=== PATIENT | female | born 1985 | race Caucasian/White ===

== ENCOUNTER 2021-01-03 13:47 | Emergency (ER) | payer OTHER, SELFPAY ==
[2021-01-03 14:25] VITALS: BP 132/86; PULSE 108; RESP 18; TEMP 37.3; O2SAT 97; BMI 24.7
[2021-01-03] MEDS: Ketorolac Tromethamine 60 MG/2 ML VIAL IM (14:53)
--- NOTE | 2021-01-03 15:05 | PC.NURSE ---
PT GIVEN DECADRON PO ORDERED
--- NOTE | 2021-01-03 15:32 | ED_ITS ---
HPI - URI/Sore Throat General Chief Complaint: Upper Respiratory Symptoms Stated Complaint: EAR AND BODY PAINS Time Seen by Provider: 01/03/21 14:32 Source: patient Mode of arrival: ambulatory Limitations: no limitations History of Present Illness HPI Narrative: sore throat, bilateral ear pain x several days. no fevers, chills, body aches. MD elicited complaint: sore throat Onset (ago): day(s) Related Data Previous Rx's Medication Instructions Recorded benzoyl peroxide 5 % topical gel 1 applic TOPICAL DAILY PRN 30 Days 09/05/20 #90 g gabapentin 100 mg capsule 100 mg PO TID #90 cap 09/29/20 amoxicillin 500 mg PO BID 7 Days #140 ml 01/03/21 dexamethasone [Decadron] 4 mg PO BID #10 tab 01/03/21 ibuprofen 800 mg PO Q8H PRN #20 tab 01/03/21 Allergies Allergy/AdvReac Type Severity Reaction Status Date / Time No Known Allergies Allergy Unknown Unverified 08/11/20 16:39 Review of Systems Review of Systems: Yes all other systems are reviewed and are negative Constitutional: Constitutional: Reports no additional constitutional complaints, Denies body ache(s), Denies chills, Denies fever(s), Denies headache(s) and Denies weakness Eyes: Eyes: Reports no additional eye complaints and Denies change in vision ENT: Reports system reviewed and no additional complaints, except as documented, Denies dizziness, Reports otalgia, Denies headache(s), Denies nasal congestion, Denies nasal discharge, Denies neck pain and Reports sore throat Cardiovascular: Cardiovascular: Reports no additional cardiovascular complaints, Denies chest pain, Denies leg edema and Denies dyspnea Respiratory: Respiratory: Reports no additional respiratory complaints, Denies cough and Denies dyspnea Gastrointestinal: Gastrointestinal: Reports no additional gastrointestinal complaints, Denies abdominal pain, Denies diarrhea, Denies nausea and Denies vomiting Genitourinary: Genitourinary: Reports no additional female genitourinary complaints and Denies urinary incontinence Musculoskeletal: Musculoskeletal: Reports no additional musculoskeletal complaints, Denies back pain, Denies arthralgias, Denies joint swelling, Denies neck pain, Denies numbness and Denies tingling Integumentary/Breasts: Skin/Breast: Reports system reviewed and no additional complaints, except as docu and Denies rash Neurologic: Denies Abnormal speech present, Denies dizziness, Denies headache(s), Denies numbness, Denies tingling and Denies weakness PMFSH Past Medical History Attestation statement: The following information was validated with the patient. Source: old records reviewed Social History Social History Alcohol intake: never Smoking Status: Never smoker Use of substances other than those prescribed or required for medical reasons: No Advance Directives: No Advance Directives Information Provided: No Physical Exam Vital Signs: Vital Signs: Last Vital Signs Temp 99.1 F 01/03/21 14:25 Pulse 108 H 01/03/21 14:25 Resp 18 01/03/21 14:25 BP 132/86 01/03/21 14:25 Pulse Ox 97 01/03/21 14:25 Body Mass Index 24.7 Const: General: cooperative, healthy appearing, comfortable and no acute distress Orientation/consciousness: patient oriented x3 Limitations: no limitations HENMT: Head: Yes normal to inspection Ears: hearing grossly normal bilaterally General nose exam: Normal external nose present Face and sinu s: Yes normal facial exam Mouth: Normal oral and palatal mucosa present Throat: Yes tonsils normal (bilateral tonsillar erythema/swelling) and Yes uvula midline Eyes: General: appearance normal, both eyes and all related structures Pupils: Equal, round and reactive pupils present Neck: Neck: Yes normal visual inspection Chest: Chest palpation & inspection: normal inspection of the chest Resp: Effort & Inspection: normal respiratory effort Auscultation: clear to auscultation bilaterally Cardio: Rate: regular rate Rhythm: regular rhythm Peripheral pulses: Peripheral pulses 2+ throughout GI: Inspection: Yes normal to inspection Palpation (GI): Soft to palpation and nontender Auscultation: normal bowel sounds Back/Spine/Pelvis: Thoracic/Lumbar Spine: thoracic and lumbar spine normal to inspection Skin: General skin exam: no rashes or lesions noted Neuro: General: patient oriented x3, no focal motor deficits and normal sensation to monofilament Cranial nerves: Yes Equal, round and reactive pupils present Cognition (Neuro): normal cognition Speech: No Abnormal speech present Gait exam (Neuro): Normal gait present Motor exam (neuro): 5/5 motor strength present throughout Extrem: General: Yes normal to inspection Course Course Course Narrative: Exam is consistent with strep pharyngitis. Rapid strep positive. Patient is able to tolerate her own secretions and was able tolerate her medications here in the emergency department. Will send home with course of amoxicillin. Reviewed worrisome signs and symptoms and when to return to the emergency department. Comfortable discharge home. Discharge Plan Discharge Clinical Impression: Pharyngitis Qualifiers: Pharyngitis/tonsillitis etiology: streptococcus Qualified Code(s): J02.0 - Streptococcal pharyngitis Patient Disposition: Home, Self-Care Instructions: Pharyngitis (ED) Additional Instructions: Your test for strep throat was positive here today. Throw out your toothbrush and buy a new one after 24 hours of antibiotics Prescriptions: New amoxicillin 250 mg/5 mL suspension for reconstitution 500 mg PO BID 7 Days Qty: 140 RF: 0 ibuprofen 800 mg tablet 800 mg PO Q8H PRN (Reason: pain) Qty: 20 RF: 0 dexamethasone [Decadron] 4 mg tablet 4 mg PO BID Qty: 10 RF: 0 No Action benzoyl peroxide 5 % gel 1 applic topical DAILY PRN (Reason: acne) 30 Days Qty: 90 RF: 6 gabapentin 100 mg capsule 100 mg PO TID Qty: 90 RF: 1 Interventions: ED Discharge Assessment Last Done: 01/03/21 15:35 Discharge Date/Time: 01/03/21 15:38
== END 2021-01-03 15:38 | disposition home or self-care (01) ==
PROVIDERS: Emergency Provider Emergency Medicine Emergency Medical Services; PCP Internal Medicine
DX: J02.0 Streptococcal pharyngitis (principal); M79.10 Myalgia, unspecified site; Z79.899 Other long term (current) drug therapy
CPT/HCPCS: 87880; 96372; 96374; 99284; J1100; J1885

== ENCOUNTER 2021-04-10 13:28 | Outpatient (REF) | payer OTHER, SELFPAY ==
[2021-04-10 13:57] LABS: COVID-19 Test Negative (Negative)
== END 2021-04-10 13:29 | disposition home or self-care (01) ==
LOC: HO.LAB 13:28
PROVIDERS: Visit Provider Internal Medicine
DX: Z20.822 Contact with and (suspected) exposure to COVID-19 (principal)
CPT/HCPCS: 36415; 87635; C9803

== ENCOUNTER 2021-07-25 15:39 | Outpatient (REF) | payer OTHER, SELFPAY | END 2021-07-25 15:40 | disposition home or self-care (01) | LOC: HO.LAB 15:39 | PROVIDERS: PCP Internal Medicine; Visit Provider Internal Medicine | DX: Z20.822 Contact with and (suspected) exposure to COVID-19 (principal) | CPT/HCPCS: U0003; U0005 ==

== ENCOUNTER 2021-08-23 17:14 | Emergency (ER) | payer OTHER, SELFPAY ==
[2021-08-23 17:58] VITALS: BP 187/117; PULSE 91; RESP 16; TEMP 37.1; O2SAT 98; BMI 29.0
--- NOTE | 2021-08-23 19:09 | PC.NURSE ---
Provider at bedside for primary eval.
--- NOTE | 2021-08-23 19:15 | ED_ITS ---
HPI - Headache General Chief Complaint: Headache Stated Complaint: migraine Time Seen by Provider: 08/23/21 19:10 Source: patient Limitations: no limitations History of Present Illness HPI Narrative: This is a 35-year-old female who complains of a headache that she has had for 3 or 4 days. She said it is constant, and both temples, improved in the morning but still present, associated with some pain also in her jaw on both sides. Patient has a history of bipolar disorder and had recently restarted sertraline, with increasing doses, also about 4-5 days ago started taking [place]'s Wort. Last dose of that was yesterday. The patient denies any visual changes. She denies any neck stiffness or pain. She denies fever. She denies photophobia. She denies any numbness or tingling in her face or arms or legs. She denies any focal weakness trouble walking. She denies any chest pain shortness of breath. She denies any history of hypertension, and does have a family history of hypertension. Related Data Previous Rx's Medication Instructions Recorded benzoyl peroxide 5 % topical gel 1 applic TOPICAL DAILY PRN 30 Days 09/05/20 #90 g amoxicillin 250 mg/5 mL oral 500 mg PO BID 7 Days #140 ml 01/03/21 suspension dexamethasone 4 mg tablet 4 mg PO BID #10 tab 01/03/21 (Decadron) ibuprofen 800 mg tablet 800 mg PO Q8H PRN #20 tab 01/03/21 quetiapine 25 mg tablet [id number] mg PO BEDTIME #270 tab 02/12/21 albuterol sulfate 90 mcg/actuation 2 puff INHALATION Q6H PRN 30 Days 03/17/21 aerosol inhaler (ProAir HFA) #6.7 g clonidine HCl 0.1 mg tablet 0.1 mg PO BEDTIME 90 Days #90 tab 04/17/21 sertraline 50 mg tablet 50 mg PO DAILY 90 Days #90 tab 05/03/21 gabapentin 300 mg capsule 300 mg PO TID 30 Days #90 cap 06/07/21 diazepam 5 mg tablet (Valium) 5 mg PO TID PRN #10 tab 08/23/21 ibuprofen 600 mg tablet 600 mg PO QID PRN #30 tab 08/23/21 Allergies Allergy/AdvReac Type Severity Reaction Status Date / Time No Known Allergies Allergy Unknown Unverified 08/11/20 16:39 Review of Systems Review of Systems: Yes all other systems are reviewed and are negative Constitutional: Constitutional: Reports as per HPI and Denies fever(s) Eyes: Eyes: Reports as per HPI and Reports no additional eye complaints ENT: Reports system reviewed and no additional complaints, except as documented, Reports as per HPI, Denies nasal congestion, Denies nasal discharge and Denies sore throat Cardiovascular: Cardiovascular: Reports as per HPI, Denies chest pain and Denies dyspnea Respiratory: Respiratory: Reports as per HPI, Denies cough and Denies dyspnea Gastrointestinal: Gastrointestinal: Reports as per HPI, Denies abdominal pain, Denies diarrhea and Denies vomiting Genitourinary: Genitourinary: Reports as per HPI, Denies hematuria, Denies urinary frequency and Denies dysuria Musculoskeletal: Musculoskeletal: Reports no additional musculoskeletal complaints and Denies numbness Integumentary/Breasts: Skin/Breast: Reports as per HPI and Denies rash Neurologic: Reports as per HPI, Denies focal weakness, Denies numbness and Denies Sensory deficit (Neuro) Psychiatric: Psychiatric: Reports no additional psychiatric complaints and Reports as per HPI Endocrine: Endocrine: Reports no additional endocrine complaints and Reports as per HPI Hematologic/Lymphatic: Hematologic/Lymphatic: Reports no additional hematologic/lymphatic complaints, Reports as per HPI and Reports other (No peripheral edema) [facility] Social History Social History Alcohol intake: never Advance Directives: No Advance Directives Information Provided: No Patient : No Physical Exam Vital Signs: Vital Signs: Last Vital Signs Temp 98.7 F 08/23/21 17:58 Pulse 70 08/23/21 20:36 Resp 16 08/23/21 20:36 BP 156/105 H 08/23/21 20:36 Pulse Ox 98 08/23/21 19:22 Body Mass Index 29.0 Const: Other: Patient no distress, appears somewhat restless/hyperkinetic, speech somewhat expansive General: cooperative, no acute distress and alert Orientation/consciousness: patient oriented x3 HENMT: Head: Yes normal to inspection Eyes: General: appearance normal, both eyes and all related structures Eyelids: Yes eyelids normal Conjunctivae: conjunctivae normal Pupils: Equal, round and reactive pupils present Neck: Neck: Yes normal visual inspection and Yes supple Chest: Chest palpation & inspection: normal inspection of the chest Resp: Effort & Inspection: normal respiratory effort Auscultation: clear to auscultation bilaterally Cardio: Rate: regular rate Rhythm: regular rhythm Heart sounds: S1 normal heart sound present, S2 normal heart sound present, no gallops, no murmurs and no rubs GI: Palpation (GI): Soft to palpation, nontender and Other GI palpation findings present (Non-distended) Auscultation: normal bowel sounds Skin: General skin exam: no rashes or lesions noted Neuro: General: patient oriented x3, no focal motor deficits and CN's II-XI intact bilaterally Cranial nerves: Yes Equal, round and reactive pupils present Cognition (Neuro): normal cognition Motor exam (neuro): 5/5 motor strength present throughout Sensory Exam: No Sensory deficit (Neuro) Extrem: General: Yes normal to inspection and Yes no pedal edema Psych: Appearance: grossly normal Affect: normal affect MDM - Headache MDM Narrative Medical decision making narrative: Patient with a headache which she rates as an 8/10 at worst for the last 4 days. Patient is and notes that her last menstrual period was about 6 weeks ago, she believes she only had 1 missed menstrual period. Patient is on sertraline, had recently restarted this, also has been taking [place] Jameson's Wort. Serotonin syndrome secondary to this combination is a possibility. Patient is not tachycardic and her blood pressure has improved with clonidine and Ativan. Her headache is also much better with these medicines, in addition to Toradol. Patient is advised to follow up with primary care physician for recheck of her blood pressure, follow-up with OBGYN regarding her . Patient states that she likely will terminate the . The patient has normal renal function. Potassium is mildly low at 3.1 and she will be given 25 mg once to take prior to discharge Lab Data Result diagrams: 08/23/21 19:47 08/23/21 19:46 Labs: Lab Results 08/23/21 08/23/21 08/23/21 Range/Units 19:46 19:46 19:46 WBC (4.8-10.8) X10*3/uL RBC (4.20-5.50) X10*6/uL Hgb (12.0-16.0) g/dl Hct (37-47) % MCV (80-98) fL MCH (27.0-33.0) pg MCHC (31.0-35.0) g/dl RDW (11.0-16.0) % Plt Count (160-400) X10*3/uL MPV (9.4-12.3) fL Immature Gran % (Auto) (0.0-0.4) % Neut % (Auto) (45-73) % Lymph % (Auto) (20-40) % [place] % (Auto) (2-11) % Eos % (Auto) (0-4) % Baso % (Auto) (0-2) % Lymph # (Auto) (1.2-4.9) X10*3/uL [place] # (Auto) (0.1-1.2) X10*3/uL Eos # (Auto) (0.0-0.4) X10*3/uL Baso # (Auto) (0.0-0.2) X10*3/uL Abs Immat Gran (auto) (0.00-0.03) X10*3/uL Absolute Neuts (auto) (2.0-8.3) X10*3/uL Absolute Nucleated RBC (0.0-0.012) X10*3/uL Nucleated RBC % (auto) (0.0-0.2) /100WBC Sodium 136 (135-145) mmol/L Potassium 3.1 L (3.3-5.1) mmol/L Chloride 107 (96-108) mmol/L Carbon Dioxide 20 L (22-29) mmol/L Anion Gap 12 (12-20) BUN 7 L (9-16) mg/dL Creatinine 0.73 (0.5-1.4) mg/dL Estim Creat Clear Calc 95.2 Estimated GFR > 60 Random Glucose 90 (60-115) mg/dL Calcium 8.6 (8.4-10.2) mg/dL Total Bilirubin < 0.2 (0.0-1.0) mg/dL AST 13 (5-31) U/L ALT 12 (0-31) U/L Alkaline Phosphatase 51 (39-117) U/L Total Protein 7.2 (6.5-8.0) g/dL Albumin 4.1 (3.5-5.0) g/dL Urine Test POSITIVE H (NEGATIVE) Urine Opiates Screen Not Detected (Not Detect) Urine Fentanyl Screen Not Detected (Not Detect) Ur Barbiturates Screen Not Detected (Not Detect) Ur Phencyclidine Scrn Not Detected (Not Detect) Ur Amphetamines Screen Not Detected (Not Detect) U Benzodiazepines Scrn Not Detected (Not Detect) Urine Cocaine Screen Not Detected (Not Detect) U Marijuana (THC) Screen Not Detected (Not Detect) 08/23/21 Range/Units 19:47 WBC 14.8 H (4.8-10.8) X10*3/uL RBC 4.11 L (4.20-5.50) X10*6/uL Hgb 11.0 L (12.0-16.0) g/dl Hct 32.6 L (37-47) % MCV 79.3 L (80-98) fL MCH 26.8 L (27.0-33.0) pg MCHC 33.7 (31.0-35.0) g/dl RDW 15.2 (11.0-16.0) % Plt Count 328 (160-400) X10*3/uL MPV 10.0 (9.4-12.3) fL Immature Gran % (Auto) 0.4 (0.0-0.4) % Neut % (Auto) 63.5 (45-73) % Lymph % (Auto) 27.1 (20-40) % [place] % (Auto) 7.8 (2-11) % Eos % (Auto) 0.7 (0-4) % Baso % (Auto) 0.5 (0-2) % Lymph # (Auto) 4.0 (1.2-4.9) X10*3/uL [place] # (Auto) 1.2 (0.1-1.2) X10*3/uL Eos # (Auto) 0.1 (0.0-0.4) X10*3/uL Baso # (Auto) 0.1 (0.0-0.2) X10*3/uL Abs Immat Gran (auto) 0.06 H (0.00-0.03) X10*3/uL Absolute Neuts (auto) 9.4 H (2.0-8.3) X10*3/uL Absolute Nucleated RBC 0.000 (0.0-0.012) X10*3/uL Nucleated RBC % (auto) 0.0 (0.0-0.2) /100WBC Sodium (135-145) mmol/L Potassium (3.3-5.1) mmol/L Chloride (96-108) mmol/L Carbon Dioxide (22-29) mmol/L Anion Gap (12-20) BUN (9-16) mg/dL Creatinine (0.5-1.4) mg/dL Estim Creat Clear Calc Estimated GFR Random Glucose (60-115) mg/dL Calcium (8.4-10.2) mg/dL Total Bilirubin (0.0-1.0) mg/dL AST (5-31) U/L ALT (0-31) U/L Alkaline Phosphatase (39-117) U/L Total Protein (6.5-8.0) g/dL Albumin (3.5-5.0) g/dL Urine Test (NEGATIVE) Urine Opiates Screen (Not Detect) Urine Fentanyl Screen (Not Detect) Ur Barbiturates Screen (Not Detect) Ur Phencyclidine Scrn (Not Detect) Ur Amphetamines Screen (Not Detect) U Benzodiazepines Scrn (Not Detect) Urine Cocaine Screen (Not Detect) U Marijuana (THC) Screen (Not Detect) Discharge Plan Discharge Clinical Impression: Hypertension, Headache, First trimester Instructions: Acute Headache (ED), Hypertension (ED), First Trimester (ED) Additional Instructions: Follow-up with her primary care physician regarding her blood pressure, and [facility]. Do not take [place]'s Wort in combination with your antidepressants. Return for any new or worsened symptoms. Since her planning to terminate your , he can take ibuprofen and Valium as prescribed your headache for the next few days. Make sure to have your blood pressure recheck by her primary care physician in the next 5-7 days Prescriptions: New diazepam [Valium] 5 mg tablet 5 mg PO TID PRN (Reason: muscle spasm) Qty: 10 RF: 0 ibuprofen 600 mg tablet 600 mg PO QID PRN (Reason: pain) Qty: 30 RF: 0 No Action benzoyl peroxide 5 % gel 1 applic topical DAILY PRN (Reason: acne) 30 Days Qty: 90 RF: 6 quetiapine 25 mg tablet [id number] mg PO BEDTIME Qty: 270 RF: 3 albuterol sulfate [ProAir HFA] 90 mcg/actuation HFA aerosol inhaler 2 puff inhalation Q6H PRN (Reason: shortness of breath or wheezing) 30 Days Qty: 6.7 RF: 3 clonidine HCl 0.1 mg tablet 0.1 mg PO BEDTIME 90 Days Qty: 90 RF: 3 sertraline 50 mg tablet 50 mg PO DAILY 90 Days Qty: 90 RF: 1 gabapentin 300 mg capsule 300 mg PO TID 30 Days Qty: 90 RF: 4 amoxicillin 250 mg/5 mL suspension for reconstitution 500 mg PO BID 7 Days Qty: 140 RF: 0 ibuprofen 800 mg tablet 800 mg PO Q8H PRN (Reason: pain) Qty: 20 RF: 0 dexamethasone [Decadron] 4 mg tablet 4 mg PO BID Qty: 10 RF: 0
[2021-08-23 19:22] VITALS: BP 195/122; PULSE 81; RESP 18; O2SAT 98
[2021-08-23 19:31] VITALS: BP 195/122; PULSE 81
[2021-08-23] MEDS: LORazepam 1 MG TABLET PO (19:31)
[2021-08-23] MEDS: cloNIDine HCL 0.2 MG TABLET PO (19:31)
[2021-08-23] MEDS: Ketorolac Tromethamine 60 MG/2 ML VIAL 30 MG IM (19:31)
[2021-08-23 19:53] LABS: MANUAL DIFF FLAG NO
[2021-08-23 19:55] LABS: Basophils Absolute Auto 0.1 X10*3/uL (0.0-0.2); Basophils Percent Auto 0.5 % (0-2); Eosinophils Absolute Auto 0.1 X10*3/uL (0.0-0.4); Eosinophils Percent Auto 0.7 % (0-4); Hematocrit 32.6 % (37-47); Imm Gran Abs Auto 0.06 X10*3/uL (0.00-0.03); Imm Gran Pct Auto 0.4 % (0.0-0.4); Lymphocytes Percent Auto 27.1 % (20-40); Mean Corpuscular HGB Conc 33.7 g/dl (31.0-35.0); Mean Corpuscular Hemoglobin 26.8 pg (27.0-33.0); Mean Corpuscular Volume 79.3 fL (80-98); Monocytes Absolute Auto 1.2 X10*3/uL (0.1-1.2); Monocytes Percent Auto 7.8 % (2-11); Neutrophils Absolute Auto 9.4 X10*3/uL (2.0-8.3); Neutrophils Percent Auto 63.5 % (45-73); Platelet Count 328 X10*3/uL (160-400); Red Blood Count 4.11 X10*6/uL (4.20-5.50); Red Cell Distribution Width 15.2 % (11.0-16.0); White Blood Count 14.8 X10*3/uL (4.8-10.8)
[2021-08-23 20:00] LABS: UPreg QC Valid YES; Urine Pregnancy POSITIVE (NEGATIVE)
--- NOTE | 2021-08-23 20:00 | PC.NURSE ---
PT moved from 18H to 18 due to concern for serotonin syndrome. IV established, labs obtained, PT medicated per JAN. NSR on monitor. VSS. PT aware on plan for CT.
[2021-08-23 20:14] LABS: Amphetamine Screen Urine Not Detected (Not Detect); Barbiturates, Urine Not Detected (Not Detect); Benzodiazepines Screen Urine Not Detected (Not Detect); Cannabinoid Screen Urine Not Detected (Not Detect); Cocaine Screen Urine Not Detected (Not Detect); Fentanyl, urine Not Detected (Not Detect); Opiate Screen Urine Not Detected (Not Detect); Phencyclidine Screen Urine Not Detected (Not Detect)
[2021-08-23 20:16] LABS: Alanine Aminotransferase 12 U/L (0-31); Albumin Level 4.1 g/dL (3.5-5.0); Alkaline Phosphatase 51 U/L (39-117); Anion Gap 12 (12-20); Aspartate Amino Transferase 13 U/L (5-31); Bilirubin Total < 0.2 mg/dL (0.0-1.0); Blood Urea Nitrogen 7 mg/dL (9-16); Calcium 8.6 mg/dL (8.4-10.2); Carbon Dioxide 20 mmol/L (22-29); Chloride 107 mmol/L (96-108); Creatinine Clr Calc Pharmacy 95.2; Estimated Glomerular Filt Rate > 60; Glucose Random 90 mg/dL (60-115); Potassium 3.1 mmol/L (3.3-5.1); Sodium 136 mmol/L (135-145); Total Protein 7.2 g/dL (6.5-8.0)
[2021-08-23 20:35] VITALS: BP 159/100; PULSE 74; RESP 16
[2021-08-23 20:36] VITALS: BP 156/105; PULSE 70; RESP 16
[2021-08-23] MEDS: Potassium Bicarbonate/Cit AC 25 MEQ TABLET.EFF PO (21:16)
[2021-08-23 21:19] VITALS: BP 127/99; PULSE 83; RESP 16; O2SAT 99
--- NOTE | 2021-08-23 21:28 | PC.NURSE ---
PT medicated per CINDY, VSS, PT is ready for DC.
== END 2021-08-23 21:28 | disposition home or self-care (01) ==
PROVIDERS: Emergency Provider Emergency Medicine; PCP Internal Medicine
DX: R51.9 Headache, unspecified (principal); I10 Essential (primary) hypertension; Z79.899 Other long term (current) drug therapy
CPT/HCPCS: 36415; 80053; 80307; 81025; 85025; 96372; 99284; J1885

== ENCOUNTER 2022-08-22 08:15 | Outpatient (RCR) | payer OTHER, SELFPAY ==
--- NOTE | 2022-07-27 09:42 | PC.NURSE ---
Patient did not show up to the program this morning. I called the patient at 0930 and left her a message to call me back.
--- NOTE | 2022-07-27 09:59 | PC.NURSE ---
Second call made to patient. She did not answer the phone. Left voice mail message for her to call me back.
--- NOTE | 2022-07-27 10:08 | PC.NURSE ---
Called Eloy for the 3rd time and she did not answer her phone. Her father Rohan Garcia is listed as her emergency contact. I called and spoke to Rohan to let him know that she was scheduled to attend our program today however she did not show up and is not returning phone calls. He stated he would reach out to her and call me back to f/u.
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
[2022-07-31 10:47] VITALS: BMI 24.3
[2022-07-31 11:20] VITALS: BP 150/102
[2022-07-31 11:33] VITALS: BP 162/100; PULSE 76; TEMP 35.8
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
[2022-07-31 15:15] LABS: Barbiturates, Urine Not Detected (Not Detect); Benzodiazepines Screen Urine Not Detected (Not Detect); Cannabinoid Screen Urine Not Detected (Not Detect); Cocaine Screen Urine POSITIVE (Not Detect); Fentanyl, urine Not Detected (Not Detect); Opiate Screen Urine Not Detected (Not Detect); Phencyclidine Screen Urine Not Detected (Not Detect)
[2022-07-31 15:18] LABS: Amphetamine Screen Urine Not Detected (Not Detect)
[2022-08-01 09:42] VITALS: BP 156/98
--- NOTE | 2022-08-02 10:43 | PC.NURSE ---
Spoke to Kassandra at patient's PCP's office of [facility] Diaz and requested to speak to a nurse to review patients blood pressure readings and to schedule an appointment. Awaiting a call back from the nurse.
[2022-08-02 10:45] VITALS: BP 164/98
--- NOTE | 2022-08-02 12:54 | PC.NURSE ---
Spoke to medical claims manager Renuka from Jenny Diaz's office. Reviewed patient blood pressures on 07/31/22 ay 11:00 162/100 P 76 at 11:20 150/102, 08/01 156/98, 08/02 164/98. Renuka will review with Jenny Diaz and f/u with patient. Of note patient reportedly had 4 scheduled appointments with Jenny Diaz and was no call and no show to appointment. Last seen in 2018. Patient does have an appointment in October 2022 scheduled.
--- NOTE | 2022-08-02 13:44 | PC.NURSE ---
I called the clients therapist Lynette Frederick to inform her that Eloy is in our program. I also requested a call back to talk aboutif she knows of or works with a prescriber that we can make a referral to
--- NOTE | 2022-08-03 14:16 | PC.NURSE ---
Patient called staff this morning and let staff know that she would not be at the program today. She did not say why. I called patient back x2 however I was not able to leave a message at that time. The third time I was able to leave a message and asked patient to call me back to f/u. Awaiting for patient to call me back. In addition, Dr Diaz's office called and stated they were not able to leave patient a message yesterday as Dr Diaz wants patient to increase Clonidine to BID in regards to her blood pressure and if the patient feels too sleepy with the increase she can decrease back to daily dose.
--- NOTE | 2022-08-03 14:59 | PC.NURSE ---
the client called out today
--- NOTE | 2022-08-03 15:02 | PC.NURSE ---
the clients case was opened in treatment team
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
--- NOTE | 2022-08-08 09:36 | PC.NURSE ---
Patient did not show up to the program this morning. I called patient at 0930 and left her a message to call me back.
--- NOTE | 2022-08-08 09:45 | PC.NURSE ---
Called patient a second time at 0945 and left her a message to call me back. Awaiting call back from patient.
--- NOTE | 2022-08-08 10:45 | PC.NURSE ---
The telephone number that patient gave staff is incorrect. Patient did call and spoke to Rachelle the medical secretary receptionist. She told Rachelle she was safe and she just woke up and she has a rash on her body. She stated she will be in tomorrow. Unable to call patient back at this time to f/u regarding rash as we do not have patient's correct phone number as patient has a new phone and did not give us the correct number to the new phone. Patient's father was called and he does not have Eloy's new number however is going to try and get in touch with her and have her call us as soon as possible. Sarai Sanderson is aware.
--- NOTE | 2022-08-09 08:54 | HO.PHPPROGNO ---
Subjective Subjective Date of Service: 08/09/22 Reason For Visit: depression,ADHD,bipolar Medical Problems Affecting Mental Status: No Medication Compliance: Yes Side effects from medications: Yes (wide spread rash from trileptal.) Attending Groups: Yes Review of Systems Acute medical concerns: No Medical Review of Systems: changed Review of Systems Review of Systems Yes all other systems are reviewed and are negative Skin/Breast: Reports rash (Widespread rash across trunk) Mental Status Exam Mental Status Exam Narrative: NAD. Appears slightly hypomanic, disregulated at times. Patient Appearance: Appropriate Patient Orientation: Person, Place, Time and Situation Level of Consciousness: Appropriate Patient Behavior: Appropriate, Cooperative and Good Eye Contact Mood Description: Depressed and Anxious Affect Description: Anxious Patient Cognition Impaired: No Ability to Follow Directions: Good Speech Pattern: Clear, Coherent and Rapid Memory Description: Intact Hallucinations: None Delusions: Not Present Thought Process: Intact Thought Content: positive for Intact Depressive Symptoms: Increased Anxiety, Increased Irritability, Crying Spells, Loss of Int. in Activity, Feelings of Guilt, Increased Fatigue, Low Self Esteem and Difficulty Concentrating Abnormal Motor Activity Signs and Symptoms: Restlessness Judgement: Fair Diagnostics Vital Signs (24Hr): BMI result Body Mass Index 24.3 Assessment & Plan Assessment & Plan (1) Bipolar disorder, current episode depressed, moderate: Status: Acute Code(s): F31.32 - Bipolar disorder, current episode depressed, moderate Assessment and Plan: Patient had begun taking higher dose of Trileptal, promptly broke out in widespread rash across trunk. Stopped taking the medication upon direction yesterday. Discussed other mood stabilization options. Patient reports she felt that the Trileptal was helping to stabilize her mood, interested in other mood stabilizing agents at this time. Education provided regarding medication options, such as increasing bedtime Seroquel, as well as adding a low-dose p.r.n. seroquel during day, or trialing low-dose Depakote. Patient handout provided for Depakote. Patient also interested in Symbax (combo of olanzapine/fluoxetine), she had found this medication on the Internet and would like to discuss further. (2) Generalized anxiety disorder: Status: Acute Code(s): F41.1 - Generalized anxiety disorder Plan 1. Continue with current [facility] plan of care. 2. Trileptal has been discontinued. 3. Patient considering other medication options as described above. 4. Follow-up regarding medication options going forward. Patient educated on: diagnosis, medication risk/benefits and therapeutic strategies Reason for contiued partial hosp. stay Substantial Risk for: inability to function, rapid decompensation and med/psych decompensation Certification I certify that partial hospital treatment is medically necessary due to the symptoms and problems resulting from the patient's mental illness and the failure to treat the patient at the partial hospital level of care would likely result in the patient requiring inpatient psychiatric care which could not be prevented at a less intensive level of care. I spent minutes with the patient and/or on the patient floor today, greater than?50% of which was spent counseling/coordinating care. Discharge Plan Discharge Attending provider: Chino Loaiza Medications: Discontinued sertraline 50 mg tablet 50 mg PO DAILY 90 Days Qty: 90 1RF No Action albuterol sulfate [ProAir HFA] 90 mcg/actuation HFA aerosol inhaler 2 puff inhalation Q6H PRN (Reason: for wheezing) 30 Days Qty: 8.5 3RF gabapentin 300 mg capsule 300 mg PO TID 30 Days Qty: 90 4RF clonidine HCl 0.1 mg tablet 0.1 mg PO BEDTIME 90 Days Qty: 90 3RF quetiapine 25 mg tablet 75 mg PO BEDTIME norethindrone (contraceptive) 0.35 mg Tablet 0.35 mg PO DAILY Stand Alone Forms: Patient Portal Discharge page
--- NOTE | 2022-08-09 15:13 | PC.NURSE ---
On 08/06/22 I spoke to patient and let her know that Dr Murillo's office reviewed her blood pressures and wants her to increase the Clonidine 0.1 mg to BID and if too sleepy to decrease to daily dose. Patient stated she has not been taking the Clonidine. Medication education provided to patient. She agreed to start taking Clonidine once a day to start.
[2022-08-10 10:48] VITALS: BP 160/98
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
--- NOTE | 2022-08-13 09:44 | PC.NURSE ---
Patient reports she did not start taking Clonidine 0.1 mg BID. Educated patient about Hypertension retirement effects. BP 150/96. Patient plans on starting the medication today. Denied using cocaine. Educated patient on the effects of cocaine including with hypertension. Sarai Angulo VAULT TELLER aware.
[2022-08-13 09:46] VITALS: BP 150/96
--- NOTE | 2022-08-13 14:13 | HO.PHPPROGNO ---
Subjective Subjective Date of Service: 08/13/22 Reason For Visit: depression,ADHD,bipolar Medical Problems Affecting Mental Status: No Interim History: Describes mood as alright . Rash has resolved since d/c of trileptal last week. Denies SI,HI. No safety concerns. Keeps forgetting to take scheduled clonidine. No cocaine use since 08/02/22. Medication Compliance: Intermittent (forgets clonidine) Side effects from medications: No Attending Groups: Yes Review of Systems Acute medical concerns: No Medical Review of Systems: changed Review of Systems Review of Systems rash has resolved. Yes all other systems are reviewed and are negative Constitutional: Reports no additional constitutional complaints Mental Status Exam Mental Status Exam Narrative: NAD. Patient Appearance: Appropriate Patient Orientation: Person, Place, Time and Situation Level of Consciousness: Appropriate Patient Behavior: Appropriate, Cooperative and Good Eye Contact Mood Description: Appropriate Affect Description: Appropriate Patient Cognition Impaired: No Ability to Follow Directions: Good Speech Pattern: Clear, Coherent and Rapid Memory Description: Intact Hallucinations: None Delusions: Not Present Thought Process: Intact Thought Content: positive for Intact Depressive Symptoms: Increased Anxiety, Loss of Int. in Activity, Feelings of Guilt, Increased Fatigue, Low Self Esteem and Difficulty Concentrating Judgement: Fair Diagnostics Vital Signs (24Hr): Vital Signs - 24 hr 08/13/22 09:46 Blood Pressure 150/96 H BMI result Body Mass Index 24.3 Assessment & Plan Assessment & Plan (1) Bipolar disorder, current episode depressed, moderate: Status: Acute Code(s): F31.32 - Bipolar disorder, current episode depressed, moderate Assessment and Plan: Mood and affect less labile. No SI, no safety concerns Keeps forgetting to take scheduled clonidine. Frequency had been increased last week by PCP office due to HTN. T/W encouraged patient to start taking it as directed. Patient asking to increase seroquel, as we had discussed as an option last week. Instructed to take seroquel 25mg in am, and keep 75mg dose at bedtime. (2) Generalized anxiety disorder: Status: Acute Code(s): F41.1 - Generalized anxiety disorder Assessment and Plan: Patient agrees to start taking the bp med clonidine as prescribed, as it will also help lower anxiety, as it has done in the past. (3) Cocaine dependence, uncomplicated: Status: Acute Code(s): F14.20 - Cocaine dependence, uncomplicated Assessment and Plan: Patient remains abstinent from substances at this time, has some cravings, but they have lessened. Discussed ADAL at length. Education provided. Finding groups helpful. (4) Opioid dependence, uncomplicated: Status: Acute Code(s): F11.20 - Opioid dependence, uncomplicated Plan 1. continue with current [facility] plan of care. 2. Increase seroquel to 25mg in am, 75mg at bedtime. 3. Continue with other medications as prescribed. 4. Follow-up as per protocol. Patient educated on: diagnosis, medication risk/benefits, substance abuse and medical condition (hypertension) Informed Consent: understands Reason for contiued partial hosp. stay Substantial Risk for: inability to function and rapid decompensation Certification I certify that partial hospital treatment is medically necessary due to the symptoms and problems resulting from the patient's mental illness and the failure to treat the patient at the partial hospital level of care would likely result in the patient requiring inpatient psychiatric care which could not be prevented at a less intensive level of care. I spent minutes with the patient and/or on the patient floor today, greater than?50% of which was spent counseling/coordinating care. Discharge Plan Discharge Attending provider: Chino Loaiza Medications: New quetiapine 25 mg tablet 25 mg PO DAILY Qty: 30 0RF Rx Instructions: take quetiapine 25mg in morning daily Discontinued sertraline 50 mg tablet 50 mg PO DAILY 90 Days Qty: 90 1RF No Action albuterol sulfate [ProAir HFA] 90 mcg/actuation HFA aerosol inhaler 2 puff inhalation Q6H PRN (Reason: for wheezing) 30 Days Qty: 8.5 3RF gabapentin 300 mg capsule 300 mg PO TID 30 Days Qty: 90 4RF clonidine HCl 0.1 mg tablet 0.1 mg PO BEDTIME 90 Days Qty: 90 3RF quetiapine 25 mg tablet 75 mg PO BEDTIME norethindrone (contraceptive) 0.35 mg Tablet 0.35 mg PO DAILY Stand Alone Forms: Patient Portal Discharge page
--- NOTE | 2022-08-14 16:00 | PC.NURSE ---
The client left after the first. She told the medical secretary receptionist that she had to go home to wait for athe people who are going to fix her windows.
--- NOTE | 2022-08-15 09:32 | PC.NURSE ---
Patient did not show up to the program this morning. Called patient and left a message on her voicemail to call me back at 0930.
--- NOTE | 2022-08-15 09:47 | PC.NURSE ---
Called patient and left her a voice mail message to call me back at 0945. Awaiting call back from patient.
--- NOTE | 2022-08-15 10:05 | PC.NURSE ---
Eloy called at 10:00 stating she accidentally hit the off button on her alarm instead of the snooze button and overslept. She plans on coming to the program tomorrow.
[2022-08-16 11:14] VITALS: BP 150/90
[2022-08-16 14:50] LABS: Amphetamine Screen Urine Not Detected (Not Detect); Barbiturates, Urine Not Detected (Not Detect); Benzodiazepines Screen Urine Not Detected (Not Detect); Cannabinoid Screen Urine Not Detected (Not Detect); Cocaine Screen Urine POSITIVE (Not Detect); Fentanyl, urine POSITIVE (Not Detect); Opiate Screen Urine Not Detected (Not Detect); Phencyclidine Screen Urine Not Detected (Not Detect)
--- NOTE | 2022-08-20 11:39 | PC.NURSE ---
Patient called and spoke to Rachelle on 08/17/22 stating she is safe and will not be able to make it to the program.
--- NOTE | 2022-08-21 09:58 | PC.NURSE ---
Patient called out sick today stating she has a sore throat. She also told staff that her fast food manager is coming to her apartment on Saturday regarding her fire alarms thus she may not be able to come in until . Team is aware.
--- NOTE | 2022-08-21 11:05 | PC.NURSE ---
I called Eloy and left her a message to call me back.
--- NOTE | 2022-08-22 08:25 | PC.NURSE ---
I called and left a message with Eloy to call before she comes in . She had reported having cold symptoms yesterday and has been out multiple days. She is scheduled to discharge today.
--- NOTE | 2022-08-23 13:43 | PC.NURSE ---
I made an appointment for the client with [facility] , 08/29/22 @ 1 pm
--- NOTE | 2022-08-23 15:06 | PC.NURSE ---
I called the client and left a message to call me back re a referral was made to [facility].
--- NOTE | 2022-08-24 14:41 | PC.NURSE ---
I again called and left a message for the client to call re appointment made for her with [facility]. I left her the details of the appointment intake 08/29 22 @ 1 pm telehealth and left the phone number for Radha the lean manufacturing coordinator [phone]
--- NOTE | 2022-08-24 14:52 | PC.NURSE ---
I left a message with the clients therapist [facility] client information regarding client appointment with [facility] including contact information.
== END 2022-08-22 23:59 | disposition home or self-care (01) ==
LOC: HO.PHPA 08:15
PROVIDERS: Nurse Practitioner Psychiatric/Mental Health; Visit Provider Psychiatry & Neurology Psychiatry
DX: F31.32 Bipolar disorder, current episode depressed, moderate (principal); F60.3 Borderline personality disorder; F41.1 Generalized anxiety disorder; F14.20 Cocaine dependence, uncomplicated; F11.20 Opioid dependence, uncomplicated; Z79.899 Other long term (current) drug therapy
CPT/HCPCS: 80307; 90791; 90853

== ENCOUNTER 2022-12-28 10:51 | Outpatient (REF) | payer OTHER, SELFPAY ==
[2022-12-28 10:59] LABS: MANUAL DIFF FLAG NO
[2022-12-28 11:41] LABS: Basophils Absolute Auto 0.1 X10*3/uL (0.0-0.2); Basophils Percent Auto 0.9 % (0-2); Eosinophils Absolute Auto 0.4 X10*3/uL (0.0-0.4); Eosinophils Percent Auto 4.2 % (0-4); Hematocrit 34.4 % (37.0-47.0); Hemoglobin 10.9 g/dl (12.0-16.0); Imm Gran Abs Auto 0.02 X10*3/uL (0.00-0.03); Imm Gran Pct Auto 0.2 % (0.0-0.4); Lymphocytes Absolute Auto 3.3 X10*3/uL (1.2-4.9); Lymphocytes Percent Auto 34.5 % (20-40); Mean Corpuscular HGB Conc 31.7 g/dl (31.0-35.0); Mean Corpuscular Hemoglobin 26.6 pg (27.0-33.0); Mean Corpuscular Volume 83.9 fL (80.0-98.0); Monocytes Absolute Auto 0.8 X10*3/uL (0.1-1.2); Monocytes Percent Auto 8.5 % (2-11); Neutrophils Percent Auto 51.7 % (45-73); Platelet Count 455 X10*3/uL (160-400); Red Cell Distribution Width 17.3 % (11.0-16.0); White Blood Count 9.6 X10*3/uL (4.8-10.8)
[2022-12-28 12:25] LABS: Alanine Aminotransferase 17 U/L (0-31); Albumin Level 4.3 g/dL (3.5-5.0); Alkaline Phosphatase 65 U/L (39-117); Anion Gap 15 (12-20); Aspartate Amino Transferase 17 U/L (5-31); Bilirubin Total 0.2 mg/dL (0.0-1.0); Blood Urea Nitrogen 11 mg/dL (9-16); Calcium 9.9 mg/dL (8.4-10.2); Carbon Dioxide 25 mmol/L (22-29); Chloride 102 mmol/L (96-108); Cholesterol 267 mg/dL; Estimated Glomerular Filt Rate > 60; Glucose Fasting 100 mg/dL (60-99); HDL Cholesterol 54 mg/dL; LDL Cholesterol Calculated 175 mg/dl; Potassium 4.6 mmol/L (3.3-5.1); Sodium 137 mmol/L (135-145); Total Protein 7.3 g/dL (6.5-8.0); Triglycerides 191 mg/dL
[2022-12-28 12:54] LABS: Folate 5.7 ng/mL (> or = 4.0); Vitamin B12 444 pg/mL (200-900); Vitamin D 25-OH Total 14.7 ng/mL (>30)
== END 2022-12-28 10:52 | disposition home or self-care (01) ==
LOC: HO.LAB 10:51
PROVIDERS: PCP Internal Medicine; Visit Provider Nurse Practitioner Family
DX: Z00.00 Encounter for general adult medical examination without abnormal findings (principal)
CPT/HCPCS: 36415; 80053; 80061; 82306; 82607; 82746; 84443; 85025

== ENCOUNTER 2023-01-07 15:54 | Outpatient (REF) | payer OTHER, SELFPAY ==
[2023-01-07 17:56] LABS: Cholesterol 270 mg/dL; HDL Cholesterol 60 mg/dL; Iron 49 mcg/dL (30-160); LDL Cholesterol Calculated 174 mg/dl; Percent Iron Saturation 12 % (15-50); Total Iron Binding Capacity 395 mcg/dL (228-428); Triglycerides 182 mg/dL; Unsaturated Iron Binding 346 ug/dL
[2023-01-07 18:14] LABS: Ferritin 20 ng/mL (10-122); Vitamin D 25-OH Total 18.5 ng/mL (>30)
== END 2023-01-07 15:55 | disposition home or self-care (01) ==
LOC: HO.LAB 15:54
PROVIDERS: PCP Internal Medicine; Visit Provider Nurse Practitioner Family
DX: R79.89 Other specified abnormal findings of blood chemistry (principal); E78.5 Hyperlipidemia, unspecified; D64.9 Anemia, unspecified
CPT/HCPCS: 36415; 80061; 82306; 82728; 83540

== ENCOUNTER → 2023-01-09 11:46 | Outpatient (REF) | payer OTHER, SELFPAY ==
--- NOTE | 2023-01-09 11:59 | ECG_ITS ---
Test Reason : QTC CHECCK Blood Pressure : / mmHG Vent. Rate : 128 BPM Atrial Rate : 128 BPM P-R Int : 140 ms QRS Dur : 062 ms QT Int : 302 ms P-R-T Axes : 047 041 020 degrees QTc Int : 440 ms Sinus tachycardia Otherwise normal ECG When compared with ECG of 18-APR-2018 17:15, Non-specific change in ST segment in Inferior leads Referred By: Juan Claros Electronically Signed By:Jay Fish
[2023-01-09 12:14] LABS: MANUAL DIFF FLAG NO
[2023-01-09 13:04] LABS: Basophils Absolute Auto 0.1 X10*3/uL (0.0-0.2); Basophils Percent Auto 0.8 % (0-2); Eosinophils Absolute Auto 0.4 X10*3/uL (0.0-0.4); Eosinophils Percent Auto 3.5 % (0-4); Hematocrit 33.4 % (37.0-47.0); Hemoglobin 10.8 g/dl (12.0-16.0); Imm Gran Abs Auto 0.03 X10*3/uL (0.00-0.03); Imm Gran Pct Auto 0.3 % (0.0-0.4); Lymphocytes Absolute Auto 2.5 X10*3/uL (1.2-4.9); Lymphocytes Percent Auto 23.3 % (20-40); Mean Corpuscular HGB Conc 32.3 g/dl (31.0-35.0); Mean Corpuscular Hemoglobin 26.7 pg (27.0-33.0); Mean Corpuscular Volume 82.7 fL (80.0-98.0); Mean Platelet Volume 10.3 fL (9.4-12.3); Monocytes Absolute Auto 1.1 X10*3/uL (0.1-1.2); Monocytes Percent Auto 10.3 % (2-11); Neutrophils Absolute Auto 6.7 x10*3/uL (2.0-8.3); Neutrophils Percent Auto 61.8 % (45-73); Platelet Count 428 X10*3/uL (160-400); Red Blood Count 4.04 X10*6/uL (4.20-5.50); Red Cell Distribution Width 17.5 % (11.0-16.0); White Blood Count 10.9 X10*3/uL (4.8-10.8)
[2023-01-09 13:15] LABS: Estimated Average Glucose 100 mg/dL; Hemoglobin A1c % 5.1 %
[2023-01-09 13:47] LABS: Alanine Aminotransferase 18 U/L (0-31); Albumin Level 4.4 g/dL (3.5-5.0); Alkaline Phosphatase 59 U/L (39-117); Anion Gap 15 (12-20); Aspartate Amino Transferase 19 U/L (5-31); Bilirubin Total 0.2 mg/dL (0.0-1.0); Blood Urea Nitrogen 16 mg/dL (9-16); Calcium 9.1 mg/dL (8.4-10.2); Carbon Dioxide 20 mmol/L (22-29); Chloride 110 mmol/L (96-108); Cholesterol 235 mg/dL; Estimated Glomerular Filt Rate > 60; Glucose Random 99 mg/dL (60-115); HDL Cholesterol 57 mg/dL; LDL Cholesterol Calculated 165 mg/dl; Potassium 4.6 mmol/L (3.3-5.1); Sodium 140 mmol/L (135-145); Total Protein 7.3 g/dL (6.5-8.0); Triglycerides 66 mg/dL
[2023-01-09 13:54] LABS: Thyroid Stimulating Hormone 1.31 uIU/mL (0.32-4.0)
[2023-01-11 08:59] LABS: Prolactin 5.3 ng/mL
== END ==
LOC: HO.CARD 11:46
PROVIDERS: PCP Internal Medicine; Visit Provider Psychiatry & Neurology Child & Adolescent Psychiatry
DX: F14.21 Cocaine dependence, in remission (principal); F33.1 Major depressive disorder, recurrent, moderate
CPT/HCPCS: 36415; 80053; 80061; 83036; 84146; 84443; 85025; 93005

== ENCOUNTER 2023-04-12 16:41 | Outpatient (REF) | payer OTHER, SELFPAY ==
[2023-04-12 16:57] LABS: MANUAL DIFF FLAG NO
[2023-04-12 17:44] LABS: Basophils Absolute Auto 0.1 X10*3/uL (0.0-0.2); Basophils Percent Auto 0.6 % (0-2); Eosinophils Absolute Auto 0.2 X10*3/uL (0.0-0.4); Eosinophils Percent Auto 1.6 % (0-4); Hematocrit 35.2 % (37.0-47.0); Hemoglobin 11.2 g/dl (12.0-16.0); Imm Gran Abs Auto 0.09 X10*3/uL (0.00-0.03); Imm Gran Pct Auto 0.6 % (0.0-0.4); Lymphocytes Absolute Auto 2.7 X10*3/uL (1.2-4.9); Lymphocytes Percent Auto 18.4 % (20-40); Mean Corpuscular HGB Conc 31.8 g/dl (31.0-35.0); Mean Corpuscular Hemoglobin 27.4 pg (27.0-33.0); Mean Corpuscular Volume 86.1 fL (80.0-98.0); Mean Platelet Volume 10.1 fL (9.4-12.3); Monocytes Absolute Auto 1.1 X10*3/uL (0.1-1.2); Monocytes Percent Auto 7.5 % (2-11); Neutrophils Absolute Auto 10.6 x10*3/uL (2.0-8.3); Neutrophils Percent Auto 71.3 % (45-73); Platelet Count 476 X10*3/uL (160-400); Red Blood Count 4.09 X10*6/uL (4.20-5.50); Red Cell Distribution Width 14.3 % (11.0-16.0); White Blood Count 14.8 X10*3/uL (4.8-10.8)
[2023-04-12 17:55] LABS: Iron 32 mcg/dL (30-160); Percent Iron Saturation 9 % (15-50); Total Iron Binding Capacity 364 mcg/dL (228-428); Unsaturated Iron Binding 332 ug/dL
[2023-04-18 08:38] LABS: Alcohol, Ethyl Urine Screen SEE COMMENTS
== END 2023-04-12 16:42 | disposition home or self-care (01) ==
LOC: HO.LAB 16:41
PROVIDERS: Absent Provider Internal Medicine; PCP Internal Medicine; Visit Provider Internal Medicine
DX: F41.1 Generalized anxiety disorder (principal); D64.9 Anemia, unspecified
CPT/HCPCS: 36415; 80307; 83540; 85025

== ENCOUNTER 2023-04-23 12:41 | Emergency (ER) | payer OTHER, SELFPAY ==
[2023-04-23 13:18] VITALS: BP 128/70; PULSE 100; RESP 18; O2SAT 98; BMI 30.2
--- NOTE | 2023-04-23 13:20 | ED.DENTAL ---
HPI - Dental/Oral General Chief complaint: Dental/Oral Stated complaint: mouth pain Time Seen by Provider: 04/23/23 13:23 Source: patient Mode of arrival: ambulatory Limitations: no limitations History of Present Illness HPI Narrative: 37 y/o female presents to the ER for evaluation of dental pain s/p 6 teeth extracted 6 days ago at the [facility]. She states she was prescribed only Motrin after the extraction and she has been having severe pain, affecting her ability to sleep. She states she is having a hard time eating as well. She went to the dental office today complaining of pain, they washed out the sockets and told her to call her PCP for pain management. Her PCP told her to come to the ER. Patient denies any facial swelling, fevers, chills. No trismus. She has been taking ibuprofen around the clock with minimal relief. MD Complaint: tooth pain Onset (ago): day(s) (6) Duration: constant Severity: moderate Severity scale (1-10): 7 Relieving factors: NSAIDs Exacerbating factors: chewing Context: poor dental care Associated symptoms: sore throat Treatment prior to arrival: none Related Data Home Medications Medication Instructions Recorded Confirmed gabapentin 400 mg capsule 400 mg PO TID 03/26/23 03/26/23 Previous Rx's Medication Instructions Recorded albuterol sulfate 90 mcg/actuation 2 puff inhalation Q6H PRN for 09/10/22 aerosol inhaler (ProAir HFA) wheezing 30 days #8.5 ea quetiapine 100 mg tablet 100 mg PO BEDTIME #30 tabs 12/26/22 quetiapine 25 mg tablet 50 mg PO BEDTIME #30 tabs 01/02/23 cholecalciferol (vitamin D3) 50 50 mcg PO DAILY #90 tabs 01/03/23 mcg (2,000 unit) tablet lisinopril 10 mg tablet 10 mg PO BEDTIME 90 days #90 tabs 01/23/23 amlodipine 10 mg tablet 10 mg PO BEDTIME 90 days #90 tabs 02/26/23 bupropion HCl 450 mg 24 hr tablet, 450 mg PO DAILY 90 days #90 tabs 03/26/23 extended release cetirizine 10 mg tablet (All Day 10 mg PO DAILY PRN allergy 03/26/23 Allergy (cetirizine)) symptoms 90 days #90 tabs docusate sodium 100 mg capsule 100 mg PO DAILY PRN constipation 03/26/23 #30 caps doxycycline hyclate 100 mg tablet 100 mg PO BID 10 days #20 tabs 04/15/23 ondansetron 4 mg disintegrating 4 mg PO Q8H PRN nausea and 04/23/23 tablet vomiting #7 tabs tramadol 50 mg tablet 50 mg PO Q6H PRN severe pain 04/23/23 (scale score 7-10) #10 tabs Allergies Allergy/AdvReac Type Severity Reaction Status Date / Time No Known Allergies Allergy Unknown Verified 03/26/23 07:41 Review of Systems Review of Systems: Yes all other systems are reviewed and are negative [facility] Past Medical History Medical History delivery delivered Cocaine dependence, uncomplicated Exercise-induced asthma Opioid dependence, uncomplicated Surgical History Hx of cholecystectomy Family History Family History Family/Other Mental health disorder Mother Hypertension Father Hypertension Social History Social History Household Members: Significant Other Housing: Apartment Alcohol intake: former Patient Tobacco Use Status: Never used Tobacco e-Cigarette/Vaping Use: Never Used Second Hand Smoke Exposure: No Advance Directives: No Advance Directives Information Provided: No service: No Current occupational status: unemployed Cognitive needs: No Hearing needs: No Vision needs: No Physical Exam Vital Signs: Vital Signs: Last Vital Signs Pulse 100 04/23/23 13:18 Resp 18 04/23/23 13:18 BP 128/70 04/23/23 13:18 Pulse Ox 98 04/23/23 13:18 O2 Del Method Room Air 04/23/23 13:18 BMI result Body Mass Index 30.2 Appearance: Alert. Oriented X3. Patient appears uncomfortable. HEENT: normal inspection face is symmetrical, no swelling. No trismus. Patient has poor dentition. She has sockets were the with some teeth were extracted, mild tenderness, no gingival swelling or fluctuance. CVS: Normal heart rate and rhythm. Pulses normal. Respiratory: No respiratory distress. Skin: Skin warm and dry. Normal skin color. Normal skin turgor. No rashes. Extremities: Normal inspection x4 Neuro: Oriented X 3. Grossly normal, nonfocal Medical Decision Making Medical Decision Making MDM Narrative: 37-year-old female presents to the ER for evaluation of dental pain after she had 6 teeth removed 6 days ago. Ibuprofen not helping the pain. Her dentist is not offering her any other pain control and PCP instructed her to come here. Pain is affecting her sleep. We discussed importance of continuing Motrin and adding Tylenol to her regimen. Will also prescribe a short course of tramadol for severe pain only. Patient was counseled on narcotic use. She is stable for discharge home with outpatient follow-up with her dentist and PCP. Patient agrees with plan. Differential Diagnosis Differential Diagnoses: The differential diagnosis associated with the presentation includes Dental pain status post extraction, postop abscess, toothache Prescription Management I considered prescription management with: Pain Medication RESIDENTIAL ELECTRICIAN reviewed, no narcotics ordered or filled Critical Care Time Critical Care Time Critical Care Time: No Discharge Plan Discharge Clinical Impression: Pain, dental Patient Disposition: Home, Self-Care Instructions: Toothache (ED) Additional Instructions: take the prescribed pain medication as needed for severe pain only. do not drive after taking this medication continue ibuprofen around the clock, take with food add tylenol 975 mg every 6 hours follow up with your dentist for any further concerns Prescriptions: New tramadol 50 mg tablet 50 mg PO Q6H PRN (Reason: severe pain (scale score 7-10)) Qty: 10 0RF ondansetron 4 mg tablet,disintegrating 4 mg PO Q8H PRN (Reason: nausea and vomiting) Qty: 7 0RF No Action albuterol sulfate [ProAir HFA] 90 mcg/actuation HFA aerosol inhaler 2 puff inhalation Q6H PRN (Reason: for wheezing) 30 Days Qty: 8.5 3RF quetiapine 25 mg tablet 50 mg PO BEDTIME Qty: 30 1RF cholecalciferol (vitamin D3) 50 mcg (2,000 unit) tablet 50 mcg PO DAILY Qty: 90 0RF lisinopril 10 mg tablet 10 mg PO BEDTIME 90 Days Qty: 90 1RF amlodipine 10 mg tablet 10 mg PO BEDTIME 90 Days Qty: 90 0RF doxycycline hyclate 100 mg tablet 100 mg PO BID 10 Days Qty: 20 0RF gabapentin 400 mg capsule 400 mg PO TID docusate sodium 100 mg capsule 100 mg PO DAILY PRN (Reason: constipation) Qty: 30 0RF cetirizine [All Day Allergy (cetirizine)] 10 mg tablet 10 mg PO DAILY PRN (Reason: allergy symptoms) 90 Days Qty: 90 0RF bupropion HCl 450 mg tablet extended release 24 hr 450 mg PO DAILY 90 Days Qty: 90 0RF quetiapine 100 mg tablet 100 mg PO BEDTIME Qty: 30 1RF Interventions: ED Discharge Assessment Last Done: 04/23/23 13:27 Discharge Date/Time: 04/23/23 13:27
== END 2023-04-23 13:27 | disposition home or self-care (01) ==
LOC: HO.ED 13:25
PROVIDERS: Emergency Provider Emergency Medicine; PCP Internal Medicine
DX: K08.89 Other specified disorders of teeth and supporting structures (principal)
CPT/HCPCS: 99282; 99283

== ENCOUNTER 2024-03-10 12:41 | Outpatient (AMB) | payer OTHER, SELFPAY ==
--- NOTE | 2024-03-10 12:42 | A.OFFPC_ITS ---
Vital Signs 03/10/24 12:43 Height 5 ft 1 in Weight 158 lb BMI 29.9 BP 112/80 Blood Pressure Location Lt brachial Position Sitting Intake Visit Reasons: follow up Intake Note: Patient here for a follow up Occupational Health Technician Required: No Accompanied by: Self / Same As Patient Allergies No Known Allergies Allergy (Unknown, Verified 03/10/24 13:00) Medication List - Last Reconciled 03/10/24 by Valentina Burroughs MD albuterol sulfate 90 mcg/actuation (ProAir HFA) 2 puffs inhalation Q6H PRN 30 days amlodipine 10 mg PO BEDTIME 90 days bupropion HCl XL 450 mg PO DAILY 90 days cetirizine (All Day Allergy (cetirizine)) 10 mg PO DAILY PRN 90 days cholecalciferol (vitamin D3) 50 mcg PO DAILY docusate sodium 100 mg PO DAILY PRN gabapentin 400 mg PO TID lisinopril 10 mg PO BEDTIME 90 days quetiapine ER 200 mg PO BEDTIME Tobacco use date assessed: 03/10/24 Dental Screening Dental Screen Date: 03/10/24 Did you have a dental visit in the last 12 months?: Yes Did you have a dental problem in the last 6 months where you did not have access to dental care?: No Was dental information given to patient?: Patient has dentist HPI HPI Comments History of Present Illness Details This is a 38-year-old female with moderate bipolar depression, hypertension, constipation and allergic rhinitis as well as borderline personality disorder that comes today for follow-up on her conditions. She currently has no counseling but has been stable with bupropion and is looking for a counselor and psychiatrist. Blood pressure stable. Constipation well control with medications as needed. On antihistamines as needed for her allergic rhinitis. [facility] Medical History (Updated 03/10/24 @ 13:29 by Valentina Burroughs MD) Opioid dependence, uncomplicated Cocaine dependence, uncomplicated Exercise-induced asthma delivery delivered Surgical History History of root canal procedure History of wisdom tooth extraction Hx of cholecystectomy Family History Family/Other Mental health disorder Mother Hypertension Father Hypertension Social History Household Members: Significant Other Housing: Apartment Alcohol intake: former Patient Tobacco Use Status: Never used Tobacco e-Cigarette/Vaping Use: Never Used Second Hand Smoke Exposure: No service: No Current occupational status: unemployed Cognitive needs: No Hearing needs: No Vision needs: No Questionnaire PHQ-9 Over the last 2 weeks, how often have you been bothered by any of the following problems? 1. Little interest or pleasure in doing things: not at all 2. Feeling down, depressed, or hopeless: several days 3. Trouble falling or staying asleep, or sleeping too much: nearly every day 4. Feeling tired or having little energy: more than half the days 5. Poor appetite or overeating: not at all 6. Feeling bad about yourself - or that you are a failure or have let yourself or your family down: not at all 7. Trouble concentrating on things, such as reading the newspaper or watching television: nearly every day 8. Moving or speaking so slowly that other people could have noticed. Or the opposite - being so fidgety or restless that you have been moving around a lot more than usual: several days 9. Thoughts that you would be better off or of hurting yourself in some way: not at all Total score: 10 Depression Screening Interpretation: Positive Depression Screening Follow-up: Existing condition and In treatment Depression Screening Done: Yes 90389 - PHQ-9 Billing: Yes Source: Developed by Drs. Bryan Chisholm, Mary Ascencio, Jose Hogan and colleagues, with an educational jose from [employer]. Thrive Questionnaire Date Thrive assessed: 03/10/24 I am a: Patient What is your living situation today?: I have a steady place to live Within the past 12 months, did the food you bought not last and you didn't have the money to get more?: Never true Within the past 12 months, did you worry whether your food would run out before you got money to buy more?: Never true Do you have trouble paying for medicines?: No Do you have trouble getting transportation to medical appointments?: No Do you have trouble paying your heating and electricity bill?: No Do you have trouble taking care of your child, family member or friend?: No Do you have trouble with day-to-day activities such as bathing, preparing meals, shopping, managing finances, etc.?: No Are you currently unemployed and looking for a job?: No Are you interested in more education?: No Please select the resources that you would like help with: None Currently or been in a relationship where the following occur: no concerns reported THRIVE Score: 0 AUDIT C Alcohol Use Questionnaire (AUDIT-C) 1. How often do you have a drink containing alcohol?: 2-4 times a month 2. How many drinks containing alcohol do you have on a typical day when you are drinking?: 1 or 2 3. How often do you have six or more drinks on one occasion?: Never Total Score: 2 LULU-7 AMB Questionnaire LULU-7 Date LULU - 7 assessed: 03/10/24 Feeling nervous, anxious, or on edge: 1 = Several days Not being able to stop or control worryin = Not at all Worrying too much about different things: 1 = Several days Trouble relaxin = Not at all Being so restless that it is hard to sit still: 0 = Not at all Becoming easily annoyed or irritable: 2 = More than half the days Feeling afraid as if something awful might happen: 1 = Several days Total LULU-7 score (0-4 normal; 5-9 mild; 10-14 moderate; 15-21 severe): 5 Source: Developed by Drs. Bryan Chisholm, Mary Ascencio, Jose Hogan and colleagues, with an educational jose from [employer]. LULU-7 Assessment Billing LULU-7 Assessment Tool: LULU-7 Assessment 42455 Review of Systems Const All systems reviewed & are unremarkable except as noted in HPI and below Eyes Reports no additional complaints, Denies change in vision and Denies other visual disturbances Card Denies chest pain at rest, Denies chest pain with activity, Denies edema, Denies irregular heart rhythm, Denies claudication, Denies dyspnea, Denies dyspnea on exertion, Denies orthopnea, Denies paroxysmal nocturnal dyspnea and Denies slow heart rate Resp Denies cough, Denies dyspnea and Denies dyspnea on exertion Physical exam (Primary Care) Vital Signs: Last Vital Signs BP 112/80 03/10/24 12:43 BMI result Body Mass Index 29.9 Tobacco/Smoking Status: Tobacco use Status Tobacco use date assessed 03/10/24 03/10/24 12:54 Patient Tobacco Use Status Never used Tobacco 03/10/24 12:54 e-Cigarette/Vaping Use Never Used 03/10/24 12:54 PHQ-9: PHQ-9 Score PHQ-9: Total score 10 03/10/24 13:05 Depression Screening Interpretation: Positive Depression Screening Follow-up: Existing condition and In treatment Thrive Assessment: Date of Thrive Assessment Date Thrive assessed 03/10/24 03/10/24 12:54 Currently or been in a relationship where the following occur: no concerns reported Resp Effort & Inspection: normal respiratory effort Auscultation: clear to auscultation bilaterally Cardio Jugular venous distension: no JVD Rate: regular rate Rhythm: regular rhythm Heart sounds: S1 normal heart sound present and S2 normal heart sound present Extrem General: Yes full ROM Assessment and Plan Assessment & Plan (1) Bipolar disorder, current episode depressed, moderate: Code(s): F31.32 - Bipolar disorder, current episode depressed, moderate Plan: Continue bupropion. Continue looking for counseling. (2) Borderline personality disorder: Code(s): F60.3 - Borderline personality disorder Plan: Continue looking for counseling. (3) Hypertension: Code(s): I10 - Essential (primary) hypertension Plan: Continue lisinopril. Blood pressure goal is equal or less than 130/80 (4) Constipation: Code(s): K59.00 - Constipation, unspecified Plan: Continue docusate as needed for constipation. (5) Allergic rhinitis: Code(s): J30.9 - Allergic rhinitis, unspecified Plan: Continue antihistamines as needed. Orders: Orders Lipid Panel 4 Months E78.5 - Hyperlipidemia, unspecified IRON PROFILE 4 Months D64.9 - Anemia, unspecified Vitamin D 25-OH Total 4 Months E55.9 - Vitamin D deficiency, unspecified Complete Blood Count Auto Diff 4 Months D64.9 - Anemia, unspecified Comprehensive [place]. Panel Fast 4 Months I10 - Essential (primary) hypertension Medications: New quetiapine ER 200 mg PO BEDTIME 90 tabs 1RF 90 days Changed From gabapentin 400 mg PO TID To gabapentin 400 mg PO TID 90 caps 2RF 30 days Refilled amlodipine 10 mg PO BEDTIME 90 tabs 0RF 90 days I10 - Essential (primary) hypertension bupropion HCl XL 450 mg PO DAILY 90 tabs 0RF 90 days cetirizine (All Day Allergy (cetirizine)) 10 mg PO DAILY PRN 90 tabs 0RF allergy symptoms 90 days cholecalciferol (vitamin D3) 50 mcg PO DAILY 90 tabs 0RF R79.89 - Other specified abnormal findings of blood chemistry lisinopril 10 mg PO BEDTIME 90 tabs 1RF 90 days I10 - Essential (primary) hypertension docusate sodium 100 mg PO DAILY PRN 30 caps 0RF constipation K59.00 - Constipation, unspecified Coding Level of Care Code Est Pt Level 4 (02736) Diagnoses Bipolar disorder, current episode depressed, moderate F31.32 Borderline personality disorder F60.3 Hypertension I10 Constipation K59.00 Allergic rhinitis J30.9 Additional Codes LULU-7 Assessment Billing - LULU-7 Assessment Tool: LULU-7 Assessment 03479 ([id number]) Time Spent (min) 21
[2024-03-10 12:43] VITALS: BP 112/80; BMI 29.9
== END 2024-03-10 13:09 | disposition home or self-care (01) ==
PROVIDERS: PCP Internal Medicine; Visit Provider Internal Medicine
DX: F31.32 Bipolar disorder, current episode depressed, moderate (principal); F60.3 Borderline personality disorder; I10 Essential (primary) hypertension; K59.00 Constipation, unspecified; J30.9 Allergic rhinitis, unspecified
CPT/HCPCS: 99214

== ENCOUNTER 2024-04-18 08:59 | Emergency (ER) | payer OTHER, SELFPAY ==
[2024-04-18 09:12] VITALS: BP 142/88; PULSE 112; RESP 18; TEMP 36.6; O2SAT 97; BMI 35.9
[2024-04-18 10:00] VITALS: BP 144/89; PULSE 94; RESP 18; TEMP 36.4; O2SAT 97
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
[2024-04-18] MEDS: cephALEXin 500 MG CAPSULE PO (10:49)
[2024-04-18] MEDS: Diphth,Pertus(ACell),Tet Adult 0.5 ML SYRINGE IM (10:49)
--- NOTE | 2024-04-18 10:53 | PC.NURSE ---
pt medicated per provider order. pt provided w/ tdap form.
[2024-04-18 10:54] VITALS: BP 144/89; PULSE 94; RESP 18; TEMP 36.4; O2SAT 97
== END 2024-04-18 10:56 | disposition home or self-care (01) ==
PROVIDERS: Emergency Provider Student in an Organized Health Care Education/Training Program; PCP Internal Medicine
DX: S01.83XA Puncture wound without foreign body of other part of head, initial encounter (principal); S71.032A Puncture wound without foreign body, left hip, initial encounter; S81.832A Puncture wound without foreign body, left lower leg, initial encounter; S31.030A Puncture wound without foreign body of lower back and pelvis without penetration into retroperitoneum, initial encounter; X95.01XA Assault by airgun discharge, initial encounter; Y93.9 Activity, unspecified; Y92.410 Unspecified street and highway as the place of occurrence of the external cause; Y99.9 Unspecified external cause status; Z23 Encounter for immunization
CPT/HCPCS: 90471; 90715; 99283; 99284

== ENCOUNTER 2024-04-28 10:50 | Outpatient (AMB) | payer OTHER, SELFPAY ==
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
[2024-04-28 11:08] VITALS: BP 142/90; PULSE 91; BMI 30.6
== END 2024-04-28 11:00 | disposition home or self-care (01) ==
PROVIDERS: PCP Internal Medicine; Visit Provider Surgery
DX: M79.5 Residual foreign body in soft tissue (principal)
CPT/HCPCS: 99204

== ENCOUNTER → 2024-04-28 10:50 | Outpatient (BNVA) | payer OTHER, SELFPAY | PROVIDERS: PCP Internal Medicine; Visit Provider Surgery | DX: M79.5 Residual foreign body in soft tissue (principal) | CPT/HCPCS: 99202 ==

== ENCOUNTER 2024-05-04 08:41 | Outpatient (REF) | payer OTHER, SELFPAY ==
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
== END 2024-05-04 08:42 | disposition home or self-care (01) ==
LOC: HO.XRAY 08:41
PROVIDERS: PCP Internal Medicine; Visit Provider Surgery
DX: M79.5 Residual foreign body in soft tissue (principal)
CPT/HCPCS: 70140; 73552; 73600

== ENCOUNTER 2024-05-04 09:37 | Emergency (ER) | payer OTHER, SELFPAY ==
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
[2024-05-04 10:06] VITALS: BP 148/95; PULSE 80; RESP 18; TEMP 36.4; O2SAT 97; BMI 30.4
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
[2024-05-04] MEDS: Lidocaine 4 % Patch ADH..PATCH 1 PATCH TRANSDERMA (12:51)
[2024-05-04] MEDS: Ketorolac Tromethamine 30 MG/ML VIAL IM (12:51)
--- NOTE | 2024-05-04 12:54 | PC.NURSE ---
pt medicated for 610 back pain
[2024-05-04 13:53] LABS: Appearance Urine Clear; Color Urine Yellow; Glucose Urine UA Negative (Negative); Leukocyte Esterase Urine Negative (Negative); Nitrite Urine Negative (Negative); Urine Blood Negative (Negative); Urine Ketones Negative (Negative); Urine Protein Negative (Neg-Trace)
[2024-05-04 13:54] LABS: UPreg QC Valid YES; Urine Pregnancy NEGATIVE (NEGATIVE)
[2024-05-04 14:00] VITALS: BP 144/97; PULSE 70; TEMP 36.3; O2SAT 98
[2024-05-04] MEDS: Cyclobenzaprine HCl 5 MG TABLET PO (14:37)
[2024-05-04 14:46] VITALS: BP 114/62; PULSE 81; RESP 16; TEMP 37; O2SAT 94
== END 2024-05-04 14:47 | disposition home or self-care (01) ==
PROVIDERS: Physician Assistant Medical; Emergency Provider Emergency Medicine; PCP Internal Medicine
DX: M54.50 Low back pain, unspecified (principal)
CPT/HCPCS: 72100; 81003; 81025; 96372; 99283; 99284; J1885

== ENCOUNTER 2024-05-12 09:41 | Outpatient (AMB) | payer OTHER, SELFPAY ==
[2024-05-12 09:50] VITALS: BP 120/68; PULSE 88
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
== END 2024-05-12 09:56 | disposition home or self-care (01) ==
PROVIDERS: PCP Internal Medicine; Visit Provider Surgery
DX: M79.5 Residual foreign body in soft tissue (principal)
CPT/HCPCS: 99214

== ENCOUNTER → 2024-05-12 09:41 | Outpatient (BNVA) | payer OTHER, SELFPAY | PROVIDERS: PCP Internal Medicine; Visit Provider Surgery | DX: M79.5 Residual foreign body in soft tissue (principal) | CPT/HCPCS: 99212 ==

== ENCOUNTER 2024-06-18 07:44 | Day surgery (SDC) | payer OTHER, SELFPAY ==
[2024-06-08 10:48] VITALS: BMI 30.2
--- NOTE | 2024-06-17 09:46 | HO.ANESPROP2 ---
Documented by User: Autumn Lofton NP 06/17/24 09:47 HPI - Anesthesia Eval Consult details Narrative: 38yo F for Foreign Body Removal face X2, right neck and left cheek Hx polysub PMFSH Active Problems Active Problems: All Active Problems Foreign body (FB) in soft tissue (Acute) Allergic rhinitis (Acute) Low vitamin D level (Acute) Hyperlipidemia (Acute) Anemia (Acute) Postnasal drip (Acute) Constipation (Acute) Adult general medical exam (Acute) Cervical cancer screening (Acute) Restless leg syndrome (Acute) Depression (Acute) ADHD (Acute) Hypertension (Acute) Generalized anxiety disorder (Acute) Borderline personality disorder (Acute) Bipolar disorder, current episode depressed, moderate (Acute) Past Medical History Medical History (Updated 06/08/24 @ 10:48 by Scarlet Smith RN) Family history of anesthesia complication Anemia Heartburn Bipolar disorder RLS (restless legs syndrome) ADHD (attention deficit hyperactivity disorder) Anxiety Depression Opioid dependence, uncomplicated Cocaine dependence, uncomplicated Exercise-induced asthma Family History Family History Family/Other Mental health disorder Mother Hypertension Father Hypertension Surgical History Surgical History (Updated 06/08/24 @ 10:48 by Scarlet Smith RN) History of History of root canal procedure History of wisdom tooth extraction Hx of cholecystectomy Social History Social History Household Members: Significant Other Housing: Apartment Are you a primary spiritual care coordinator to a significant other at home: No Do you presently have visiting nurse or other home services: No Alcohol intake: former Patient Tobacco Use Status: Never used Tobacco e-Cigarette/Vaping Use: Never Used Second Hand Smoke Exposure: No Substance Use Type Other:: states last used ~ 6 months ago, ~ 11/2023 Have you been hit, kicked, punched, or otherwise hurt by someone within the past year? If so, by whom?: No Are you DNR?: No Advance Directives: No Advance Directives Information Provided: Yes Advance Directives on File: No Recently lost weight without trying: No Eating poorly because of decreased appetite: No Nutrition Risks: No Nutritional Risk Patient : No FDLMP: 05/09/24 : No Poor oral hygiene: No service: No Current occupational status: unemployed Cognitive needs: No Hearing needs: No Vision needs: No Meds Allergies Allergy/AdvReac Type Severity Reaction Status Date / Time No Known Allergies Allergy Unknown Verified 06/18/24 08:12 Home Medications ?Medication ?Instructions ?Recorded ?Confirmed ?Last Taken ?Type bupropion HCl 450 mg 24 hr tablet, 450 mg PO QAM 06/08/24 06/08/24 Unknown History extended release quetiapine 25 mg tablet (Seroquel) 75 mg PO DAILY PRN Anxiety 06/08/24 06/08/24 Unknown History Exam Height,Weight and Vital Signs: Height 5 ft 1 in Weight 72.575 kg Assessment and Plan Assessment Anesthesia Assessment: Chart Reviewed Documented by User: Remi Seay MD 06/18/24 10:28 [facility] Past Medical History Medical History (Updated 06/08/24 @ 10:48 by Scarlet Smith RN) Family history of anesthesia complication Anemia Heartburn Bipolar disorder RLS (restless legs syndrome) ADHD (attention deficit hyperactivity disorder) Anxiety Depression Opioid dependence, uncomplicated Cocaine dependence, uncomplicated Exercise-induced asthma Family History Family History Family/Other Mental health disorder Mother Hypertension Father Hypertension Family history of problems with anesthesia: No Surgical History Surgical History (Updated 06/08/24 @ 10:48 by Scarlet Smith RN) History of History of root canal procedure History of wisdom tooth extraction Hx of cholecystectomy History of Problems with Anesthesia: No Social History Social History Household Members: Significant Other Housing: Apartment Are you a primary spiritual care coordinator to a significant other at home: No Do you presently have visiting nurse or other home services: No Alcohol intake: former Patient Tobacco Use Status: Never used Tobacco e-Cigarette/Vaping Use: Never Used Second Hand Smoke Exposure: No Substance Use Type Other:: states last used ~ 6 months ago, ~ 11/2023 Have you been hit, kicked, punched, or otherwise hurt by someone within the past year? If so, by whom?: No Are you DNR?: No Advance Directives: No Advance Directives Information Provided: Yes Advance Directives on File: No Recently lost weight without trying: No Eating poorly because of decreased appetite: No Nutrition Risks: No Nutritional Risk Patient : No FDLMP: 05/09/24 : No Poor oral hygiene: No service: No Current occupational status: unemployed Cognitive needs: No Hearing needs: No Vision needs: No Meds Allergies Allergy/AdvReac Type Severity Reaction Status Date / Time No Known Allergies Allergy Unknown Verified 06/18/24 08:12 Home Medications ?Medication ?Instructions ?Recorded ?Confirmed ?Last Taken ?Type bupropion HCl 450 mg 24 hr tablet, 450 mg PO QAM 06/08/24 06/08/24 Unknown History extended release quetiapine 25 mg tablet (Seroquel) 75 mg PO DAILY PRN Anxiety 06/08/24 06/08/24 Unknown History Exam Airway Mallampati Class: II TM Dist: >3cm Neck ROM: Full Assessment and Plan Assessment Anesthesia Assessment: Anesthesia Plan Discussed Final Anesthetic Review Family History of Problems with Anesthesia: No History of Problems with Anesthesia: No ASA Class: II Final Preanesthetic Review: No Changes in Pt Med Stat, Meds/Allgs Chart Reviewed, Consent Obtained/Reviewed and Anes Risks/Benef Reviewed Patient Risk: Intermediate Procedure Risk: Low Anesthetic Plan Anesthetic Plan: GA Disposition: Standard PACU
--- NOTE | 2024-06-17 09:48 | MHC.SHP ---
Pre-Procedural Eval Section A - 24 Hr Update-Section A only Date of Service: 06/17/24 The patient is an INPATIENT: No Changes since office visit: No Cold of Flu in the past 2 weeks, No New Medical Problems, No Changes in Medication and No Patient answered all questions Section B - Complete if H&P > 30 days Chief Complaint: Residual foreign body in soft tissue Allergies: Allergies Allergy/AdvReac Type Severity Reaction Status Date / Time No Known Allergies Allergy Unknown Verified 05/12/24 09:52 Plan I have reviewed the history and physical and performed a pertinent physical examination on my patient. No changes have occurred unless specified. Time Spent With Patient Time: Total time managing care of this patient today ____ minutes.
[2024-06-18] VITALS (8 sets, daily range): BP systolic 119–146; BP diastolic 71–95; PULSE 84–98; RESP 16–18; TEMP 36.4–36.6; O2SAT 96–98; BMI 30.8
--- NOTE | 2024-06-18 07:27 | MHC.SHP ---
Pre-Procedural Eval Section A - 24 Hr Update-Section A only Date of Service: 06/18/24 The patient is an INPATIENT: No Changes since office visit: No Cold of Flu in the past 2 weeks, No New Medical Problems, No Changes in Medication and No Patient answered all questions The patient has been examined within 24 hours of the surgical procedure. The History & Physical has been completed within 30 days and I have reviewed it.: Yes Section B - Complete if H&P > 30 days Chief Complaint: Residual foreign body in soft tissue Allergies: Allergies Allergy/AdvReac Type Severity Reaction Status Date / Time No Known Allergies Allergy Unknown Verified 05/12/24 09:52 Review of Systems Sugical H&P ROS: Negative: Constitution, Cardiovascular, Respiratory, Neurological, Psychiatric, Hem-Onc, Allergic/Immunologic, Gastrointestinal, Genitourinary, Musculoskeletal, Integumentary, Endocrine and Eyes/Ears/Nose/Throat Exam Surgical H&P Exam: Normal: HEENT, Normal: Heart, Normal: Lungs, Normal: Extremities, Normal: Abdomen, Normal: Skin and Normal: Neurological Plan I have reviewed the history and physical and performed a pertinent physical examination on my patient. No changes have occurred unless specified. Time Spent With Patient Time: Total time managing care of this patient today ____ minutes.
--- NOTE | 2024-06-18 08:10 | PC.NURSE ---
pt on initial assessment denied cocaine or drug use for 6 months
[2024-06-18 08:12] LABS: UPreg QC Valid YES; Urine Pregnancy NEGATIVE (NEGATIVE)
[2024-06-18 08:22] LABS: Amphetamine Screen Urine Not Detected (Not Detect); Barbiturates, Urine Not Detected (Not Detect); Benzodiazepines Screen Urine Not Detected (Not Detect); Buprenorphine Scr Not Detected (Not Detect); Cannabinoid Screen Urine Not Detected (Not Detect); Cocaine Screen Urine POSITIVE (Not Detect); Fentanyl, urine Not Detected (Not Detect); Methadone Screen, Urine Not Detected (Not Detect); Opiate Screen Urine Not Detected (Not Detect); Oxycodone Screen Urine Not Detected (Not Detect); Phencyclidine Screen Urine Not Detected (Not Detect)
--- NOTE | 2024-06-18 08:39 | PC.NURSE ---
notified pt and Dr. Seay of urine negative but urine toxicology + cocaine @ 0983.
[2024-06-18] MEDS: Lactated Ringers 1,000 ML 100 ML IVCONT (08:42)
--- NOTE | 2024-06-18 08:44 | PC.NURSE ---
Dr. Seay at bedside with pt s/p notification of utox + cocaine. no changes discussed and no new orders at this time.
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
[2024-06-18] MEDS: fentaNYL citrate/PF 100 MCG/2 ML VIAL 50 MCG IVPUSH (11:50)
[2024-06-18] MEDS: ondansetron HCL 4 MG/2 ML VIAL IVPUSH (11:59)
== END 2024-06-18 13:14 | disposition home or self-care (01) ==
PROVIDERS: Nurse Practitioner; PCP Internal Medicine; Visit Provider Surgery
PROC: (CPT 10121; principal; 2024-06-18 10:50)
DX: M79.5 Residual foreign body in soft tissue (principal); Z18.10 Retained metal fragments, unspecified; J45.990 Exercise induced bronchospasm; F11.20 Opioid dependence, uncomplicated; F14.20 Cocaine dependence, uncomplicated; F31.9 Bipolar disorder, unspecified; F90.9 Attention-deficit hyperactivity disorder, unspecified type; D64.9 Anemia, unspecified; E78.5 Hyperlipidemia, unspecified; Z79.899 Other long term (current) drug therapy; Z98.890 Other specified postprocedural states; Z56.0 Unemployment, unspecified
CPT/HCPCS: 10121; 10120; 80307; 81025; 88300; J0690; J1100; J2250; J2405; J2704; J2795; J3010

== ENCOUNTER → 2024-06-18 07:44 | Outpatient (BNV) | payer OTHER, SELFPAY | PROVIDERS: PCP Internal Medicine; Visit Provider Surgery | DX: M79.5 Residual foreign body in soft tissue (principal) | CPT/HCPCS: 10120 ==

== ENCOUNTER 2025-01-07 08:46 | Outpatient (AMB) | payer OTHER, SELFPAY ==
--- NOTE | 2025-01-07 08:53 | A.OFFPC_ITS ---
Vital Signs 01/07/25 08:56 Height 5 ft 1 in Weight 139 lb BMI 26.3 BP 126/78 Blood Pressure Location Lt brachial Position Sitting Intake Visit Reasons: Annual exam/disability paperwork Flaker Tender Required: No Accompanied by: Self / Same As Patient Allergies No Known Allergies Allergy (Unknown, Verified 01/07/25 09:08) Medication List - Last Reconciled 01/07/25 by Valentina Burroughs MD albuterol sulfate 90 mcg/actuation 2 puffs inhalation Q6H PRN 30 days amlodipine 10 mg PO BEDTIME 90 days bupropion HCl XL 450 mg PO QAM cetirizine (All Day Allergy (cetirizine)) 10 mg PO DAILY PRN 90 days cholecalciferol (vitamin D3) 50 mcg PO DAILY docusate sodium 100 mg PO DAILY PRN gabapentin 400 mg PO TID 30 days lisinopril 10 mg PO BEDTIME 90 days quetiapine (Seroquel) 75 mg PO DAILY PRN quetiapine ER 200 mg PO BEDTIME 90 days Tobacco use date assessed: 01/07/25 Dental Screening Dental Screen Date: 01/07/25 Did you have a dental visit in the last 12 months?: No Did you have a dental problem in the last 6 months where you did not have access to dental care?: No Was dental information given to patient?: Patient has dentist HPI HPI Comments History of Present Illness Details The patient is a 39-year-old female presenting for a physical examination. She has a history of hypertension, managed with amlodipine 10 mg, and asthma, for which she uses a rescue inhaler. Her mental health concerns include depression with anxiety, bipolar disorder, and borderline personality di sorder. The patient has expressed difficulty in maintaining regular appointments, which impacts her mental health management. Her current prescriptions include bupropion, which she currently takes at half the prescribed 400 mg due to insurance issues and preference. There have been past prescriptions for quetiapine extended-release and 25 mg tablets. She prefers the immediate-release formulation for better control of symptoms at bedtime. The patient also reports a personal history of low vitamin D, managed with supplementation. Social stressors, including her boyfriend's incarceration, contribute to her mental health struggles, with reported stress-induced behaviors such as skin picking. She has infrequent use of cocaine. The patient reports symptoms suggestive of a yeast infection, with sensations of itchiness potentially linked to spandex underwear, without significant discharge. - Tdap vaccine received in 2023; next du e 2033. - Potential need for Pap smear, patient received one during . - Referral to psychiatry for comprehensi ve mental health support. - Monitoring of vitamin D levels and sup plementation. - Blood work discussed for sugar levels to address yeast infection concerns. [facility] Medical History (Updated 01/07/25 @ 09:25 by Valentina Burroughs MD) Family history of anesthesia complication Anemia Heartburn Bipolar disorder RLS (restless legs syndrome) ADHD (attention deficit hyperactivity disorder) Anxiety Depression Opioid dependence, uncomplicated Cocaine dependence, uncomplicated Exercise-induced asthma Surgical History History of surgery (06/18/24) History of History of root canal procedure History of wisdom tooth extraction Hx of cholecystectomy Family History Family/Other Mental health disorder Mother Hypertension Father Hypertension Social History (Updated 01/07/25 @ 09:18 by Valentina Burroughs MD) Household Members: Significant Other Housing: Apartment Are you a primary continuum of care manager to a significant other at home: No Do you presently have visiting nurse or other home services: No Alcohol intake: current Alcohol intake frequency: holidays/special occasions only Patient Tobacco Use Status: Never used Tobacco e-Cigarette/Vaping Use: Never Used Second Hand Smoke Exposure: No Substance Use Type: Crack/Cocaine service: No Current occupational status: unemployed Cognitive needs: No Hearing needs: No Vision needs: No Questionnaire PHQ-9 Over the last 2 weeks, how often have you been bothered by any of the following problems? 1. Little interest or pleasure in doing things: several days 2. Feeling down, depressed, or hopeless: nearly every day 3. Trouble falling or staying asleep, or sleeping too much: nearly every day 4. Feeling tired or having little energy: more than half the days 5. Poor appetite or overeating: several days 6. Feeling bad about yourself - or that you are a failure or have let yourself or your family down: several days 7. Trouble concentrating on things, such as reading the newspaper or watching television: several days 8. Moving or speaking so slowly that other people could have noticed. Or the opposite - being so fidgety or restless that you have been moving around a lot more than usual: more than half the days 9. Thoughts that you would be better off or of hurting yourself in some way: several days Total score: 15 Depression Screening Interpretation: Positive (no suicidal thoughts) Depression Screening Follow-up: Existing condition, In treatment, Community Mental Health Worker F/U and Follow-up Visit Requested Depression Screening Done: Yes 01827 - PHQ-9 Billing: Yes Source: Developed by Drs. Bryan Chisholm, Mary Ascencio, Jose Hogan and colleagues, with an educational jose from [employer]. Thrive Questionnaire Date Thrive assessed: 01/07/25 I am a: Patient What is your living situation today?: I have a steady place to live Within the past 12 months, did the food you bought not last and you didn't have the money to get more?: Never true Within the past 12 months, did you worry whether your food would run out before you got money to buy more?: Never true Do you have trouble paying for medicines?: No Do you have trouble getting transportation to medical appointments?: No Do you have trouble paying your heating and electricity bill?: No Do you have trouble taking care of your child, family member or friend?: No Do you have trouble with day-to-day activities such as bathing, preparing meals, shopping, managing finances, etc.?: No Are you currently unemployed and looking for a job?: No Are you interested in more education?: No Please select the resources that you would like help with: None Currently or been in a relationship where the following occur: No concerns reported THRIVE Score: 0 AUDIT C Alcohol Use Questionnaire (AUDIT-C) 1. How often do you have a drink containing alcohol?: Monthly or less 2. How many drinks containing alcohol do you have on a typical day when you are drinking?: 1 or 2 3. How often do you have six or more drinks on one occasion?: Never Total Score: 1 Score Reviewed/Action Taken: No LULU-7 AMB Questionnaire LULU-7 Date LULU - 7 assessed: 01/07/25 Feeling nervous, anxious, or on edge: 2 = More than half the days Not being able to stop or control worryin = Not at all Worrying too much about different things: 1 = Several days Trouble relaxin = Several days Being so restless that it is hard to sit still: 1 = Several days Becoming easily annoyed or irritable: 1 = Several days Feeling afraid as if something awful might happen: 0 = Not at all Total LULU-7 score (0-4 normal; 5-9 mild; 10-14 moderate; 15-21 severe): 6 Source: Developed by Drs. Bryan Chisholm, Mary Ascencio, Jose Hogan and colleagues, with an educational jose from [employer]. LULU-7 Assessment Billing LULU-7 Assessment Tool: LULU-7 Assessment 49877 Review of Systems Const All systems reviewed & are unremarkable except as noted in HPI and below Card Denies chest pain at rest, Denies chest pain with activity, Denies edema, Denies irregular heart rhythm, Denies claudication, Denies dyspnea, Denies dyspnea on exertion, Denies orthopnea, Denies paroxysmal nocturnal dyspnea and Denies slow heart rate Resp Denies cough, Denies dyspnea and Denies dyspnea on exertion GI Denies abdominal pain, Denies change in bowel habits, Denies excessive flatus, Denies nausea and Denies vomiting Denies urinary incontinence, Denies urinary hesitancy and Denies urinary urgency Musc Reports back pain, Denies atrophy, Denies deformity and Denies limited range of motion Skin/Breast Denies bleeding lesions, Denies changing lesions and Denies rash Psych Reports abnormal sleep pattern, Reports anxiety, Reports depression and Reports irritability Physical exam (Primary Care) Vital Signs: Last Vital Signs BP 126/78 01/07/25 08:56 BMI result Body Mass Index 26.3 Tobacco/Smoking Status: Tobacco use Status Tobacco use date assessed 01/07/25 01/07/25 09:05 Patient Tobacco Use Status Never used Tobacco 01/07/25 09:18 e-Cigarette/Vaping Use Never Used 01/07/25 09:18 PHQ-9: PHQ-9 Score PHQ-9: Total score 15 01/07/25 09:13 Depression Screening Interpretation: Positive (no suicidal thoughts) Depression Screening Follow-up: Existing condition, In treatment, Community Mental Health Worker F/U and Follow-up Visit Requested Thrive Assessment: Date of Thrive Assessment Date Thrive assessed 01/07/25 01/07/25 09:05 Currently or been in a relationship where the following occur: No concerns reported HENMT Head: Yes normal to inspection, Yes normocephalic and Yes atraumatic Ears: external ears normal Eyes General: appearance normal, both eyes and all related structures Eyelids: Yes eyelids normal Conjunctivae: conjunctivae normal Neck Neck: Yes normal visual inspection and Yes supple Resp Effort & Inspection: normal respiratory effort Auscultation: clear to auscultation bilaterally Cardio Jugular venous distension: no JVD Rate: regular rate Rhythm: regular rhythm Heart sounds: S1 normal heart sound present and S2 normal heart sound present GI Inspection: Yes normal to inspection Palpation (GI): Soft to palpation and nontender Auscultation: normal bowel sounds Skin General skin exam: no rashes or lesions noted Neuro General: no focal motor deficits Extrem General: Yes full ROM Psych Affect: Anxious affect present Office Procedures Flu Questionnaire Does the patient have a severe egg allergy?: No Immunizations Fluarix Triv 2311-1998 (PF) 45 mcg (15 mcg x 3)/0.5 mL IM syringe Performing Provider: Valentina Burroughs MD Per[facility] Documented (not given) by: [place] Gibbs on 01/07/25 09:18 Reason Not Given: Patient Refused Coding Level of Care Code Est Pt Level 3 (23530) Est Pt Prev Care 40-64y(02828) Diagnoses Adult general medical exam Z00.00 Screening for cervical cancer Z12.4 Vaginal candidiasis B37.31 Borderline personality disorder F60.3 Bipolar disorder, current episode depressed, moderate F31.32 Additional Codes LULU-7 Assessment Billing - LULU-7 Assessment Tool: LULU-7 Assessment 43353 ([id number]) PHQ-9 - 36841 - PHQ-9 Billing: Yes ([id number]) Time Spent (min) 33 Assessment & Plan Assessment & Plan (1) Adult general medical exam: Code(s): Z00.00 - Encounter for general adult medical examination without abnormal findings Category: Medical (2) Screening for cervical cancer: Code(s): Z12.4 - Encounter for screening for malignant neoplasm of cervix Category: Medical (3) Vaginal candidiasis: Code(s): B37.31 - Acute candidiasis of vulva and vagina Category: Medical (4) Borderline personality disorder: Code(s): F60.3 - Borderline personality disorder Category: Medical (5) Bipolar disorder, current episode depressed, moderate: Code(s): F31.32 - Bipolar disorder, current episode depressed, moderate Category: Medical Plan - Adjust bupropion to 300 mg at patient's request. - Continue asthmatic rescue inhaler and manage asthma symptoms as needed. - Continue amlodipine for hypertension management. - Discontinue quetiapine extended-release and continue with 25 mg tablets as preferred by the patient. - Referral to psychiatry for comprehensive evaluation and medication management. - Arrange for vitamin D level monitoring through pending labs. - Discuss intervention and replacement of potentially irritating fabrics to reduce yeast infection symptoms. - Referral to OBGYN for Pap smear. Patient was informed and verbally consented to the use of an ambient scribe for clinic note documentation during this visit. We discussed the patient's preference in medication adjustments, particularly the reduction of bupropion to 300 mg, given current insurance issues and personal efficacy. We also addressed her mental health status and the need for psychiatric referral for comprehensive support. We talked about managing the potential yeast infection with lifestyle changes, specifically avoiding irritant fabrics. Additionally, we reviewed the importance of continuing asthma and hype rtension management. The potential need for a Pap smear was highlighted, recommending a referral to an OBGYN for screening. Discussion about the continuation of vitamin D supplements and pending lab work was addressed. We also emphasized the importance of maintaining regular psychiatric care to support her mental health needs. Orders: Orders Vitamin D 25-OH Total Today E55.9 - Vitamin D deficiency, unspecified MM tomosynthesis screening BI Today F31.32 - Bipolar disorder, current episode depressed, moderate, Z12.31 - Encounter for screening mammogram for malignant neoplasm of breast Influenza [id number] Immunization Today Z23 - Encounter for immunization Complete Blood Count Auto Diff Today D64.9 - Anemia, unspecified IRON PROFILE Today D64.9 - Anemia, unspecified Comprehensive [place]. Panel Fast Today Z00.00 - Encounter for general adult medical examination without abnormal findings Lipid Panel Today E78.5 - Hyperlipidemia, unspecified, Z00.00 - Encounter for general adult medical examination without abnormal findings Referrals INTERNET SYSTEMS ADMINISTRATOR Referral Z12.4 - Encounter for screening for malignant neoplasm of cervix Psychiatry Referral F31.32 - Bipolar disorder, current episode depressed, moderate Medications: New bupropion HCl XL 300 mg PO QAM 90 days 90 tabs 1RF F31.32 - Bipolar disorder, current episode depressed, moderate, F60.3 - Borderline personality disorder fluconazole 150 mg PO Q3D 2 tabs 0RF B37.31 - Acute candidiasis of vulva and vagina Changed From albuterol sulfate 90 mcg/actuation (ProAir HFA) 2 puffs inhalation Q6H 30 days PRN 8.5 ea 3RF for wheezing To albuterol sulfate 90 mcg/actuation 2 puffs inhalation Q6H 30 days PRN 8.5 ea 3RF for wheezing Refilled gabapentin 400 mg PO TID 30 days 90 caps 2RF Discontinued quetiapine ER Discontinued Reason: Patient Completed Course 200 mg PO BEDTIME 90 days 90 tabs 1RF Patient Instructions: - Continue with rescue inhaler as needed for asthma. - Take amlodipine as prescribed for blood pressure. - Reduce bupropion to 300 mg per day as discussed. - Avoid spandex or heavy fabrics to prevent yeast infections. - Follow up with OBGYN for Pap smear. - Seek psychiatric evaluation for comprehensive mental health support. - Arrange for lab work to monitor vitamin D and blood sugar levels. - Contact mental health professionals if experiencing increased anxiety or depression.
[2025-01-07 08:56] VITALS: BP 126/78; BMI 26.3
--- OUTSIDE RECORDS SUMMARY | 2025-01-07 08:59 | XMS_ITS | Encounter Summary ---
Author Organization [employer] Address [address] [facility] [address] [address] [place] [address] Care Team Providers Care Telephone Messenger Name Role Phone Unavailable Primary Care Provider Unavailabl e Reason for Visit * Reason Comments Med Refill Encounter Details Date Type Department Care Team (Late st Contact Info) Description 04/24/2023 Refill [facility] [address] [place] [address] Eloy Milan, DEEP [address] [place] [address] Dental abscess Social History Tobacco Use Types Packs/Day Years Used Date Smoking Tobacco: Never Smokeless Tobacco: Never Alcohol Use Standard Drinks/Week Comments Never 0 (1 standard drink = 0.6 oz pur e alcohol) Comments Unknown Sex and Gender Information Value Date Recorded Sex Assigned at Female 01/30/2023 1:51 PM EST Legal Sex Female 9:29 AM EST Gender Identity Female 01/30/2023 9:37 AM EST Sexual Orientation Don't know 01/30/2023 9: 37 AM EST COVID-19 Exposure Response Date Recorded In the last 10 days, have yo u been in contact with someone who was confirmed or suspected to have Coronavirus/COVID-19? No / Unsure 04/23/2023 9:54 AM EDT documented as of this encounter Plan of Treatment Not on file documented as of this encounter Visit Diagnoses Diagnosis Dental abscess Periapical abscess without sinus documented in this encounter
--- OUTSIDE RECORDS SUMMARY | 2025-01-07 08:59 | XMS_ITS | Encounter Summary ---
Author Organization [employer] Address [address] [facility] [address] [place] [address] Care Team Providers Care Assistant Statistician Name Role Phone Unavailable Primary Care Provider Unavailabl e Reason for Visit * Reason Comments Med Refill Encounter Details Date Type Department Care Team (Late st Contact Info) Description 02/26/2023 Refill [facility] [address] [place] [address] Eloy Milan DMD [address] [place] [address] Dental abscess Social History Tobacco Use Types [...] suspected to have Coronavirus/COVID-19? No / Unsure 02/20/2023 11:10 AM EDT documented as of this encounter Miscellaneous Notes * Telephone Encounter - Eloy Milan DMD - 04/03/2023 7:59 AM EDT Approving, but needs appt for additional refills. documented in this encounter Plan of Treatment Not on file documented as of this encounter Visit Diagnoses Diagnosis Dental abscess Periapical abscess without sinus documented in this encounter
--- OUTSIDE RECORDS SUMMARY | 2025-01-07 08:59 | XMS_ITS | Clinical Summary ---
Author Organization [facility] Address [address] [place] [phone] Phone Care Team Providers Care Manager School Name Role Phone Unavailable Primary Care Provider Unavailabl e Immunizations Immunization Administration Dates Next Due DTP 05/06/1990,,05/12/1985,1984,1984 Hep B, ped/adol 08/04/1997,04/30/1997,03/30/1997 Hib (HbOC) 04/02/1988 MMR 03/30/1997,01/05/1986 OPV 05/06/1990, 6,03/02/1985,1984 Td (adult) [facility] 5 Lf t etanus toxoid, PF, adsorbed 06/29/1999 Social History Tobacco Use Types Packs/Day Years Used Date Smoking Tobacco: Never Assessed Comments Unknown Sex and Gender Information Value Date Recorded Sex Assigned at Not on file Legal Sex Female 3:41 PM EDT Gender Identity Not on file Sexual Orientation Not on file Plan of Treatment Health Maintenance Due Date Last Done Comments Varicella Vaccines (1 of 2 - 13+ 2-dose series) 1997 DTaP,Tdap,and Td Vaccines (6 - Tdap) 06/30/1999 06/29/1999, 05/06/1990, 03/25/1986, Additional history exists Influenza Vaccines (#1) 2024 COVID-19 Vaccine ( - season) 2024 HIB Vaccines Completed 04/02/1988 IPV Vaccines Completed 05/06/1990, 0511/1985, 03/02/1985, Additional history exists MMR Vaccines Completed 03/30/1997, 01/05/1986 Hepatitis B Vaccines Completed 08/04/1997, 04/30/1997, 03/30/1997 HPV Vaccines Aged Out No longer eligi ble based on patient's age to complete this topic Hepatitis A Vaccines Aged Out No long er eligible based on patient's age to complete this topic Men B Vaccine Aged Out No longer elig ible based on patient's age to complete this topic Meningococcal Vaccine Aged Out No steffi venita eligible based on patient's age to complete this topic Pneumococcal Vaccine Aged Out No long er eligible based on patient's age to complete this topic
--- OUTSIDE RECORDS SUMMARY | 2025-01-07 08:59 | XMS_ITS | Encounter Summary ---
Author Organization [facility] [employer] Address [address] [place] [address] Care Team Providers Care Sleeper Cutter Name Role Phone Unavailable Primary Care Provider Unavailabl e Encounter Details Date Type Department Care Team (Late st Contact Info) Description 03/29/2023 Abstract [facility] [address] [place] [address] Byron Rodrigues DMD [address] [place] [address] Social History Tobacco Use Types Packs/Day Years [...] suspected to have Coronavirus/COVID-19? No / Unsure 03/26/2023 8:47 AM EDT documented as of this encounter Plan of Treatment Not on file documented as of this encounter Visit Diagnoses Not on filedocumented in this encounter
--- OUTSIDE RECORDS SUMMARY | 2025-01-07 08:59 | XMS_ITS | Clinical Summary ---
Author Organization [employer] Address [address] [facility] 7[address] [place] [address] Care Team Providers Care Office Automation Clerk Name Role Phone Unavailable Primary Care Provider Unavailabl e Allergies No known active allergies Medications Sod Fluoride-Potass ium Nitrate 1.1-5 % pasteIndication s:Dental caries [place] teeth morning and night for 2 minutes. Spit, do not rinse. Do not eat or drink anything for 30 minutes following brushing. 112 g 3 3 Active Additional Information Patient not taking.Reported on 10/23/2023 Sodium Fluoride (Sodium Fluoride 5000 Plus) 1.1 % creamIndication s:Dental caries [place] teeth for 2 minutes, morning and night. Spit, do not rinse. Do not eat or drink anything following brushing. 51 g 3 3 Active Additional Information Patient not taking.Reported on 10/23/2023 chlorhexidine (Peridex) 0.12 % solutionIndicat ions:Dental abscess Fill irrigation syringe and irrigate extraction sockets after meals. Spit, do not swallow. 473 mL 3 Active ibuprofen 600 MG tabletIndicatio ns:Dental abscess TAKE 1 TABLET BY MOUTH EVERY SIX HOURS NEEDED FOR MILD PAIN 30 tablet 3 Active Additional Information Patient not taking.Reported on 10/23/2023 gabapentin (Neurontin) 400 MG capsule Take 400 mg by mouth 3 times daily. Active Active Problems Problem Noted Date Diagnosed Date Dental caries 03/26/2023 Social History Tobacco Use Types Packs/Day Years Used Date Smoking Tobacco: Never Smokeless Tobacco: Never Tobacco Cessation:Counseling Given: Not Answered Alcohol Use Standard Drinks/Week Comments Never 0 (1 standard drink = 0.6 oz pur e alcohol) Comments Unknown Sex and Gender Information Value Date Recorded Sex Assigned at Female 01/30/2023 1:51 PM EST Legal Sex Female 9:29 AM EST Gender Identity Female 01/30/2023 9:37 AM EST Sexual Orientation Don't know 01/30/2023 9: 37 AM EST Last Filed Vital Signs Vital Sign Reading Time Taken Comments Blood Pressure 125/78 10/23/2023 2:07 PM EST Pulse 100 03/26/2023 8:58 AM EDT Temperature - - Respiratory Rate - - Oxygen Saturation - - Inhaled Oxygen Concentration - - Weight - - Height - - Body Mass Index - - Plan of Treatment Health Maintenance Due Date Last Done Comments Depression Screening 1984 HIV Screening 1984 SDOH Screening 1984 Alcohol/Substance Use Screening 1996 Family Planning (PISQ) 1999 Hepatitis C Screening 2002 Pap Smear 2005 Cervical Cancer Screening 2014 HPV/Cotest 2014 DTaP/Tdap/Td Vaccines (7 - Td or Tdap) 07/14/2023 07/14/2013, 06/29/1999, 05/06/1990, Additional history exists Dental Oral Exam 08/19/2023 02/15/2023 Dental Prophylaxis 08/19/2023 02/15/2023 Dental X-Ray: Bitewings 02/17/2024 02/15/2023 COVID-19 Vaccine ( season) 2024 08/09/2021, 06/11/2021 Influenza Vaccine (#1) 2024 Tobacco Screening 10/02/2024 10/02/2023 Mammogram 2024 Dental X-Ray: Full Mouth 02/16/2026 02/15/2023 Zoster Vaccines (1 of 2) 2034 RSV Patients and Patients Aged 60 years or older (1 - 1-dose 75+ series) 2059 HIB Vaccines Completed 04/02/1988 IPV Vaccines Completed 05/06/1990, 11/1985, 03/02/1985, Additional history exists Hepatitis B Vaccines Completed 08/04/1997, 04/30/1997, 03/30/1997, Additional history exists HPV Vaccines Aged Out No longer eligi ble based on patient's age to complete this topic Hepatitis A Vaccines Aged Out No long er eligible based on patient's age to complete this topic Meningococcal Vaccine Aged Out No steffi venita eligible based on patient's age to complete this topic Pneumococcal Vaccine: Pediatrics (0 to 5 Years) and At-Risk Patients (6 to 49) Years) Aged Out No longer eligible based on patient's age to complete this topic RSV under 20 months Aged Out No longe r eligible based on patient's age to complete this topic Rotavirus Vaccines Aged Out No longer eligible based on patient's age to complete this topic Procedures Procedure Name Priority Date/Time Associated Diagnosis Comments PROPHYLAXIS - ADULT Routine 02/15/2023 1 1:00 AM EDT Dental caries INTRAORAL - COMPLETE SERIES OF RADIOGRAPHIC IMAGES Routine 02/15/2023 11:00 AM EDT Dental caries COMPREHENSIVE ORAL EVALUATION - NEW OR ESTABLISHED PATIENT Routine 02/15/2023 11:00 AM EDT Dental caries from Last 3 Months or Most Recently Relevant to Health Maintenance Insurance [facility] MEDICAID STAND ADULT
--- OUTSIDE RECORDS SUMMARY | 2025-01-07 08:59 | XMS_ITS | Encounter Summary ---
Author Organization [employer] Address [address] [facility] 7[address] [place] [address] Care Team Providers Care Farm Equipment Operator Name Role Phone Unavailable Primary Care Provider Unavailabl e Reason for Visit * Reason Comments Med Refill Encounter Details Date Type Department Care Team (Late st Contact Info) Description 05/20/2023 Refill [facility] [address] [place] [address] Eloy Milan DMD [address] [place] [address] Dental abscess Social History Tobacco Use Types [...] Telephone Encounter - Eloy Milan DMD - 05/21/2023 9:33 AM EDT Approving, but needs appt for additional refills. documented in this encounter Plan of Treatment Not on file documented as of this encounter Visit Diagnoses Diagnosis Dental abscess Periapical abscess without sinus documented in this encounter
--- OUTSIDE RECORDS SUMMARY | 2025-01-07 08:59 | XMS_ITS | Encounter Summary ---
Author Organization [employer] Address [address] [facility] [address] [place] [address] Care Team Providers Care Electron Beam Welding Machine Operator Name Role Phone Unavailable Primary Care Provider Unavailabl e Reason for Visit * Reason Onset Date Comments Dental Pain 04/17/2023 Encounter Details Date Type Department Care Team (Late st Contact Info) Description 04/17/2023 Telephone [facility] [address] [place] [address] Byron Rodrigues DMD [address] [place], [place] [id number] Dental Pain Social History Tobacco Use Types Packs/Day Years [...] suspected to have Coronavirus/COVID-19? No / Unsure 04/17/2023 1:44 PM EDT documented as of this encounter Miscellaneous Notes * Telephone Encounter - Sirisha Lopez - 04/23/2023 8:45 AM EDT Spoke with [facility] because patient called in again stating that the medication that was sentfor pain was not working. It was ibuprofen. She was stating she was having pain in her side of her throat. Informed that Dr. Rodrigues spoke to patient to let her know that this medication is what was sent to the pharmacy and that nothing stronger can be sent. Informed patient that she may contact her PCP if she feels that she needs something stronger for the pain. * Telephone Encounter - Sirisha Lopez - 04/17/2023 3:46 PM EDT Patient had appt in dental for extractions today and the pain is coming through the novacain. She states she normally is good with pain but it is bad. She would like to kow what to do and if something can be sent to pharmacy documented in this encounter Plan of Treatment Not on file documented as of this encounter Visit Diagnoses Not on filedocumented in this encounter
--- OUTSIDE RECORDS SUMMARY | 2025-01-07 08:59 | XMS_ITS | Encounter Summary ---
Author Organization [employer] Address [address] [facility] [address] [place] [address] Care Team Providers Care Blocker And Sewer Name Role Phone Unavailable Primary Care Provider Unavailabl e Reason for Visit * Reason Comments Med Refill Encounter Details Date Type Department Care Team (Late st Contact Info) Description 02/12/2023 Refill [facility] [address] [place] [address] Eloy Milan DMD [address] [place] [address] Dental abscess Social History Tobacco Use Types [...] suspected to have Coronavirus/COVID-19? No / Unsure 02/15/2023 10:57 AM EDT documented as of this encounter Miscellaneous Notes * Telephone Encounter - Eloy Milan DMD - 02/13/2023 8:29 AM EDT Approving, but needs appt for additional refills. documented in this encounter Plan of Treatment Not on file documented as of this encounter Visit Diagnoses Diagnosis Dental abscess Periapical abscess without sinus documented in this encounter
--- OUTSIDE RECORDS SUMMARY | 2025-01-07 08:59 | XMS_ITS | Clinical Summary ---
Author Organization [facility] Address [address] [place] [address] Care Team Providers Care Architectural Draftsperson Name Role Phone Unknown Primary Care Provider [phone] Allergies No known active allergies Medications Medication Sig Dispensed Refills Start Date End Date Status lithium carbonate (LITHOBID) 300 MG 12 hr CR tabletIndications:Bip olar Mood Disorder Take 2 tablets (600 mg total) by mouth every 12 (twelve) hours around the clock. 56 tablet 1 05/06/2018 Active ferrous sulfate 325 (65 FE) MG EC tabletIndications:Iro n Deficiency Anemia Take 1 tablet (325 mg total) by mouth daily. Take 2 hours before or 4 hours after acid reducers. 14 tablet 1 05/07/2018 Active folic acid (FOLVITE) 1 MG tabletIndications:Fol ate Deficiency Anemia Take 1 tablet (1 mg total) by mouth daily. 14 tablet 1 05/07/2018 Active thiamine (VITAMIN B-1) 100 MG tabletIndications:Thi amine Deficiency Take 1 tablet (100 mg total) by mouth daily. 14 tablet 1 05/07/2018 Active multivitamin Tab tabletIndications:[facility] [employer] [facility] Take 1 tablet by mouth daily. 14 tablet 1 05/07/2018 Active Active Problems Problem Noted Date Diagnosed Date Bipolar 1 disorder 05/01/2018 Acute respiratory failure with hypoxia 8 Assessment & Plan (05/01/2018 10:26 AM EDT): Resolved. Latest blood gas on 04/26-7.45/40 on 40% FiO2 -Patient was also on a Lasix drip, echo with 50% ejection fraction with mild RV systolic dysfunction and midly elevated PASP -CXR with P. Edema -Negative pressure P. Edema., patient was difficult to ventilate and hence got V-V ECMO 04/18-04/19. Was extubated on 04/26 to high flow, currently saturating in the high 90s on 2 L nasal cannula. -On steroid taper, transitioned to 30 mg po on 04/29. We will discontinue steroid taper today. Pneumonia due to methicillin susceptible Staphylococcus aureus 04/27/2018 Assessment & Plan (04/30/2018 12:23 PM EDT): Improving. -CXR with P. Edema -Negative pressure P. Edema. -Legionella, streptococcal antigen, MRSA swab negative, blood culture from 04/19 with staff salivarus, strep mitis 11/28 bottle, blood cultures from 04/20? 2 on 04/24? 2 have been negative. BAL culture from 04/24 with staph aureus greater than 10,000 colony-forming units per mL sensitive to Ancef -Last fever 100.8 on 04/25, white count elevated, but likely due to steroids -ID on board, antibiotics discontinued on 04/29; total 11 days of antibiotics Bradycardia 04/27/2018 Assessment & Plan (04/30/2018 12:24 PM EDT): Resolved -Bradycardia likely from vasovagal episodes during suctioning and repositioning, echo on 04/21 with 50% EF, RV function mildly reduced and PASP mildly elevated. Will keep potassium above 4 and magnesium above 2. -Cardiology following, will follow recs -HR between 76-88 -Will discontinue tele at this time Acute hypernatremia 04/27/2018 Assessment & Plan (05/01/2018 10:27 AM EDT): Resolved -Initially likely in the setting of IVVD intravascular volume depletion from diuresis compounded with poor p.o. Intake -Patient put on nectar thick liquids -Free water deficit corrected -Na 138 on 04/29 Leukocytosis 04/27/2018 Assessment & Plan (05/01/2018 10:27 AM EDT): -In the setting of steroids -Improving, steroids will be discontinued today Normocytic anemia 04/27/2018 Assessment & Plan (04/30/2018 12:25 PM EDT): -H/H 10.1/31.9, patient required 1 PRBC transfusion on 04/22 -Vitamin B12, folate within normal limits, ferritin high, iron low, iron saturation low- ACD unclear what the chronic disease is . -Morphology with no schistocytes, LDH and Hapto high which is not consistent with hemolytic anemia -Will need repeat CBC as outpatient for H/H and WBC Hyperglycemia 04/27/2018 Assessment & Plan (04/27/2018 9:24 PM EDT): Likely steroid-induced, will continue to monitor Polysubstance abuse 04/27/2018 Assessment & Plan (05/01/2018 10:27 AM EDT): -Currently AAO ? 4 , -U tox positive for amphetamines and cocaine on this admission. -Status post methadone taper, continue trazodone 25 mg nightly, continue as needed Dilaudid -Psychiatry recommending IOL admission. -Will transfer to IOL today. Rash, vesicular 04/27/2018 Assessment & Plan (04/29/2018 12:23 PM EDT): -Discontinue valtrex per ID recs Idiopathic hypotension 04/20/2018 Sinus pause Family History Medical History Relation Name Comments No Known Problems Brother No Known Problems Father No Known Problems Mother Depression Paternal Aunt Relation Name Status Comments Brother Alive Father Alive Mother Alive Paternal Aunt Social History Tobacco Use Types Packs/Day Years Used Date Smoking Tobacco: Never Smokeless Tobacco: Never Alcohol Use Standard Drinks/Week Comments Yes 0 (1 standard drink = 0.6 oz pur e alcohol) social drinking Sex and Gender Information Value Date Recorded Sex Assigned at Not on file Gender Identity Not on file Sexual Orientation Not on file Last Filed Vital Signs Vital Sign Reading Time Taken Comments Blood Pressure 113/72 05/06/2018 7:43 AM EDT Pulse 108 05/06/2018 7:43 AM EDT Temperature 37.1 ??C (98.8 ??F) 05/06/2018 7:42 AM ED T Respiratory Rate 18 05/06/2018 7:42 AM EDT Oxygen Saturation 100% 05/05/2018 6:26 PM EDT Inhaled Oxygen Concentration - - Weight 64 kg (141 lb) 05/01/2018 2:48 PM EDT Height 154.9 cm (5' 1 ) 05/01/2018 2:48 PM EDT Body Mass Index 26.64 05/01/2018 2:48 PM EDT Plan of Treatment Health Maintenance Due Date Last Done Comments DTaP/Tdap/Td Vaccines (1 - Tdap) 2003 Hepatitis B Vaccines (1 of 3 - 19+ 3-dose series) 2003 Pneumococcal Vaccine: Pediat rob (0-5 Years) and At-Risk Patients (6 to 49 Years) (1 of 2 - PCV) 2003 Pap Smear (Ages 21-65) 2005 Influenza Vaccine 06/25/2024 COVID-19 Vaccine (1 - 2023-2 5 season) 2024 Mammogram 2024 HIV Screening Completed 04/20/2018 Hepatitis C Virus Screening Completed 04/20/2018 HPV Vaccines Aged Out No longer eligi ble based on patient's age to complete this topic Procedures Procedure Name Priority Date/Time Associated Diagnosis Comments HIV 1/2 AG/AB CMIA REFLEX TO CONFIRMATION Routine 04/20/2018 2:00 AM EDT HEPATITIS C VIRUS (HCV) ANTIBODY Routine 04/20/2018 2:00 AM EDT from Last 3 Months or Most Recently Relevant to Health Maintenance Results * HIV 1/2 Ag/Ab CMIA Reflex to Confirmation (04/20/2018 2:00 AM EDT) HIV 1/2 Ag/Ab CMIA Nonreactive Nonreactive HOSPITAL LAB Comment: Results show no evidence of infection by HIV 1/2. If clinically indicated, repeat CMIA or test by nucleic acid amplification. Performed at [facility], [place], [place] License [id number] ??CLIA [id number] Blood specimen (specimen) Blood specimen / Unknown 04/20/2018 2:00 AM EDT 04/20/2018 2:14 AM EDT Joi Dowell MD LAB BLOOD ORDERABLES HOSPITAL LAB * Hepatitis C Virus (HCV) Antibody (04/20/2018 2:00 AM EDT) Hepatitis C Antibody 0.11 0.00 - 0.79 S/CO ratio HOSPITAL LAB Comment: Nonreactive Performed at [facility], [place], [place] License [id number] ??CLIA [id number] Blood specimen (specimen) Blood specimen / Unknown 04/20/2018 2:00 AM EDT 04/20/2018 2:14 AM EDT Joi Dowell MD LAB BLOOD ORDERABLES HOSPITAL LAB from Last 3 Months or Most Recently Relevant to Health Maintenance Advance Directives * Full Code (Latest Code Status on File) Date Activated Date Inactivated Comments 05/01/2018 4:35 PM Question Answer Comments Decision Thoroughly Discussed with: Patient * Full Code Date Activated Date Inactivated Comments 04/19/2018 12:18 AM 05/01/2018 2:25 PM Care Teams Architectural Draftsperson Relationship Specialty Start Date End Date Unknown Unknow Provider Address PCP - General 04/19/18
== END 2025-01-07 09:28 | disposition home or self-care (01) ==
PROVIDERS: PCP Internal Medicine; Visit Provider Internal Medicine
DX: Z00.00 Encounter for general adult medical examination without abnormal findings (principal); F60.3 Borderline personality disorder; F31.32 Bipolar disorder, current episode depressed, moderate; B37.31 Acute candidiasis of vulva and vagina

== ENCOUNTER → 2025-01-07 08:46 | Outpatient (BNVA) | payer OTHER, SELFPAY | PROVIDERS: PCP Internal Medicine; Visit Provider Internal Medicine | DX: Z00.01 Encounter for general adult medical examination with abnormal findings (principal); B37.31 Acute candidiasis of vulva and vagina; F60.3 Borderline personality disorder; F31.32 Bipolar disorder, current episode depressed, moderate | CPT/HCPCS: 96127; 99212; 99396 ==

== ENCOUNTER 2025-01-10 19:41 | Emergency (ER) | payer OTHER, SELFPAY ==
[2025-01-10 19:45] VITALS: BP 136/88; PULSE 91; O2SAT 100
--- NOTE | 2025-01-10 19:48 | PC.NURSE ---
ELIA at bedside upon EMS arrival for an RME due to right arm numbness.
--- NOTE | 2025-01-10 19:50 | ED_ITS ---
HPI - General Adult General Chief complaint: General Medical Stated complaint: R arm numbness x 30 mins Related Data Home Medications ?Medication ?Instructions ?Recorded ?Confirmed quetiapine 25 mg tablet (Seroquel) 75 mg PO DAILY PRN Anxiety 06/08/24 01/07/25 Previous Rx's ?Medication ?Instructions ?Recorded docusate sodium 100 mg capsule 100 mg PO DAILY PRN constipation 03/10/24 #30 caps lisinopril 10 mg tablet 10 mg PO BEDTIME 90 days #90 tabs 03/10/24 amlodipine 10 mg tablet 10 mg PO BEDTIME 90 days #90 tabs 07/06/24 cetirizine 10 mg tablet (All Day 10 mg PO DAILY PRN allergy 11/29/24 Allergy (cetirizine)) symptoms 90 days #90 tabs cholecalciferol (vitamin D3) 50 50 mcg PO DAILY #90 tabs 11/29/24 mcg (2,000 unit) tablet albuterol sulfate 90 mcg/actuation 2 puff inhalation Q6H PRN for 01/07/25 aerosol inhaler wheezing 30 days #8.5 ea bupropion HCl 300 mg 24 hr tablet, 300 mg PO QAM 90 days #90 tabs 01/07/25 extended release fluconazole 150 mg tablet 150 mg PO Q3D 2 doses #2 tabs 01/07/25 gabapentin 400 mg capsule 400 mg PO TID 30 days #90 caps 01/07/25 nitrofurantoin 100 mg PO Q12H 5 days #10 caps 01/11/25 monohydrate/macrocrystals 100 mg capsule (Macrobid) Allergies Allergy/AdvReac Type Severity Reaction Status Date / Time No Known Allergies Allergy Unknown Verified 01/10/25 20:28 COUNTS INCLUDE 234 BEDS AT THE [facility] Past Medical History Medical History Family history of anesthesia complication Anemia Heartburn Bipolar disorder RLS (restless legs syndrome) ADHD (attention deficit hyperactivity disorder) Anxiety Depression Opioid dependence, uncomplicated Cocaine dependence, uncomplicated Exercise-induced asthma Surgical History History of surgery (06/18/24) History of History of root canal procedure History of wisdom tooth extraction Hx of cholecystectomy Family History Family History Family/Other Mental health disorder Mother Hypertension Father Hypertension Social History Social History (Updated 01/07/25 @ 09:18 by Valentina Burroughs MD) Household Members: Significant Other Housing: Apartment Are you a primary care management associate to a significant other at home: No Do you presently have visiting nurse or other home services: No Alcohol intake: current Alcohol intake frequency: holidays/special occasions only Patient Tobacco Use Status: Never used Tobacco e-Cigarette/Vaping Use: Never Used Second Hand Smoke Exposure: No Substance Use Type: Crack/Cocaine Advance Directives: No Advance Directives Information Provided: No service: No Current occupational status: unemployed Cognitive needs: No Hearing needs: No Vision needs: No Physical Exam ED Vital Signs: Vital Signs - 24 hr 01/10/25 20:25 Temperature 97.4 F Pulse Rate 82 Respiratory Rate 18 Blood Pressure 142/93 H Pulse Oximetry 99 Oxygen Delivery Method Room Air BMI result Body Mass Index 25.2 Course Course Course Narrative: RME, this is a rapid medical exam performed by Patrick Garrett please refer to primary provider for complete H&P- 39 old female presents for evaluation of numbness in her right arm. This started about 30 minutes prior to arrival and has been intermittent. She reports that her symptoms have been improving. She describes a burning sensation in her right arm. She has no neck pain, no headache. She had no symptoms in her leg. No slurred speech, no facial asymmetry. Patient reports her symptoms started after using cocaine and heroin. She has an NIH stroke score of 0. Plan for labs, CT scan of the brain, EKG Reevaluation(s) Reevaluation #1: The patient apparently eloped in the emergency department without being seen. Nursing staff did call the patient she was not having any paresthesias but is complaining of some UTI symptoms with itchy burning. Her urinalysis was consistent with a UTI. I agreed to send a 5 day course of nitrofurantoin to her pharmacy of choice Time: 02:04 Medical Decision Making Lab Data 01/10/25 20:21 01/10/25 20:21 Labs: Lab Results 01/10/25 Range/Units 20:21 WBC 12.4 H (4.8-10.8) X10*3/uL RBC 4.27 (4.20-5.50) X10*6/uL Hgb 11.2 L (12.0-16.0) g/dl Hct 34.7 L (37.0-47.0) % MCV 81.3 (80.0-98.0) fL MCH 26.2 L (27.0-33.0) pg MCHC 32.3 (31.0-35.0) g/dl RDW 17.0 H (11.0-16.0) % Plt Count 403 H (160-400) X10*3/uL MPV 9.8 (9.4-12.3) fL Immature Gran % (Auto) 0.4 (0.0-0.4) % Neut % (Auto) 58.9 (45-73) % Lymph % (Auto) 24.4 (20-40) % Bullock % (Auto) 8.6 (2-11) % Eos % (Auto) 7.1 H (0-4) % Baso % (Auto) 0.6 (0-2) % Lymph # (Auto) 3.0 (1.2-4.9) X10*3/uL Bullock # (Auto) 1.1 (0.1-1.2) X10*3/uL Eos # (Auto) 0.9 H (0.0-0.4) X10*3/uL Baso # (Auto) 0.1 (0.0-0.2) X10*3/uL Abs Immat Gran (auto) 0.05 H (0.00-0.03) X10*3/uL Absolute Neuts (auto) 7.3 (2.0-8.3) x10*3/uL Absolute Nucleated RBC 0.000 (0.0-0.012) X10*3/uL Nucleated RBC % (auto) 0.0 (0.0-0.2) /100WBC PT 11.8 (10.9-12.4) SEC INR 1.0 (0.9-1.1) Sodium 140 (135-145) mmol/L Potassium 3.2 L (3.3-5.1) mmol/L Chloride 107 (96-108) mmol/L Carbon Dioxide 23 (22-29) mmol/L Anion Gap 13 (12-20) BUN 9 (9-16) mg/dL Creatinine 0.80 (0.5-1.4) mg/dL Estim Creat Clear Calc 74.8 Estimated GFR > 60 Random Glucose 102 (60-115) mg/dL Lactic Acid 1.9 (0.5-2.0) mmol/L Calcium 9.0 (8.4-10.2) mg/dL Magnesium 1.9 (1.6-2.6) mg/dL Total Bilirubin 0.2 (0.0-1.0) mg/dL AST 19 (5-31) U/L ALT 18 (0-31) U/L Alkaline Phosphatase 76 (39-117) U/L Troponin I High Sens < 2.7 (<3.5-17.0) ng/L Total Protein 7.5 (6.5-8.0) g/dL Albumin 4.0 (3.5-5.0) g/dL Lipase 21 (8-78) U/L Urine Color Dark Yellow Urine Appearance Cloudy Urine pH 6.0 (5.0-9.0) Ur Specific [place] >= 1.030 H (1.005-1.025) Urine Protein 100 (2+) H (Neg-Trace) mg/dL Urine Glucose (UA) Negative (Negative) mg/dL Urine Ketones 15 (Negative) mg/dL Urine Blood Large (3+) H (Negative) Urine Nitrite Negative (Negative) Ur Leukocyte Esterase Small (1+) H (Negative) Urine RBC >20 H (0-2) /HPF Urine WBC 21-50 H (0-5) /HPF Ur Squamous Epith Cells 6-10 (0-2) /HPF Calcium Oxalate Crystal Present Urine Bacteria 4+ (None Seen) Hyaline Casts 6-10 (0-2) /LPF Urine Opiates Screen POSITIVE H (Not Detect) Ur Buprenorphine Scrn Not Detected (Not Detect) ng/mL Ur Oxycodone Screen Not Detected (Not Detect) ng/mL Urine Methadone Screen Not Detected (Not Detect) ng/mL Urine Fentanyl Screen POSITIVE H (Not Detect) Ur Barbiturates Screen Not Detected (Not Detect) Ur Phencyclidine Scrn Not Detected (Not Detect) Ur Amphetamines Screen Not Detected (Not Detect) U Benzodiazepines Scrn Not Detected (Not Detect) Urine Cocaine Screen POSITIVE H (Not Detect) U Marijuana (THC) Screen Not Detected (Not Detect) Ethyl Alcohol < 10 mg/dL Discharge Plan Discharge Clinical Impression: Paresthesia, Urinary tract infection Patient Disposition: Left W/O Completing Treatment Prescriptions: New nitrofurantoin monohyd/m-cryst [Macrobid] 100 mg capsule 100 mg PO Q12H 5 Days Qty: 10 0RF Rx Instructions: must administer with a meal/food No Action amlodipine 10 mg tablet 10 mg PO BEDTIME 90 Days Qty: 90 0RF cholecalciferol (vitamin D3) 50 mcg (2,000 unit) tablet 50 mcg PO DAILY Qty: 90 0RF cetirizine [All Day Allergy (cetirizine)] 10 mg tablet 10 mg PO DAILY PRN (Reason: allergy symptoms) 90 Days Qty: 90 0RF quetiapine [Seroquel] 25 mg tablet 75 mg PO DAILY PRN (Reason: Anxiety) docusate sodium 100 mg capsule 100 mg PO DAILY PRN (Reason: constipation) Qty: 30 0RF lisinopril 10 mg tablet 10 mg PO BEDTIME 90 Days Qty: 90 1RF albuterol sulfate 90 mcg/actuation HFA aerosol inhaler 2 puff inhalation Q6H PRN (Reason: for wheezing) 30 Days Qty: 8.5 3RF fluconazole 150 mg tablet 150 mg PO Q3D Qty: 2 0RF bupropion HCl 300 mg tablet extended release 24 hr 300 mg PO QAM 90 Days Qty: 90 1RF gabapentin 400 mg capsule 400 mg PO TID 30 Days Qty: 90 2RF Discharge Date/Time: 01/11/25 00:48
--- NOTE | 2025-01-10 19:53 | ECG_ITS ---
Test Reason : R ARM NUMBNESS Blood Pressure : */* mmHG Vent. Rate : 87 BPM Atrial Rate : 87 BPM P-R Int : 126 ms QRS Dur : 72 ms QT Int : 356 ms P-R-T Axes : * 23 13 degrees QTcB Int : 428 ms Possible ectopic atrial rhythm Abnormal ECG When compared with ECG of 09-Jan-2023 12:03, Rhythm change Referred By: Salinas Garrett Electronically Signed By: ALEX PINEDA
--- OUTSIDE RECORDS SUMMARY | 2025-01-10 20:23 | XMS_ITS | Encounter Summary ---
Author Organization [employer] Address [address] [facility] 7t [place] [address] Care Team Providers Care Yeast Culture Developer Name Role Phone Unavailable Primary Care Provider Unavailabl e Reason for Visit * Reason Onset Date Comments Dental Pain 04/17/2023 Encounter Details Date Type Department Care Team (Late st Contact Info) Description 04/17/2023 Telephone [facility] ADULT DENTAL [address] [place] [address] Byron Rodrigues DMD [address] [place], [place] [id number] Dental Pain Social History Tobacco Use Types [...] - 04/23/2023 8:45 AM EDT Spoke with [facility] because patient called in again stating that [...]
--- OUTSIDE RECORDS SUMMARY | 2025-01-10 20:23 | XMS_ITS | Clinical Summary ---
Author Organization [employer] Address [address] [facility] 7t [place] [address] Care Team Providers Care Security Business Analyst Name Role Phone Unavailable Primary Care Provider Unavailabl e Allergies No known active allergies Medications Sod Fluoride-Potass ium Nitrate 1.1-5 % pasteIndication s:Dental caries [place] teeth morning and night for 2 minutes. Spit, do not rinse. Do not eat or drink anything for 30 minutes following brushing. 112 g 3 3 Active Additional Information Patient not taking.Reported on 10/23/2023 Sodium Fluoride (Sodium Fluoride 5000 Plus) 1.1 % creamIndication s:Dental caries [place] teeth for 2 minutes, morning and night. [...] Most Recently Relevant to Health Maintenance Insurance [facility] MEDICAID STAND ADULT
--- OUTSIDE RECORDS SUMMARY | 2025-01-10 20:23 | XMS_ITS | Encounter Summary ---
Author Organization [employer] Address [address] [facility] 7t [place] [address] Care Team Providers Care Project Eng Name Role Phone Unavailable Primary Care Provider Unavailabl e Reason for Visit * Reason Comments Med Refill Encounter Details Date Type Department Care Team (Late st Contact Info) Description 02/12/2023 Refill [facility] ADULT DENTAL [address] [place] [address] Eloy Milan DMD [address] [place] [address] Dental abscess Social History Tobacco Use Types [...]
--- OUTSIDE RECORDS SUMMARY | 2025-01-10 20:23 | XMS_ITS | Clinical Summary ---
Author Organization [facility] Address [address] [place] [address] Care Team Providers Care Tube Coremaker Name Role Phone Unknown Primary Care Provider [phone] Allergies No known active allergies Medications Medication [...] 14 tablet 1 05/07/2018 Active multivitamin Tab tabletIndications:[facility] Pressable [facility] Take 1 tablet by mouth [...] test by nucleic acid amplification. Performed at [facility], [place], [place] License [id number] ??CLIA [id number] Blood specimen (specimen) Blood specimen / Unknown 04/20/2018 2:00 AM EDT 04/20/2018 2:14 AM EDT Joi Dowell MD LAB BLOOD ORDERABLES HOSPITAL LAB * Hepatitis C Virus (HCV) Antibody (04/20/2018 2:00 AM EDT) Hepatitis C Antibody 0.11 0.00 - 0.79 S/CO ratio HOSPITAL LAB Comment: Nonreactive Performed at [facility], [place], [place] ??[place] License [id number] ??CLIA [id number] Blood specimen (specimen) Blood specimen / Unknown [...] 12:18 AM 05/01/2018 2:25 PM Care Teams Tube Coremaker Relationship Specialty Start Date End Date Unknown Unknow Provider Address PCP - General 04/19/18
--- OUTSIDE RECORDS SUMMARY | 2025-01-10 20:23 | XMS_ITS | Encounter Summary ---
Author Organization [employer] Address [address] [facility] 7t [place] [address] Care Team Providers Care Flame Gouger Name Role Phone Unavailable Primary Care Provider Unavailabl e Reason for Visit * Reason Comments Med Refill Encounter Details Date Type Department Care Team (Late st Contact Info) Description 05/20/2023 Refill [facility] ADULT DENTAL [address] [place] [address] Eloy Milan DMD [address] [place] [address] Dental abscess Social History Tobacco Use Types [...]
--- OUTSIDE RECORDS SUMMARY | 2025-01-10 20:23 | XMS_ITS | Encounter Summary ---
Author Organization [employer] Address [address] [facility] 7t [place] [address] Care Team Providers Care Inventory Control/Shipping Receiving Name Role Phone Unavailable Primary Care Provider Unavailabl e Reason for Visit * Reason Comments Med Refill Encounter Details Date Type Department Care Team (Late st Contact Info) Description 04/24/2023 Refill [facility] ADULT DENTAL [address] [facility] [place] [address] Eloy Milan, DEEP [address] [place] [address] Dental abscess Social History Tobacco Use Types [...]
--- OUTSIDE RECORDS SUMMARY | 2025-01-10 20:23 | XMS_ITS | Encounter Summary ---
Author Organization [employer] Address [address] [facility] 7t [place] [address] Care Team Providers Care Facilities Clerk Name Role Phone Unavailable Primary Care Provider Unavailabl e Reason for Visit * Reason Comments Med Refill Encounter Details Date Type Department Care Team (Late st Contact Info) Description 02/26/2023 Refill [facility] ADULT DENTAL [address] [place] [address] Eloy Milan DMD [address] [place] [address] Dental abscess Social History Tobacco Use Types [...]
--- OUTSIDE RECORDS SUMMARY | 2025-01-10 20:23 | XMS_ITS | Encounter Summary ---
Author Organization [employer] Address [address] [facility] [address] 7[address] [place] [address] Care Team Providers Care Paper Making Machine Operator Name Role Phone Unavailable Primary Care Provider Unavailabl e Encounter Details Date Type Department Care Team (Late st Contact Info) Description 03/29/2023 Abstract [facility] ADULT DENTAL [address] [facility] [place] [address] Byron Rodrigues DMD [address] [place] [address] Social History Tobacco Use Types Packs/Day Years [...]
[2025-01-10 20:25] VITALS: BP 142/93; PULSE 82; RESP 18; TEMP 36.3; O2SAT 99; BMI 25.2
[2025-01-10 20:27] LABS: MANUAL DIFF FLAG NO
[2025-01-10 20:28] LABS: Basophils Absolute Auto 0.1 X10*3/uL (0.0-0.2); Basophils Percent Auto 0.6 % (0-2); Eosinophils Absolute Auto 0.9 X10*3/uL (0.0-0.4); Eosinophils Percent Auto 7.1 % (0-4); Hematocrit 34.7 % (37.0-47.0); Hemoglobin 11.2 g/dl (12.0-16.0); Imm Gran Abs Auto 0.05 X10*3/uL (0.00-0.03); Imm Gran Pct Auto 0.4 % (0.0-0.4); Lymphocytes Percent Auto 24.4 % (20-40); Mean Corpuscular HGB Conc 32.3 g/dl (31.0-35.0); Mean Corpuscular Hemoglobin 26.2 pg (27.0-33.0); Mean Corpuscular Volume 81.3 fL (80.0-98.0); Mean Platelet Volume 9.8 fL (9.4-12.3); Monocytes Absolute Auto 1.1 X10*3/uL (0.1-1.2); Monocytes Percent Auto 8.6 % (2-11); Neutrophils Absolute Auto 7.3 x10*3/uL (2.0-8.3); Neutrophils Percent Auto 58.9 % (45-73); Platelet Count 403 X10*3/uL (160-400); Red Blood Count 4.27 X10*6/uL (4.20-5.50); White Blood Count 12.4 X10*3/uL (4.8-10.8)
[2025-01-10 20:29] LABS: Appearance Urine Cloudy; Color Urine Dark Yellow; Glucose Urine UA Negative (Negative); Leukocyte Esterase Urine Small (1+) (Negative); Nitrite Urine Negative (Negative); Specific Gravity - Urine >= 1.030 (1.005-1.025); UMIC TRIGGER UACC YES; Urine Blood Large (3+) (Negative); Urine Ketones 15 mg/dL (Negative); Urine Protein 100 (2+) mg/dL (Neg-Trace)
[2025-01-10 20:34] LABS: Prothrombin Time 11.8 SEC (10.9-12.4)
[2025-01-10 20:39] LABS: Amphetamine Screen Urine Not Detected (Not Detect); Barbiturates, Urine Not Detected (Not Detect); Benzodiazepines Screen Urine Not Detected (Not Detect); Buprenorphine Scr Not Detected (Not Detect); Cannabinoid Screen Urine Not Detected (Not Detect); Cocaine Screen Urine POSITIVE (Not Detect); Fentanyl, urine POSITIVE (Not Detect); Methadone Screen, Urine Not Detected (Not Detect); Opiate Screen Urine POSITIVE (Not Detect); Oxycodone Screen Urine Not Detected (Not Detect); Phencyclidine Screen Urine Not Detected (Not Detect)
[2025-01-10 20:42] LABS: Alanine Aminotransferase 18 U/L (0-31); Alkaline Phosphatase 76 U/L (39-117); Anion Gap 13 (12-20); Aspartate Amino Transferase 19 U/L (5-31); Bilirubin Total 0.2 mg/dL (0.0-1.0); Blood Urea Nitrogen 9 mg/dL (9-16); Carbon Dioxide 23 mmol/L (22-29); Chloride 107 mmol/L (96-108); Creatinine Clr Calc Pharmacy 74.8; Estimated Glomerular Filt Rate > 60; Ethanol < 10 mg/dL; Glucose Random 102 mg/dL (60-115); Lactic Acid 1.9 mmol/L (0.5-2.0); Lipase 21 U/L (8-78); Magnesium 1.9 mg/dL (1.6-2.6); Potassium 3.2 mmol/L (3.3-5.1); Sodium 140 mmol/L (135-145); Total Protein 7.5 g/dL (6.5-8.0)
[2025-01-10 20:44] LABS: Bacteria Urine 4+ (None Seen); Calcium Oxalate Crystals Urine Present; RBC Urine >20 /HPF (0-2); UACC Culture Trigger YES; WBC Urine 21-50 /HPF (0-5)
[2025-01-10 20:49] LABS: Troponin-I High Sensitivity < 2.7 ng/L (<3.5-17.0)
--- NOTE | 2025-01-11 00:57 | PC.NURSE ---
T/w called patient who was not in the waiting room. Pt lab indicated possible UTI, spoke with Patrick VU who did RME on patient. Requested t/w to call and see if pt was having any sx. Pt reported itchiness and discomfort but thought it was a yeast infection. Patrick will send RX to pharmacy, pt is aware.
== END 2025-01-11 00:48 | disposition left against medical advice (07) ==
PROVIDERS: Physician Assistant; Emergency Provider Emergency Medicine; PCP Internal Medicine
DX: N39.0 Urinary tract infection, site not specified (principal); R20.0 Anesthesia of skin; R94.31 Abnormal electrocardiogram [ECG] [EKG]; Z79.899 Other long term (current) drug therapy; Z51.81 Encounter for therapeutic drug level monitoring
CPT/HCPCS: 36415; 80053; 80307; 81001; 83605; 83690; 83735; 84484; 85025; 85610; 87086; 93005; 99283

== ENCOUNTER → 2025-01-10 19:53 | Outpatient (BNV) | payer OTHER, SELFPAY | PROVIDERS: Emergency Provider Emergency Medicine; PCP Internal Medicine; Visit Provider Internal Medicine | DX: R94.31 Abnormal electrocardiogram [ECG] [EKG] (principal); R20.2 Paresthesia of skin | CPT/HCPCS: 93010 ==

== ENCOUNTER 2025-04-03 06:19 | Emergency (ER) | payer OTHER, SELFPAY ==
[2025-04-03] VITALS (10 sets, daily range): BP systolic 122–181; BP diastolic 70–114; PULSE 87–127; RESP 12–22; TEMP 36.7–37.1; O2SAT 93–99; BMI 27.0
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
--- OUTSIDE RECORDS SUMMARY | 2025-04-03 06:49 | XMS_ITS | Clinical Summary ---
Author Organization [facility] Address [address] [place] [address] Care Team Providers Care Entry Level Programmer Name Role Phone Unknown Primary Care Provider [phone] Allergies No known active allergies Medications * This document contains information received from the source organization and may not represent a complete record from that organization. lithium carbonate (LITHOBID) 300 MG 12 hr CR tabletIndicatio ns:Bipolar Mood Disorder Take 2 tablets (600 mg total) by mouth every 12 (twelve) hours around the clock. 56 tablet 1 05/06/2018 Active ferrous sulfate 325 (65 FE) MG EC tabletIndicatio ns:Iron Deficiency Anemia Take 1 tablet (325 mg total) by mouth daily. Take 2 hours before or 4 hours after acid reducers. 14 tablet 1 05/07/2018 Active folic acid (FOLVITE) 1 MG tabletIndicatio ns:Folate Deficiency Anemia Take 1 tablet (1 mg total) by mouth daily. 14 tablet 1 05/07/2018 Active thiamine (VITAMIN B-1) 100 MG tabletIndicatio ns:Thiamine Deficiency Take 1 tablet (100 mg total) by mouth daily. 14 tablet 1 05/07/2018 Active multivitamin Tab tabletIndicatio ns:General Medical Health Take 1 tablet by mouth daily. 14 [...] 0.6 oz pur e alcohol) social drinking Comments Unknown Sex and Gender Information Value Date Recorded Sex Assigned at Not on file Legal Sex Female 6:39 PM EDT Gender Identity Not on file [...] PCV) 2003 Pap Smear (Ages 21-65) 2005 COVID-19 Vaccine ( - 2023-2 5 season) 2024 Mammogram 2024 Influenza Vaccine 06/25/2025 HIV Screening Completed 04/20/2018 Hepatitis C Virus [...] test by nucleic acid amplification. Performed at [facility], [place], [place] ??[place] License 0385 ??CLIA [id number] Blood specimen (specimen) Blood specimen / Unknown 04/20/2018 2:00 AM EDT 04/20/2018 2:14 AM EDT Joi Dowell MD LAB BLOOD ORDERABLES Final Resu lt HOSPITAL LAB * Hepatitis C Virus (HCV) Antibody (04/20/2018 2:00 AM EDT) Hepatitis C Antibody 0.11 0.00 - 0.79 S/CO ratio HOSPITAL LAB Comment: Nonreactive Performed at [facility], [place], [place] License [id number] ??CLIA [id number] Blood specimen (specimen) Blood specimen / Unknown 04/20/2018 2:00 AM EDT 04/20/2018 2:14 AM EDT Joi Dowell MD LAB BLOOD ORDERABLES Final Resu lt HOSPITAL LAB from Last 3 Months or Most Recently Relevant to Health Maintenance Insurance [address] [place] [address] MEDICAID OUT OF STATE [facility] [place] [place] [address] [place] [address] MEDICAID OUT OF STATE [facility] [place] [address] Advance Directives * Full Code (Latest Code Status on File) Date Activated Date Inactivated Comments 05/01/2018 4:35 PM Question Answer Comments Decision Thoroughly Discussed with: Patient * Full Code Date Activated Date Inactivated Comments 04/19/2018 12:18 AM 05/01/2018 2:25 PM Care Teams Entry Level Programmer Relationship Specialty Start Date End Date Unknown Unknow Provider Address PCP - General 04/19/18
--- OUTSIDE RECORDS SUMMARY | 2025-04-03 06:49 | XMS_ITS | Clinical Summary ---
Author Organization [facility] Address [address] [place] [phone] Phone Care Team Providers Care Turf Farmer Name Role Phone Unavailable Primary Care Provider Unavailabl e Immunizations Immunization Administration Dates Next Due DTP 05/06/1990,,05/12/1985,1984,1984 Hep B, ped/adol 08/04/1997,04/30/1997,03/30/1997 Hib (HbOC) 04/02/1988 MMR 03/30/1997,01/05/1986 OPV 05/06/1990, 6,03/02/1985,1984 [facility] 5 Lf t etanus toxoid, PF, adsorbed [...]
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
[2025-04-03] MEDS: LORazepam 1 MG TABLET PO (07:46)
--- NOTE | 2025-04-03 07:53 | PC.NURSE ---
pt remains extremely anxious. pt medicated per provider order. effectiveness pending.
[2025-04-03 08:16] LABS: Appearance Urine Clear; Color Urine Yellow; Glucose Urine UA Negative (Negative); Leukocyte Esterase Urine Trace (Negative); Nitrite Urine Negative (Negative); PH 6.5 (5.0-9.0); Specific Gravity - Urine <= 1.005 (1.005-1.025); UMIC TRIGGER UACC YES; Urine Blood Small (1+) (Negative); Urine Ketones Negative (Negative); Urine Protein Negative (Neg-Trace)
[2025-04-03 08:20] LABS: UPreg QC Valid YES; Urine Pregnancy NEGATIVE (NEGATIVE)
[2025-04-03 08:21] LABS: Bacteria Urine None Seen (None Seen); Hyaline Casts Urine 0-2 /LPF (0-2); Squamous Epithelial Cell Urine 0-2 /HPF (0-2); WBC Urine 0-5 /HPF (0-5)
[2025-04-03 08:27] LABS: Amphetamine Screen Urine Not Detected (Not Detect); Barbiturates, Urine Not Detected (Not Detect); Benzodiazepines Screen Urine Not Detected (Not Detect); Buprenorphine Scr Not Detected (Not Detect); Cannabinoid Screen Urine Not Detected (Not Detect); Cocaine Screen Urine POSITIVE (Not Detect); Fentanyl, urine POSITIVE (Not Detect); Methadone Screen, Urine Not Detected (Not Detect); Opiate Screen Urine POSITIVE (Not Detect); Oxycodone Screen Urine Not Detected (Not Detect); Phencyclidine Screen Urine POSITIVE (Not Detect)
[2025-04-03 08:32] LABS: Alanine Aminotransferase 81 U/L (0-31); Aspartate Amino Transferase 38 U/L (5-31); Creatinine Clr Calc Pharmacy 104.8; Estimated Glomerular Filt Rate > 60
[2025-04-03] MEDS: cefTRIAXone sodium 500 MG, Lidocaine HCl 1 % MPF 1 ML IM (08:48)
[2025-04-03] MEDS: SANE Dolutegravir Sodium 50 MG TAB KIT PO (08:49)
[2025-04-03 08:52] LABS: Syphilis Screen Nonreactive (Nonreactive)
[2025-04-03 08:53] LABS: HBsAGNum1 0.45 S/CO (0.00-0.99); HIV AB/AG Nonreactive (Nonreactive); HIV Num 1 0.07 S/CO (0.00-0.99); Hepatitis B Surface Antigen Negative (Negative); ~HepC Num1 0.09 S/CO (0.00-0.79); ~Hepatitis B Surface Antibody REACTIVE (Nonreactive); ~Hepatitis C Antibody Nonreactive (Nonreactive)
[2025-04-03] MEDS: SANE Emtricit/Tenofov DF 200/300 TABLET KIT 1 TAB PO (08:53)
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
[2025-04-03] MEDS: 0.9 % Sodium Chloride 1,000 ML 999 ML IV (09:31)
--- NOTE | 2025-04-03 09:32 | PC.NURSE ---
20G in left Ac placed, NaCl 0.9% 1L currently running. Patient continues to speak about people judging her . Reassured patient we are here to help and not to quality director.
[2025-04-03 10:23] LABS: Bacterial Vaginosis PCR NEGATIVE (Negative); Candida Group PCR DETECTED (Not Detect); Candida glab krusei PCR NOT DETECTED (Not Detect); Trichomonas vaginalis PCR NOT DETECTED (Not Detect)
[2025-04-03 11:16] LABS: CT PCR NOT DETECTED (Not Detect.); NG PCR NOT DETECTED (Not Detect.)
[2025-04-03] MEDS: Fluconazole 150 MG TABLET PO (11:22)
== END 2025-04-03 15:15 | disposition home or self-care (01) ==
PROVIDERS: Emergency Provider Emergency Medicine; PCP Internal Medicine
DX: T76.21XA Adult sexual abuse, suspected, initial encounter (principal); N93.9 Abnormal uterine and vaginal bleeding, unspecified; B37.31 Acute candidiasis of vulva and vagina; X58.XXXA Exposure to other specified factors, initial encounter; F14.20 Cocaine dependence, uncomplicated; F41.9 Anxiety disorder, unspecified; I10 Essential (primary) hypertension; E78.5 Hyperlipidemia, unspecified; J45.909 Unspecified asthma, uncomplicated; D64.9 Anemia, unspecified; F90.9 Attention-deficit hyperactivity disorder, unspecified type; F60.3 Borderline personality disorder; F31.32 Bipolar disorder, current episode depressed, moderate; F11.20 Opioid dependence, uncomplicated; Z79.899 Other long term (current) drug therapy
CPT/HCPCS: 36415; 80307; 81001; 81025; 81515; 82565; 84450; 84460; 86706; 86780; 86803; 87340; 87389; 87491; 87591; 96360; 96361; 96372; 99285; J0696; J2003

== ENCOUNTER 2025-06-09 18:51 | Inpatient (IN) | payer OTHER, SELFPAY ==
[2025-06-09] VITALS (16 sets, daily range): BP systolic 91–128; BP diastolic 57–96; PULSE 88–122; RESP 15–21; TEMP 36.6–37.1; O2SAT 76–99; BMI 25.5
--- NOTE | 2025-06-09 | ECG_ITS ---
Test Reason : OVERDOSE,SOB Blood Pressure : */* mmHG Vent. Rate : 105 BPM Atrial Rate : 105 BPM P-R Int : 130 ms QRS Dur : 80 ms QT Int : 350 ms P-R-T Axes : 54 52 35 degrees QTcB Int : 462 ms Sinus tachycardia Nonspecific ST abnormality Abnormal ECG When compared with ECG of 10-Jan-2025 20:13, No significant change was found Referred By: Generic ED Physician Electronically Signed By: ALEX PINEDA
--- NOTE | ~2025-06-09 | XR_ITS ---
CLINICAL HISTORY: Hypoxemia Two views of the chest. COMPARISON: None provided. FINDINGS: Low lung volumes. Borderline cardiomegaly, likely exaggerated secondary to low lung volumes. Multifocal airspace opacities with central and hilar predominance. No pleural effusion. No pneumothorax. No acute fracture. IMPRESSION: 1. Low lung volumes. 2. Multifocal pulmonary opacities suggestive of pulmonary edema and/or multifocal infection. This document has been electronically signed by: John Romo MD on 06/09/2025 20:20:19
--- NOTE | 2025-06-09 19:27 | MHC.EDTECH ---
Belongings in shelf one
[2025-06-09 19:41] LABS: Hematocrit 33.2 % (37.0-47.0); Hemoglobin 10.8 g/dl (12.0-16.0); Mean Corpuscular HGB Conc 32.5 g/dl (31.0-35.0); Mean Corpuscular Hemoglobin 26.9 pg (27.0-33.0); Mean Corpuscular Volume 82.6 fL (80.0-98.0); NRBC Abs Auto 0.000 X10*3/uL (0.0-0.012); NRBC Pct Auto 0.0 /100WBC (0.0-0.2); Platelet Count 387 X10*3/uL (160-400); Red Blood Count 4.02 X10*6/uL (4.20-5.50)
[2025-06-09 19:47] LABS: Alanine Aminotransferase 33 U/L (0-31); Albumin Level 3.9 g/dL (3.5-5.0); Alkaline Phosphatase 65 U/L (39-117); Anion Gap 18 (12-20); Aspartate Amino Transferase 59 U/L (5-31); Blood Urea Nitrogen 14 mg/dL (9-16); Calcium 8.4 mg/dL (8.4-10.2); Carbon Dioxide 22 mmol/L (22-29); Chloride 102 mmol/L (96-108); Creatinine Clr Calc Pharmacy 56.5; Estimated Glomerular Filt Rate 54; Potassium 3.7 mmol/L (3.3-5.1); Sodium 138 mmol/L (135-145); Total Protein 6.6 g/dL (6.5-8.0)
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
--- NOTE | 2025-06-09 19:54 | ED_ITS ---
HPI - Overdose General Chief Complaint: Overdose Stated Complaint: heroine overdose Time Seen by Provider: 06/09/25 19:22 Source: patient and EMS Mode of arrival: EMS Limitations: no limitations History of Present Illness ED Provider: Romario VU HPI Narrative: The patient is a 39-year-old female presenting to the ED via EMS for evaluation after being found cyanotic in bed by police who were responding to reported breaking and entering. The patient was given 8 mg intranasal Narcan by PD, at time of EMS arrival patient was awake and disoriented with SpO2 of 85% on room air. EMS applied nasal cannula with minimal improvement to 90. Patient admits to snorting heroin, reports recreational use trying to get high, denies suicide attempt, denies suicidal or homicidal ideation. The patient in the ED is alert and oriented, reports extreme thirst and mild nausea with the abdominal cramping. The patient denies other substance use. Patient was noted to be hypoxic in the 70s on nasal cannula upon arrival to the ED, however patient was in a curled position on her side not taking deep breaths, patient was placed on a temporary non-rebreather and repositioned with improvement in oxygenation. After a short period patient was able to be weaned to 4 L nasal cannula while maintaining oxygen saturation. Related Data Previous Rx's ?Medication ?Instructions ?Recorded docusate sodium 100 mg capsule 100 mg PO DAILY PRN con stipation 03/10/24 #30 caps lisinopril 10 mg tablet 10 mg PO BEDTIME 90 days #90 tabs 03/10/24 albuterol sulfate 90 mcg/actuation 2 puff inhalation Q 6H PRN for 01/07/25 aerosol inhaler wheezing 30 days #8.5 ea bupropion HCl 300 mg 24 hr tablet, 300 mg PO QAM 90 da ys #90 tabs 01/07/25 extended release fluconazole 150 mg tablet 150 mg PO Q3D 2 doses #2 tab s 01/07/25 gabapentin 400 mg capsule 400 mg PO TID 30 days #90 ca ps 01/07/25 nitrofurantoin 100 mg PO Q12H 5 days #10 ca ps 01/11/25 monohydrate/macrocrystals 100 mg capsule (Macrobid) quetiapine 25 mg tablet (Seroquel) 75 mg (3 x 25 mg) P O DAILY PRN 01/27/25 Anxiety 90 days #270 tabs amlodipine 10 mg tablet 10 mg PO BEDTIME 90 days #90 tabs 02/08/25 cholecalciferol (vitamin D3) 50 50 mcg PO DAILY #90 ta bs 02/21/25 mcg (2,000 unit) tablet cetirizine 10 mg tablet (All Day 10 mg PO DAILY PRN al lergy 06/01/25 Allergy (cetirizine)) symptoms 90 days #90 tabs Allergies Allergy/AdvReac Type Severity Reaction Status Date / Time No Known Allergies Allergy Unknown Verified 06/09/25 19:19 Review of Systems 2 Review of Systems: Yes all other systems are reviewed and are negative [facility] Past Medical History Medical History Family history of anesthesia complication Anemia Heartburn Bipolar disorder RLS (restless legs syndrome) ADHD (attention deficit hyperactivity disorder) Anxiety Depression Opioid dependence, uncomplicated Cocaine dependence, uncomplicated Exercise-induced asthma Surgical History History of surgery (06/18/24) History of History of root canal procedure History of wisdom tooth extraction Hx of cholecystectomy Family History Family History Family/Other Mental health disorder Mother Hypertension Father Hypertension Social History Social History (Updated 01/07/25 @ 09:18 by Valentina Burroughs MD) Household Members: Significant Other Housing: Apartment Are you a primary director of patient care to a significant other at home: No Do you presently have visiting nurse or other home services: No Alcohol intake: current Alcohol intake frequency: a few times a week Alcohol type: hard liquor Patient Tobacco Use Status: Never used Tobacco Smoked in Last 30 Days: Yes e-Cigarette/Vaping Use: Never Used Second Hand Smoke Exposure: No Use of substances other than those prescribed or required for medical reasons: Yes Substance Use Type: Heroin Advance Directives: No Advance Directives Information Provided: No Do you have a plan to hurt others: No Plan service: No Current occupational status: unemployed Cognitive needs: No Hearing needs: No Vision needs: No Physical Exam 2 Vital Signs: Vital Signs: Last Vital Signs Temp 98.0 F 06/09/25 22:19 Pulse 91 06/09/25 22:19 Resp 20 06/09/25 22:19 BP 112/60 06/09/25 22:19 Pulse Ox 99 06/09/25 22:19 O2 Del Method Nasal Cannula 06/09/25 22:19 O2 Flow Rate 4 06/09/25 22:19 BMI result Body Mass Index 25.5 CONSTITUTIONAL: The patient appears mildly unkempt but otherwise non-toxic, well nourished and in no acute distress. Vital signs as documented. HEAD: Atraumatic, normocephalic. EYES: EOMs grossly intact, pupils equal, conjunctiva clear, no exudate. ENT: Nares patent, no discharge. Airway patent, no audible stridor, visible mucosa is pink and moist without noted lesions. NECK: Trachea is midline, no obvious masses or gross abnormalities. CHEST: Symmetric movement, normal appearance. LUNGS: LS present and CTAB, no w/r/r. Non-labored work of breathing. CARDIAC: Regular Rhythm, S1/S2 appreciated, no murmurs, rubs or gallops. ABDOMEN: Abdomen soft and non-tender x4 quadrants, no palpable masses or organomegaly. : Deferred. EXTREMITIES: Normal tone, moves all extremities spontaneously without reported pain. No obvious acute injury or deformity noted. NEURO: Alert and oriented x3, CN II-XII appear grossly intact. Cerebellar Functioning grossly intact. No obvious sensory or motor deficits. Speech clear and appropriate. PSYCH: normal affect, appropriate eye contact, fluid speech, with appropriate response to questioning. No reported suicidality or homicidality. SKIN: Warm, dry, color appropriate, normal turgor. There are numerous picking lesions of various stages of healing, no evidence of overlying cellulitis, no other rashes noted. Medications Administered Discontinued Medications Generic Name Dose Route Start Last Admin Trade Name Freq PRN Reason Stop Dose Admin Ceftriaxone Sodium 1 gm 06/09/25 20:14 06/09/25 20:31 Ceftriaxone Sodium 1 Gm Vial IVPUSH 06/09/25 20:15 1 gm ONCE ONE Administration Diazepam 5 mg 06/09/25 20:45 06/09/25 20:49 Diazepam 10 Mg/2 Ml Cartridge IVPUSH 06/09/25 20:46 5 mg STAT STA Administration Sodium Chloride 1,000 mls @ 999 mls/hr 06/09/25 19:30 06/09/25 21:30 Ns IV 06/09/25 20:30 Infused .Q1H1M PAT Infusion Sodium Chloride 1,000 mls @ 999 mls/hr 06/09/25 20:15 06/09/25 20:34 Ns IV 06/09/25 21:15 999 mls/hr .Q1H1M PAT Administration Azithromycin 500 mg/ Sodium 250 mls @ 125 mls/hr 06/09/25 20:14 06/09/25 20:33 Chloride IV 06/09/25 22:13 125 mls/hr ONCE ONE Administration Ondansetron HCl 4 mg 06/09/25 19:22 06/09/25 19:33 Ondansetron Hcl 4 Mg/2 Ml Vial IVPUSH 06/09/25 19:23 4 mg ONCE ONE Administration Medical Decision Making Medical Decision Making MDM Narrative: 8:06 PM 06/09/2025 (Rosa VU): The patient is a 39-year-old female presenting to the ED status post opiate overdose after snorting heroin for recreational use, no reported suicidal attempt or ideation. The patient was hypoxic, on arrival in the ED, with repositioning patient has been weaned to 4 L nasal cannula with adequate oxygenation. Throughout interview, exam, and ED course the patient has been maintaining her airway with adequate ventilation, no indication for repeat Narcan administration. Due to the patient's initial hypoxia a chest x-ray and laboratory evaluation will be obtained. Pending medical workup and clearance the patient will be offered substance abuse resources. 8:17 PM 06/09/2025 (Rosa VU): The patient's CBC has resulted and shows leukocytosis of 42,000, in the setting of hypoxemia, tachycardia, and leukocytosis we will initiate sepsis protocol, we will add on lactic acid, complete 30 cc/kg bolus, obtain blood cultures, and initiate empiric Rocephin and azithromycin for suspected respiratory source. 8:31 PM 06/09/2025 (Rosa VU): Chest x-ray shows multifocal airspace disease consistent with possible pulmonary edema versus multifocal pneumonia. We will add on BNP and viral swab, and continue current plan for sepsis protocol. Due to concern for possible aspiration component we will add on Unasyn. Due to increased oxygen requirement and concerning laboratory evaluation patient will likely require admission for multifocal pneumonia. 9:33 PM 06/09/2025 (Rosa VU): The patient's BNP is normal, differential shows 13% bands, lactic acid is 1.9. Patient will be admitted for multifocal pneumonia with sepsis. 10:03 PM 06/09/2025 (Rosa VU): Patient's case was discussed with admitting hospitalist, who due to variable blood pressures is requesting to evaluate the patient prior to accepting to the medicine service. Review of the patient's vital signs shows MAP consistently above 65. We will await hospitalist assessment and acceptance to place bed request. Admission/Observation Consideration of admission/observation: Escalation of care including admission/observation considered Lab Data MDM Lab Attestation statement: I reviewed the patient's lab results. 06/09/25 19:28 06/09/25 19:28 Labs: Lab Results 06/09/25 06/09/25 06/09/25 Range/Units 19:28 19:30 20:30 WBC 42.0 H* (4.8-10.8) X10*3/uL RBC 4.02 L (4.20-5.50) X10*6/uL Hgb 10.8 L (12.0-16.0) g/dl Hct 33.2 L (37.0-47.0) % MCV 82.6 (80.0-98.0) fL MCH 26.9 L (27.0-33.0) pg MCHC 32.5 (31.0-35.0) g/dl RDW 15.4 (11.0-16.0) % Plt Count 387 (160-400) X10*3/uL MPV 9.9 (9.4-12.3) fL Immature Gran % (Auto) Cancelled Neut % (Auto) Cancelled Lymph % (Auto) Cancelled [place] % (Auto) Cancelled Eos % (Auto) Cancelled Baso % (Auto) Cancelled Lymph # (Auto) Cancelled [place] # (Auto) Cancelled Eos # (Auto) Cancelled Baso # (Auto) Cancelled Abs Immat Gran (auto) Cancelled Absolute Neuts (auto) Cancelled Absolute Nucleated RBC 0.000 (0.0-0.012) X10*3/uL Nucleated RBC % (auto) 0.0 (0.0-0.2) /100WBC Neutrophils % (Manual) 76 H (45-73) % Band Neutrophils % 13 H (3-5) % Lymphocytes % (Manual) 7 L (20-40) % Monocytes % (Manual) 4 (2-11) % Abs Neuts (Manual) 37.4 H (2.0-8.3) X10*3/uL Lymphocytes # (Manual) 2.9 (1.2-4.9) X10*3/uL Monocytes # (Manual) 1.7 H (0.1-1.2) X10*3/uL Toxic Granulation PRESENT Toxic Vacuolation PRESENT Platelet Estimate NORMAL (NORMAL) Plt Morphology Comment NORMAL RBC Morphology NOTED Microcytosis 1+ (5-14) /OIF Smear Tech's Comments MANUAL DIFF Sodium 138 (135-145) mmol/L Potassium 3.7 (3.3-5.1) mmol/L Chloride 102 (96-108) mmol/L Carbon Dioxide 22 (22-29) mmol/L Anion Gap 18 (12-20) BUN 14 (9-16) mg/dL Creatinine 1.11 (0.5-1.4) mg/dL Estim Creat Clear Calc 56.5 Estimated GFR 54 Random Glucose 101 (60-115) mg/dL Lactic Acid 1.9 (0.5-2.0) mmol/L Calcium 8.4 D (8.4-10.2) mg/dL Total Bilirubin 0.5 (0.0-1.0) mg/dL AST 59 H (5-31) U/L ALT 33 H (0-31) U/L Alkaline Phosphatase 65 (39-117) U/L B-Natriuretic Peptide 39 (<100) pg/mL Total Protein 6.6 (6.5-8.0) g/dL Albumin 3.9 (3.5-5.0) g/dL Urine Color Urine Appearance Urine pH (5.0-9.0) Ur Specific [place] (1.005-1.025) Urine Protein (Neg-Trace) mg/dL Urine Glucose (UA) (Negative) mg/dL Urine Ketones (Negative) mg/dL Urine Blood (Negative) Urine Nitrite (Negative) Ur Leukocyte Esterase (Negative) Urine RBC (0-2) /HPF Urine WBC (0-5) /HPF Ur Squamous Epith Cells (0-2) /HPF Urine Bacteria (None Seen) Hyaline Casts (0-2) /LPF Urine Opiates Screen (Not Detect) Ur Buprenorphine Scrn (Not Detect) ng/mL Ur Oxycodone Screen (Not Detect) ng/mL Urine Methadone Screen (Not Detect) ng/mL Urine Fentanyl Screen (Not Detect) Ur Barbiturates Screen (Not Detect) Ur Phencyclidine Scrn (Not Detect) Ur Amphetamines Screen (Not Detect) U Benzodiazepines Scrn (Not Detect) Urine Cocaine Screen (Not Detect) U Marijuana (THC) Screen (Not Detect) 06/09/25 Range/Units 20:40 WBC (4.8-10.8) X10*3/uL RBC (4.20-5.50) X10*6/uL Hgb (12.0-16.0) g/dl Hct (37.0-47.0) % MCV (80.0-98.0) fL MCH (27.0-33.0) pg MCHC (31.0-35.0) g/dl RDW (11.0-16.0) % Plt Count (160-400) X10*3/uL MPV (9.4-12.3) fL Immature Gran % (Auto) Neut % (Auto) Lymph % (Auto) [place] % (Auto) Eos % (Auto) Baso % (Auto) Lymph # (Auto) [place] # (Auto) Eos # (Auto) Baso # (Auto) Abs Immat Gran (auto) Absolute Neuts (auto) Absolute Nucleated RBC (0.0-0.012) X10*3/uL Nucleated RBC % (auto) (0.0-0.2) /100WBC Neutrophils % (Manual) (45-73) % Band Neutrophils % (3-5) % Lymphocytes % (Manual) (20-40) % Monocytes % (Manual) (2-11) % Abs Neuts (Manual) (2.0-8.3) X10*3/uL Lymphocytes # (Manual) (1.2-4.9) X10*3/uL Monocytes # (Manual) (0.1-1.2) X10*3/uL Toxic Granulation Toxic Vacuolation Platelet Estimate (NORMAL) Plt Morphology Comment RBC Morphology Microcytosis /OIF Smear Tech's Comments Sodium (135-145) mmol/L Potassium (3.3-5.1) mmol/L Chloride (96-108) mmol/L Carbon Dioxide (22-29) mmol/L Anion Gap (12-20) BUN (9-16) mg/dL Creatinine (0.5-1.4) mg/dL Estim Creat Clear Calc Estimated GFR Random Glucose (60-115) mg/dL Lactic Acid (0.5-2.0) mmol/L Calcium (8.4-10.2) mg/dL Total Bilirubin (0.0-1.0) mg/dL AST (5-31) U/L ALT (0-31) U/L Alkaline Phosphatase (39-117) U/L B-Natriuretic Peptide (<100) pg/mL Total Protein (6.5-8.0) g/dL Albumin (3.5-5.0) g/dL Urine Color Yellow Urine Appearance Clear Urine pH 5.5 (5.0-9.0) Ur Specific [place] 1.015 (1.005-1.025) Urine Protein 100 (2+) H (Neg-Trace) mg/dL Urine Glucose (UA) Negative (Negative) mg/dL Urine Ketones 15 (Negative) mg/dL Urine Blood Moderate (2+) H (Negative) Urine Nitrite Negative (Negative) Ur Leukocyte Esterase Negative (Negative) Urine RBC 6-10 H (0-2) /HPF Urine WBC 6-10 H (0-5) /HPF Ur Squamous Epith Cells 6-10 (0-2) /HPF Urine Bacteria None Seen (None Seen) Hyaline Casts >20 (0-2) /LPF Urine Opiates Screen POSITIVE H (Not Detect) Ur Buprenorphine Scrn Not Detected (Not Detect) ng/mL Ur Oxycodone Screen Not Detected (Not Detect) ng/mL Urine Methadone Screen Not Detected (Not Detect) ng/mL Urine Fentanyl Screen POSITIVE H (Not Detect) Ur Barbiturates Screen Not Detected (Not Detect) Ur Phencyclidine Scrn Not Detected (Not Detect) Ur Amphetamines Screen Not Detected (Not Detect) U Benzodiazepines Scrn Not Detected (Not Detect) Urine Cocaine Screen POSITIVE H (Not Detect) U Marijuana (THC) Screen Not Detected (Not Detect) Independent Interpretation I performed an independent interpretation of an: EKG (EKG shows sinus tachycardia with a rate of 105, no evidence of acute ischemia, no ST elevation, no ectopy. QTC 462.) Radiology Impression Discussion of test interpretation with radiology: I have reviewed the radiologist's reading. Radiologist Impression: CLINICAL HISTORY: Hypoxemia Two views of the chest. COMPARISON: None provided. FINDINGS: Low lung volumes. Borderline cardiomegaly, likely exaggerated secondary to low lung volumes. Multifocal airspace opacities with central and hilar predominance. No pleural effusion. No pneumothorax. No acute fracture. IMPRESSION: 1. Low lung volumes. 2. Multifocal pulmonary opacities suggestive of pulmonary edema and/or multifocal infection. This document has been electronically signed by: John Romo MD on 06/09/2025 20:20:19 Discharge Plan Discharge Clinical Impression: Multifocal pneumonia Sepsis Qualifiers: Sepsis type: sepsis due to unspecified organism Sepsis acute organ dysfunction status: without acute organ dysfunction Qualified Code(s): A41.9 - Sepsis, unspecified organism Overdose of opiate or related narcotic Qualifiers: Encounter type: initial encounter Injury intent: accidental or unintentional Q ualified Code(s): T40.601A - Poisoning by unspecified narcotics, accidental (unintentional), initial encounter Patient Disposition: Admitted As Inpatient Print Language: Tunisian
[2025-06-09 20:13] LABS: White Blood Count 42.0 X10*3/uL (4.8-10.8)
--- NOTE | 2025-06-09 20:19 | PC.NURSE ---
per MIRELLA Hale sepsis alert called at this time. secondary line placed. labs obtained
[2025-06-09 20:32] LABS: Neutrophils Percent Manual 76 % (45-73)
[2025-06-09 20:34] LABS: Band Neutrophils Percent 13 % (3-5); Lymphocytes Absolute Manual 2.9 X10*3/uL (1.2-4.9); Lymphocytes Percent Manual 7 % (20-40); Monocytes Absolute Manual 1.7 X10*3/uL (0.1-1.2); Monocytes Percent Manual 4 % (2-11); Neutrophils Absolute Manual 37.4 X10*3/uL (2.0-8.3)
[2025-06-09 20:36] LABS: Microcytosis 1+ (5-14) /OIF; RBC Morphology NOTED; Toxic Granulation PRESENT; Toxic Vacuolation PRESENT
[2025-06-09 20:46] LABS: Appearance Urine Clear; Glucose Urine UA Negative (Negative); PH 5.5 (5.0-9.0); Specific Gravity - Urine 1.015 (1.005-1.025); UMIC TRIGGER UACC YES
[2025-06-09] MEDS: diazePAM 10 MG/2 ML CARTRIDGE 5 MG IVPUSH (20:49)
[2025-06-09 20:56] LABS: Cannabinoid Screen Urine Not Detected (Not Detect)
[2025-06-09 20:57] LABS: UACC Culture Trigger YES
[2025-06-09 21:10] LABS: B Type Natriuretic Peptide 39 pg/mL (<100)
--- NOTE | 2025-06-09 21:22 | PC.NURSE ---
pt medicated per MAR, fluid administration prolonged due to pt bending arm, pt advised to leave arm straight to ensure fluids are administered in a timely manor.
--- NOTE | 2025-06-09 23:06 | P.HPHOSP_ITS ---
History of Present Illness Date of Service: 06/09/25 Attending physician on admission: Yue Clark Chief Complaint: OD Patient is a 39-year-old female with a past medical history significant for HTN, mild intermittent asthma, anxiety and substance use disorder, who presented to the ED via EMS after being found by PD for a breaking and entering ,when the patient was found overdosed in her bed. She was given 8 mg of Narcan with response and when EMS arrived she was hypoxic at 88% and put on supplemental O2. When she arrived at the ED her oxygen saturation was 76% despite supplemental oxygen via NC, she was transitioned to non-rebreather and has now been maintaining in the low 90s with 4 L via NC. The patient admits to snorting heroin prior to arrival. She denies any chest pain, nausea, vomiting, abd pain or urinary sx currently. Review of Systems 2 Constitutional: Constitutional: Denies body ache(s), Denies chills, Denies fatigue, Denies fever(s) and Denies headache(s) Eyes: Eyes: Denies change in vision ENT: Denies headache(s), Denies nasal discharge and Denies sore throat Cardiovascular: Cardiovascular: Denies chest pain, Denies rapid heart rate, Denies lightheadedness and Reports dyspnea Respiratory: Respiratory: Denies chest congestion, Denies cough, Reports dyspnea and Denies wheezing Gastrointestinal: Gastrointestinal: Denies abdominal pain, Denies diarrhea, Denies nausea and Denies vomiting Genitourinary: Genitourinary: Denies difficulty voiding, Denies dysuria and Denies urinary urgency Musculoskeletal: Musculoskeletal: Denies myalgias Integumentary/Breasts: Skin/Breast: Denies rash Neurologic: Denies confusion and Denies headache(s) Psychiatric: Psychiatric: Denies confusion Endocrine: Endocrine: Denies fatigue Hematologic/Lymphatic: Hematologic/Lymphatic: Denies easy bleeding and Denies easy bruising Allergic/Immunologic: Allergic/Immunologic: Denies wheezing PMFSH Medical History Family history of anesthesia complication Anemia Heartburn Bipolar disorder RLS (restless legs syndrome) ADHD (attention deficit hyperactivity disorder) Anxiety Depression Opioid dependence, uncomplicated Cocaine dependence, uncomplicated Exercise-induced asthma Functional capacity: independent ambulation Family History Family/Other Mental health disorder Mother Hypertension Father Hypertension Surgical History History of surgery (06/18/24) History of History of root canal procedure History of wisdom tooth extraction Hx of cholecystectomy Social History (Updated 01/07/25 @ 09:18 by Valentina Burroughs MD) Household Members: Significant Other Housing: Apartment Are you a primary critical care technician to a significant other at home: No Do you presently have visiting nurse or other home services: No Alcohol intake: current Alcohol intake frequency: a few times a week Alcohol type: hard liquor Patient Tobacco Use Status: Never used Tobacco Smoked in Last 30 Days: Yes e-Cigarette/Vaping Use: Never Used Second Hand Smoke Exposure: No Use of substances other than those prescribed or required for medical reasons: Yes Substance Use Type: Heroin Advance Directives: No Advance Directives Information Provided: No Do you have a plan to hurt others: No Plan service: No Current occupational status: unemployed Cognitive needs: No Hearing needs: No Vision needs: No Narrative: uses heroin, occasional etoh. no tobacco Meds Allergies Allergy/AdvReac Type Severity Reaction Status Date / Time No Known Allergies Allergy Unknown Verified 06/09/25 19:19 Active Medications: Current Medications Acetaminophen (Acetaminophen 325 Mg Tablet) 975 mg PO Q6H PRN PRN Reason: Pain, Mild 1-3,fever,headache Calcium Carbonate (Calcium Carbonate 750 Mg Tab.Chew) 750 mg PO Q4H PRN PRN Reason: Heartburn Enoxaparin Sodium (Enoxaparin Sodium 40 Mg/0.4 Ml Syringe) 40 mg SUBCUT Q24H PAT Ampicillin Sodium/Sulbactam (Sodium 3 gm/ Sodium Chloride) 100 mls @ 200 mls/hr IV Q6H PAT Magnesium Hydroxide (Milk Of Magnesia 30 Ml Oral.Susp) 30 ml PO DAILY PRN PRN Reason: Constipation Melatonin (Melatonin 3 Mg Tablet) 6 mg PO BEDTIME PRN PRN Reason: Insomnia Ondansetron HCl (Ondansetron Hcl 4 Mg/2 Ml Vial) 4 mg IVPUSH Q8H PRN PRN Reason: Nausea and Vomiting Oxycodone HCl (Oxycodone Hcl Immed Release 5 Mg Tablet) 5 mg PO Q6H PRN PRN Reason: Pain, Severe (Pain Scale 7-10) Sodium Chloride (0.9 % Sodium Chloride Flush 3 Ml Syringe) 3 ml IVFLUSH QSHIFT PAT Tramadol HCl (Tramadol Hcl 50 Mg Tablet) 50 mg PO Q6H PRN PRN Reason: Pain, Moderate(Pain Scale 4-6) Physical Exam 2 Vital Signs and Narrative: Vital Signs: Last Vital Signs Temp 98.0 F 06/09/25 22:19 Pulse 88 06/09/25 22:43 Resp 20 06/09/25 22:43 BP 92/65 06/09/25 22:33 Pulse Ox 95 06/09/25 22:43 O2 Del Method Nasal Cannula 06/09/25 22:43 O2 Flow Rate 4 06/09/25 22:43 BMI result Body Mass Index 25.5 General: AOx3, no acute distress Resp: crackles bilateral lower lungs, no wheezing. no respiratory distress CVS: S1, S2, RRR GI: +BS, NT, no distention Skin: Warm, dry, scabbing lesions throughout Neuro: Cranial nerves II-XII grossly intact bilaterally. Motor grossly intact bilaterally Extremities: No LE edema Psych: Appropriate affect Const: General: No confusion Orientation/consciousness: No confusion Neuro: General: No confusion Results Labs 06/09/25 19:28 06/09/25 19:28 Labs: Laboratory Results - last 24 hr 06/09/25 06/09/25 06/09/25 19:28 19:30 20:30 MCV 82.6 MCH 26.9 L MCHC 32.5 RDW 15.4 Plt Count 387 MPV 9.9 Immature Gran % (Auto) Cancelled Neut % (Auto) Cancelled Lymph % (Auto) Cancelled [place] % (Auto) Cancelled Eos % (Auto) Cancelled Baso % (Auto) Cancelled Lymph # (Auto) Cancelled [place] # (Auto) Cancelled Eos # (Auto) Cancelled Baso # (Auto) Cancelled Abs Immat Gran (auto) Cancelled Absolute Neuts (auto) Cancelled Absolute Nucleated RBC 0.000 Nucleated RBC % (auto) 0.0 Neutrophils % (Manual) 76 H Band Neutrophils % 13 H Lymphocytes % (Manual) 7 L Monocytes % (Manual) 4 Abs Neuts (Manual) 37.4 H Lymphocytes # (Manual) 2.9 Monocytes # (Manual) 1.7 H Toxic Granulation PRESENT Toxic Vacuolation PRESENT Platelet Estimate NORMAL Plt Morphology Comment NORMAL RBC Morphology NOTED Microcytosis 1+ (5-14) Smear Tech's Comments MANUAL DIFF Anion Gap 18 Estim Creat Clear Calc 56.5 Estimated GFR 54 Random Glucose 101 Lactic Acid 1.9 Calcium 8.4 D Total Bilirubin 0.5 AST 59 H ALT 33 H Alkaline Phosphatase 65 B-Natriuretic Peptide 39 Total Protein 6.6 Albumin 3.9 Urine Color Urine Appearance Urine pH Ur Specific [place] Urine Protein Urine Glucose (UA) Urine Ketones Urine Blood Urine Nitrite Ur Leukocyte Esterase Urine RBC Urine WBC Ur Squamous Epith Cells Urine Bacteria Hyaline Casts Urine Opiates Screen Ur Buprenorphine Scrn Ur Oxycodone Screen Urine Methadone Screen Urine Fentanyl Screen Ur Barbiturates Screen Ur Phencyclidine Scrn Ur Amphetamines Screen U Benzodiazepines Scrn Urine Cocaine Screen U Marijuana (THC) Screen 06/09/25 20:40 MCV MCH MCHC RDW Plt Count MPV Immature Gran % (Auto) Neut % (Auto) Lymph % (Auto) [place] % (Auto) Eos % (Auto) Baso % (Auto) Lymph # (Auto) [place] # (Auto) Eos # (Auto) Baso # (Auto) Abs Immat Gran (auto) Absolute Neuts (auto) Absolute Nucleated RBC Nucleated RBC % (auto) Neutrophils % (Manual) Band Neutrophils % Lymphocytes % (Manual) Monocytes % (Manual) Abs Neuts (Manual) Lymphocytes # (Manual) Monocytes # (Manual) Toxic Granulation Toxic Vacuolation Platelet Estimate Plt Morphology Comment RBC Morphology Microcytosis Smear Tech's Comments Anion Gap Estim Creat Clear Calc Estimated GFR Random Glucose Lactic Acid Calcium Total Bilirubin AST ALT Alkaline Phosphatase B-Natriuretic Peptide Total Protein Albumin Urine Color Yellow Urine Appearance Clear Urine pH 5.5 Ur Specific [place] 1.015 Urine Protein 100 (2+) H Urine Glucose (UA) Negative Urine Ketones 15 Urine Blood Moderate (2+) H Urine Nitrite Negative Ur Leukocyte Esterase Negative Urine RBC 6-10 H Urine WBC 6-10 H Ur Squamous Epith Cells 6-10 Urine Bacteria None Seen Hyaline Casts >20 Urine Opiates Screen POSITIVE H Ur Buprenorphine Scrn Not Detected Ur Oxycodone Screen Not Detected Urine Methadone Screen Not Detected Urine Fentanyl Screen POSITIVE H Ur Barbiturates Screen Not Detected Ur Phencyclidine Scrn Not Detected Ur Amphetamines Screen Not Detected U Benzodiazepines Scrn Not Detected Urine Cocaine Screen POSITIVE H U Marijuana (THC) Screen Not Detected Assessment and Plan (1) Severe sepsis: Status: Acute (2) Acute hypoxic respiratory failure: Status: Acute (3) Toxic encephalopathy: Status: Acute (4) Aspiration pneumonia: Status: Acute (5) Overdose of opiate or related narcotic: Qualifiers: Encounter type: initial encounter Injury intent: accidental or unintentional Qualified Code(s): T40.601A - Poisoning by unspecified narcotics, accidental (unintentional), initial encounter Status: Acute (6) Anemia: Status: Acute Plan Patient is a 39-year-old female with a past medical history significant for HTN, mild intermittent asthma, anxiety and substance use disorder, who presented to the ED via EMS after being found by PD for a breaking and entering ,when the patient was found overdosed in her bed. Severe sepsis with acute hypoxic respiratory failure and toxic encephalopathy secondary to aspiration pneumonia from overdose - WBC 40742, tachycardic and tachypneic, afebrile, lactic acid normal, blood cultures x2 pending - chest x-ray with multifocal pneumonia - u tox + for fentanyl, cocaine and opioids - LFTs elevated secondary to hypoxia/sepsis - started on ceftriaxone and azithromycin in ED, switched to Unasyn due to aspiration - titrate oxygen as needed - blood pressure soft, received 2 L NS in ED - addiction med consult, patient agreeable - monitor CBC and BMP Chronic normocytic anemia - hemoglobin 10.8, hematocrit 32.2 - MCV normal - no obvious bleeding sources - no need for blood transfusion at this time - monitor CBC HTN - BP low, hold home meds Mild intermittent asthma, no acute exacerbation - continue home meds Anxiety/mood - hold Seroquel and gabapentin due to hypotension, resume when blood pressure stabilizes Med rec pending Full code VTE prophylaxis: Lovenox Patient with severe sepsis with acute hypoxic respiratory failure and toxic encephalopathy secondary to aspiration pneumonia from overdose, requiring admission for at least 2 midnights stay for IV antibiotics and monitoring. Quality Stroke Does the patient have a stroke diagnosis?: No VTE Prior VTE?: No VTE Risk Level:: Medical - moderate - high VTE Device Contraindication: Treatment Not Indicated VTE Drug Contraindication: N/A - Med Ordered
[2025-06-10] VITALS: BP 99/63; PULSE 95; RESP 16; TEMP 36.9; O2SAT 96
[2025-06-10 02:00] VITALS: BP 104/69; PULSE 80; RESP 14; TEMP 36.9; O2SAT 96
[2025-06-10 05:09] LABS: Hematocrit 26.0 % (37.0-47.0); Hemoglobin 8.5 g/dl (12.0-16.0); Imm Gran Abs Auto 0.36 X10*3/uL (0.00-0.03); Imm Gran Pct Auto 1.2 % (0.0-0.4); Lymphocytes Absolute Auto 2.4 X10*3/uL (1.2-4.9); MANUAL DIFF FLAG SCAN; Mean Corpuscular HGB Conc 32.7 g/dl (31.0-35.0); Mean Corpuscular Hemoglobin 26.8 pg (27.0-33.0); Mean Corpuscular Volume 82.0 fL (80.0-98.0); NRBC Abs Auto 0.000 X10*3/uL (0.0-0.012); NRBC Pct Auto 0.0 /100WBC (0.0-0.2); Platelet Count 298 X10*3/uL (160-400); Red Blood Count 3.17 X10*6/uL (4.20-5.50); SCAN SMEAR FLAG 1
[2025-06-10 05:24] LABS: White Blood Count 31.2 X10*3/uL (4.8-10.8)
[2025-06-10 05:32] LABS: Alanine Aminotransferase 53 U/L (0-31); Albumin Level 3.1 g/dL (3.5-5.0); Alkaline Phosphatase 68 U/L (39-117); Anion Gap 11 (12-20); Aspartate Amino Transferase 68 U/L (5-31); Blood Urea Nitrogen 12 mg/dL (9-16); Calcium 7.6 mg/dL (8.4-10.2); Carbon Dioxide 23 mmol/L (22-29); Chloride 105 mmol/L (96-108); Creatinine Clr Calc Pharmacy 95.0; Estimated Glomerular Filt Rate > 60; Potassium 3.6 mmol/L (3.3-5.1); Sodium 135 mmol/L (135-145); Total Protein 5.3 g/dL (6.5-8.0)
[2025-06-10 06:13] VITALS: BP 94/57; PULSE 75; RESP 14; TEMP 37.1; O2SAT 96
[2025-06-10] MEDS: 0.9 % Sodium Chloride Flush 3 ML SYRINGE IVFLUSH ×3 (07:45→23:49)
--- NOTE | 2025-06-10 07:47 | PC.NURSE ---
patient a&ox3, vss pt changed to NC to sit up and eat breakfast, rr equal/non labored-lungs currently clear, court monitor intact NSR on monitor. Pt c/o 05/04 back pain- medicated for pain per order, pt ambulated with steady gait to bathroom, call fung within reach plan of care ongoing.
--- NOTE | 2025-06-10 09:46 | HO.ADDICT_ITS ---
History of Present Illness Date of Service: 06/10/2025 Chief Complaint: AMS Reason for Consult: opioid overdose Sources of Information: patient interviewed and chart reviewed HPI Narrative: Patient is a 39 year old female with history of substance use, Bipolar disorder and Borderline personality disorder. Presented to [facility] ED via ambulance after being found in bed cyanotic, by police who were responding to a breaking and entering. Medically admitted with aspiration pneumonia Patient seen in ED, awaiting transfer to room on medical floor. She is awake, alert, just finished eating breakfast . She is very tearful, reporting relationship issues and overall worsening mental health. She states that she uses very little fentanyl, and that cocaine is what she uses most frequently. Reports using yesterday, to numb her feelings as her boyfriend is not speaking to her, and she feels very overwhelmed by this. She denies that this was an intentional overdose. Reports one previous overdose, earlier this year. She has been using cocaine for several years--and frustrated that she continues to use as she does not like that way she feels and acts when using She denies any withdrawal sx, again citing that she does not use opiates in large amounts or daily. She appears comfortable, but crying much of the time. Still requiring O2 when seen by t/w due to desatting on room air Additional substance use history not obtained as patient was very emotional/sad and reporting she wants helps with her BH sx Past Psychiatric History: Med trials: lithium (too sedating), lamictal (stopped, does not recall why). [facility] X1: [facility]: [facility] No rehab/detox, no PHP/IOP Has therapist, Lynette Ames Has job coach, Alyce, thru [employer] [facility] [employer] No psychiatric provider/prescriber Medical Evaluation Reviewed: Yes Review of Systems Constitutional: Reports as per HPI Diagnostics Vital Signs (24Hr): Vital Signs - 24 hr 06/09/25 19:09 06/09/25 19:20 06/09/25 19:20 Temperature Pulse Rate 122 H 105 H Respiratory Rate 21 H 20 Blood Pressure 100/58 L Pulse Oximetry 76 L 93 99 Oxygen Delivery Method Room Air Non-Rebreather Mask Non-Rebreather Mask Oxygen Flow Rate 15 15 06/09/25 19:28 06/09/25 19:33 06/09/25 20:03 Temperature 98.7 F Pulse Rate 100 103 H 101 H Respiratory Rate 15 15 18 Blood Pressure 109/75 106/72 Pulse Oximetry 93 95 95 Oxygen Delivery Method Nasal Cannula Nasal Cannula with ETCO2 Oxygen Flow Rate 5 4 06/09/25 20:57 06/09/25 21:16 06/09/25 21:18 Temperature 97.9 F Pulse Rate 101 H 92 97 Respiratory Rate 18 17 Blood Pressure 128/96 H 93/67 92/62 Pulse Oximetry 95 92 Oxygen Delivery Method Nasal Cannula Oxygen Flow Rate 4 06/09/25 21:19 06/09/25 21:51 06/09/25 22:04 Temperature Pulse Rate 104 H Respiratory Rate Blood Pressure 105/72 91/57 L 100/66 Pulse Oximetry 89 L Oxygen Delivery Method Oxygen Flow Rate 06/09/25 22:19 06/09/25 22:26 06/09/25 22:33 Temperature 98.0 F Pulse Rate 91 Respiratory Rate 20 Blood Pressure 112/60 97/67 92/65 Pulse Oximetry 99 Oxygen Delivery Method Nasal Cannula Oxygen Flow Rate 4 06/09/25 22:43 06/10/25 00:00 06/10/25 02:00 Temperature 98.4 F 98.4 F Pulse Rate 88 95 80 Respiratory Rate 20 16 14 Blood Pressure 99/63 104/69 Pulse Oximetry 95 96 96 Oxygen Delivery Method Nasal Cannula Nasal Cannula Nasal Cannula Oxygen Flow Rate 4 4 4 06/10/25 06:13 Temperature 98.7 F Pulse Rate 75 Respiratory Rate 14 Blood Pressure 94/57 L Pulse Oximetry 96 Oxygen Delivery Method Oxymask Oxygen Flow Rate 4 BMI result Body Mass Index 25.5 Labs 06/10/25 04:33 06/10/25 04:33 Labs: Laboratory Results - last 48 hr 06/09/25 06/09/25 06/09/25 19:28 19:30 20:30 WBC 42.0 H* RBC 4.02 L Hgb 10.8 L Hct 33.2 L MCV 82.6 MCH 26.9 L MCHC 32.5 RDW 15.4 Plt Count 387 MPV 9.9 Immature Gran % (Auto) Cancelled Neut % (Auto) Cancelled Lymph % (Auto) Cancelled [place] % (Auto) Cancelled Eos % (Auto) Cancelled Baso % (Auto) Cancelled Lymph # (Auto) Cancelled [place] # (Auto) Cancelled Eos # (Auto) Cancelled Baso # (Auto) Cancelled Abs Immat Gran (auto) Cancelled Absolute Neuts (auto) Cancelled Absolute Nucleated RBC 0.000 Nucleated RBC % (auto) 0.0 Neutrophils % (Manual) 76 H Band Neutrophils % 13 H Lymphocytes % (Manual) 7 L Monocytes % (Manual) 4 Abs Neuts (Manual) 37.4 H Lymphocytes # (Manual) 2.9 Monocytes # (Manual) 1.7 H Toxic Granulation PRESENT Toxic Vacuolation PRESENT Platelet Estimate NORMAL Plt Morphology Comment NORMAL RBC Morphology NOTED Microcytosis 1+ (5-14) Smear Tech's Comments MANUAL DIFF Smear Path Review SEE NOTE Sodium 138 Potassium 3.7 Chloride 102 Carbon Dioxide 22 Anion Gap 18 BUN 14 Creatinine 1.11 Estim Creat Clear Calc 56.5 Estimated GFR 54 Random Glucose 101 Lactic Acid 1.9 Calcium 8.4 D Total Bilirubin 0.5 AST 59 H ALT 33 H Alkaline Phosphatase 65 B-Natriuretic Peptide 39 Total Protein 6.6 Albumin 3.9 Urine Color Urine Appearance Urine pH Ur Specific [place] Urine Protein Urine Glucose (UA) Urine Ketones Urine Blood Urine Nitrite Ur Leukocyte Esterase Urine RBC Urine WBC Ur Squamous Epith Cells Urine Bacteria Hyaline Casts Urine Opiates Screen Ur Buprenorphine Scrn Ur Oxycodone Screen Urine Methadone Screen Urine Fentanyl Screen Ur Barbiturates Screen Ur Phencyclidine Scrn Ur Amphetamines Screen U Benzodiazepines Scrn Urine Cocaine Screen U Marijuana (THC) Screen 06/09/25 06/10/25 20:40 04:33 WBC 31.2 H* RBC 3.17 L D Hgb 8.5 L D Hct 26.0 L D MCV 82.0 MCH 26.8 L MCHC 32.7 RDW 15.5 Plt Count 298 MPV 10.3 Immature Gran % (Auto) 1.2 H Neut % (Auto) 85.7 H Lymph % (Auto) 7.7 L [place] % (Auto) 5.2 Eos % (Auto) 0.0 Baso % (Auto) 0.2 Lymph # (Auto) 2.4 [place] # (Auto) 1.6 H Eos # (Auto) 0.0 Baso # (Auto) 0.1 Abs Immat Gran (auto) 0.36 H Absolute Neuts (auto) 26.7 H Absolute Nucleated RBC 0.000 Nucleated RBC % (auto) 0.0 Neutrophils % (Manual) Band Neutrophils % Lymphocytes % (Manual) Monocytes % (Manual) Abs Neuts (Manual) Lymphocytes # (Manual) Monocytes # (Manual) Toxic Granulation Toxic Vacuolation Platelet Estimate Plt Morphology Comment RBC Morphology Microcytosis Smear Tech's Comments VERIFIED Smear Path Review Sodium 135 Potassium 3.6 Chloride 105 Carbon Dioxide 23 Anion Gap 11 L BUN 12 Creatinine 0.66 Estim Creat Clear Calc 95.0 Estimated GFR > 60 Random Glucose 95 Lactic Acid Calcium 7.6 L D Total Bilirubin 0.3 AST 68 H ALT 53 H Alkaline Phosphatase 68 B-Natriuretic Peptide Total Protein 5.3 L Albumin 3.1 L Urine Color Yellow Urine Appearance Clear Urine pH 5.5 Ur Specific [place] 1.015 Urine Protein 100 (2+) H Urine Glucose (UA) Negative Urine Ketones 15 Urine Blood Moderate (2+) H Urine Nitrite Negative Ur Leukocyte Esterase Negative Urine RBC 6-10 H Urine WBC 6-10 H Ur Squamous Epith Cells 6-10 Urine Bacteria None Seen Hyaline Casts >20 Urine Opiates Screen POSITIVE H Ur Buprenorphine Scrn Not Detected Ur Oxycodone Screen Not Detected Urine Methadone Screen Not Detected Urine Fentanyl Screen POSITIVE H Ur Barbiturates Screen Not Detected Ur Phencyclidine Scrn Not Detected Ur Amphetamines Screen Not Detected U Benzodiazepines Scrn Not Detected Urine Cocaine Screen POSITIVE H U Marijuana (THC) Screen Not Detected Mental Status Exam Mental Status Exam Patient Appearance: Disheveled Level of Consciousness: Awake, Appropriate and Alert Patient Behavior: Cooperative and Crying Mood Description: Sad Affect Description: Sad Speech Pattern: Clear Hallucinations: None Thought Process: Intact Thought Content: positive for Racing and positive for Circumstantial Judgement: Fair Medications Medications Current Medications Acetaminophen (Acetaminophen 325 Mg Tablet) 975 mg PO Q6H PRN PRN Reason: Pain, Mild 1-3,fever,headache Calcium Carbonate (Calcium Carbonate 750 Mg Tab.Chew) 750 mg PO Q4H PRN PRN Reason: Heartburn Diazepam (Diazepam 10 Mg/2 Ml Cartridge) 5 mg IVPUSH ONCE PRN PRN Reason: Anxiety Enoxaparin Sodium (Enoxaparin Sodium 40 Mg/0.4 Ml Syringe) 40 mg SUBCUT Q24H [facility] Last Admin: 06/10/25 07:45 Dose: 40 mg Ampicillin Sodium/Sulbactam (Sodium 3 gm/ Sodium Chloride) 100 mls @ 200 mls/hr IV Q6H [facility] Last Infusion: 06/10/25 05:55 Dose: Infused Magnesium Hydroxide (Milk Of Magnesia 30 Ml Oral.Susp) 30 ml PO DAILY PRN PRN Reason: Constipation Melatonin (Melatonin 3 Mg Tablet) 6 mg PO BEDTIME PRN PRN Reason: Insomnia Ondansetron HCl (Ondansetron Hcl 4 Mg/2 Ml Vial) 4 mg IVPUSH Q8H PRN PRN Reason: Nausea and Vomiting Oxycodone HCl (Oxycodone Hcl Immed Release 5 Mg Tablet) 5 mg PO Q6H PRN PRN Reason: Pain, Severe (Pain Scale 7-10) Sodium Chloride (0.9 % Sodium Chloride Flush 3 Ml Syringe) 3 ml IVFLUSH QSHIFT PAT Last Admin: 06/10/25 07:45 Dose: 3 ml Tramadol HCl (Tramadol Hcl 50 Mg Tablet) 50 mg PO Q6H PRN PRN Reason: Pain, Moderate(Pain Scale 4-6) Last Admin: 06/10/25 07:44 Dose: 50 mg Allergies Allergies Allergy/AdvReac Type Severity Reaction Status Date / Time No Known Allergies Allergy Unknown Verified 06/09/25 19:19 Assessment & Plan Assessment & Plan (1) Opiate overdose: Qualifiers: Injury intent: accidental or unintentional Status: Acute Code(s): T40.601A - Poisoning by unspecified narcotics, accidental (unintentional), initial encounter Assessment and Plan: * denies any withdrawal sx--reports that she does not use opiates with regularity * while the overdose was not intentional, her use of opiates was intended to address mental health struggles and patient would benefit from crisis evaluation once medically cleared (2) Cocaine use disorder: Status: Acute Code(s): F14.10 - Cocaine abuse, uncomplicated Assessment and Plan: * 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 PMFSH Past Medical History Medical History Family history of anesthesia complication Anemia Heartburn Bipolar disorder RLS (restless legs syndrome) ADHD (attention deficit hyperactivity disorder) Anxiety Depression Opioid dependence, uncomplicated Cocaine dependence, uncomplicated Exercise-induced asthma Family History Family History Family/Other Mental health disorder Mother Hypertension Father Hypertension Surgical History Surgical History History of surgery (06/18/24) History of History of root canal procedure History of wisdom tooth extraction Hx of cholecystectomy Social History Social History Household Members: None Housing: Apartment Are you a primary care information associate to a significant other at home: No Do you presently have visiting nurse or other home services: No Alcohol intake: current Alcohol intake frequency: a few times a week Alcohol type: hard liquor Patient Tobacco Use Status: Never used Tobacco e-Cigarette/Vaping Use: Never Used Second Hand Smoke Exposure: No Substance Use Type: Heroin service: No Current occupational status: unemployed Cognitive needs: No Hearing needs: No Vision needs: No
--- NOTE | 2025-06-10 09:57 | PHA.MEDREC ---
Addendum entered by Maria Victoria Brantley [facility] 06/10/25 12:32: [facility] reviewed Original Note: Pharmacy Consult ? Medication Reconciliation Pharmacy has completed the medication reconciliation. Spoke with pt and she confirmed her medications. Pt confirmed she still takes Albuterol Sulfate inhaler (2 puffs q6h PRN) and Lisinopril 10mg (1 tab @bedtime, taken with her Amlodipine 10mg tab @bedtime), despite seeing no claims for either of those. I called the pt pharmacy ([facility]) and they confirmed they have no claims for the Albuterol Inhaler for at least 3+ years and they haven't filled the Lisinopril since 04/15/2024 for 90 days.
[2025-06-10 10:17] VITALS: BP 114/74; PULSE 81; RESP 14; O2SAT 97
--- NOTE | 2025-06-10 12:54 | PC.NURSE ---
abx hung per order
--- NOTE | 2025-06-10 13:49 | P.PNIM_ITS ---
Subjective Subjective Date of Service: 06/10/25 Interval History: Pt seen/examined, In tears and asking for help, beging to be admitted to Psych as she's not mentally well and use opioid to cope her respiatory status has improved but still on O2, WBC markedly high Physical Exam 2 Vital Signs: Vital Signs: Last Vital Signs Temp 98.7 F 06/10/25 06:13 Pulse 81 06/10/25 10:17 Resp 14 06/10/25 10:17 BP 114/74 06/10/25 10:17 Pulse Ox 97 06/10/25 10:17 O2 Del Method Oxymask 06/10/25 10:17 O2 Flow Rate 4 06/10/25 10:17 BMI result Body Mass Index 25.5 General: AO X 3, no acute distress Resp: CTA bilateral CVS: S1,S2,RRR GI: +BS, NT, no distention Skin: No rash Neuro: motor grossly intact Psych: appropriate affect Objective Data Active Medications Acetaminophen (Acetaminophen 325 Mg Tablet) 975 mg PO Q6H PRN PRN Reason: Pain, Mild 1-3,fever,headache Calcium Carbonate (Calcium Carbonate 750 Mg Tab.Chew) 750 mg PO Q4H PRN PRN Reason: Heartburn Diazepam (Diazepam 10 Mg/2 Ml Cartridge) 5 mg IVPUSH ONCE PRN PRN Reason: Anxiety Enoxaparin Sodium (Enoxaparin Sodium 40 Mg/0.4 Ml Syringe) 40 mg SUBCUT Q24H [facility] Last Admin: 06/10/25 07:45 Dose: 40 mg Documented By: IRMA Ampicillin Sodium/Sulbactam (Sodium 3 gm/ Sodium Chloride) 100 mls @ 200 mls/hr IV Q6H [facility] Last Admin: 06/10/25 12:53 Dose: 200 mls/hr Documented By: IRMA Magnesium Hydroxide (Milk Of Magnesia 30 Ml Oral.Susp) 30 ml PO DAILY PRN PRN Reason: Constipation Melatonin (Melatonin 3 Mg Tablet) 6 mg PO BEDTIME PRN PRN Reason: Insomnia Ondansetron HCl (Ondansetron Hcl 4 Mg/2 Ml Vial) 4 mg IVPUSH Q8H PRN PRN Reason: Nausea and Vomiting Oxycodone HCl (Oxycodone Hcl Immed Release 5 Mg Tablet) 5 mg PO Q6H PRN PRN Reason: Pain, Severe (Pain Scale 7-10) Sodium Chloride (0.9 % Sodium Chloride Flush 3 Ml Syringe) 3 ml IVFLUSH QSHIFT [facility] Last Admin: 06/10/25 07:45 Dose: 3 ml Documented By: IRMA Tramadol HCl (Tramadol Hcl 50 Mg Tablet) 50 mg PO Q6H PRN PRN Reason: Pain, Moderate(Pain Scale 4-6) Last Admin: 06/10/25 07:44 Dose: 50 mg Documented By: IRMA Labs 06/10/25 04:33 06/10/25 04:33 Labs: Laboratory Results - last 24 hr 06/09/25 06/09/25 06/09/25 19:28 19:30 20:30 MCV 82.6 MCH 26.9 L MCHC 32.5 RDW 15.4 Plt Count 387 MPV 9.9 Immature Gran % (Auto) Cancelled Neut % (Auto) Cancelled Lymph % (Auto) Cancelled [place] % (Auto) Cancelled Eos % (Auto) Cancelled Baso % (Auto) Cancelled Lymph # (Auto) Cancelled [place] # (Auto) Cancelled Eos # (Auto) Cancelled Baso # (Auto) Cancelled Abs Immat Gran (auto) Cancelled Absolute Neuts (auto) Cancelled Absolute Nucleated RBC 0.000 Nucleated RBC % (auto) 0.0 Neutrophils % (Manual) 76 H Band Neutrophils % 13 H Lymphocytes % (Manual) 7 L Monocytes % (Manual) 4 Abs Neuts (Manual) 37.4 H Lymphocytes # (Manual) 2.9 Monocytes # (Manual) 1.7 H Toxic Granulation PRESENT Toxic Vacuolation PRESENT Platelet Estimate NORMAL Plt Morphology Comment NORMAL RBC Morphology NOTED Microcytosis 1+ (5-14) Smear Tech's Comments MANUAL DIFF Smear Path Review SEE NOTE Anion Gap 18 Estim Creat Clear Calc 56.5 Estimated GFR 54 Random Glucose 101 Lactic Acid 1.9 Calcium 8.4 D Total Bilirubin 0.5 AST 59 H ALT 33 H Alkaline Phosphatase 65 B-Natriuretic Peptide 39 Total Protein 6.6 Albumin 3.9 Urine Color Urine Appearance Urine pH Ur Specific [place] Urine Protein Urine Glucose (UA) Urine Ketones Urine Blood Urine Nitrite Ur Leukocyte Esterase Urine RBC Urine WBC Ur Squamous Epith Cells Urine Bacteria Hyaline Casts Urine Opiates Screen Ur Buprenorphine Scrn Ur Oxycodone Screen Urine Methadone Screen Urine Fentanyl Screen Ur Barbiturates Screen Ur Phencyclidine Scrn Ur Amphetamines Screen U Benzodiazepines Scrn Urine Cocaine Screen U Marijuana (THC) Screen 06/09/25 06/10/25 20:40 04:33 MCV 82.0 MCH 26.8 L MCHC 32.7 RDW 15.5 Plt Count 298 MPV 10.3 Immature Gran % (Auto) 1.2 H Neut % (Auto) 85.7 H Lymph % (Auto) 7.7 L [place] % (Auto) 5.2 Eos % (Auto) 0.0 Baso % (Auto) 0.2 Lymph # (Auto) 2.4 [place] # (Auto) 1.6 H Eos # (Auto) 0.0 Baso # (Auto) 0.1 Abs Immat Gran (auto) 0.36 H Absolute Neuts (auto) 26.7 H Absolute Nucleated RBC 0.000 Nucleated RBC % (auto) 0.0 Neutrophils % (Manual) Band Neutrophils % Lymphocytes % (Manual) Monocytes % (Manual) Abs Neuts (Manual) Lymphocytes # (Manual) Monocytes # (Manual) Toxic Granulation Toxic Vacuolation Platelet Estimate Plt Morphology Comment RBC Morphology Microcytosis Smear Tech's Comments VERIFIED Smear Path Review Anion Gap 11 L Estim Creat Clear Calc 95.0 Estimated GFR > 60 Random Glucose 95 Lactic Acid Calcium 7.6 L D Total Bilirubin 0.3 AST 68 H ALT 53 H Alkaline Phosphatase 68 B-Natriuretic Peptide Total Protein 5.3 L Albumin 3.1 L Urine Color Yellow Urine Appearance Clear Urine pH 5.5 Ur Specific [place] 1.015 Urine Protein 100 (2+) H Urine Glucose (UA) Negative Urine Ketones 15 Urine Blood Moderate (2+) H Urine Nitrite Negative Ur Leukocyte Esterase Negative Urine RBC 6-10 H Urine WBC 6-10 H Ur Squamous Epith Cells 6-10 Urine Bacteria None Seen Hyaline Casts >20 Urine Opiates Screen POSITIVE H Ur Buprenorphine Scrn Not Detected Ur Oxycodone Screen Not Detected Urine Methadone Screen Not Detected Urine Fentanyl Screen POSITIVE H Ur Barbiturates Screen Not Detected Ur Phencyclidine Scrn Not Detected Ur Amphetamines Screen Not Detected U Benzodiazepines Scrn Not Detected Urine Cocaine Screen POSITIVE H U Marijuana (THC) Screen Not Detected Microbiology Microbiology Results: Microbiology 06/09/25 Unknown Urine Culture - Preliminary Urine clean catch - Clean Catch Midstream Culture too young to evaluate. Assessment and Plan (1) Multifocal pneumonia: Status: Acute (2) Aspiration pneumonia: Status: Acute (3) Acute hypoxic respiratory failure: Status: Acute Plan Patient is a 39-year-old female with a past medical history significant for HTN, mild intermittent asthma, anxiety and substance use disorder, who presented to the ED via EMS after being found by PD for a breaking and entering ,when the patient was found overdosed in her bed. Severe sepsis with acute hypoxic respiratory failure and toxic encephalopathy secondary to aspiration pneumonia from overdose, sepsis resolved, wbc down from 42 to 31, CXR with multifocal pneumonia u tox + for fentanyl, cocaine and opioids continue Unassyn for PNA/sepsis Chronic normocytic anemia, H/H down d/t but likely from hemodilution HTN BP normal, hold med Mild intermittent asthma, no acute exacerbation continue home meds Anxiety/mood/depression hold Seroquel and gabapentin due to hypotension, resume when blood pressure stabilizes CARE consult for inpatient when medically stable Full code VTE prophylaxis: Lovenox Patient with severe sepsis with acute hypoxic respiratory failure and toxic encephalopathy secondary to aspiration pneumonia from overdose, requiring admission for at least 2 midnights stay for IV antibiotics and monitoring. Quality Stroke Does the patient have a stroke diagnosis?: No VTE Prior VTE?: No VTE Risk Level:: Medical - moderate - high VTE Device Contraindication: Treatment Not Indicated VTE Drug Contraindication: N/A - Med Ordered
--- NOTE | 2025-06-10 14:31 | PC.NURSE ---
report called to the floor
[2025-06-10 14:55] VITALS: BP 107/66; PULSE 79; RESP 16; TEMP 36; O2SAT 96
[2025-06-10 15:00] VITALS: BMI 25.0
--- NOTE | 2025-06-10 16:37 | MHC.CM.PN ---
PT REPORTS SHE LIVES ALONE AND IS INDEPENDENT WITH CARE SHE HAS NO SERVICES OR DME SHE DECLINES A HCP PCP: BRIGETTE BEGUM DCP TBD, ? HOME VIA PRIVATE TRANSPORT
[2025-06-10 20:00] VITALS: BP 130/87; PULSE 82; RESP 20; TEMP 36.7; O2SAT 100
[2025-06-11 01:15] VITALS: RESP 16
[2025-06-11 04:00] VITALS: BP 123/67; PULSE 83; RESP 18; TEMP 36.4; O2SAT 100
[2025-06-11 06:08] LABS: MANUAL DIFF FLAG NO
[2025-06-11 06:14] LABS: Hematocrit 27.9 % (37.0-47.0); Hemoglobin 9.1 g/dl (12.0-16.0); Imm Gran Abs Auto 0.11 X10*3/uL (0.00-0.03); Imm Gran Pct Auto 0.6 % (0.0-0.4); Lymphocytes Absolute Auto 2.9 X10*3/uL (1.2-4.9); Mean Corpuscular HGB Conc 32.6 g/dl (31.0-35.0); Mean Corpuscular Hemoglobin 26.8 pg (27.0-33.0); Mean Corpuscular Volume 82.3 fL (80.0-98.0); NRBC Abs Auto 0.000 X10*3/uL (0.0-0.012); NRBC Pct Auto 0.0 /100WBC (0.0-0.2); Platelet Count 283 X10*3/uL (160-400); Red Blood Count 3.39 X10*6/uL (4.20-5.50); White Blood Count 18.4 X10*3/uL (4.8-10.8)
[2025-06-11 06:31] LABS: Alanine Aminotransferase 37 U/L (0-31); Albumin Level 2.8 g/dL (3.5-5.0); Alkaline Phosphatase 59 U/L (39-117); Anion Gap 10 (12-20); Aspartate Amino Transferase 34 U/L (5-31); Blood Urea Nitrogen 12 mg/dL (9-16); Calcium 7.8 mg/dL (8.4-10.2); Carbon Dioxide 29 mmol/L (22-29); Chloride 106 mmol/L (96-108); Creatinine Clr Calc Pharmacy 103.6; Estimated Glomerular Filt Rate > 60; Potassium 3.8 mmol/L (3.3-5.1); Sodium 141 mmol/L (135-145); Total Protein 5.3 g/dL (6.5-8.0)
[2025-06-11 06:48] LABS: HIV Num 1 0.05 S/CO (0.00-0.99); ~HepC Num1 0.07 S/CO (0.00-0.79); ~Hepatitis C Antibody Nonreactive (Nonreactive)
[2025-06-11 07:30] VITALS: BP 108/68; PULSE 74; RESP 18; TEMP 36.8; O2SAT 92
[2025-06-11] MEDS: 0.9 % Sodium Chloride Flush 3 ML SYRINGE IVFLUSH ×3 (08:22→22:52)
--- NOTE | 2025-06-11 09:01 | HO.PM.IMPN ---
Subjective Subjective Date of Service: 06/11/25 Interval History: She is feeling better today, no shortness of breath, no fever, WBC trending, still would inpatient Psych treatment Physical Exam Vital Signs: Vital Signs: Last Vital Signs Temp 98.2 F 06/11/25 07:30 Pulse 74 06/11/25 07:30 Resp 18 06/11/25 07:30 BP 108/68 06/11/25 07:30 Pulse Ox 92 06/11/25 07:30 O2 Del Method Room Air 06/11/25 07:30 O2 Flow Rate 4 06/10/25 10:17 BMI result Body Mass Index 25.0 General: AO X 3, no acute distress Resp: CTA bilateral CVS: S1,S2,RRR GI: +BS, NT, no distention Skin: No rash Neuro: motor grossly intact Psych: appropriate affect Objective Data Active Medications Acetaminophen (Acetaminophen 325 Mg Tablet) 975 mg PO Q6H PRN PRN Reason: Pain, Mild 1-3,fever,headache Last Admin: 06/11/25 06:31 Dose: 975 mg Documented By: HERRERA Albuterol Sulfate (Albuterol Sulfate 90 Mcg 8 Gm Inhaler) 2 puff INHALE RQ6H PRN PRN Reason: for wheezing Bupropion HCl (Bupropion Hcl Xl 300 Mg Tab.Er.24h) 300 mg PO DAILY [facility] Last Admin: 06/11/25 08:26 Dose: Not Given Documented By: ABIODUN Non-Admin Reason: Patient Refused Calcium Carbonate (Calcium Carbonate 750 Mg Tab.Chew) 750 mg PO Q4H PRN PRN Reason: Heartburn Diazepam (Diazepam 10 Mg/2 Ml Cartridge) 5 mg IVPUSH ONCE PRN PRN Reason: Anxiety Docusate Sodium (Docusate Sodium 100 Mg Capsule) 100 mg PO DAILY PRN PRN Reason: Constipation Enoxaparin Sodium (Enoxaparin Sodium 40 Mg/0.4 Ml Syringe) 40 mg SUBCUT Q24H [facility] Last Admin: 06/11/25 08:22 Dose: 40 mg Documented By: ABIODUN Ampicillin Sodium/Sulbactam (Sodium 3 gm/ Sodium Chloride) 100 mls @ 200 mls/hr IV Q6H [facility] Last Infusion: 06/11/25 06:35 Dose: Infused Documented By: HERRERA Loratadine (Loratadine 10 Mg Tablet) 10 mg PO DAILY PRN PRN Reason: allergy symptoms Magnesium Hydroxide (Milk Of Magnesia 30 Ml Oral.Susp) 30 ml PO DAILY PRN PRN Reason: Constipation Melatonin (Melatonin 3 Mg Tablet) 6 mg PO BEDTIME PRN PRN Reason: Insomnia Last Admin: 06/10/25 20:58 Dose: 6 mg Documented By: MELIDA Ondansetron HCl (Ondansetron Hcl 4 Mg/2 Ml Vial) 4 mg IVPUSH Q8H PRN PRN Reason: Nausea and Vomiting Oxycodone HCl (Oxycodone Hcl Immed Release 5 Mg Tablet) 5 mg PO Q6H PRN PRN Reason: Pain, Severe (Pain Scale 7-10) Sodium Chloride (0.9 % Sodium Chloride Flush 3 Ml Syringe) [facility] Last Admin: 06/11/25 08:22 Dose: 3 ml Documented By: ABIODUN Tramadol HCl (Tramadol Hcl 50 Mg Tablet) 50 mg PO Q6H PRN PRN Reason: Pain, Moderate(Pain Scale 4-6) Last Admin: 06/11/25 08:22 Dose: 50 mg Documented By: ABIODUN Vitamin D (Cholecalciferol (Vitamin D3) 25 Mcg Tablet) 50 mcg PO DAILY [facility] Last Admin: 06/11/25 08:22 Dose: 50 mcg Documented By: ABIODUN Labs 06/11/25 05:51 06/11/25 05:51 Labs: Laboratory Results - last 24 hr 06/11/25 05:51 MCV 82.3 MCH 26.8 L MCHC 32.6 RDW 15.9 Plt Count 283 MPV 10.2 Immature Gran % (Auto) 0.6 H Neut % (Auto) 73.4 H Lymph % (Auto) 15.7 L [place] % (Auto) 7.5 Eos % (Auto) 2.5 Baso % (Auto) 0.3 Lymph # (Auto) 2.9 [place] # (Auto) 1.4 H Eos # (Auto) 0.5 H Baso # (Auto) 0.1 Abs Immat Gran (auto) 0.11 H Absolute Neuts (auto) 13.5 H Absolute Nucleated RBC 0.000 Nucleated RBC % (auto) 0.0 Anion Gap 10 L Estim Creat Clear Calc 103.6 Estimated GFR > 60 Random Glucose 108 Calcium 7.8 L Total Bilirubin 0.3 AST 34 H ALT 37 H Alkaline Phosphatase 59 Total Protein 5.3 L Albumin 2.8 L Hepatitis C Ab (EIA) Nonreactive HIV 1&2 Ab/P24 Ag 4thGn Nonreactive Microbiology Microbiology Results: Microbiology 06/09/25 20:30 Blood Culture - Preliminary Blood - Venous No growth after 24 hours. 06/09/25 20:30 Blood Culture - Preliminary Blood - Venous No growth after 24 hours. 06/09/25 Unknown Urine Culture - Preliminary Urine clean catch - Clean Catch Midstream Culture too young to evaluate. Assessment and Plan (1) Multifocal pneumonia: Status: Acute (2) Aspiration pneumonia: Status: Acute (3) Acute hypoxic respiratory failure: Status: Acute Plan Patient is a 39-year-old female with a past medical history significant for HTN, mild intermittent asthma, anxiety and substance use disorder, who presented to the ED via EMS after being found by PD for a breaking and entering ,when the patient was found overdosed in her bed. Severe sepsis with acute hypoxic respiratory failure and toxic encephalopathy secondary to aspiration with multifocal pneumonia from overdose, sepsis resolved, wbc down from 42 to 31 to 18 u tox + for fentanyl, cocaine and opioids continue Unassyn for PNA/sepsis--transition to PO Augmentin by tomorrow Chronic normocytic anemia, H/H down d/t but likely from hemodilution HTN BP normal, hold med Mild intermittent asthma, no acute exacerbation continue home meds Substance use disorder with +opioid, fentanyl and cocain addiction med following HIV/hepc negative Anxiety/mood/depression hold Seroquel and gabapentin due to hypotension, resume when blood pressure stabilizes CARE consult for inpatient when medically stable Full code VTE prophylaxis: Lovenox Patient with severe sepsis with acute hypoxic respiratory failure and toxic encephalopathy secondary to aspiration pneumonia from overdose, requiring admission for at least 2 midnights stay for IV antibiotics and monitoring. Quality Stroke Does the patient have a stroke diagnosis?: No VTE Prior VTE?: No VTE Risk Level:: Medical - moderate - high VTE Device Contraindication: Treatment Not Indicated VTE Drug Contraindication: N/A - Med Ordered
--- NOTE | 2025-06-11 10:58 | HO.SUDE ---
Eloy is a 39-year old female with a hx of BPD, depression, and anxiety. She was medically admitted to [facility] for aspiration pneumonia secondary to a fentanyl overdose requiring Narcan resuscitation. Met with Eloy in for a SUDE following overdose on fentanyl, Pt stated she typically uses cocaine only 1-3 grams daily, age of first use = 19 years old, and uses via the intranasal route (snorting). Pt stated she wanted to shut off her emotions and decided to use fentanyl, however stated I must have used too much . Precipitants of this, was conflict with her current boyfriend and emotional factors, however pt did not want to end her life. Her only periods of sobriety have been during her pregnancies which she has had 4. She has been to treatment once in [place] and at [facility], a dual diagnosis program. She endorses a family hx of alcohol use disorder and mental health difficulties. Substance use and mood lability/impulsivity can be risk factors for acquiring hiv/hcv/tb, however pt does not inject substances so is at lower risk. Pt wants to focus on her mental health currently and will be seen by CARE Team once medically cleared to discuss treatment options. No further questions or concerns offered at this time. Pt has ACS team contact info in case any further support is needed. Discussed with eDlfino Sorenson NP.
--- NOTE | 2025-06-11 14:29 | MHC.CM.PN ---
PER ROUNDS PT NOT MEDICALLY EREAY FOR DC PLAN REMAINS HOME
[2025-06-11 15:32] VITALS: BP 134/71; PULSE 73; RESP 16; TEMP 36.8; O2SAT 92
[2025-06-11 18:11] VITALS: BP 151/73
[2025-06-11 19:17] VITALS: BP 132/78; PULSE 66; RESP 18; TEMP 37.2; O2SAT 95
[2025-06-12] VITALS (9 sets, daily range): BP systolic 126–166; BP diastolic 62–97; PULSE 68–87; RESP 18; TEMP 36.2–37.4; O2SAT 90–95
[2025-06-12 08:47] LABS: MANUAL DIFF FLAG NO
[2025-06-12 08:54] LABS: Hematocrit 26.8 % (37.0-47.0); Hemoglobin 8.8 g/dl (12.0-16.0); Imm Gran Abs Auto 0.10 X10*3/uL (0.00-0.03); Imm Gran Pct Auto 0.7 % (0.0-0.4); Lymphocytes Absolute Auto 3.4 X10*3/uL (1.2-4.9); Mean Corpuscular HGB Conc 32.8 g/dl (31.0-35.0); Mean Corpuscular Hemoglobin 26.7 pg (27.0-33.0); Mean Corpuscular Volume 81.5 fL (80.0-98.0); NRBC Abs Auto 0.000 X10*3/uL (0.0-0.012); NRBC Pct Auto 0.0 /100WBC (0.0-0.2); Platelet Count 278 X10*3/uL (160-400); Red Blood Count 3.29 X10*6/uL (4.20-5.50); White Blood Count 13.6 X10*3/uL (4.8-10.8)
[2025-06-12] MEDS: 0.9 % Sodium Chloride Flush 3 ML SYRINGE IVFLUSH ×3 (08:55→20:21)
[2025-06-12 09:07] LABS: Alanine Aminotransferase 25 U/L (0-31); Albumin Level 2.8 g/dL (3.5-5.0); Alkaline Phosphatase 61 U/L (39-117); Anion Gap 9 (12-20); Aspartate Amino Transferase 21 U/L (5-31); Blood Urea Nitrogen 5 mg/dL (9-16); Calcium 7.7 mg/dL (8.4-10.2); Carbon Dioxide 28 mmol/L (22-29); Chloride 108 mmol/L (96-108); Creatinine Clr Calc Pharmacy 107.2; Estimated Glomerular Filt Rate > 60; Potassium 3.5 mmol/L (3.3-5.1); Sodium 141 mmol/L (135-145); Total Protein 5.5 g/dL (6.5-8.0)
--- NOTE | 2025-06-12 09:44 | P.PNIM_ITS ---
Subjective Subjective Date of Service: 06/12/25 Interval History: No acute events overnight. States she is feeling better without any dyspnea. Constitutional Constitutional: Denies body ache(s), Denies chills, Denies fatigue, Denies fever(s) and Denies headache(s) Eyes Eyes: Denies change in vision ENT Ears, Nose, Mouth, and Throat: Denies headache(s), Denies nasal discharge and Denies sore throat Cardiovascular Cardiovascular: Denies chest pain, Denies rapid heart rate, Denies lightheadedness and Reports dyspnea Respiratory Respiratory: Denies chest congestion, Denies cough, Reports dyspnea and Denies wheezing Gastrointestinal Gastrointestinal: Denies abdominal pain, Denies diarrhea, Denies nausea and Denies vomiting Musculoskeletal Musculoskeletal: Denies myalgias Integumentary/Breasts Skin/Breast: Denies rash Neurologic Neurologic: Denies confusion and Denies headache(s) Psychiatric Psychiatric: Denies confusion Endocrine Endocrine: Denies fatigue Hematologic/Lymphatic Hematologic/Lymphatic: Denies easy bleeding and Denies easy bruising Allergic/Immunologic Allergic/Immunologic: Denies wheezing Physical Exam 2 Vital Signs: Vital Signs: Last Vital Signs Temp 99.3 F 06/12/25 07:34 Pulse 68 06/12/25 07:34 Resp 18 06/12/25 07:34 BP 127/82 06/12/25 07:34 Pulse Ox 90 L 06/12/25 07:34 O2 Del Method Room Air 06/12/25 07:34 O2 Flow Rate 4 06/10/25 10:17 BMI result Body Mass Index 25.0 General: AO X 3, no acute distress Resp: CTA bilateral CVS: S1,S2,RRR GI: +BS, NT, no distention Skin: No rash Neuro: motor grossly intact Psych: appropriate affect Const: General: No confusion Orientation/consciousness: No confusion Neuro: General: No confusion Objective Data Active Medications Acetaminophen (Acetaminophen 325 Mg Tablet) 975 mg PO Q6H PRN PRN Reason: Pain, Mild 1-3,fever,headache Last Admin: 06/11/25 06:31 Dose: 975 mg Documented By: HERRERA Albuterol Sulfate (Albuterol Sulfate 90 Mcg 8 Gm Inhaler) 2 puff INHALE RQ6H PRN PRN Reason: for wheezing Bupropion HCl (Bupropion Hcl Xl 300 Mg Tab.Er.24h) 300 mg PO DAILY [facility] Last Admin: 06/12/25 08:55 Dose: Not Given Documented By: RADHA Non-Admin Reason: Patient Refused Calcium Carbonate (Calcium Carbonate 750 Mg Tab.Chew) 750 mg PO Q4H PRN PRN Reason: Heartburn Clonidine HCl (Clonidine Hcl 0.1 Mg Tablet) 0.1 mg PO TID PRN; Protocol PRN Reason: Anxiety Last Admin: 06/11/25 18:11 Dose: 0.1 mg Documented By: ABIODUN Diazepam (Diazepam 10 Mg/2 Ml Cartridge) 5 mg IVPUSH ONCE PRN PRN Reason: Anxiety Docusate Sodium (Docusate Sodium 100 Mg Capsule) 100 mg PO DAILY PRN PRN Reason: Constipation Enoxaparin Sodium (Enoxaparin Sodium 40 Mg/0.4 Ml Syringe) 40 mg SUBCUT Q24H [facility] Last Admin: 06/12/25 08:52 Dose: 40 mg Documented By: RADHA Gabapentin (Gabapentin 400 Mg Capsule) 400 mg PO TID [facility] Last Admin: 06/12/25 08:52 Dose: 400 mg Documented By: RADHA Ampicillin Sodium/Sulbactam (Sodium 3 gm/ Sodium Chloride) 100 mls @ 200 mls/hr IV Q6H [facility] Last Infusion: 06/12/25 05:40 Dose: Infused Documented By: DASH Loratadine (Loratadine 10 Mg Tablet) 10 mg PO DAILY PRN PRN Reason: allergy symptoms Magnesium Hydroxide (Milk Of Magnesia 30 Ml Oral.Susp) 30 ml PO DAILY PRN PRN Reason: Constipation Melatonin (Melatonin 3 Mg Tablet) 6 mg PO BEDTIME PRN PRN Reason: Insomnia Last Admin: 06/11/25 21:38 Dose: 6 mg Documented By: DASH Ondansetron HCl (Ondansetron Hcl 4 Mg/2 Ml Vial) 4 mg IVPUSH Q8H PRN PRN Reason: Nausea and Vomiting Oxycodone HCl (Oxycodone Hcl Immed Release 5 Mg Tablet) 5 mg PO Q6H PRN PRN Reason: Pain, Severe (Pain Scale 7-10) Quetiapine Fumarate (Quetiapine Fumarate 25 Mg Tablet) 75 mg PO BEDTIME PRN PRN Reason: Anxiety Last Admin: 06/11/25 21:38 Dose: 75 mg Documented By: DASH Sodium Chloride (0.9 % Sodium Chloride Flush 3 Ml Syringe) 3 ml IVFLUSH QSHIFT [facility] Last Admin: 06/12/25 08:55 Dose: 3 ml Documented By: RADHA Tramadol HCl (Tramadol Hcl 50 Mg Tablet) 50 mg PO Q6H PRN PRN Reason: Pain, Moderate(Pain Scale 4-6) Last Admin: 06/11/25 19:49 Dose: 50 mg Documented By: DASH Vitamin D (Cholecalciferol (Vitamin D3) 25 Mcg Tablet) 50 mcg PO DAILY [facility] Last Admin: 06/12/25 08:52 Dose: 50 mcg Documented By: RADHA Labs 06/12/25 08:30 06/12/25 08:30 Labs: Laboratory Results - last 24 hr 06/12/25 06/12/25 06/12/25 08:30 08:30 08:30 MCV 81.5 MCH 26.7 L MCHC 32.8 RDW 16.0 Plt Count 278 MPV 10.6 Immature Gran % (Auto) 0.7 H Neut % (Auto) 61.8 Lymph % (Auto) 25.1 [place] % (Auto) 7.7 Eos % (Auto) 4.4 H Baso % (Auto) 0.3 Lymph # (Auto) 3.4 [place] # (Auto) 1.0 Eos # (Auto) 0.6 H Baso # (Auto) 0.0 Abs Immat Gran (auto) 0.10 H Absolute Neuts (auto) 8.4 H Absolute Nucleated RBC 0.000 Nucleated RBC % (auto) 0.0 Anion Gap 9 L Cancelled Estim Creat Clear Calc 107.2 Cancelled Estimated GFR > 60 Random Glucose Calcium Total Bilirubin AST ALT Alkaline Phosphatase Total Protein Albumin 06/12/25 06/12/25 06/12/25 08:30 08:30 08:30 MCV MCH MCHC RDW Plt Count MPV Immature Gran % (Auto) Neut % (Auto) Lymph % (Auto) [place] % (Auto) Eos % (Auto) Baso % (Auto) Lymph # (Auto) [place] # (Auto) Eos # (Auto) Baso # (Auto) Abs Immat Gran (auto) Absolute Neuts (auto) Absolute Nucleated RBC Nucleated RBC % (auto) Anion Gap Estim Creat Clear Calc Estimated GFR Cancelled Random Glucose 89 Cancelled Calcium 7.7 L Cancelled Total Bilirubin 0.2 AST 21 ALT 25 Alkaline Phosphatase 61 Total Protein 5.5 L Albumin 2.8 L Microbiology Microbiology Results: Microbiology 06/09/25 20:30 Blood Culture - Preliminary Blood - Venous No growth after 48 hours. 06/09/25 20:30 Blood Culture - Preliminary Blood - Venous No growth after 48 hours. 06/09/25 Unknown Urine Culture - Final Urine clean catch - Clean Catch Midstream Assessment and Plan (1) Aspiration pneumonia: Status: Acute Plan Patient is a 39-year-old female with a past medical history significant for HTN, mild intermittent asthma, anxiety and substance use disorder, who presented to the ED via EMS after being found by PD for a breaking and entering ,when the patient was found overdosed in her bed. Severe sepsis with acute hypoxic respiratory failure and toxic encephalopathy secondary to aspiration with multifocal pneumonia from overdose, sepsis resolved, wbc trending down u tox + for fentanyl, cocaine and opioids Initiated on Unasyn on admission-transitioned to p.o. Augmentin today Anxiety/mood/depression hold Seroquel and gabapentin due to hypotension, resume when blood pressure stabilizes CARE consult today Chronic normocytic anemia, H/H down d/t but likely from hemodilution HTN BP normal, hold med Mild intermittent asthma, no acute exacerbation continue home meds Substance use disorder with +opioid, fentanyl and cocain addiction med following HIV/hepc negative Full code VTE prophylaxis: Lovenox Reason for continued admission: CARE team eval Quality Stroke Does the patient have a stroke diagnosis?: No VTE Prior VTE?: No VTE Risk Level:: Medical - moderate - high VTE Device Contraindication: Treatment Not Indicated VTE Drug Contraindication: N/A - Med Ordered
[2025-06-13] VITALS (7 sets, daily range): BP systolic 115–143; BP diastolic 65–100; PULSE 67–100; RESP 18–20; TEMP 36.9–37; O2SAT 95–97
--- NOTE | 2025-06-13 07:30 | P.PNIM_ITS ---
Subjective Subjective Date of Service: 06/13/25 Interval History: Feels better, no dyspnea Physical Exam 2 Vital Signs: Vital Signs: Last Vital Signs Temp 98.4 F 06/13/25 03:16 Pulse 67 06/13/25 03:16 Resp 18 06/13/25 03:16 BP 115/65 06/13/25 03:16 Pulse Ox 95 06/13/25 03:16 O2 Del Method Room Air 06/13/25 03:16 O2 Flow Rate 4 06/10/25 10:17 BMI result Body Mass Index 25.0 General: AO X 3, no acute distress Resp: CTA bilateral CVS: S1,S2,RRR GI: +BS, NT, no distention Skin: No rash Neuro: motor grossly intact Psych: appropriate affect Objective Data Active Medications Acetaminophen (Acetaminophen 325 Mg Tablet) 975 mg PO Q6H PRN PRN Reason: Pain, Mild 1-3,fever,headache Last Admin: 06/11/25 06:31 Dose: 975 mg Documented By: HERRERA Albuterol Sulfate (Albuterol Sulfate 90 Mcg 8 Gm Inhaler) 2 puff INHALE RQ6H PRN PRN Reason: for wheezing Amoxicillin/Clavulanate Potassium (Amoxicillin/Potassium Clav 875 Mg Tablet) 875 mg PO Q12H [facility] Last Admin: 06/12/25 20:21 Dose: 875 mg Documented By: XAVIER Bupropion HCl (Bupropion Hcl Xl 300 Mg Tab.Er.24h) 300 mg PO DAILY [facility] Last Admin: 06/12/25 08:55 Dose: Not Given Documented By: RADHA Non-Admin Reason: Patient Refused Calcium Carbonate (Calcium Carbonate 750 Mg Tab.Chew) 750 mg PO Q4H PRN PRN Reason: Heartburn Clonidine HCl (Clonidine Hcl 0.1 Mg Tablet) 0.1 mg PO TID PRN; Protocol PRN Reason: Anxiety Last Admin: 06/12/25 13:10 Dose: 0.1 mg Documented By: RADHA Diazepam (Diazepam 10 Mg/2 Ml Cartridge) 5 mg IVPUSH ONCE PRN PRN Reason: Anxiety Docusate Sodium (Docusate Sodium 100 Mg Capsule) 100 mg PO DAILY PRN PRN Reason: Constipation Enoxaparin Sodium (Enoxaparin Sodium 40 Mg/0.4 Ml Syringe) 40 mg SUBCUT Q24H [facility] Last Admin: 06/12/25 08:52 Dose: 40 mg Documented By: RADHA Gabapentin (Gabapentin 400 Mg Capsule) 400 mg PO TID [facility] Last Admin: 06/12/25 20:21 Dose: 400 mg Documented By: XAVIER Loratadine (Loratadine 10 Mg Tablet) 10 mg PO DAILY PRN PRN Reason: allergy symptoms Magnesium Hydroxide (Milk Of Magnesia 30 Ml Oral.Susp) 30 ml PO DAILY PRN PRN Reason: Constipation Melatonin (Melatonin 3 Mg Tablet) 6 mg PO BEDTIME PRN PRN Reason: Insomnia Last Admin: 06/12/25 20:21 Dose: 6 mg Documented By: XAVIER Ondansetron HCl (Ondansetron Hcl 4 Mg/2 Ml Vial) 4 mg IVPUSH Q8H PRN PRN Reason: Nausea and Vomiting Oxycodone HCl (Oxycodone Hcl Immed Release 5 Mg Tablet) 5 mg PO Q6H PRN PRN Reason: Pain, Severe (Pain Scale 7-10) Quetiapine Fumarate (Quetiapine Fumarate 25 Mg Tablet) 75 mg PO BEDTIME PRN PRN Reason: Anxiety Last Admin: 06/12/25 20:24 Dose: 75 mg Documented By: XAVIER Sodium Chloride (0.9 % Sodium Chloride Flush 3 Ml Syringe) [facility] Last Admin: 06/12/25 20:21 Dose: 3 ml Documented By: XAVIER Tramadol HCl (Tramadol Hcl 50 Mg Tablet) 50 mg PO Q6H PRN PRN Reason: Pain, Moderate(Pain Scale 4-6) Last Admin: 06/12/25 19:17 Dose: 50 mg Documented By: XAVIER Vitamin D (Cholecalciferol (Vitamin D3) 25 Mcg Tablet) 50 mcg PO DAILY [facility] Last Admin: 06/12/25 08:52 Dose: 50 mcg Documented By: RADHA Labs 06/12/25 08:30 06/12/25 08:30 Labs: Laboratory Results - last 24 hr 06/12/25 06/12/25 06/12/25 08:30 08:30 08:30 MCV 81.5 MCH 26.7 L MCHC 32.8 RDW 16.0 Plt Count 278 MPV 10.6 Immature Gran % (Auto) 0.7 H Neut % (Auto) 61.8 Lymph % (Auto) 25.1 [place] % (Auto) 7.7 Eos % (Auto) 4.4 H Baso % (Auto) 0.3 Lymph # (Auto) 3.4 [place] # (Auto) 1.0 Eos # (Auto) 0.6 H Baso # (Auto) 0.0 Abs Immat Gran (auto) 0.10 H Absolute Neuts (auto) 8.4 H Absolute Nucleated RBC 0.000 Nucleated RBC % (auto) 0.0 Anion Gap 9 L Cancelled Estim Creat Clear Calc 107.2 Cancelled Estimated GFR > 60 Random Glucose Calcium Total Bilirubin AST ALT Alkaline Phosphatase Total Protein Albumin 06/12/25 06/12/25 06/12/25 08:30 08:30 08:30 MCV MCH MCHC RDW Plt Count MPV Immature Gran % (Auto) Neut % (Auto) Lymph % (Auto) [place] % (Auto) Eos % (Auto) Baso % (Auto) Lymph # (Auto) [place] # (Auto) Eos # (Auto) Baso # (Auto) Abs Immat Gran (auto) Absolute Neuts (auto) Absolute Nucleated RBC Nucleated RBC % (auto) Anion Gap Estim Creat Clear Calc Estimated GFR Cancelled Random Glucose 89 Cancelled Calcium 7.7 L Cancelled Total Bilirubin 0.2 AST 21 ALT 25 Alkaline Phosphatase 61 Total Protein 5.5 L Albumin 2.8 L Microbiology Microbiology Results: Microbiology 06/09/25 20:30 Blood Culture - Preliminary Blood - Venous No growth after 48 hours. 06/09/25 20:30 Blood Culture - Preliminary Blood - Venous No growth after 48 hours. 06/09/25 Unknown Urine Culture - Final Urine clean catch - Clean Catch Midstream Assessment and Plan (1) Aspiration pneumonia: Status: Acute Plan 39/F with HTN, mild intermittent asthma, anxiety and substance use disorder, who presented to the ED via EMS after being found by PD for a breaking and entering ,when the patient was found overdosed in her bed and hypoxic, found to have multifocal pneumonia and sepsis. Severe sepsis with acute hypoxic respiratory failure and toxic encephalopathy secondary to aspiration with multifocal pneumonia from overdose, sepsis resolved, no hypoxia wbc trending down u tox + for fentanyl, cocaine and opioids was on Unassyn, transitioned to Augmentin on 06/12 Anxiety/mood/depression hold Seroquel and gabapentin due to hypotension, resume when blood pressure stabilizes CARE team recommends inpatient Psych, will dc when bed available Chronic normocytic anemia, H/H down d/t but likely from hemodilution HTN BP normal, hold med Mild intermittent asthma, no acute exacerbation continue home meds Substance use disorder with +opioid, fentanyl and cocain addiction med following HIV/hepc negative Full code VTE prophylaxis: Lovenox Reason for continued admission: CARE team eval Quality Stroke Does the patient have a stroke diagnosis?: No VTE Prior VTE?: No VTE Risk Level:: Medical - moderate - high VTE Device Contraindication: Treatment Not Indicated VTE Drug Contraindication: N/A - Med Ordered
[2025-06-13] MEDS: buPROPion HCl XL 300 MG TAB.ER.24H PO (09:00)
[2025-06-13] MEDS: 0.9 % Sodium Chloride Flush 3 ML SYRINGE IVFLUSH ×3 (09:01→20:26)
--- NOTE | 2025-06-13 12:29 | MHC.CM.PN ---
PT MEDICALLY CLEARED, ADULT IPLOC BED SEARCH INITIATED BY CARE TEAM ON 06/12/25
[2025-06-13] MEDS: oxyCODONE HCl Immed Release 5 MG TABLET PO ×2 (15:21→21:39)
[2025-06-14 02:59] VITALS: BP 113/70; PULSE 63; RESP 16; TEMP 36.1; O2SAT 95
[2025-06-14] MEDS: oxyCODONE HCl Immed Release 5 MG TABLET PO ×2 (06:43→12:44)
[2025-06-14] MEDS: buPROPion HCl XL 300 MG TAB.ER.24H PO (07:37)
[2025-06-14 08:00] VITALS: BP 152/106; PULSE 71; RESP 18; TEMP 36.6; O2SAT 98
--- NOTE | 2025-06-14 09:08 | HO.PM.IMPN ---
Subjective Subjective Date of Service: 06/14/25 Interval History: Overall doing well, but was very anxious this morning from getting an eviction notice from her Landlord Physical Exam Vital Signs: Vital Signs: Last Vital Signs Temp 97.9 F 06/14/25 08:00 Pulse 71 06/14/25 08:00 Resp 18 06/14/25 08:00 BP 152/106 H 06/14/25 08:00 Pulse Ox 98 06/14/25 08:00 O2 Del Method Room Air 06/14/25 08:00 O2 Flow Rate 4 06/10/25 10:17 BMI result Body Mass Index 25.0 General: AO X 3, no acute distress Resp: CTA bilateral CVS: S1,S2,RRR GI: +BS, NT, no distention Skin: No rash Neuro: motor grossly intact Psych: appropriate affect Objective Data Active Medications Acetaminophen (Acetaminophen 325 Mg Tablet) 975 mg PO Q6H PRN PRN Reason: Pain, Mild 1-3,fever,headache Last Admin: 06/14/25 06:43 Dose: 975 mg Documented By: XAVIER Albuterol Sulfate (Albuterol Sulfate 90 Mcg 8 Gm Inhaler) 2 puff INHALE RQ6H PRN PRN Reason: for wheezing Amoxicillin/Clavulanate Potassium (Amoxicillin/Potassium Clav 875 Mg Tablet) 875 mg PO Q12H [facility] Last Admin: 06/13/25 20:25 Dose: 875 mg Documented By: XAVIER Bupropion HCl (Bupropion Hcl Xl 300 Mg Tab.Er.24h) 300 mg PO DAILY [facility] Last Admin: 06/14/25 07:37 Dose: 300 mg Documented By: ABIODUN Calcium Carbonate (Calcium Carbonate 750 Mg Tab.Chew) 750 mg PO Q4H PRN PRN Reason: Heartburn Clonidine HCl (Clonidine Hcl 0.1 Mg Tablet) 0.1 mg PO TID PRN; Protocol PRN Reason: Anxiety Last Admin: 06/14/25 06:14 Dose: 0.1 mg Documented By: XAVIER Diazepam (Diazepam 10 Mg/2 Ml Cartridge) 5 mg IVPUSH ONCE PRN PRN Reason: Anxiety Docusate Sodium (Docusate Sodium 100 Mg Capsule) 100 mg PO DAILY PRN PRN Reason: Constipation Enoxaparin Sodium (Enoxaparin Sodium 40 Mg/0.4 Ml Syringe) 40 mg SUBCUT Q24H [facility] Last Admin: 06/14/25 07:37 Dose: 40 mg Documented By: ABIODUN Gabapentin (Gabapentin 400 Mg Capsule) 400 mg PO TID [facility] Last Admin: 06/14/25 07:37 Dose: 400 mg Documented By: ABIODUN Loratadine (Loratadine 10 Mg Tablet) 10 mg PO DAILY PRN PRN Reason: allergy symptoms Magnesium Hydroxide (Milk Of Magnesia 30 Ml Oral.Susp) 30 ml PO DAILY PRN PRN Reason: Constipation Melatonin (Melatonin 3 Mg Tablet) 6 mg PO BEDTIME PRN PRN Reason: Insomnia Last Admin: 06/13/25 20:25 Dose: 6 mg Documented By: XAVIER Ondansetron HCl (Ondansetron Hcl 4 Mg/2 Ml Vial) 4 mg IVPUSH Q8H PRN PRN Reason: Nausea and Vomiting Oxycodone HCl (Oxycodone Hcl Immed Release 5 Mg Tablet) 5 mg PO Q6H PRN PRN Reason: Pain, Severe (Pain Scale 7-10) Last Admin: 06/14/25 06:43 Dose: 5 mg Documented By: XAVIER Quetiapine Fumarate (Quetiapine Fumarate 25 Mg Tablet) 75 mg PO BEDTIME PRN PRN Reason: Anxiety Last Admin: 06/13/25 20:25 Dose: 75 mg Documented By: XAVIER Sodium Chloride (0.9 % Sodium Chloride Flush 3 Ml Syringe) 3 ml IVFLUSH QSHIFT [facility] Last Admin: 06/13/25 20:26 Dose: 3 ml Documented By: XAVIER Tramadol HCl (Tramadol Hcl 50 Mg Tablet) 50 mg PO Q6H PRN PRN Reason: Pain, Moderate(Pain Scale 4-6) Last Admin: 06/13/25 10:53 Dose: 50 mg Documented By: HAWA Vitamin D (Cholecalciferol (Vitamin D3) 25 Mcg Tablet) 50 mcg PO DAILY [facility] Last Admin: 06/14/25 07:37 Dose: 50 mcg Documented By: ABIODUN Labs 06/12/25 08:30 06/12/25 08:30 Labs: Laboratory Results - last 24 hr 06/12/25 06/12/25 06/12/25 08:30 08:30 08:30 MCV 81.5 MCH 26.7 L MCHC 32.8 RDW 16.0 Plt Count 278 MPV 10.6 Immature Gran % (Auto) 0.7 H Neut % (Auto) 61.8 Lymph % (Auto) 25.1 [place] % (Auto) 7.7 Eos % (Auto) 4.4 H Baso % (Auto) 0.3 Lymph # (Auto) 3.4 [place] # (Auto) 1.0 Eos # (Auto) 0.6 H Baso # (Auto) 0.0 Abs Immat Gran (auto) 0.10 H Absolute Neuts (auto) 8.4 H Absolute Nucleated RBC 0.000 Nucleated RBC % (auto) 0.0 Anion Gap 9 L Cancelled Estim Creat Clear Calc 107.2 Cancelled Estimated GFR > 60 Random Glucose Calcium Total Bilirubin AST ALT Alkaline Phosphatase Total Protein Albumin 06/12/25 06/12/25 06/12/25 08:30 08:30 08:30 MCV MCH MCHC RDW Plt Count MPV Immature Gran % (Auto) Neut % (Auto) Lymph % (Auto) [place] % (Auto) Eos % (Auto) Baso % (Auto) Lymph # (Auto) [place] # (Auto) Eos # (Auto) Baso # (Auto) Abs Immat Gran (auto) Absolute Neuts (auto) Absolute Nucleated RBC Nucleated RBC % (auto) Anion Gap Estim Creat Clear Calc Estimated GFR Cancelled Random Glucose 89 Cancelled Calcium 7.7 L Cancelled Total Bilirubin 0.2 AST 21 ALT 25 Alkaline Phosphatase 61 Total Protein 5.5 L Albumin 2.8 L Microbiology Microbiology Results: Microbiology 06/09/25 20:30 Blood Culture - Preliminary Blood - Venous No growth after 48 hours. 06/09/25 20:30 Blood Culture - Preliminary Blood - Venous No growth after 48 hours. 06/09/25 Unknown Urine Culture - Final Urine clean catch - Clean Catch Midstream Assessment and Plan (1) Aspiration pneumonia: Status: Acute Plan 39/F with HTN, mild intermittent asthma, anxiety and substance use disorder, who presented to the ED via EMS after being found by PD for a breaking and entering ,when the patient was found overdosed in her bed and hypoxic, found to have multifocal pneumonia and sepsis. Severe sepsis with acute hypoxic respiratory failure and toxic encephalopathy secondary to aspiration with multifocal pneumonia from overdose, sepsis resolved, no hypoxia wbc trending down u tox + for fentanyl, cocaine and opioids was on Unassyn, transitioned to Augmentin on 06/12, will treat for a total of 7 days Anxiety/mood/depression hold Seroquel and gabapentin due to hypotension, resume when blood pressure stabilizes CARE team recommends inpatient Psych, will dc when bed available Chronic normocytic anemia, H/H down d/t but likely from hemodilution HTN BP is trending up restart Norvasc 10, lisinopril 10 Mild intermittent asthma, no acute exacerbation continue home meds Substance use disorder with +opioid, fentanyl and cocain addiction med following HIV/hepc negative Full code VTE prophylaxis: Lovenox Reason for continued admission: CARE team eval DC today if bed available Quality Stroke Does the patient have a stroke diagnosis?: No VTE Prior VTE?: No VTE Risk Level:: Medical - moderate - high VTE Device Contraindication: Treatment Not Indicated VTE Drug Contraindication: N/A - Med Ordered
--- NOTE | 2025-06-14 09:13 | P.DS_ITS ---
DS: Providers Provider Date of Service: 06/14/25 Date of admission: 06/09/25 21:43 Date of discharge: 06/14/25 Primary care physician: Valentina Burroughs MD Consults: 06/09/25 23:02 Addiction Medicine Provider Routine Consulting Provider: Addiction Covering Reason for consultation: OD Has provider been notified: No 06/11/25 18:39 Consult to Wound Care Routine Reason for consultation: scabs to face 06/12/25 09:47 Inpt CARE Team Crisis Consult Routine Comment: Reason for consultation: mood disorder, substance use disorder DS: Diagnosis Discharge Diagnosis (1) Aspiration pneumonia: Status: Acute DS: Summary Hospital Course Hospital Course: admission hpi by Dr. Clark Chief Complaint: OD Patient is a 39-year-old female with a past medical history significant for HTN, mild intermittent asthma, anxiety and substance use disorder, who presented to the ED via EMS after being found by PD for a breaking and entering ,when the patient was found overdosed in her bed. She was given 8 mg of Narcan with response and when EMS arrived she was hypoxic at 88% and put on supplemental O2. When she arrived at the ED her oxygen saturation was 76% despite supplemental oxygen via [place], she was transitioned to non-rebreather and has now been maintaining in the low 90s with 4 L via NC. The patient admits to snorting heroin prior to arrival. She denies any chest pain, nausea, vomiting, abd pain or urinary sx currently. Hospital course: Patient essentially presented following opioid overdose complicated by aspiration pneumonia with multifocal involment, metabolice encephalopathy, and severe sepsis with hypoxia. She was admitted for further management including Oxygen support, IV Unassyn for aspiration pneumonia and later transitioned to oral Augmentin. Hypoxia has resolved, WBC was 42 on 06/09 and as of 06/12 just 13, she is afebrile. She will complete 10 days of antibiotics. Patient had also voice depression with and has asked for help to be treated in Psychiatry, asan attempt to cope with depression led her to a near lethal overdose. CARE team has assess her and deem her appropriate for inpatient Psych admission. Final diagnoses: Acut hypoxic respiratory failure Aspiration pneumonia Severe Sepsis Major Depressions Opioid overdose Time Attestation Discharge Coordination Time (in mins): 45 Quality: Safe Use of Opioids Does Pt have an Active Cancer Diagnosis on the Problem List?: No Quality: Stroke Does the patient have a stroke diagnosis?: No Physical Exam Vital Signs: Vital Signs: Last Vital Signs Temp 97.9 F 06/14/25 08:00 Pulse 71 06/14/25 08:00 Resp 18 06/14/25 08:00 BP 152/106 H 06/14/25 08:00 Pulse Ox 98 06/14/25 08:00 O2 Del Method Room Air 06/14/25 08:00 O2 Flow Rate 4 06/10/25 10:17 BMI result Body Mass Index 25.0 DS: Data Data Completed and Pending Labs on day of discharge: Preliminary micro results at discharge 06/09/25 20:30 Blood Culture - Preliminary Blood - Venous No growth after 48 hours. 06/09/25 20:30 Blood Culture - Preliminary Blood - Venous No growth after 48 hours. Discharge Plan Discharge Patient Disposition: Xfer Psychiatric Hosp Discharge Diagnosis: Polysubstance overdose, severe sepsis, aspiration pneumonia, severe sepsis, metabolic encephalopathy Referrals: Valentina Romero MD [Primary Care Provider, Internal Medicine] - 1 Week Discharge Medications: No Action amlodipine 10 mg tablet 10 mg PO BEDTIME 90 Days Qty: 90 0RF cholecalciferol (vitamin D3) 50 mcg (2,000 unit) tablet 50 mcg PO DAILY Qty: 90 0RF cetirizine [All Day Allergy (cetirizine)] 10 mg tablet 10 mg PO DAILY PRN (Reason: allergy symptoms) 90 Days Qty: 90 0RF bupropion HCl 300 mg tablet extended release 24 hr 300 mg PO DAILY quetiapine [Seroquel] 25 mg tablet 75 mg PO BEDTIME PRN (Reason: Anxiety) docusate sodium 100 mg capsule 100 mg PO DAILY PRN (Reason: constipation) Qty: 30 0RF lisinopril 10 mg tablet 10 mg PO BEDTIME 90 Days Qty: 90 1RF albuterol sulfate 90 mcg/actuation HFA aerosol inhaler 2 puff inhalation Q6H PRN (Reason: for wheezing) 30 Days Qty: 8.5 3RF gabapentin 400 mg capsule 400 mg PO TID 30 Days Qty: 90 2RF Diet: Advance to usual diet Activity on Discharge: As tolerated Stand Alone Forms: Patient Portal Discharge page Print Language: Icelandic Care Plan Goals: recovery from opioiod/fentanyl overdose, aspiration pneumonia, sepsis and metabolic encephalopathy Health Concerns: opioiod/fentanyl overdose, aspiration pneumonia, sepsis and metabolic encephalopathy Plan of Treatment: take Augmentin as prescribed to complete treatment for sepsis and aspiration pneumonia inpatient psychiatry treatmen t Assessment: see above
[2025-06-14 09:43] VITALS: BP 126/87; PULSE 89
--- NOTE | 2025-06-14 12:13 | MHC.CM.PN ---
PT TO BE DCD TO [facility]
== END 2025-06-14 14:33 | DRG 812 ==
LOC: HO.ED 21:37 → HO.EDOVER 23:00 → HO.S3 06-10 13:46
PROVIDERS: Physician Assistant; Admitting Provider Student in an Organized Health Care Education/Training Program; Emergency Provider Emergency Medicine Emergency Medical Services; PCP Internal Medicine; Visit Provider Internal Medicine
DX: T40.2X1A Poisoning by other opioids, accidental (unintentional), initial encounter (principal); R65.20 Severe sepsis without septic shock; J96.01 Acute respiratory failure with hypoxia; J69.0 Pneumonitis due to inhalation of food and vomit; G92.8 Other toxic encephalopathy; A41.9 Sepsis, unspecified organism; F41.9 Anxiety disorder, unspecified; F32.A Depression, unspecified; I10 Essential (primary) hypertension; J45.20 Mild intermittent asthma, uncomplicated; F14.10 Cocaine abuse, uncomplicated; D64.9 Anemia, unspecified; Z79.899 Other long term (current) drug therapy
CPT/HCPCS: 36415; 71046; 80053; 80307; 81001; 83605; 83880; 85007; 85025; 85027; 86803; 87040; 87086; 87389; 93005; 99285; J0295; J0456; J0696; J1650; J2405; J3360; S9485

== ENCOUNTER → 2025-06-09 19:18 | Outpatient (BNV) | payer OTHER, SELFPAY | PROVIDERS: Admitting Provider Student in an Organized Health Care Education/Training Program; Emergency Provider Emergency Medicine Emergency Medical Services; PCP Internal Medicine; Visit Provider Internal Medicine | DX: R00.0 Tachycardia, unspecified (principal) | CPT/HCPCS: 93010 ==

== ENCOUNTER → 2025-06-09 19:22 | Outpatient (BNV) | payer OTHER, SELFPAY | PROVIDERS: Emergency Provider Emergency Medicine Emergency Medical Services; PCP Internal Medicine; Visit Provider Radiology Diagnostic Radiology | DX: R09.02 Hypoxemia (principal) | CPT/HCPCS: 71046 ==

== ENCOUNTER → 2025-06-09 21:43 | Outpatient (BNV) | payer OTHER, SELFPAY | PROVIDERS: Admitting Provider Student in an Organized Health Care Education/Training Program; Emergency Provider Emergency Medicine Emergency Medical Services; PCP Internal Medicine; Visit Provider Nurse Practitioner Psychiatric/Mental Health | DX: T40.601A Poisoning by unspecified narcotics, accidental (unintentional), initial encounter (principal); F14.10 Cocaine abuse, uncomplicated | CPT/HCPCS: 99221 ==

== ENCOUNTER → 2025-06-09 21:43 | Outpatient (BNV) | payer OTHER, SELFPAY | PROVIDERS: Admitting Provider Student in an Organized Health Care Education/Training Program; Emergency Provider Emergency Medicine Emergency Medical Services; PCP Internal Medicine; Visit Provider Physician Assistant | DX: J69.0 Pneumonitis due to inhalation of food and vomit (principal) | CPT/HCPCS: 99223; 99232 ==

== ENCOUNTER 2025-06-14 13:31 | Inpatient (IN) | payer OTHER, SELFPAY ==
[2025-06-14 15:00] VITALS: BP 137/77; PULSE 79; RESP 18; TEMP 37.4; O2SAT 99
--- OUTSIDE RECORDS SUMMARY | 2025-06-14 15:26 | XMS_ITS | Clinical Summary ---
Author Organization [facility] Address [address] [place] [phone] Phone Care Team Providers Care Gate Watch Name Role Phone Unavailable Primary Care Provider Unavailabl e Immunizations Immunization Administration Dates Next Due DTP 05/06/1990,,05/12/1985,1984,1984 Hep B, ped/adol 08/04/1997,04/30/1997,03/30/1997 Hib (HbOC) 04/02/1988 MMR 03/30/1997,01/05/1986 OPV 05/06/1990, 6,03/02/1985,1984 [facility] 5 Lf t etanus toxoid, [...] 06/30/1999 06/29/1999, 05/06/1990, 03/25/1986, Additional history exists COVID-19 Vaccine ( - 2023- season) 2024 Influenza Vaccines (#1) 2025 HIB Vaccines Completed 04/02/1988 IPV Vaccines Completed [...]
--- OUTSIDE RECORDS SUMMARY | 2025-06-14 15:26 | XMS_ITS | Encounter Summary ---
Author Organization [employer] Address [address] [place] [address] Care Team Providers Care Yard Operator Name Role Phone Unavailable Primary Care Provider Unavailabl e Encounter Details Date Type Department Care Team (Late st Contact Info) Description 03/29/2023 Abstract [facility] [address] [place] [address] Byron Rodrigues DMD [address] [place] [address] Social History Tobacco Use Types Packs/Day Years [...]
--- OUTSIDE RECORDS SUMMARY | 2025-06-14 15:26 | XMS_ITS | Clinical Summary ---
Author Organization [facility] Address [address] [place] [id number] Care Team Providers Care Customer Resource Specialist Name Role Phone Unknown Primary Care Provider [phone] Allergies No known active allergies Medications * [...] EDT): Resolved. Latest blood gas on 04/26-7.45/40 5 on 40% FiO2 -Patient was also on [...] strep mitis 11/28 bottle, blood cultures from 04/20 2 on 04/24 2 have been negative. BAL culture from [...] Plan (05/01/2018 10:27 AM EDT): -Currently AAO 4, -U tox positive for amphetamines and cocaine [...] 108 05/06/2018 7:43 AM EDT Temperature 37.1 C (98.8 F) 05/06/2018 7:42 AM EDT Respiratory Rate 18 05/06/2018 7:42 AM EDT [...] test by nucleic acid amplification. Performed at [facility], [place], [place] License [id number] CLIA [id number] Blood specimen (specimen) Blood specimen / Unknown 04/20/2018 2:00 AM EDT 04/20/2018 2:14 AM EDT Joi Dowell MD LAB BLOOD ORDERABLES Final Resu lt HOSPITAL LAB * Hepatitis C Virus (HCV) Antibody (04/20/2018 2:00 AM EDT) Hepatitis C Antibody 0.11 0.00 - 0.79 S/CO ratio HOSPITAL LAB Comment: Nonreactive Performed at [facility], [place], [place] License [id number] [place] [id number] Blood specimen (specimen) Blood specimen / Unknown 04/20/2018 2:00 AM EDT 04/20/2018 2:14 AM EDT Joi Dowell MD LAB BLOOD ORDERABLES Final Resu lt HOSPITAL LAB from Last 3 Months or Most Recently Relevant to Health Maintenance Insurance MEDICAID OUT OF STATE [facility] [address] [place] [address] MEDICAID OUT OF STATE [facility] Advance Directives * Full Code (Latest Code Status on File) Date Activated Date Inactivated Comments 05/01/2018 4:35 PM Question Answer Comments Decision Thoroughly Discussed with: Patient * Full Code Date Activated Date Inactivated Comments 04/19/2018 12:18 AM 05/01/2018 2:25 PM Care Teams Customer Resource Specialist Relationship Specialty Start Date End Date Unknown Unknow Provider Address PCP - General 04/19/18
--- NOTE | 2025-06-14 15:28 | HO.WOUND ---
Wound Consult: Initial 39yr old?female admitted to [facility] on 06/09/25 - See progress notes and H&P for detailed history.? Of note patient was seen on Med Surg S3 prior to transfer to [place] [id number]. Wound consult placed for Right face abrasion.? Patient agreeable to assessment and photo documentation.? She reports the injury was from her trying to pop a pimple on the inside of her right nare. She reports significant improvement since admission to [facility]. We discussed her use of cocaine and the effect it has on skin related wounds, vasoconstriction may be playing apart on the inside mucosal cavity and the healing of the right facial abrasion. The patient reports she is looking to abstain from cocaine and heroin use after discharge we discussed she often uses the right nare for administration. We discussed the benefits of not always using the right nare should she return to use due to the vaso-constrictive effects of the substance on tissue - she reports understanding. 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 Right Face Etiology: ?Abrasion Measurements: 1cm x 1cm x 0.1cm Wound Bed: red wound bed Drainage / Odor: None noted Edges: ? well defined Joaquina wound: intact ? No Induration, Fluctuance or Warmth noted Pain: denies Goals of Treatment: ? Vaseline topical application Recommendations: Right Face - Routine cleansing with showering, pat dry. Apply Vaseline twice daily and PRN. May leave HORSEBACK RIDING INSTRUCTOR is desired. Re-consult wound care Nurse for wound deterioration or wound changes.
[2025-06-14 18:22] VITALS: BMI 24.6
--- NOTE | 2025-06-14 18:24 | PC.NURSE ---
Eloy was admitted to M3 at 1447 from [facility] on CV for treatment of Bipolar Disorder. She has had one prior IPLOC at [facility], 2 PHPs and respite stays. Pt has had a 10 plus year struggle with substance use, quit alcohol > 6 mo ago, has used intranasal cocaine daily x the last year and occasional heroin to come down. 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 She reports she panicked about being alone and took a larger than usual amount of heroin. She reports she was not intending to kill herself but did not care if it happened. I just didn't want to feel anything. She was given Narcan 8mg and BIBA to [facility] and admitted to S3 S/P OD and diagnosed with pneumonia, medically cleared today, placed on po augmentin and admitted to M3. On arrival to unit she is alert, fully oriented, pleasant and cooperative with admission process. Mood is depressed. Affect is anxious. She denies auditory, visual, tactile, other hallucinations but reports she has had psychosis in the past on SSRI. Thought Process is linear. She is help seeking and denies ideation, plan or intent to harm self or others at present. Appetite is good. Sleep is poor but question if this is r/t sub use. Focus is impaired. Safety Checks are q 15 minutes . Her goal of admission is to establish outpt providers, get back on [place] or another mood stabilizer, consider php. She is interested in barrel line operator sobriety.
[2025-06-14] MEDS: Lidocaine 4 % Patch ADH..PATCH 1 PATCH TRANSDERMA (19:00)
[2025-06-14 20:00] VITALS: BP 138/90; PULSE 84; RESP 16; TEMP 36.7; O2SAT 100
[2025-06-14 21:17] VITALS: BP 138/90
[2025-06-14 21:18] VITALS: BP 138/90
[2025-06-15 07:32] VITALS: BP 105/66; PULSE 71; RESP 16; TEMP 37.1; O2SAT 96
[2025-06-15 08:28] LABS: Hemoglobin A1C 102.3165 umol/L; Total Hemoglobin (HGBA1C) 2906.9088 umol/L
[2025-06-15 08:39] LABS: Alanine Aminotransferase 73 U/L (0-31); Albumin Level 3.9 g/dL (3.5-5.0); Alkaline Phosphatase 71 U/L (39-117); Anion Gap 12 (12-20); Aspartate Amino Transferase 68 U/L (5-31); Blood Urea Nitrogen 8 mg/dL (9-16); Calcium 8.9 mg/dL (8.4-10.2); Carbon Dioxide 24 mmol/L (22-29); Chloride 108 mmol/L (96-108); Cholesterol 161 mg/dL (<200); Creatinine Clr Calc Pharmacy 92.1; Estimated Glomerular Filt Rate > 60; HDL Cholesterol 62 mg/dL (>40); Potassium 4.2 mmol/L (3.3-5.1); Sodium 140 mmol/L (135-145); Total Protein 6.9 g/dL (6.5-8.0); Triglycerides 146 mg/dL (<150)
[2025-06-15] MEDS: Lidocaine 4 % Patch ADH..PATCH 1 PATCH TRANSDERMA (08:47)
[2025-06-15] MEDS: buPROPion HCl XL 300 MG TAB.ER.24H PO (08:47)
[2025-06-15 08:55] LABS: Free T4 (Free Thyroxine) 0.79 ng/dL (0.71-1.85); Thyroid Stimulating Hormone 1.91 uIU/mL (0.32-4.0)
[2025-06-15] MEDS: Albuterol Sulfate 90 MCG 8 GM INHALER 2 PUFF INHALE ×2 (09:43→16:04)
[2025-06-15] MEDS: guanFACINE HCl ER 1 MG TAB.ER.24H PO (11:32)
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
[2025-06-15 19:59] VITALS: BP 123/79; PULSE 89; TEMP 36.8; O2SAT 100
[2025-06-16 07:44] VITALS: BP 100/58; PULSE 76; RESP 18; TEMP 36.4; O2SAT 98
[2025-06-16] MEDS: buPROPion HCl XL 300 MG TAB.ER.24H PO (08:01)
[2025-06-16] MEDS: guanFACINE HCl ER 1 MG TAB.ER.24H PO (08:03)
[2025-06-16] MEDS: Lidocaine 4 % Patch ADH..PATCH 1 PATCH TRANSDERMA (08:32)
--- NOTE | 2025-06-16 09:24 | P.PNPSI_ITS ---
Subjective Subjective Date of Service: 06/16/25 Reason For Visit: OD Subjective Notes: Conditional Voluntary Healthcare Proxy: No Guardianship: No Medical Problems Affecting Mental Status: No Interim History: Medical record and nursing notes reviewed; case discussed during rounds with team/nursing staff, and met with patient for supportive therapy/psychoeducation, as well as medication management. Patient appears to sleep for 6 hours, was medication compliant. Denies side effects. Reports trouble falling asleep after taking or other PRNs. Denies safety concerns. Reports improving in anxiety and depression, mood is pretty good . Requests if she can access to the phone to to stopped one of the apps just in case the neighbor who care of her phone access to it. Discussed with patient regarding medication change to help with mood and insomnia, patient is receptive to the plan Medication Compliance: Yes Side effects from medications: No Attending Groups: Yes Review of Systems Acute medical concerns: No Medical Review of Systems: unchanged Review of Systems Review of Systems Constitutional: Denies fatigue and Denies fever(s) Cardiovascular: Denies chest pain and Denies dyspnea Respiratory: Denies dyspnea Gastrointestinal: Denies abdominal pain Psychiatric: denies suicidal ideation Endocrine: Denies fatigue Yes all other systems are reviewed and are negative Mental Status Exam Mental Status Exam Patient Appearance: Well Grooomed Patient Orientation: Person, Place, Time and Situation Level of Consciousness: Awake, Appropriate and Alert Patient Behavior: Appropriate, Talkative and Cooperative Mood Description: Appropriate and Nervous Affect Description: Appropriate, Constricted, Depressed and Sad Speech Pattern: Clear Memory Description: Intact Hallucinations: None Delusions: Not Present Thought Process: Intact Thought Content: positive for Racing and positive for Circumstantial Depressive Symptoms: Increased Anxiety, Difficulty Sleeping and Changes in Appetite Judgement: Fair Diagnostics Vital Signs (24Hr): Vital Signs - 24 hr 06/15/25 19:59 06/16/25 07:44 Temperature 98.3 F 97.6 F Pulse Rate 89 76 Respiratory Rate 18 Blood Pressure 123/79 100/58 L Pulse Oximetry 100 98 Oxygen Delivery Method Room Air Room Air BMI result Body Mass Index 24.6 Labs 06/15/25 07:54 Labs: Laboratory Results - last 48 hr 06/15/25 07:54 Sodium 140 Potassium 4.2 Chloride 108 Carbon Dioxide 24 Anion Gap 12 BUN 8 L Creatinine 0.67 Estim Creat Clear Calc 92.1 Estimated GFR > 60 Random Glucose 93 Estimat Average Glucose 108 Hemoglobin A1c % 5.4 Calcium 8.9 D Total Bilirubin 0.2 AST 68 H ALT 73 H Alkaline Phosphatase 71 Total Protein 6.9 Albumin 3.9 Triglycerides 146 Cholesterol 161 LDL Cholesterol, Calc 70 HDL Cholesterol 62 TSH 1.91 Free T4 0.79 Medications Medications Current Medications Acetaminophen (Acetaminophen 325 Mg Tablet) 650 mg PO Q6H PRN PRN Reason: Headache/Pain, Scale 1-10 Last Admin: 06/15/25 09:46 Dose: 650 mg Al Hydroxide/Mg Hydroxide (Magnesium Hydrox/Alum Hydrox 30 Ml Oral.Susp) 30 ml PO Q6H PRN PRN Reason: Heartburn/Nausea Albuterol Sulfate (Albuterol Sulfate 90 Mcg 8 Gm Inhaler) 2 puff INHALE Q6H PRN PRN Reason: for wheezing Last Admin: 06/15/25 16:04 Dose: 2 puff Amlodipine Besylate (Amlodipine Besylate 10 Mg Tablet) 10 mg PO BEDTIME PAT; Protocol Last Admin: 06/15/25 20:38 Dose: 10 mg Amoxicillin/Clavulanate Potassium (Amoxicillin/Potassium Clav 875 Mg Tablet) 875 mg PO Q12H PAT Stop: 06/18/25 23:59 Last Admin: 06/16/25 09:06 Dose: 875 mg Bupropion HCl (Bupropion Hcl Xl 300 Mg Tab.Er.24h) 300 mg PO DAILY PAT Last Admin: 06/16/25 08:01 Dose: 300 mg Docusate Sodium (Docusate Sodium 100 Mg Capsule) 100 mg PO DAILY PRN PRN Reason: Constipation Gabapentin (Gabapentin 400 Mg Capsule) 400 mg PO TID PAT Last Admin: 06/16/25 08:00 Dose: 400 mg Guanfacine HCl (Guanfacine Hcl Er 1 Mg Tab.Er.24h) 1 mg PO DAILY PAT Last Admin: 06/16/25 08:03 Dose: 1 mg Hydroxyzine HCl (Hydroxyzine Hcl 25 Mg Tablet) 25 mg PO Q6H PRN PRN Reason: mild anxiety Last Admin: 06/15/25 22:43 Dose: 25 mg Lidocaine (Lidocaine 4 % Patch Adh..Patch) 1 patch TRANSDERMA DAILY PAT; Protocol Last Admin: 06/16/25 08:32 Dose: 1 patch Lisinopril (Lisinopril 10 Mg Tablet) 10 mg PO BEDTIME PAT; Protocol Last Admin: 06/15/25 20:38 Dose: 10 mg [place] Carbonate ([place] Carbonate 300 Mg Tablet) 300 mg PO BID PAT Loratadine (Loratadine 10 Mg Tablet) 10 mg PO DAILY PRN PRN Reason: allergy symptoms Last Admin: 06/16/25 08:02 Dose: 10 mg Magnesium Hydroxide (Milk Of Magnesia 30 Ml Oral.Susp) 30 ml PO DAILY PRN PRN Reason: Constipation Nicotine (Nicotine 21 Mg Patch.Td24) 21 mg TRANSDERMA DAILY PRN PRN Reason: nicotine craving Nicotine Polacrilex (Nicotine Polacrilex 2 Mg Gum) 2 mg BUCCAL Q2H PRN PRN Reason: Nicotine Cravings Quetiapine Fumarate (Quetiapine Fumarate 25 Mg Tablet) 25 mg PO BID PRN PRN Reason: severe anxiety/agitation Last Admin: 06/14/25 19:00 Dose: 25 mg Quetiapine Fumarate (Quetiapine Fumarate 200 Mg Tablet) 200 mg PO BEDTIME PAT Trazodone HCl (Trazodone Hcl 50 Mg Tablet) 50 mg PO BEDTIME PRN PRN Reason: Insomnia Trazodone HCl (Trazodone Hcl 50 Mg Tablet) 50 mg PO BEDTIME PAT Vitamin D (Cholecalciferol (Vitamin D3) 25 Mcg Tablet) 50 mcg PO DAILY PAT Last Admin: 06/16/25 08:03 Dose: 50 mcg Allergies Allergies Allergy/AdvReac Type Severity Reaction Status Date / Time No Known Allergies Allergy Unknown Verified 06/09/25 19:19 Assessment & Plan Assessment & Plan (1) Bipolar disorder, current episode depressed, moderate: Status: Acute Code(s): F31.32 - Bipolar disorder, current episode depressed, moderate (2) Borderline personality disorder: Status: Acute Code(s): F60.3 - Borderline personality disorder (3) ADHD: Status: Acute Code(s): F90.9 - Attention-deficit hyperactivity disorder, unspecified type (4) Cocaine use disorder: Status: Acute Code(s): F14.10 - Cocaine abuse, uncomplicated (5) Overdose: Status: Acute Code(s): T50.901A - Poisoning by unspecified drugs, medicaments and biological substances, accidental (unintentional), initial encounter Plan HPI: Patient is a 39 -year-old, single, White, single Sinhala speaking woman with hx of bipolar, borderline personality disorder, anxiety, depression, and ADHD, PTSD who was brought in by ambulance on after being found in her home with an apparent overdose. She was administered 8mg of narcan and admitted for medical observation. Pt reported My brain just gets in the way , my highs and lows are so extreme I cannot take it . Pt reported she has a history of not following up with providers in the community but stated she plans to be better in the future. Pt reported she continues to feel depressed and numb around her current life. Precipitants: She kicked her boyfriend out due to the fact that he was using cocaine and selling cocaine. He left without respond to her phone calls. Increasing her stress, and feeling impulsive, she does not know how to do with her emotion at that point, therefore she overdose on her heroin/cocaine. Formulation/clinical reasoning: Overdose on heroin/cocaine due to increasing stress, increase in depression and anxiety. She can be impulsive, also was being told she will be evicted from apartment where she stay for 10 years, not having outpatient providers or therapist. Not currently on mood stabilizer for her bipolar, mood is fluctuated, labile, crying. History of passive SI, history of suicide attempt, history of inpatient level of care. Psychiatric diagnosis bipolar, borderline personality disorder, ADHD, depression, anxiety, PTSD, polysubstance use. Given the above information, patient will be benefit from restrictive settings environment for her safety, stable mood, and refer patient to outpatient psychiatric services. Hospital course: 06/15/25: [place] 150 twice a day started since 06/14 as mood stabilizer. Continue with Wellbutrin 300 for depression. Increase Seroquel 75 to 100 mg at bedtime for mood and for insomnia. Seroquel 25 b.i.d. p.r.n. for severe anxiety Started guanfacine ER 1 mg daily for ADHD. 06/16/25: Increase lithium up to 300 mg b.i.d. Increase Seroquel up to 200 from 100 mg at bedtime for mood. Scheduled trazodone 50 mg at bedtime with a repeat p.r.n. for insomnia Cough drops and Cepacol for sore throat and cough PRN. Compared to yesterday, mood seems more improving, less labile, not tearful, observed attended groups and be appropriate with staff and peers on the unit. Some issue with sleep, trouble falling asleep which the medication change today with hope that she can get better sleep. Denies other safety concerns. Expressed that she wants to go back to [facility] for aftercare as she has a very good experience in the past in 2021. Compliant with medications and denies side effects. Plan Patient on 15 minute checks for safety. Admitted to M3. CV. We will check lithium level 4-5 days after dose increase. Current dose is 600 total in divided dose. Kidneys function is within normal limits. Thyroid functions: unremarkable Work with treatment team to do collateral. She good like to go to the [facility] for aftercare. Tentative discharge on Saturday on 06/23 if continued to improve, mood is stabilized Patient educated on: diagnosis, medication risk/benefits, substance abuse and therapeutic strategies Informed Consent: understands Reason for continued inpatient stay Substantial Risk for: med/psych decompensation Time Spent With Patient Time: Total time managing care of this patient today ____ minutes.
[2025-06-16] MEDS: Throat Lozenge, Medicated LOZENGE 1 LOZENGE MUCOUS MEM (14:56)
[2025-06-16] MEDS: guaiFENesin 200 MG/10 ML 10 ML LIQUID PO (19:07)
[2025-06-16 20:00] VITALS: BP 132/74; PULSE 96; RESP 16; TEMP 37.6; O2SAT 99
[2025-06-16 21:15] VITALS: BP 144/81
[2025-06-17 07:00] VITALS: BMI 24.2
[2025-06-17 07:34] VITALS: BP 141/59; PULSE 100; RESP 18; TEMP 36.4; O2SAT 100
[2025-06-17] MEDS: guanFACINE HCl ER 1 MG TAB.ER.24H PO (09:04)
[2025-06-17] MEDS: buPROPion HCl XL 300 MG TAB.ER.24H PO (09:05)
[2025-06-17] MEDS: guaiFENesin 200 MG/10 ML 10 ML LIQUID PO ×2 (09:06→14:34)
--- NOTE | 2025-06-17 09:18 | HO.PSYCHPN ---
Subjective Subjective Date of Service: 06/17/25 Reason For Visit: OD Subjective Notes: Conditional Voluntary Healthcare Proxy: No Guardianship: No Medical Problems Affecting Mental Status: No Interim History: Medical record and nursing notes reviewed; case discussed during rounds with team/nursing staff, and met with patient for supportive therapy/psychoeducation, as well as medication management. Patient slept for 6-7 hours, was medication compliant, denies side effects. However reports continued to have trouble falling asleep, and that she has stay up until after 11 p.m. last night. She also reported that she spoke to someone regarding the eviction possibility in 30 days which make her more anxious last night. Rated anxiety is an 8/10 and depression a 6/10. Patient is very motivated to be clean I will try my hardest this time not to use drugs again . Future focus. Looking for to start [facility] for aftercare once she is more stable. Medication Compliance: Yes Side effects from medications: No Attending Groups: Yes Review of Systems Acute medical concerns: No Medical Review of Systems: unchanged Review of Systems Review of Systems Constitutional: Denies fatigue and Denies fever(s) Cardiovascular: Denies chest pain and Denies dyspnea Respiratory: Denies dyspnea Gastrointestinal: Denies abdominal pain Psychiatric: denies suicidal ideation Endocrine: Denies fatigue Yes all other systems are reviewed and are negative Mental Status Exam Mental Status Exam Patient Appearance: Well Grooomed Patient Orientation: Person, Place, Time and Situation Level of Consciousness: Awake, Appropriate and Alert Patient Behavior: Appropriate, Talkative, Cooperative and Anxious Mood Description: Appropriate, Anxious and Nervous Affect Description: Appropriate, Constricted, Depressed and Anxious Patient Cognition Impaired: No Ability to Follow Directions: Good Speech Pattern: Clear, Spontaneous Speech and Rapid Memory Description: Intact Hallucinations: None Delusions: Not Present Thought Process: Intact Thought Content: positive for Racing and positive for Circumstantial Depressive Symptoms: Increased Anxiety, Difficulty Sleeping and Changes in Appetite Judgement: Fair Diagnostics Vital Signs (24Hr): Vital Signs - 24 hr 06/16/25 20:00 06/16/25 21:15 06/16/25 21:15 Temperature 99.6 F Pulse Rate 96 Respiratory Rate 16 Blood Pressure 132/74 144/81 H 144/81 H Pulse Oximetry 99 Oxygen Delivery Method Room Air 06/17/25 07:34 Temperature 97.6 F Pulse Rate 100 Respiratory Rate 18 Blood Pressure 141/59 H Pulse Oximetry 100 Oxygen Delivery Method Room Air BMI result Body Mass Index 24.6 Labs 06/15/25 07:54 Medications Medications Current Medications Acetaminophen (Acetaminophen 325 Mg Tablet) 650 mg PO Q6H PRN PRN Reason: Headache/Pain, Scale 1-10 Last Admin: 06/16/25 19:15 Dose: 650 mg Al Hydroxide/Mg Hydroxide (Magnesium Hydrox/Alum Hydrox 30 Ml Oral.Susp) 30 ml PO Q6H PRN PRN Reason: Heartburn/Nausea Albuterol Sulfate (Albuterol Sulfate 90 Mcg 8 Gm Inhaler) 2 puff INHALE Q6H PRN PRN Reason: for wheezing Last Admin: 06/15/25 16:04 Dose: 2 puff Amlodipine Besylate (Amlodipine Besylate 10 Mg Tablet) 10 mg PO BEDTIME [facility]; Protocol Last Admin: 06/16/25 21:15 Dose: 10 mg Amoxicillin/Clavulanate Potassium (Amoxicillin/Potassium Clav 875 Mg Tablet) 875 mg PO Q12H [facility] Stop: 06/18/25 23:59 Last Admin: 06/17/25 09:02 Dose: 875 mg Benzocaine (Throat Lozenge, Medicated Lozenge) 1 lozenge MUCOUS MEM Q2H PRN PRN Reason: Sore Throat Last Admin: 06/16/25 14:56 Dose: 1 lozenge Bupropion HCl (Bupropion Hcl Xl 300 Mg Tab.Er.24h) 300 mg PO DAILY [facility] Last Admin: 06/17/25 09:05 Dose: 300 mg Docusate Sodium (Docusate Sodium 100 Mg Capsule) 100 mg PO DAILY PRN PRN Reason: Constipation Gabapentin (Gabapentin 400 Mg Capsule) 400 mg PO TID [facility] Last Admin: 06/17/25 09:02 Dose: 400 mg Guaifenesin (Guaifenesin 200 Mg/10 Ml 10 Ml Liquid) 10 ml PO Q4H PRN PRN Reason: Cough Last Admin: 06/17/25 09:06 Dose: 10 ml Guanfacine HCl (Guanfacine Hcl Er 1 Mg Tab.Er.24h) 1 mg PO DAILY [facility] Last Admin: 06/17/25 09:04 Dose: 1 mg Hydroxyzine HCl (Hydroxyzine Hcl 25 Mg Tablet) 25 mg PO Q6H PRN PRN Reason: mild anxiety Last Admin: 06/15/25 22:43 Dose: 25 mg Lidocaine (Lidocaine 4 % Patch Adh..Patch) 1 patch TRANSDERMA DAILY PAT; Protocol Last Admin: 06/16/25 08:32 Dose: 1 patch Lisinopril (Lisinopril 10 Mg Tablet) 10 mg PO BEDTIME [facility]; Protocol Last Admin: 06/16/25 21:15 Dose: 10 mg [place] Carbonate ([place] Carbonate 300 Mg Tablet) 300 mg PO BID PAT Last Admin: 06/17/25 09:03 Dose: 300 mg Loratadine (Loratadine 10 Mg Tablet) 10 mg PO DAILY PRN PRN Reason: allergy symptoms Last Admin: 06/17/25 09:04 Dose: 10 mg Magnesium Hydroxide (Milk Of Magnesia 30 Ml Oral.Susp) 30 ml PO DAILY PRN PRN Reason: Constipation Melatonin (Melatonin 3 Mg Tablet) 9 mg PO BEDTIME PAT Nicotine (Nicotine 21 Mg Patch.Td24) 21 mg TRANSDERMA DAILY PRN PRN Reason: nicotine craving Nicotine Polacrilex (Nicotine Polacrilex 2 Mg Gum) 2 mg BUCCAL Q2H PRN PRN Reason: Nicotine Cravings Quetiapine Fumarate (Quetiapine Fumarate 25 Mg Tablet) 25 mg PO BID PRN PRN Reason: severe anxiety/agitation Last Admin: 06/16/25 23:20 Dose: 25 mg Quetiapine Fumarate (Quetiapine Fumarate 200 Mg Tablet) 200 mg PO BEDTIME PAT Last Admin: 06/16/25 21:15 Dose: 200 mg Trazodone HCl (Trazodone Hcl 50 Mg Tablet) 50 mg PO BEDTIME PRN PRN Reason: Insomnia Last Admin: 06/16/25 23:20 Dose: 50 mg Trazodone HCl (Trazodone Hcl 50 Mg Tablet) 50 mg PO BEDTIME PAT Last Admin: 06/16/25 21:15 Dose: 50 mg Vitamin D (Cholecalciferol (Vitamin D3) 25 Mcg Tablet) 50 mcg PO DAILY PAT Last Admin: 06/17/25 09:05 Dose: 50 mcg Allergies Allergies Allergy/AdvReac Type Severity Reaction Status Date / Time No Known Allergies Allergy Unknown Verified 06/09/25 19:19 Assessment & Plan Assessment & Plan (1) Bipolar disorder, current episode depressed, moderate: Status: Acute Code(s): F31.32 - Bipolar disorder, current episode depressed, moderate (2) Borderline personality disorder: Status: Acute Code(s): F60.3 - Borderline personality disorder (3) ADHD: Status: Acute Code(s): F90.9 - Attention-deficit hyperactivity disorder, unspecified type (4) Cocaine use disorder: Status: Acute Code(s): F14.10 - Cocaine abuse, uncomplicated (5) Overdose: Status: Acute Code(s): T50.901A - Poisoning by unspecified drugs, medicaments and biological substances, accidental (unintentional), initial encounter Plan HPI: Patient is a 39 -year-old, single, White, single Pashto speaking woman with hx of bipolar, borderline personality disorder, anxiety, depression, and ADHD, PTSD who was brought in by ambulance on after being found in her home with an apparent overdose. She was administered 8mg of narcan and admitted for medical observation. Pt reported My brain just gets in the way , my highs and lows are so extreme I cannot take it . Pt reported she has a history of not following up with providers in the community but stated she plans to be better in the future. Pt reported she continues to feel depressed and numb around her current life. Precipitants: She kicked her boyfriend out due to the fact that he was using cocaine and selling cocaine. He left without respond to her phone calls. Increasing her stress, and feeling impulsive, she does not know how to do with her emotion at that point, therefore she overdose on her heroin/cocaine. Formulation/clinical reasoning: Overdose on heroin/cocaine due to increasing stress, increase in depression and anxiety. She can be impulsive, also was being told she will be evicted from apartment where she stay for 10 years, not having outpatient providers or therapist. Not currently on mood stabilizer for her bipolar, mood is fluctuated, labile, crying. History of passive SI, history of suicide attempt, history of inpatient level of care. Psychiatric diagnosis bipolar, borderline personality disorder, ADHD, depression, anxiety, PTSD, polysubstance use. Given the above information, patient will be benefit from restrictive settings environment for her safety, stable mood, and refer patient to outpatient psychiatric services. Hospital course: 06/15/25: [place] 150 twice a day started since 06/14 as mood stabilizer. Continue with Wellbutrin 300 for depression. Increase Seroquel 75 to 100 mg at bedtime for mood and for insomnia. Seroquel 25 b.i.d. p.r.n. for severe anxiety Started guanfacine ER 1 mg daily for ADHD. 06/16/25: Increase lithium up to 300 mg b.i.d. Increase Seroquel up to 200 from 100 mg at bedtime for mood. Scheduled trazodone 50 mg at bedtime with a repeat p.r.n. for insomnia Cough drops and Cepacol for sore throat and cough PRN. Compared to yesterday, mood seems more improving, less labile, not tearful, observed attended groups and be appropriate with staff and peers on the unit. Some issue with sleep, trouble falling asleep which the medication change today with hope that she can get better sleep. Denies other safety concerns. Expressed that she wants to go back to [facility] for aftercare as she has a very good experience in the past in 2021. Compliant with medications and denies side effects. 06/17/25: Reports troubles falling asleep, no problems of sleep after she able to fall asleep. Anxious, manic, hyper activities but pleasant and cooperative. Medication compliant. No side effects. No safety concerns. Visible, appropriate, attended groups. At melatonin 9 at bedtime for insomnia Increase hydroxyzine up to 50 mg as needed. Continue with the lithium and other medications level on Saturday. Plan: Patient on 15 minute checks for safety. Admitted to . CV. We will check lithium level 4-5 days after dose increase. Level on Thursday 06/21. Current dose is 600 total in divided dose. Kidneys function is within normal limits. Thyroid functions: unremarkable Work with treatment team to do collateral. She good like to go to the [facility] for aftercare. Tentative discharge on Saturday on 06/23 if continued to improve, mood is stabilized Patient educated on: diagnosis, medication risk/benefits, substance abuse and therapeutic strategies Informed Consent: understands and further education needed Reason for continued inpatient stay Substantial Risk for: med/psych decompensation Time Spent With Patient Time: Total time managing care of this patient today ____ minutes.
[2025-06-17] MEDS: Lidocaine 4 % Patch ADH..PATCH 1 PATCH TRANSDERMA (12:36)
[2025-06-17 19:20] VITALS: BP 130/79; PULSE 99; RESP 16; TEMP 36.8; O2SAT 99
[2025-06-17 23:03] VITALS: BP 137/95
[2025-06-18 08:00] VITALS: BP 126/51; PULSE 91; RESP 16; TEMP 36.3; O2SAT 99
[2025-06-18] MEDS: buPROPion HCl XL 300 MG TAB.ER.24H PO (08:53)
[2025-06-18] MEDS: guanFACINE HCl ER 1 MG TAB.ER.24H PO (08:54)
--- NOTE | 2025-06-18 11:53 | HO.PSYCHPN ---
Subjective Subjective Date of Service: 06/18/25 Reason For Visit: OD Subjective Notes: Conditional Voluntary Healthcare Proxy: No Guardianship: No Medical Problems Affecting Mental Status: No Interim History: Medical record and nursing notes reviewed; case discussed during rounds with team/nursing staff, and met with patient for supportive therapy/psychoeducation, as well as medication management. Patient slept for 5 hours, trouble falling asleep. Compliant with medication plus as-needed medication. Also reports roommate wake up twice last night by making noise and slamming door. Patient was educated on sleep hygiene, scheduled medication at bedtime, and caffeinated coffee which can affect her sleep. Reported that she has been drinking more coffee than usual on the unit. She usually way until 23:00 to take her nighttime meds which I encouraged her to take around 20:00 instead of waiting to late as she may missed the window for slept. Patient reports feeling paranoid last night, feeling people talk about her. Feeling that she is hyper. She also was triggered by dad when she was on a phone as her father thinks she is high on drugs. Also educated patient on hydration that patient has not drinking enough water/fluid. Educate patient on toxicity of lithium dehydrated. Medication Compliance: Yes Side effects from medications: No Attending Groups: Yes Review of Systems Acute medical concerns: No Medical Review of Systems: unchanged Review of Systems Review of Systems Constitutional: Denies fatigue and Denies fever(s) Cardiovascular: Denies chest pain and Denies dyspnea Respiratory: Denies dyspnea Gastrointestinal: Denies abdominal pain Psychiatric: denies suicidal ideation Endocrine: Denies fatigue Yes all other systems are reviewed and are negative Mental Status Exam Mental Status Exam Patient Appearance: Well Grooomed Patient Orientation: Person, Place, Time and Situation Level of Consciousness: Awake, Appropriate and Alert Patient Behavior: Appropriate, Talkative, Cooperative and Anxious Mood Description: Appropriate, Anxious and Nervous Affect Description: Appropriate, Constricted, Depressed and Anxious Patient Cognition Impaired: No Ability to Follow Directions: Good Speech Pattern: Clear, Spontaneous Speech and Rapid Memory Description: Intact Delusions: Not Present and Paranoid Ideation (Reports paranoid last night. Denies at the present time) Thought Process: Intact Thought Content: positive for Racing and positive for Circumstantial Depressive Symptoms: Increased Anxiety, Difficulty Sleeping and Changes in Appetite Judgement: Fair Diagnostics Vital Signs (24Hr): Vital Signs - 24 hr 06/17/25 19:20 06/17/25 23:03 06/17/25 23:03 Temperature 98.3 F Pulse Rate 99 Respiratory Rate 16 Blood Pressure 130/79 137/95 H 137/95 H Pulse Oximetry 99 Oxygen Delivery Method Room Air 06/18/25 08:00 Temperature 97.4 F Pulse Rate 91 Respiratory Rate 16 Blood Pressure 126/51 L Pulse Oximetry 99 Oxygen Delivery Method Room Air BMI result Body Mass Index 24.2 Labs 06/15/25 07:54 Medications Medications Current Medications Acetaminophen (Acetaminophen 325 Mg Tablet) 650 mg PO Q6H PRN PRN Reason: Headache/Pain, Scale 1-10 Last Admin: 06/17/25 18:52 Dose: 650 mg Al Hydroxide/Mg Hydroxide (Magnesium Hydrox/Alum Hydrox 30 Ml Oral.Susp) 30 ml PO Q6H PRN PRN Reason: Heartburn/Nausea Albuterol Sulfate (Albuterol Sulfate 90 Mcg 8 Gm Inhaler) 2 puff INHALE Q6H PRN PRN Reason: for wheezing Last Admin: 06/15/25 16:04 Dose: 2 puff Amlodipine Besylate (Amlodipine Besylate 10 Mg Tablet) 10 mg PO BEDTIME [facility]; Protocol Last Admin: 06/17/25 23:03 Dose: 10 mg Amoxicillin/Clavulanate Potassium (Amoxicillin/Potassium Clav 875 Mg Tablet) 875 mg PO BID [facility] Stop: 06/18/25 23:59 Last Admin: 06/18/25 08:51 Dose: 875 mg Benzocaine (Throat Lozenge, Medicated Lozenge) 1 lozenge MUCOUS MEM Q2H PRN PRN Reason: Sore Throat Last Admin: 06/16/25 14:56 Dose: 1 lozenge Bupropion HCl (Bupropion Hcl Xl 300 Mg Tab.Er.24h) 300 mg PO DAILY PAT Last Admin: 06/18/25 08:53 Dose: 300 mg Docusate Sodium (Docusate Sodium 100 Mg Capsule) 100 mg PO DAILY PRN PRN Reason: Constipation Gabapentin (Gabapentin 400 Mg Capsule) 400 mg PO TID [facility] Last Admin: 06/18/25 08:52 Dose: 400 mg Guaifenesin (Guaifenesin 200 Mg/10 Ml 10 Ml Liquid) 10 ml PO Q4H PRN PRN Reason: Cough Last Admin: 06/17/25 14:34 Dose: 10 ml Guanfacine HCl (Guanfacine Hcl Er 1 Mg Tab.Er.24h) 1 mg PO DAILY PAT Last Admin: 06/18/25 08:54 Dose: 1 mg Hydroxyzine HCl (Hydroxyzine Hcl 50 Mg Tablet) 50 mg PO Q6H PRN PRN Reason: mild anxiety Last Admin: 06/17/25 23:05 Dose: 50 mg Lidocaine (Lidocaine 4 % Patch Adh..Patch) 1 patch TRANSDERMA DAILY PAT; Protocol Last Admin: 06/18/25 09:57 Dose: Not Given Lisinopril (Lisinopril 10 Mg Tablet) 10 mg PO BEDTIME PAT; Protocol Last Admin: 06/17/25 23:03 Dose: 10 mg [place] Carbonate ([place] Carbonate 300 Mg Tablet) 300 mg PO BID PAT Last Admin: 06/18/25 08:54 Dose: 300 mg Loratadine (Loratadine 10 Mg Tablet) 10 mg PO DAILY PRN PRN Reason: allergy symptoms Last Admin: 06/18/25 08:54 Dose: 10 mg Magnesium Hydroxide (Milk Of Magnesia 30 Ml Oral.Susp) 30 ml PO DAILY PRN PRN Reason: Constipation Melatonin (Melatonin 3 Mg Tablet) 9 mg PO BEDTIME PAT Last Admin: 06/17/25 23:02 Dose: 9 mg Nicotine (Nicotine 21 Mg Patch.Td24) 21 mg TRANSDERMA DAILY PRN PRN Reason: nicotine craving Nicotine Polacrilex (Nicotine Polacrilex 2 Mg Gum) 2 mg BUCCAL Q2H PRN PRN Reason: Nicotine Cravings Quetiapine Fumarate (Quetiapine Fumarate 25 Mg Tablet) 25 mg PO BID PRN PRN Reason: severe anxiety/agitation Last Admin: 06/18/25 00:35 Dose: 25 mg Quetiapine Fumarate (Quetiapine Fumarate 300 Mg Tablet) 300 mg PO BEDTIME PAT Trazodone HCl (Trazodone Hcl 50 Mg Tablet) 50 mg PO BEDTIME PRN PRN Reason: Insomnia Last Admin: 06/17/25 23:04 Dose: 50 mg Trazodone HCl (Trazodone Hcl 50 Mg Tablet) 50 mg PO BEDTIME PAT Last Admin: 06/17/25 23:04 Dose: 50 mg Vitamin D (Cholecalciferol (Vitamin D3) 25 Mcg Tablet) 50 mcg PO DAILY PAT Last Admin: 06/18/25 08:52 Dose: 50 mcg Allergies Allergies Allergy/AdvReac Type Severity Reaction Status Date / Time No Known Allergies Allergy Unknown Verified 06/09/25 19:19 Assessment & Plan Assessment & Plan (1) Bipolar disorder, current episode depressed, moderate: Status: Acute Code(s): F31.32 - Bipolar disorder, current episode depressed, moderate (2) Borderline personality disorder: Status: Acute Code(s): F60.3 - Borderline personality disorder (3) ADHD: Status: Acute Code(s): F90.9 - Attention-deficit hyperactivity disorder, unspecified type (4) Cocaine use disorder: Status: Acute Code(s): F14.10 - Cocaine abuse, uncomplicated (5) Overdose: Status: Acute Code(s): T50.901A - Poisoning by unspecified drugs, medicaments and biological substances, accidental (unintentional), initial encounter Plan HPI: Patient is a 39 -year-old, single, White, single [place]ayan speaking woman with hx of bipolar, borderline personality disorder, anxiety, depression, and ADHD, PTSD who was brought in by ambulance on after being found in her home with an apparent overdose. She was administered 8mg of narcan and admitted for medical observation. Pt reported My brain just gets in the way , my highs and lows are so extreme I cannot take it . Pt reported she has a history of not following up with providers in the community but stated she plans to be better in the future. Pt reported she continues to feel depressed and numb around her current life. Precipitants: She kicked her boyfriend out due to the fact that he was using cocaine and selling cocaine. He left without respond to her phone calls. Increasing her stress, and feeling impulsive, she does not know how to do with her emotion at that point, therefore she overdose on her heroin/cocaine. Formulation/clinical reasoning: Overdose on heroin/cocaine due to increasing stress, increase in depression and anxiety. She can be impulsive, also was being told she will be evicted from apartment where she stay for 10 years, not having outpatient providers or therapist. Not currently on mood stabilizer for her bipolar, mood is fluctuated, labile, crying. History of passive SI, history of suicide attempt, history of inpatient level of care. Psychiatric diagnosis bipolar, borderline personality disorder, ADHD, depression, anxiety, PTSD, polysubstance use. Given the above information, patient will be benefit from restrictive settings environment for her safety, stable mood, and refer patient to outpatient psychiatric services. Hospital course: 06/15/25: [place] 150 twice a day started since 06/14 as mood stabilizer. Continue with Wellbutrin 300 for depression. Increase Seroquel 75 to 100 mg at bedtime for mood and for insomnia. Seroquel 25 b.i.d. p.r.n. for severe anxiety Started guanfacine ER 1 mg daily for ADHD. 06/16/25: Increase lithium up to 300 mg b.i.d. Increase Seroquel up to 200 from 100 mg at bedtime for mood. Scheduled trazodone 50 mg at bedtime with a repeat p.r.n. for insomnia Cough drops and Cepacol for sore throat and cough PRN. Compared to yesterday, mood seems more improving, less labile, not tearful, observed attended groups and be appropriate with staff and peers on the unit. Some issue with sleep, trouble falling asleep which the medication change today with hope that she can get better sleep. Denies other safety concerns. Expressed that she wants to go back to [facility] for aftercare as she has a very good experience in the past in 2021. Compliant with medications and denies side effects. 06/17/25: Reports troubles falling asleep, no problems of sleep after she able to fall asleep. Anxious, manic, hyper activities but pleasant and cooperative. Medication compliant. No side effects. No safety concerns. Visible, appropriate, attended groups. At melatonin 9 at bedtime for insomnia Increase hydroxyzine up to 50 mg as needed. Continue with the lithium and other medications level on Saturday. 06/18/25: Continue having trouble falling asleep. She slept for 5 hours. Appears to be tired. However reports drinking more coffee than usual her. Also taking medication relate not until 23:00. Advised patient to take it only around 1999 or 21:00 to see if it is helpful for sleep. Reports feeling hyper, anxious. Denies paranoid thoughts but reports some what yesterday I feel paranoid people talking about me . She was on the phone with father, she was triggered by him when he said you sounds high . Observe patient is visible, social appropriately, with some manic behaviors. However pleasant upon approach, attended groups, and is appropriate denies safety concerns. No hallucinations. Educate patient on hydration especially when she is on lithium and possible for toxicity if she is dehydrated. Increase Seroquel up to 300 at bedtime to target mood/insomnia Plan: Patient on 15 minute checks for safety. Admitted to [facility]. CV. We will check lithium level 4-5 days after dose increase. Level on Thursday 06/21 (ordered). Current dose is 600mg total in divided dose. Kidneys function is within normal limits. Thyroid functions: unremarkable Work with treatment team to do collateral. She good like to go to the [facility] for aftercare. Tentative discharge on Saturday on 06/23 if continued to improve, mood is stabilized Patient educated on: diagnosis, medication risk/benefits, substance abuse and therapeutic strategies Informed Consent: understands and further education needed Reason for continued inpatient stay Substantial Risk for: med/psych decompensation Time Spent With Patient Time: Total time managing care of this patient today ____ minutes.
[2025-06-18] MEDS: guaiFENesin 200 MG/10 ML 10 ML LIQUID PO (15:36)
[2025-06-18 20:00] VITALS: BP 111/60; PULSE 91; RESP 16; TEMP 37.6; O2SAT 99
[2025-06-18 21:01] VITALS: BP 111/60
[2025-06-19 08:00] VITALS: BP 120/76; PULSE 100; RESP 18; TEMP 36.2; O2SAT 98
[2025-06-19] MEDS: guanFACINE HCl ER 1 MG TAB.ER.24H PO (08:27)
[2025-06-19] MEDS: buPROPion HCl XL 300 MG TAB.ER.24H PO (08:27)
[2025-06-19] MEDS: guaiFENesin 200 MG/10 ML 10 ML LIQUID PO (08:42)
[2025-06-19] MEDS: Lidocaine 4 % Patch ADH..PATCH 1 PATCH TRANSDERMA (08:43)
--- NOTE | 2025-06-19 14:10 | P.PNPSI_ITS ---
Subjective Subjective Date of Service: 06/19/25 Reason For Visit: OD Subjective Notes: Conditional Voluntary Interim History: Active on unit. social with peers. attending groups. Patient reports feeling tired today d/t room mate keeping her awake; pt stated, I think my sleeping meds would work if it wasn't my room mate making noise at night . denies SI/HI/VH/AH. Future oriented. focused on sobriety. pt reports she plans on attending NA meetings to maintain sobriety. Continue current tx plan. Medication Compliance: Yes Side effects from medications: No Attending Groups: Yes Mental Status Exam Mental Status Exam Patient Appearance: Well Grooomed Patient Orientation: Person, Place, Time and Situation Level of Consciousness: Awake and Alert Patient Behavior: Appropriate, Cooperative and Good Eye Contact Mood Description: Calm Affect Description: Calm Ability to Follow Directions: Good Speech Pattern: Clear Memory Description: Intact Hallucinations: None Delusions: Not Present Thought Process: Intact and Goal Oriented Thought Content: positive for Intact Diagnostics Vital Signs (24Hr): Vital Signs - 24 hr 06/18/25 20:00 06/18/25 21:01 06/18/25 21:01 Temperature 99.6 F Pulse Rate 91 Respiratory Rate 16 Blood Pressure 111/60 111/60 111/60 Pulse Oximetry 99 Oxygen Delivery Method Room Air 06/19/25 08:00 Temperature 97.2 F Pulse Rate 100 Respiratory Rate 18 Blood Pressure 120/76 Pulse Oximetry 98 Oxygen Delivery Method Room Air BMI result Body Mass Index 24.2 Labs 06/15/25 07:54 Medications Medications Current Medications Acetaminophen (Acetaminophen 325 Mg Tablet) 650 mg PO Q6H PRN PRN Reason: Headache/Pain, Scale 1-10 Last Admin: 06/17/25 18:52 Dose: 650 mg Al Hydroxide/Mg Hydroxide (Magnesium Hydrox/Alum Hydrox 30 Ml Oral.Susp) 30 ml PO Q6H PRN PRN Reason: Heartburn/Nausea Albuterol Sulfate (Albuterol Sulfate 90 Mcg 8 Gm Inhaler) 2 puff INHALE Q6H PRN PRN Reason: for wheezing Last Admin: 06/15/25 16:04 Dose: 2 puff Amlodipine Besylate (Amlodipine Besylate 10 Mg Tablet) 10 mg PO BEDTIME PAT; Protocol Last Admin: 06/18/25 21:01 Dose: 10 mg Benzocaine (Throat Lozenge, Medicated Lozenge) 1 lozenge MUCOUS MEM Q2H PRN PRN Reason: Sore Throat Last Admin: 06/16/25 14:56 Dose: 1 lozenge Bupropion HCl (Bupropion Hcl Xl 300 Mg Tab.Er.24h) 300 mg PO DAILY ON LICENSE OF [facility] Last Admin: 06/19/25 08:27 Dose: 300 mg Docusate Sodium (Docusate Sodium 100 Mg Capsule) 100 mg PO DAILY PRN PRN Reason: Constipation Gabapentin (Gabapentin 400 Mg Capsule) 400 mg PO TID ON LICENSE OF [facility] Last Admin: 06/19/25 08:27 Dose: 400 mg Guaifenesin (Guaifenesin 200 Mg/10 Ml 10 Ml Liquid) 10 ml PO Q4H PRN PRN Reason: Cough Last Admin: 06/19/25 08:42 Dose: 10 ml Guaifenesin (Guaifenesin La 600 Mg Tab.Er.12h) 600 mg PO BID PRN PRN Reason: Cough Guanfacine HCl (Guanfacine Hcl Er 1 Mg Tab.Er.24h) 1 mg PO DAILY ON LICENSE OF [facility] Last Admin: 06/19/25 08:27 Dose: 1 mg Hydroxyzine HCl (Hydroxyzine Hcl 50 Mg Tablet) 50 mg PO Q6H PRN PRN Reason: mild anxiety Last Admin: 06/17/25 23:05 Dose: 50 mg Lidocaine (Lidocaine 4 % Patch Adh..Patch) 1 patch TRANSDERMA DAILY ON LICENSE OF [facility]; Protocol Last Admin: 06/19/25 08:43 Dose: 1 patch Lisinopril (Lisinopril 10 Mg Tablet) 10 mg PO BEDTIME ON LICENSE OF [facility]; Protocol Last Admin: 06/18/25 21:01 Dose: 10 mg [place] Carbonate ([place] Carbonate 300 Mg Tablet) 300 mg PO BID ON LICENSE OF [facility] Last Admin: 06/19/25 08:27 Dose: 300 mg Loratadine (Loratadine 10 Mg Tablet) 10 mg PO DAILY PRN PRN Reason: allergy symptoms Last Admin: 06/18/25 08:54 Dose: 10 mg Magnesium Hydroxide (Milk Of Magnesia 30 Ml Oral.Susp) 30 ml PO DAILY PRN PRN Reason: Constipation Melatonin (Melatonin 3 Mg Tablet) 9 mg PO BEDTIME ON LICENSE OF [facility] Last Admin: 06/18/25 21:00 Dose: 9 mg Nicotine (Nicotine 21 Mg Patch.Td24) 21 mg TRANSDERMA DAILY PRN PRN Reason: nicotine craving Nicotine Polacrilex (Nicotine Polacrilex 2 Mg Gum) 2 mg BUCCAL Q2H PRN PRN Reason: Nicotine Cravings Quetiapine Fumarate (Quetiapine Fumarate 25 Mg Tablet) 25 mg PO BID PRN PRN Reason: severe anxiety/agitation Last Admin: 06/18/25 00:35 Dose: 25 mg Quetiapine Fumarate (Quetiapine Fumarate 300 Mg Tablet) 300 mg PO BEDTIME PAT Last Admin: 06/18/25 21:00 Dose: 300 mg Trazodone HCl (Trazodone Hcl 50 Mg Tablet) 50 mg PO BEDTIME PRN PRN Reason: Insomnia Last Admin: 06/19/25 02:39 Dose: 50 mg Trazodone HCl (Trazodone Hcl 50 Mg Tablet) 50 mg PO BEDTIME PAT Last Admin: 06/18/25 21:00 Dose: 50 mg Vitamin D (Cholecalciferol (Vitamin D3) 25 Mcg Tablet) 50 mcg PO DAILY PAT Last Admin: 06/19/25 08:27 Dose: 50 mcg Allergies Allergies Allergy/AdvReac Type Severity Reaction Status Date / Time No Known Allergies Allergy Unknown Verified 06/09/25 19:19 Assessment & Plan Assessment & Plan (1) Bipolar disorder, current episode depressed, moderate: Status: Acute Code(s): F31.32 - Bipolar disorder, current episode depressed, moderate (2) Borderline personality disorder: Status: Acute Code(s): F60.3 - Borderline personality disorder (3) ADHD: Status: Acute Code(s): F90.9 - Attention-deficit hyperactivity disorder, unspecified type (4) Cocaine use disorder: Status: Acute Code(s): F14.10 - Cocaine abuse, uncomplicated (5) Overdose: Status: Acute Code(s): T50.901A - Poisoning by unspecified drugs, medicaments and biological substances, accidental (unintentional), initial encounter Plan HPI: Patient is a 39 -year-old, single, White, single [place] speaking woman with hx of bipolar, borderline personality disorder, anxiety, depression, and ADHD, PTSD who was brought in by ambulance on after being found in her home with an apparent overdose. She was administered 8mg of narcan and admitted for medical observation. Pt reported My brain just gets in the way , my highs and lows are so extreme I cannot take it . Pt reported she has a history of not following up with providers in the community but stated she plans to be better in the future. Pt reported she continues to feel depressed and numb around her current life. Precipitants: She kicked her boyfriend out due to the fact that he was using cocaine and selling cocaine. He left without respond to her phone calls. Increasing her stress, and feeling impulsive, she does not know how to do with her emotion at that point, therefore she overdose on her heroin/cocaine. Formulation/clinical reasoning: Overdose on heroin/cocaine due to increasing stress, increase in depression and anxiety. She can be impulsive, also was being told she will be evicted from apartment where she stay for 10 years, not having outpatient providers or therapist. Not currently on mood stabilizer for her bipolar, mood is fluctuated, labile, crying. History of passive SI, history of suicide attempt, history of inpatient level of care. Psychiatric diagnosis bipolar, borderline personality disorder, ADHD, depression, anxiety, PTSD, polysubstance use. Given the above information, patient will be benefit from restrictive settings environment for her safety, stable mood, and refer patient to outpatient psychiatric services. Hospital course: 06/15/25: [place] 150 twice a day started since 06/14 as mood stabilizer. Continue with Wellbutrin 300 for depression. Increase Seroquel 75 to 100 mg at bedtime for mood and for insomnia. Seroquel 25 b.i.d. p.r.n. for severe anxiety Started guanfacine ER 1 mg daily for ADHD. 06/16/25: Increase lithium up to 300 mg b.i.d. Increase Seroquel up to 200 from 100 mg at bedtime for mood. Scheduled trazodone 50 mg at bedtime with a repeat p.r.n. for insomnia Cough drops and Cepacol for sore throat and cough PRN. Compared to yesterday, mood seems more improving, less labile, not tearful, observed attended groups and be appropriate with staff and peers on the unit. Some issue with sleep, trouble falling asleep which the medication change today with hope that she can get better sleep. Denies other safety concerns. Expressed that she wants to go back to [facility] for aftercare as she has a very good experience in the past in 2021. Compliant with medications and denies side effects. 06/17/25: Reports troubles falling asleep, no problems of sleep after she able to fall asleep. Anxious, manic, hyper activities but pleasant and cooperative. Medication compliant. No side effects. No safety concerns. Visible, appropriate, attended groups. At melatonin 9 at bedtime for insomnia Increase hydroxyzine up to 50 mg as needed. Continue with the lithium and other medications level on Saturday. 06/18/25: Continue having trouble falling asleep. She slept for 5 hours. Appears to be tired. However reports drinking more coffee than usual her. Also taking medication relate not until 23:00. Advised patient to take it only around 1999 or 21:00 to see if it is helpful for sleep. Reports feeling hyper, anxious. Denies paranoid thoughts but reports some what yesterday I feel paranoid people talking about me . She was on the phone with father, she was triggered by him when he said you sounds high . Observe patient is visible, social appropriately, with some manic behaviors. However pleasant upon approach, attended groups, and is appropriate denies safety concerns. No hallucinations. Educate patient on hydration especially when she is on lithium and possible for toxicity if she is dehydrated. Increase Seroquel up to 300 at bedtime to target mood/insomnia 06/19:Active on unit. social with peers. attending groups. Patient reports feeling tired today d/t room mate keeping her awake; pt stated, I think my sleeping meds would work if it wasn't my room mate making noise at night . denies SI/HI/VH/AH. Future oriented. focused on sobriety. pt reports she plans on attending NA meetings to maintain sobriety. Continue current tx plan. Plan: Patient on 15 minute checks for safety. Admitted to M3. CV. We will check lithium level 4-5 days after dose increase. Level on Thursday 06/21 (ordered). Current dose is 600mg total in divided dose. Kidneys function is within normal limits. Thyroid functions: unremarkable Work with treatment team to do collateral. She good like to go to the [facility] for aftercare. Tentative discharge on Saturday on 06/23 if continued to improve, mood is stabilized Patient educated on: diagnosis and medication risk/benefits Reason for continued inpatient stay Substantial Risk for: med/psych decompensation Time Spent With Patient Time: Total time managing care of this patient today _20___ minutes.
[2025-06-19] MEDS: guaiFENesin LA 600 MG TAB.ER.12H PO (16:03)
[2025-06-19 20:00] VITALS: BP 124/80; PULSE 102; RESP 16; TEMP 37.9; O2SAT 100
[2025-06-19 21:30] VITALS: PULSE 90; RESP 16; TEMP 37.2
[2025-06-20 08:34] VITALS: BP 118/69; PULSE 90; RESP 20; TEMP 36.9; O2SAT 100
[2025-06-20] MEDS: buPROPion HCl XL 300 MG TAB.ER.24H PO (08:42)
[2025-06-20] MEDS: guaiFENesin LA 600 MG TAB.ER.12H PO ×2 (08:43→16:50)
[2025-06-20] MEDS: guanFACINE HCl ER 1 MG TAB.ER.24H PO (08:43)
[2025-06-20] MEDS: Lidocaine 4 % Patch ADH..PATCH 1 PATCH TRANSDERMA (08:45)
--- NOTE | 2025-06-20 17:21 | P.PNPSI_ITS ---
Subjective Subjective Date of Service: 06/20/25 Reason For Visit: OD Subjective Notes: Conditional Voluntary Interim History: Active on unit. social with peers. attending groups. Patient reports feeling better today; per nursing, slept 6 hours. denies SI/HI/VH/AH. Future oriented. focused on sobriety. Continue current tx plan. Medication Compliance: Yes Side effects from medications: No Attending Groups: Yes Mental Status Exam Mental Status Exam Patient Appearance: Well Grooomed Patient Orientation: Person, Place, Time and Situation Level of Consciousness: Awake and Alert Patient Behavior: Appropriate, Cooperative and Good Eye Contact Mood Description: Calm Affect Description: Calm Patient Cognition Impaired: No Ability to Follow Directions: Good Speech Pattern: Clear Memory Description: Intact Hallucinations: None Delusions: Not Present Thought Process: Intact Thought Content: positive for Intact Diagnostics Vital Signs (24Hr): Vital Signs - 24 hr 06/19/25 20:00 06/19/25 21:30 06/20/25 08:34 Temperature 100.3 F 98.9 F 98.4 F Pulse Rate 102 H 90 90 Respiratory Rate 16 16 20 Blood Pressure 124/80 118/69 Pulse Oximetry 100 100 Oxygen Delivery Method Room Air Room Air BMI result Body Mass Index 24.2 Labs 06/15/25 07:54 Medications Medications Current Medications Acetaminophen (Acetaminophen 325 Mg Tablet) 650 mg PO Q6H PRN PRN Reason: Headache/Pain, Scale 1-10 Last Admin: 06/17/25 18:52 Dose: 650 mg Al Hydroxide/Mg Hydroxide (Magnesium Hydrox/Alum Hydrox 30 Ml Oral.Susp) 30 ml PO Q6H PRN PRN Reason: Heartburn/Nausea Albuterol Sulfate (Albuterol Sulfate 90 Mcg 8 Gm Inhaler) 2 puff INHALE Q6H PRN PRN Reason: for wheezing Last Admin: 06/15/25 16:04 Dose: 2 puff Amlodipine Besylate (Amlodipine Besylate 10 Mg Tablet) 10 mg PO BEDTIME PAT; Protocol Last Admin: 06/19/25 21:36 Dose: 10 mg Benzocaine (Throat Lozenge, Medicated Lozenge) 1 lozenge MUCOUS MEM Q2H PRN PRN Reason: Sore Throat Last Admin: 06/16/25 14:56 Dose: 1 lozenge Bupropion HCl (Bupropion Hcl Xl 300 Mg Tab.Er.24h) 300 mg PO DAILY PAT Last Admin: 06/20/25 08:42 Dose: 300 mg Docusate Sodium (Docusate Sodium 100 Mg Capsule) 100 mg PO DAILY PRN PRN Reason: Constipation Gabapentin (Gabapentin 400 Mg Capsule) 400 mg PO TID [facility] Last Admin: 06/20/25 14:36 Dose: Not Given Guaifenesin (Guaifenesin 200 Mg/10 Ml 10 Ml Liquid) 10 ml PO Q4H PRN PRN Reason: Cough Last Admin: 06/19/25 08:42 Dose: 10 ml Guaifenesin (Guaifenesin La 600 Mg Tab.Er.12h) 600 mg PO BID PRN PRN Reason: Cough Last Admin: 06/20/25 16:50 Dose: 600 mg Guanfacine HCl (Guanfacine Hcl Er 1 Mg Tab.Er.24h) 1 mg PO DAILY [facility] Last Admin: 06/20/25 08:43 Dose: 1 mg Hydroxyzine HCl (Hydroxyzine Hcl 50 Mg Tablet) 50 mg PO Q6H PRN PRN Reason: mild anxiety Last Admin: 06/19/25 23:30 Dose: 50 mg Lidocaine (Lidocaine 4 % Patch Adh..Patch) 1 patch TRANSDERMA DAILY [facility]; Protocol Last Admin: 06/20/25 08:45 Dose: 1 patch Lisinopril (Lisinopril 10 Mg Tablet) 10 mg PO BEDTIME [facility]; Protocol Last Admin: 06/19/25 21:36 Dose: 10 mg [place] Carbonate ([place] Carbonate 300 Mg Tablet) 300 mg PO BID [facility] Last Admin: 06/20/25 08:43 Dose: 300 mg Loratadine (Loratadine 10 Mg Tablet) 10 mg PO DAILY PRN PRN Reason: allergy symptoms Last Admin: 06/18/25 08:54 Dose: 10 mg Magnesium Hydroxide (Milk Of Magnesia 30 Ml Oral.Susp) 30 ml PO DAILY PRN PRN Reason: Constipation Melatonin (Melatonin 3 Mg Tablet) 9 mg PO BEDTIME [facility] Last Admin: 06/19/25 21:37 Dose: 9 mg Nicotine (Nicotine 21 Mg Patch.Td24) 21 mg TRANSDERMA DAILY PRN PRN Reason: nicotine craving Nicotine Polacrilex (Nicotine Polacrilex 2 Mg Gum) 2 mg BUCCAL Q2H PRN PRN Reason: Nicotine Cravings Quetiapine Fumarate (Quetiapine Fumarate 25 Mg Tablet) 25 mg PO BID PRN PRN Reason: severe anxiety/agitation Last Admin: 06/19/25 23:30 Dose: 25 mg Quetiapine Fumarate (Quetiapine Fumarate 300 Mg Tablet) 300 mg PO BEDTIME PAT Last Admin: 06/19/25 21:38 Dose: 300 mg Trazodone HCl (Trazodone Hcl 50 Mg Tablet) 50 mg PO BEDTIME PRN PRN Reason: Insomnia Last Admin: 06/19/25 02:39 Dose: 50 mg Trazodone HCl (Trazodone Hcl 50 Mg Tablet) 50 mg PO BEDTIME PAT Last Admin: 06/19/25 21:38 Dose: 50 mg Vitamin D (Cholecalciferol (Vitamin D3) 25 Mcg Tablet) 50 mcg PO DAILY PAT Last Admin: 06/20/25 08:43 Dose: 50 mcg Allergies Allergies Allergy/AdvReac Type Severity Reaction Status Date / Time No Known Allergies Allergy Unknown Verified 06/09/25 19:19 Assessment & Plan Assessment & Plan (1) Bipolar disorder, current episode depressed, moderate: Status: Acute Code(s): F31.32 - Bipolar disorder, current episode depressed, moderate (2) Borderline personality disorder: Status: Acute Code(s): F60.3 - Borderline personality disorder (3) ADHD: Status: Acute Code(s): F90.9 - Attention-deficit hyperactivity disorder, unspecified type (4) Cocaine use disorder: Status: Acute Code(s): F14.10 - Cocaine abuse, uncomplicated (5) Overdose: Status: Acute Code(s): T50.901A - Poisoning by unspecified drugs, medicaments and biological substances, accidental (unintentional), initial encounter Plan HPI: Patient is a 39 -year-old, single, White, single [place] speaking woman with hx of bipolar, borderline personality disorder, anxiety, depression, and ADHD, PTSD who was brought in by ambulance on after being found in her home with an apparent overdose. She was administered 8mg of narcan and admitted for medical observation. Pt reported My brain just gets in the way , my highs and lows are so extreme I cannot take it . Pt reported she has a history of not following up with providers in the community but stated she plans to be better in the future. Pt reported she continues to feel depressed and numb around her current life. Precipitants: She kicked her boyfriend out due to the fact that he was using cocaine and selling cocaine. He left without respond to her phone calls. Increasing her stress, and feeling impulsive, she does not know how to do with her emotion at that point, therefore she overdose on her heroin/cocaine. Formulation/clinical reasoning: Overdose on heroin/cocaine due to increasing stress, increase in depression and anxiety. She can be impulsive, also was being told she will be evicted from apartment where she stay for 10 years, not having outpatient providers or therapist. Not currently on mood stabilizer for her bipolar, mood is fluctuated, labile, crying. History of passive SI, history of suicide attempt, history of inpatient level of care. Psychiatric diagnosis bipolar, borderline personality disorder, ADHD, depression, anxiety, PTSD, polysubstance use. Given the above information, patient will be benefit from restrictive settings environment for her safety, stable mood, and refer patient to outpatient psychiatric services. Hospital course: 06/15/25: [place] 150 twice a day started since 06/14 as mood stabilizer. Continue with Wellbutrin 300 for depression. Increase Seroquel 75 to 100 mg at bedtime for mood and for insomnia. Seroquel 25 b.i.d. p.r.n. for severe anxiety Started guanfacine ER 1 mg daily for ADHD. 06/16/25: Increase lithium up to 300 mg b.i.d. Increase Seroquel up to 200 from 100 mg at bedtime for mood. Scheduled trazodone 50 mg at bedtime with a repeat p.r.n. for insomnia Cough drops and Cepacol for sore throat and cough PRN. Compared to yesterday, mood seems more improving, less labile, not tearful, observed attended groups and be appropriate with staff and peers on the unit. Some issue with sleep, trouble falling asleep which the medication change today with hope that she can get better sleep. Denies other safety concerns. Expressed that she wants to go back to [facility] for aftercare as she has a very good experience in the past in 2021. Compliant with medications and denies side effects. 06/17/25: Reports troubles falling asleep, no problems of sleep after she able to fall asleep. Anxious, manic, hyper activities but pleasant and cooperative. Medication compliant. No side effects. No safety concerns. Visible, appropriate, attended groups. At melatonin 9 at bedtime for insomnia Increase hydroxyzine up to 50 mg as needed. Continue with the lithium and other medications level on Saturday. 06/18/25: Continue having trouble falling asleep. She slept for 5 hours. Appears to be tired. However reports drinking more coffee than usual her. Also taking medication relate not until 23:00. Advised patient to take it only around 2000 or 21:00 to see if it is helpful for sleep. Reports feeling hyper, anxious. Denies paranoid thoughts but reports some what yesterday I feel paranoid people talking about me . She was on the phone with father, she was triggered by him when he said you sounds high . Observe patient is visible, social appropriately, with some manic behaviors. However pleasant upon approach, attended groups, and is appropriate denies safety concerns. No hallucinations. Educate patient on hydration especially when she is on lithium and possible for toxicity if she is dehydrated. Increase Seroquel up to 300 at bedtime to target mood/insomnia 06/19:Active on unit. social with peers. attending groups. Patient reports feeling tired today d/t room mate keeping her awake; pt stated, I think my sleeping meds would work if it wasn't my room mate making noise at night . denies SI/HI/VH/AH. Future oriented. focused on sobriety. pt reports she plans on attending NA meetings to maintain sobriety. Continue current tx plan. 06/20: Active on unit. social with peers. attending groups. Patient reports feeling better today; per nursing, slept 6 hours. denies SI/HI/VH/AH. Future oriented. focused on sobriety. Continue current tx plan. Plan: Patient on 15 minute checks for safety. Admitted to M3. CV. We will check lithium level 4-5 days after dose increase. Level on Thursday 06/21 (ordered). Current dose is 600mg total in divided dose. Kidneys function is within normal limits. Thyroid functions: unremarkable Work with treatment team to do collateral. She good like to go to the [facility] for aftercare. Tentative discharge on Saturday on 06/23 if continued to improve, mood is stabilized Patient educated on: diagnosis and medication risk/benefits Reason for continued inpatient stay Substantial Risk for: med/psych decompensation Time Spent With Patient Time: Total time managing care of this patient today _20___ minutes.
[2025-06-20 19:25] VITALS: BP 150/92; PULSE 104; RESP 16; TEMP 38.1; O2SAT 98
[2025-06-21 07:50] VITALS: BP 115/51; PULSE 98; RESP 16; TEMP 36.9; O2SAT 100
[2025-06-21] MEDS: guanFACINE HCl ER 1 MG TAB.ER.24H PO (08:21)
[2025-06-21] MEDS: buPROPion HCl XL 300 MG TAB.ER.24H PO (08:21)
[2025-06-21] MEDS: guaiFENesin LA 600 MG TAB.ER.12H PO ×2 (08:21→18:18)
[2025-06-21] MEDS: Lidocaine 4 % Patch ADH..PATCH 1 PATCH TRANSDERMA (08:23)
[2025-06-21 08:25] LABS: Lithium 0.65 mmol/L (0.60-1.20)
--- NOTE | 2025-06-21 09:40 | P.PNPSI_ITS ---
Subjective Subjective Date of Service: 06/21/25 Reason For Visit: OD Subjective Notes: Conditional Voluntary Interim History: Active on unit. social with peers. attending groups. Patient reports feeling good and looking forward to discharging home tomorrow. denies SI/HI/VH/AH. Pt reports she plans on following up with her outpatient providers. Pt plans on attending PHP on 06/25/25. Medication Compliance: Yes Side effects from medications: No Attending Groups: Yes Mental Status Exam Mental Status Exam Narrative: Pt is alert and oriented; behavior is cooperative and calm; dressed in casual attire; mood is described as good ; eye contact appropriate; Speech is normal rate, volume and not pressured; thought process is organized; Thought content is on discharge; denies SI/HI/VH/AH. Diagnostics Vital Signs (24Hr): Vital Signs - 24 hr 06/20/25 19:25 06/21/25 07:50 Temperature 100.5 F H 98.5 F Pulse Rate 104 H 98 Respiratory Rate 16 16 Blood Pressure 150/92 H 115/51 L Pulse Oximetry 98 100 Oxygen Delivery Method Room Air Room Air BMI result Body Mass Index 24.2 Labs 06/15/25 07:54 Labs: Laboratory Results - last 48 hr 06/21/25 07:55 [place] 0.65 Medications Medications Current Medications Acetaminophen (Acetaminophen 325 Mg Tablet) 650 mg PO Q6H PRN PRN Reason: Headache/Pain, Scale 1-10 Last Admin: 06/20/25 20:12 Dose: 650 mg Al Hydroxide/Mg Hydroxide (Magnesium Hydrox/Alum Hydrox 30 Ml Oral.Susp) 30 ml PO Q6H PRN PRN Reason: Heartburn/Nausea Albuterol Sulfate (Albuterol Sulfate 90 Mcg 8 Gm Inhaler) 2 puff INHALE Q6H PRN PRN Reason: for wheezing Last Admin: 06/15/25 16:04 Dose: 2 puff Amlodipine Besylate (Amlodipine Besylate 10 Mg Tablet) 10 mg PO BEDTIME PAT; Protocol Last Admin: 06/20/25 20:10 Dose: 10 mg Benzocaine (Throat Lozenge, Medicated Lozenge) 1 lozenge MUCOUS MEM Q2H PRN PRN Reason: Sore Throat Last Admin: 06/16/25 14:56 Dose: 1 lozenge Bupropion HCl (Bupropion Hcl Xl 300 Mg Tab.Er.24h) 300 mg PO DAILY PAT Last Admin: 06/21/25 08:21 Dose: 300 mg Docusate Sodium (Docusate Sodium 100 Mg Capsule) 100 mg PO DAILY PRN PRN Reason: Constipation Gabapentin (Gabapentin 400 Mg Capsule) 400 mg PO TID REPLACED BY [facility] Last Admin: 06/21/25 08:21 Dose: 400 mg Guaifenesin (Guaifenesin 200 Mg/10 Ml 10 Ml Liquid) 10 ml PO Q4H PRN PRN Reason: Cough Last Admin: 06/19/25 08:42 Dose: 10 ml Guaifenesin (Guaifenesin La 600 Mg Tab.Er.12h) 600 mg PO BID PRN PRN Reason: Cough Last Admin: 06/21/25 08:21 Dose: 600 mg Guanfacine HCl (Guanfacine Hcl Er 1 Mg Tab.Er.24h) 1 mg PO DAILY REPLACED BY [facility] Last Admin: 06/21/25 08:21 Dose: 1 mg Hydroxyzine HCl (Hydroxyzine Hcl 50 Mg Tablet) 50 mg PO Q6H PRN PRN Reason: mild anxiety Last Admin: 06/19/25 23:30 Dose: 50 mg Lidocaine (Lidocaine 4 % Patch Adh..Patch) 1 patch TRANSDERMA DAILY REPLACED BY [facility]; Protocol Last Admin: 06/21/25 08:23 Dose: 1 patch Lisinopril (Lisinopril 10 Mg Tablet) 10 mg PO BEDTIME REPLACED BY [facility]; Protocol Last Admin: 06/20/25 20:12 Dose: 10 mg [place] Carbonate ([place] Carbonate 300 Mg Tablet) 300 mg PO BID REPLACED BY [facility] Last Admin: 06/21/25 08:21 Dose: 300 mg Loratadine (Loratadine 10 Mg Tablet) 10 mg PO DAILY PRN PRN Reason: allergy symptoms Last Admin: 06/18/25 08:54 Dose: 10 mg Magnesium Hydroxide (Milk Of Magnesia 30 Ml Oral.Susp) 30 ml PO DAILY PRN PRN Reason: Constipation Melatonin (Melatonin 3 Mg Tablet) 9 mg PO BEDTIME REPLACED BY [facility] Last Admin: 06/20/25 20:10 Dose: 9 mg Nicotine (Nicotine 21 Mg Patch.Td24) 21 mg TRANSDERMA DAILY PRN PRN Reason: nicotine craving Nicotine Polacrilex (Nicotine Polacrilex 2 Mg Gum) 2 mg BUCCAL Q2H PRN PRN Reason: Nicotine Cravings Quetiapine Fumarate (Quetiapine Fumarate 25 Mg Tablet) 25 mg PO BID PRN PRN Reason: severe anxiety/agitation Last Admin: 06/19/25 23:30 Dose: 25 mg Quetiapine Fumarate (Quetiapine Fumarate 300 Mg Tablet) 300 mg PO BEDTIME PAT Last Admin: 06/20/25 20:10 Dose: 300 mg Trazodone HCl (Trazodone Hcl 50 Mg Tablet) 50 mg PO BEDTIME PRN PRN Reason: Insomnia Last Admin: 06/20/25 20:10 Dose: 50 mg Trazodone HCl (Trazodone Hcl 50 Mg Tablet) 50 mg PO BEDTIME PAT Last Admin: 06/20/25 20:10 Dose: 50 mg Vitamin D (Cholecalciferol (Vitamin D3) 25 Mcg Tablet) 50 mcg PO DAILY PAT Last Admin: 06/21/25 08:21 Dose: 50 mcg Allergies Allergies Allergy/AdvReac Type Severity Reaction Status Date / Time No Known Allergies Allergy Unknown Verified 06/09/25 19:19 Assessment & Plan Assessment & Plan (1) Bipolar disorder, current episode depressed, moderate: Status: Acute Code(s): F31.32 - Bipolar disorder, current episode depressed, moderate (2) Borderline personality disorder: Status: Acute Code(s): F60.3 - Borderline personality disorder (3) ADHD: Status: Acute Code(s): F90.9 - Attention-deficit hyperactivity disorder, unspecified type (4) Cocaine use disorder: Status: Acute Code(s): F14.10 - Cocaine abuse, uncomplicated (5) Overdose: Status: Acute Code(s): T50.901A - Poisoning by unspecified drugs, medicaments and biological substances, accidental (unintentional), initial encounter Plan HPI: Patient is a 39 -year-old, single, White, single [place] speaking woman with hx of bipolar, borderline personality disorder, anxiety, depression, and ADHD, PTSD who was brought in by ambulance on after being found in her home with an apparent overdose. She was administered 8mg of narcan and admitted for medical observation. Pt reported My brain just gets in the way , my highs and lows are so extreme I cannot take it . Pt reported she has a history of not following up with providers in the community but stated she plans to be better in the future. Pt reported she continues to feel depressed and numb around her current life. Precipitants: She kicked her boyfriend out due to the fact that he was using cocaine and selling cocaine. He left without respond to her phone calls. Increasing her stress, and feeling impulsive, she does not know how to do with her emotion at that point, therefore she overdose on her heroin/cocaine. Formulation/clinical reasoning: Overdose on heroin/cocaine due to increasing stress, increase in depression and anxiety. She can be impulsive, also was being told she will be evicted from apartment where she stay for 10 years, not having outpatient providers or therapist. Not currently on mood stabilizer for her bipolar, mood is fluctuated, labile, crying. History of passive SI, history of suicide attempt, history of inpatient level of care. Psychiatric diagnosis bipolar, borderline personality disorder, ADHD, depression, anxiety, PTSD, polysubstance use. Given the above information, patient will be benefit from restrictive settings environment for her safety, stable mood, and refer patient to outpatient psychiatric services. Plan: Patient on 15 minute checks for safety. Admitted to . CV. We will check lithium level 4-5 days after dose increase. Level on Thursday 06/21 (ordered). Current dose is 600mg total in divided dose. Kidneys function is within normal limits. Thyroid functions: unremarkable Work with treatment team to do collateral. She good like to go to the [facility] for aftercare. Tentative discharge on Saturday on 06/23 if continued to improve, mood is stabilized Hospital course: 06/15/25: [place] 150 twice a day started since 06/14 as mood stabilizer. Continue with Wellbutrin 300 for depression. Increase Seroquel 75 to 100 mg at bedtime for mood and for insomnia. Seroquel 25 b.i.d. p.r.n. for severe anxiety Started guanfacine ER 1 mg daily for ADHD. 06/16/25: Increase lithium up to 300 mg b.i.d. Increase Seroquel up to 200 from 100 mg at bedtime for mood. Scheduled trazodone 50 mg at bedtime with a repeat p.r.n. for insomnia Cough drops and Cepacol for sore throat and cough PRN. Compared to yesterday, mood seems more improving, less labile, not tearful, observed attended groups and be appropriate with staff and peers on the unit. Some issue with sleep, trouble falling asleep which the medication change today with hope that she can get better sleep. Denies other safety concerns. Expressed that she wants to go back to [facility] for aftercare as she has a very good experience in the past in 2021. Compliant with medications and denies side effects. 06/17/25: Reports troubles falling asleep, no problems of sleep after she able to fall asleep. Anxious, manic, hyper activities but pleasant and cooperative. Medication compliant. No side effects. No safety concerns. Visible, appropriate, attended groups. At melatonin 9 at bedtime for insomnia Increase hydroxyzine up to 50 mg as needed. Continue with the lithium and other medications level on Saturday. 06/18/25: Continue having trouble falling asleep. She slept for 5 hours. Appears to be tired. However reports drinking more coffee than usual her. Also taking medication relate not until 23:00. Advised patient to take it only around 1999 or 21:00 to see if it is helpful for sleep. Reports feeling hyper, anxious. Denies paranoid thoughts but reports some what yesterday I feel paranoid people talking about me . She was on the phone with father, she was triggered by him when he said you sounds high . Observe patient is visible, social appropriately, with some manic behaviors. However pleasant upon approach, attended groups, and is appropriate denies safety concerns. No hallucinations. Educate patient on hydration especially when she is on lithium and possible for toxicity if she is dehydrated. Increase Seroquel up to 300 at bedtime to target mood/insomnia 06/19:Active on unit. social with peers. attending groups. Patient reports feeling tired today d/t room mate keeping her awake; pt stated, I think my sleeping meds would work if it wasn't my room mate making noise at night . denies SI/HI/VH/AH. Future oriented. focused on sobriety. pt reports she plans on attending NA meetings to maintain sobriety. Continue current tx plan. 06/20: Active on unit. social with peers. attending groups. Patient reports feeling better today; per nursing, slept 6 hours. denies SI/HI/VH/AH. Future oriented. focused on sobriety. Continue current tx plan. 06/21: Active on unit. social with peers. attending groups. Patient reports feeling good and looking forward to discharging home tomorrow. denies SI/HI/VH/AH. [place] level 0.65 on 06/21/25. Pt reports she plans on following up with her outpatient providers. Pt plans on attending PHP on 06/25/25. Patient educated on: diagnosis and medication risk/benefits Reason for continued inpatient stay Substantial Risk for: stable for discharge Time Spent With Patient Time: Total time managing care of this patient today _20___ minutes.
[2025-06-21 11:30] LABS: Appearance Urine Clear; Glucose Urine UA Negative (Negative); PH 7.5 (5.0-9.0); Specific Gravity - Urine 1.020 (1.005-1.025)
[2025-06-21 19:35] VITALS: BP 122/62; PULSE 96; RESP 16; TEMP 36.9; O2SAT 99
[2025-06-22 07:33] VITALS: BP 101/66; PULSE 95; RESP 18; TEMP 36.6; O2SAT 99
[2025-06-22] MEDS: Naloxone HCl Nasal TAKE HOME 4 MG SPRAY 8 MG NOSTRILALT (08:33)
[2025-06-22] MEDS: Lidocaine 4 % Patch ADH..PATCH 1 PATCH TRANSDERMA (08:33)
[2025-06-22] MEDS: guaiFENesin LA 600 MG TAB.ER.12H PO (08:35)
[2025-06-22] MEDS: buPROPion HCl XL 300 MG TAB.ER.24H PO (08:37)
[2025-06-22] MEDS: guanFACINE HCl ER 1 MG TAB.ER.24H PO (08:37)
--- NOTE | 2025-06-22 08:49 | P.DS_ITS ---
DS: Providers Provider Date of Service: 06/22/25 Date of admission: 06/14/25 13:31 Date of discharge: 06/22/25 Primary care physician: Valentina Burroughs MD Admitting clinician: Isamar Simmons Attending physician on admission: Drew Sorensen Attending physician on discharge: Drew Sorensen Discharging clinician: Rosalinda Velásquez DS: Diagnosis Discharge Diagnosis (1) Bipolar disorder, current episode depressed, moderate: Status: Acute (2) Borderline personality disorder: Status: Acute (3) ADHD: Status: Acute (4) Cocaine use disorder: Status: Acute DS: Medications Discharge Medications Home Medications: Previous Rx's ?Medication ?Instructions ?Recorded docusate sodium 100 mg capsule 100 mg PO DAILY PRN con stipation 03/10/24 #30 caps lisinopril 10 mg tablet 10 mg PO BEDTIME 90 days #90 tabs 03/10/24 albuterol sulfate 90 mcg/actuation 2 puff inhalation Q 6H PRN for 01/07/25 aerosol inhaler wheezing 30 days #8.5 ea gabapentin 400 mg capsule 400 mg PO TID 30 days #90 ca ps 01/07/25 amlodipine 10 mg tablet 10 mg PO BEDTIME 90 days #90 tabs 02/08/25 cholecalciferol (vitamin D3) 50 50 mcg PO DAILY #90 ta bs 02/21/25 mcg (2,000 unit) tablet cetirizine 10 mg tablet (All Day 10 mg PO DAILY PRN al lergy 06/01/25 Allergy (cetirizine)) symptoms 90 days #90 tabs bupropion HCl 300 mg 24 hr tablet, 300 mg PO DAILY 30 days #30 tabs 06/21/25 extended release guanfacine 1 mg tablet,extended 1 mg PO DAILY 30 days #30 tabs 06/21/25 release 24 hr lithium carbonate 300 mg tablet 300 mg PO BID 30 days #60 tabs 06/21/25 melatonin 10 mg capsule 10 mg PO BEDTIME 30 days #30 caps 06/21/25 quetiapine 300 mg tablet 300 mg PO BEDTIME 30 days #3 0 tabs 06/21/25 trazodone 50 mg tablet 50 mg PO BEDTIME 30 days #30 tabs 06/21/25 Mental Status Exam Mental Status Exam Narrative: Pt is alert and oriented; behavior is cooperative and calm; dressed in casual attire; mood is described as good ; eye contact appropriate; Speech is normal rate, volume and not pressured; thought process is organized; Thought content is on discharge; denies SI/HI/VH/AH. Data Data Completed and Pending Completed studies during hospitalization [Text1]: 06/15/25 06/21/25 06/21/25 07:54 07:55 11:05 TSH 1.91 Free T4 0.79 Urine Color Yellow Urine Appearance Clear Urine pH 7.5 Ur Specific [place] 1.020 Urine Protein Negative Urine Glucose (UA) Negative Urine Ketones Negative Urine Blood Negative Urine Nitrite Negative Ur Leukocyte Esterase Negative [place] 0.65 06/19/25 22:54 Urine clean catch Urine Culture - Final No growth. DS: Summary Hospital Course Hospital Course: Patient is a 39 -year-old, single, White, single [place] speaking woman was brought in by ambulance on after being found in her home with an apparent overdose. She was administered 8mg of narcan and admitted for medical observation. Pt reported My brain just gets in the way , my highs and lows are so extreme I cannot take it . Pt reported she has a history of not following up with providers in the community but stated she plans to be better in the future. Pt reported she continues to feel depressed and numb around her current life. Patient seen twice: one 06/14 once brought up to the floor and agian 06/15 at 1028. C/C I overdose on heroin and cocaine . Reports that she kick her boyfriend out. He labs and never returr on never responded to her calls. Therefore, anxiety level was really high and that is why she took an overdose on heroin or cocaine. Psychiatric diagnosis: Reports having bipolar, ADHD, BPD, anxiety, and depressed Denies SI/SIB/HI/AVH at this current time. Reports mood was fluctuated. Up and down. Labile, however very pleasant and open for treatment. Reports history of oee prior suicide attempt. Reports history of suicidal thoughts but mostly passive. Denies history of SI be. Reports only hallucinated when she was using drugs and appeared to be paranoid when was on drugs as well. Formulation/clinical reasoning: Overdose on heroin/cocaine due to increasing stress, increase in depression and anxiety. She can be impulsive, also was being told she will be evicted from apartment where she stay for 10 years, not having outpatient providers or therapist. Not currently on mood stabilizer for her bipolar, mood is fluctuated, labile, crying. History of passive SI, history of suicide attempt, history of inpatient level of care. Psychiatric diagnosis bipolar, borderline personality disorder, ADHD, depression, anxiety, PTSD, polysubstance use. Given the above information, patient will be benefit from restrictive settings environment for her safety, stable mood, and refer patient to outpatient psychiatric services. Plan: Patient on 15 minute checks for safety. Admitted to . CV. We will check lithium level 4-5 days after dose increase. Level on Thursday 06/21 (ordered). Current dose is 600mg total in divided dose. Kidneys function is within normal limits. Thyroid functions: unremarkable Work with treatment team to do collateral. She good like to go to the [facility] for aftercare. Tentative discharge on Saturday on 06/23 if continued to improve, mood is stabilized Hospital course: [place] 150 twice a day started since 06/14 as mood stabilizer. Continue with Wellbutrin 300 for depression. Increase Seroquel 75 to 100 mg at bedtime for mood and for insomnia. Seroquel 25 b.i.d. p.r.n. for severe anxiety Started guanfacine ER 1 mg daily for ADHD. Increase lithium up to 300 mg b.i.d. Increase Seroquel up to 200 from 100 mg at bedtime for mood. Scheduled trazodone 50 mg at bedtime with a repeat p.r.n. for insomnia Cough drops and Cepacol for sore throat and cough PRN. Compared to yesterday, mood seems more improving, less labile, not tearful, observed attended groups and be appropriate with staff and peers on the unit. Some issue with sleep, trouble falling asleep which the medication change today with hope that she can get better sleep. Denies other safety concerns. Expressed that she wants to go back to [facility] for aftercare as she has a very good experience in the past in 2021. Compliant with medications and denies side effects. Reports troubles falling asleep, no problems of sleep after she able to fall asleep. Anxious, manic, hyper activities but pleasant and cooperative. Medication compliant. No side effects. No safety concerns. Visible, appropriate, attended groups. At melatonin 9 at bedtime for insomnia Increase hydroxyzine up to 50 mg as needed. Continue with the lithium and other medications level on Saturday. Continue having trouble falling asleep. She slept for 5 hours. Appears to be tired. However reports drinking more coffee than usual her. Also taking medication relate not until 23:00. Advised patient to take it only around 1999 or 21:00 to see if it is helpful for sleep. Reports feeling hyper, anxious. Denies paranoid thoughts but reports some what yesterday I feel paranoid people talking about me . She was on the phone with father, she was triggered by him when he said you sounds high . Observe patient is visible, social appropriately, with some manic behaviors. However pleasant upon approach, attended groups, and is appropriate denies safety concerns. No hallucinations. Educate patient on hydration especially when she is on lithium and possible for toxicity if she is dehydrated. Increase Seroquel up to 300 at bedtime to target mood/insomnia Active on unit. social with peers. attending groups. Patient reports feeling tired today d/t room mate keeping her awake; pt stated, I think my sleeping meds would work if it wasn't my room mate making noise at night . denies SI/HI/VH/AH. Future oriented. focused on sobriety. pt reports she plans on attending NA meetings to maintain sobriety. Continue current tx plan. Active on unit. social with peers. attending groups. Patient reports feeling better today; per nursing, slept 6 hours. denies SI/HI/VH/AH. Future oriented. focused on sobriety. Continue current tx plan. Active on unit. social with peers. attending groups. Patient reports feeling good and looking forward to discharging home tomorrow. denies SI/HI/VH/AH. [place] level 0.65 on 06/21/25. Pt reports she plans on following up with her outpatient providers. Pt plans on attending PHP on 06/25/25. Status at Discharge Cognitive/behavioral status at discharge: Patient has insight and demonstrates good judgment in terms of wanting to pursue treatment. Patient has a safety plan that includes presenting to the closest ER or calling 911 if feeling unsafe. Functional status at discharge: independent ambulation Overall status at discharge: patient is back to baseline Time Spent with Patient Time attestation: Total time managing care of this patient today _20___ minutes. Time spent: Less than 30 minutes Discharge Plan Discharge Anticipated Discharge Date/Time: 06/22/25 11:00 Patient Disposition: Home, Self-Care Discharge Diagnosis: Bipolar d/o, borderline personality d/o, cocaine use d/o, opioid use d/o Referrals: Partial Hospitalization Program (PHP) [Other] - 06/25/25 11:00 am Referral Note: INTAKE APPOINTMENT The PHP program is in the [facility] building on the hospital campus in a building behind the main hospital. Follow the silver signs to Center for and enter the brick building attached to the red trailer from Park[address]. Airport Ramp Agent: [facility] [Other] - 1 Week Referral Note: It typically takes two to three weeks to process referral, then you are assigned a technology coach who will then reach out to you by phone to initiate services. If you have not heard from anyone in two weeks, it is advised you call the above number and speak with Felix (Director of Airport Ramp Agent Services) to check-in on the status of your referral. Valentina Romero MD [Primary Care Provider, Internal Medicine] - 07/02/25 10:00 am Referral Note: 06-16-25 Your primary care provider has been notified of your discharge date and will be in contact with the date and time of your follow up visit. 06-21-25 Your follow up appt has been scheduled for 07-02-25 @10am. Discharge Medications: New guanfacine 1 mg Tablet Extended Release 24 Hr 1 mg PO DAILY 30 Days Qty: 30 0RF quetiapine 300 mg Tablet 300 mg PO BEDTIME 30 Days Qty: 30 0RF lithium carbonate 300 mg Tablet 300 mg PO BID 30 Days Qty: 60 0RF trazodone 50 mg Tablet 50 mg PO BEDTIME 30 Days Qty: 30 0RF melatonin 10 mg capsule 10 mg PO BEDTIME 30 Days Qty: 30 0RF Continued amlodipine 10 mg tablet 10 mg PO BEDTIME 90 Days Qty: 90 0RF cholecalciferol (vitamin D3) 50 mcg (2,000 unit) tablet 50 mcg PO DAILY Qty: 90 0RF cetirizine [All Day Allergy (cetirizine)] 10 mg tablet 10 mg PO DAILY PRN (Reason: allergy symptoms) 90 Days Qty: 90 0RF docusate sodium 100 mg capsule 100 mg PO DAILY PRN (Reason: constipation) Qty: 30 0RF lisinopril 10 mg tablet 10 mg PO BEDTIME 90 Days Qty: 90 1RF albuterol sulfate 90 mcg/actuation HFA aerosol inhaler 2 puff inhalation Q6H PRN (Reason: for wheezing) 30 Days Qty: 8.5 3RF gabapentin 400 mg capsule 400 mg PO TID 30 Days Qty: 90 2RF Discontinued bupropion HCl 300 mg tablet extended release 24 hr 300 mg PO DAILY quetiapine [Seroquel] 25 mg tablet 75 mg PO BEDTIME PRN (Reason: Anxiety) amoxicillin-pot clavulanate 875-125 mg Tablet 1 tab PO Q12H Qty: 8 0RF No Action bupropion HCl 300 mg tablet extended release 24 hr 300 mg PO DAILY 30 Days Qty: 30 0RF Discharge Orders: Discharge Order (Routine); Ordered 06/22/25 Ordered By: Rosalinda Velásquez Diet: Regular diet Activity on Discharge: As tolerated Stand Alone Forms: Patient Portal Discharge page, Community Support Print Language: [place]an Care Plan Goals: Maintain mood and safe behaviors Take medications as prescribed Continue to pursue sobriety Practice coping skills Continue with outpatient providers and reach out to them as needed Health Concerns: Mood stability and behaviors Sobriety Plan of Treatment: Follow up with your PCP, psychiatric provider and other outpatient providers regarding above concerns Take medications as prescribed Assessment: Patient has insight and demonstrates good judgment in terms of wanting to pursue treatment. Patient has a safety plan that includes presenting to the closest ER or calling 911 if feeling unsafe. Discharge Date/Time: 06/22/25 08:59
== END 2025-06-22 08:59 | disposition home or self-care (01) | DRG 753 ==
PROVIDERS: Registered Nurse; Admitting Provider Nurse Practitioner Psychiatric/Mental Health; PCP Internal Medicine; Visit Provider Nurse Practitioner Psychiatric/Mental Health
DX: F31.32 Bipolar disorder, current episode depressed, moderate (principal); F14.10 Cocaine abuse, uncomplicated; F60.3 Borderline personality disorder; F90.9 Attention-deficit hyperactivity disorder, unspecified type; T50.901A Poisoning by unspecified drugs, medicaments and biological substances, accidental (unintentional), initial encounter; Z79.899 Other long term (current) drug therapy
CPT/HCPCS: 36415; 80053; 80061; 80178; 81003; 83036; 84439; 84443; 87086

== ENCOUNTER → 2025-06-14 13:31 | Outpatient (BNV) | payer OTHER, SELFPAY | PROVIDERS: Admitting Provider Nurse Practitioner Psychiatric/Mental Health; PCP Internal Medicine; Visit Provider Nurse Practitioner Psychiatric/Mental Health | DX: F31.32 Bipolar disorder, current episode depressed, moderate (principal); F60.3 Borderline personality disorder; F90.9 Attention-deficit hyperactivity disorder, unspecified type; F14.10 Cocaine abuse, uncomplicated; T50.901A Poisoning by unspecified drugs, medicaments and biological substances, accidental (unintentional), initial encounter | CPT/HCPCS: 99231; 99238 ==

== ENCOUNTER 2025-07-09 14:55 | Outpatient (REF) | payer OTHER, SELFPAY ==
--- OUTSIDE RECORDS SUMMARY | 2025-07-12 15:39 | XMS_ITS | Clinical Summary ---
Author Organization [facility] Address [address] [place] [id number] Phone Care Team Providers Care Biomedical Repair Technician Name Role Phone Unavailable Primary Care Provider Unavailabl e Immunizations Immunization Administration Dates Next Due DTP 05/06/1990,,05/12/1985,1984,1984 Hep B, ped/adol 08/04/1997,04/30/1997,03/30/1997 Hib (HbOC) 04/02/1988 MMR 03/30/1997,01/05/1986 OPV 05/06/1990, 6,03/02/1985,1984 [facility] 5 Lf t etanus toxoid, PF, adsorbed [...]
--- OUTSIDE RECORDS SUMMARY | 2025-07-12 15:39 | XMS_ITS | Encounter Summary ---
Author Organization [employer] Address [address] [place] [address] Care Team Providers Care Body Corporate Manager Name Role Phone Unavailable Primary Care Provider Unavailabl e Encounter Details Date Type Department Care Team (Late st Contact Info) Description 03/29/2023 Abstract [facility] [address] [facility] [place] [address] Byron Rodrigues DMD [address] [place] [address] Social History Tobacco Use Types Packs/Day Years [...]
[2025-07-12 16:14] LABS: Cannabinoid Screen Urine Not Detected (Not Detect)
== END 2025-07-09 14:56 | disposition home or self-care (01) ==
LOC: HO.PHPLNP 14:55
PROVIDERS: Visit Provider Psychiatry & Neurology Psychiatry
DX: F31.61 Bipolar disorder, current episode mixed, mild (principal); F14.10 Cocaine abuse, uncomplicated; F11.20 Opioid dependence, uncomplicated
CPT/HCPCS: 80307

== ENCOUNTER 2025-07-09 18:48 | Emergency (ER) | payer OTHER, SELFPAY ==
--- NOTE | ~2025-07-09 | XR_ITS ---
CLINICAL HISTORY: evaluate for FB 2 views soft tissue neck Comparison: None provided Findings No acute fractures or dislocation. Epiglottis unremarkable. No prevertebral soft tissue swelling. No radiopaque foreign body. IMPRESSION: No acute findings. No foreign body. This document has been electronically signed by: Kyle Lyon MD on 07/09/2025 19:21:43
[2025-07-09 18:50] VITALS: BP 150/105; PULSE 100; RESP 18; TEMP 36.6; O2SAT 100; BMI 24.2
--- NOTE | 2025-07-09 19:59 | ED_ITS ---
HPI - General Adult General Chief complaint: General Medical Stated complaint: unknown object stuck in throat Related Data Previous Rx's ?Medication ?Instructions ?Recorded docusate sodium 100 mg capsule 100 mg PO DAILY PRN con stipation 03/10/24 #30 caps lisinopril 10 mg tablet 10 mg PO BEDTIME 90 days #90 tabs 03/10/24 albuterol sulfate 90 mcg/actuation 2 puff inhalation Q 6H PRN for 01/07/25 aerosol inhaler wheezing 30 days #8.5 ea amlodipine 10 mg tablet 10 mg PO BEDTIME 90 days #90 tabs 02/08/25 cholecalciferol (vitamin D3) 50 50 mcg PO DAILY #90 ta bs 02/21/25 mcg (2,000 unit) tablet cetirizine 10 mg tablet (All Day 10 mg PO DAILY PRN al lergy 06/01/25 Allergy (cetirizine)) symptoms 90 days #90 tabs bupropion HCl 300 mg 24 hr tablet, 300 mg PO DAILY 30 days #30 tabs 06/21/25 extended release guanfacine 1 mg tablet,extended 1 mg PO DAILY 30 days #30 tabs 06/21/25 release 24 hr lithium carbonate 300 mg tablet 300 mg PO BID 30 days #60 tabs 06/21/25 melatonin 10 mg capsule 10 mg PO BEDTIME 30 days #30 caps 06/21/25 quetiapine 300 mg tablet 300 mg PO BEDTIME 30 days #3 0 tabs 06/21/25 trazodone 50 mg tablet 50 mg PO BEDTIME 30 days #30 tabs 06/21/25 gabapentin 400 mg capsule 400 mg PO TID 30 days #90 ca ps 07/06/25 Allergies Allergy/AdvReac Type Severity Reaction Status Date / Time No Known Allergies Allergy Unknown Verified 07/10/25 08:40 [facility] Past Medical History Medical History HTN (hypertension) Overdose Anemia Family history of anesthesia complication Anemia Heartburn Bipolar disorder RLS (restless legs syndrome) ADHD (attention deficit hyperactivity disorder) Anxiety Depression Opioid dependence, uncomplicated Cocaine dependence, uncomplicated Exercise-induced asthma Surgical History (Updated 06/30/25 @ 00:02 by Nora Hollingsworth) History of surgery (06/18/24) History of History of root canal procedure History of wisdom tooth extraction Hx of cholecystectomy Family History Family History Family/Other Mental health disorder Mother Hypertension Father Hypertension Social History Social History Household Members: None Housing: Apartment Are you a primary customer care professional to a significant other at home: No Do you presently have visiting nurse or other home services: No Alcohol intake: current Alcohol intake frequency: a few times a week Alcohol type: hard liquor Patient Tobacco Use Status: Never used Tobacco Smoked in Last 30 Days: Yes e-Cigarette/Vaping Use: Never Used Second Hand Smoke Exposure: No Use of substances other than those prescribed or required for medical reasons: Yes Substance Use Type: Inhalants Advance Directives: No Advance Directives Information Provided: Yes Patient : No service: No Current occupational status: unemployed Sexual orientation: Straight/Heterosexual Cognitive needs: No Hearing needs: No Vision needs: No Physical Exam ED Vital Signs: Vital Signs - 24 hr 07/09/25 18:50 Temperature 98 F Pulse Rate 100 Respiratory Rate 18 Blood Pressure 150/105 H Pulse Oximetry 100 Oxygen Delivery Method Room Air BMI result Body Mass Index 24.2 Course Course Course Narrative: Olga Krishnanchiquita CLIENT SERVICES COORDINATOR 07/09 2000 This is a rapid medical exam. Deferred additional HPI, ROS, PE to primary provider. 39 yo female with history of mental health, polysubstance abuse here with complaints of FB sensation in her throat. Had a tongue piercing that she realized yesterday was missing however does not recall swallowing it. While cooking food today she started to feel like she had a FB sensation. Patient presents in triage sticking her fingers in her mouth, inducing vomiting. Speaking full sentences. LS CTA. Oxygen saturation normal. No FB noted in the posterior oropharynx. No stridor. VSS. Will order x-ray Discharge Plan Discharge Clinical Impression: Sensation of foreign body in throat Patient Disposition: Left W/O Completing Treatment Prescriptions: No Action amlodipine 10 mg tablet 10 mg PO BEDTIME 90 Days Qty: 90 0RF cholecalciferol (vitamin D3) 50 mcg (2,000 unit) tablet 50 mcg PO DAILY Qty: 90 0RF cetirizine [All Day Allergy (cetirizine)] 10 mg tablet 10 mg PO DAILY PRN (Reason: allergy symptoms) 90 Days Qty: 90 0RF bupropion HCl 300 mg tablet extended release 24 hr 300 mg PO DAILY 30 Days Qty: 30 0RF gabapentin 400 mg capsule 400 mg PO TID 30 Days Qty: 90 2RF guanfacine 1 mg Tablet Extended Release 24 Hr 1 mg PO DAILY 30 Days Qty: 30 0RF quetiapine 300 mg Tablet 300 mg PO BEDTIME 30 Days Qty: 30 0RF lithium carbonate 300 mg Tablet 300 mg PO BID 30 Days Qty: 60 0RF trazodone 50 mg Tablet 50 mg PO BEDTIME 30 Days Qty: 30 0RF melatonin 10 mg capsule 10 mg PO BEDTIME 30 Days Qty: 30 0RF docusate sodium 100 mg capsule 100 mg PO DAILY PRN (Reason: constipation) Qty: 30 0RF lisinopril 10 mg tablet 10 mg PO BEDTIME 90 Days Qty: 90 1RF albuterol sulfate 90 mcg/actuation HFA aerosol inhaler 2 puff inhalation Q6H PRN (Reason: for wheezing) 30 Days Qty: 8.5 3RF Discharge Date/Time: 07/09/25 21:07
--- OUTSIDE RECORDS SUMMARY | 2025-07-09 21:01 | XMS_ITS | Clinical Summary ---
Author Organization [facility] Address [address] [place] [phone] Phone Care Team Providers Care District Court Bailiff Name Role Phone Unavailable Primary Care Provider Unavailabl e Immunizations Immunization Administration Dates Next Due DTP 05/06/1990,,05/12/1985,1984,1984 Hep B, ped/adol 08/04/1997,04/30/1997,03/30/1997 Hib (HbOC) 04/02/1988 MMR 03/30/1997,01/05/1986 OPV 05/06/1990, 6,03/02/1985,1984 [facility] 5 Lf t etanus toxoid, PF, adsorbed [...] 06/30/1999 06/29/1999, 05/06/1990, 03/25/1986, Additional history exists HPV Vaccines (1 - 3-dose SCDM series) 2011 COVID-19 Vaccine ( - 2023- season) 2024 Influenza Vaccines (#1) 2025 HIB Vaccines Completed 04/02/1988 IPV Vaccines Completed 05/06/1990, 05/0 11/1985, 03/02/1985, Additional history exists MMR Vaccines Completed 03/30/1997, 01/05/1986 Hepatitis B Vaccines Completed 08/04/1997, 04/30/1997, 03/30/1997 Hepatitis A Vaccines Aged Out No long [...]
--- OUTSIDE RECORDS SUMMARY | 2025-07-09 21:01 | XMS_ITS | Clinical Summary ---
Author Organization [facility] Address [address] [place] [id number] Care Team Providers Care Plaster Die Maker Name Role Phone Unknown Primary Care Provider [phone] Allergies No known active allergies Medications * [...] (1 of 3 - 19+ 3-dose series) 09/25 Pneumococcal Vaccine: Pediat rob (0-5 Years) and At-Risk Patients (6 to 49 Years) (1 of 2 - PCV) 2003 Pap Smear (Ages 21-65) 2005 HPV Vaccines (1 - 3-dose SCDM series) 2011 COVID-19 Vaccine ( - 2023- season) 2024 Mammogram 2024 Influenza Vaccine 06/25/2025 HIV Screening Completed 04/20/2018 Hepatitis C Virus Screening Completed 04/20/2018 Procedures Procedure Name Priority Date/Time Associated Diagnosis [...] test by nucleic acid amplification. Performed at [facility], [place], [place] License [id number] CLIA [id number] Blood specimen (specimen) Blood specimen / Unknown 04/20/2018 2:00 AM EDT 04/20/2018 2:14 AM EDT us Joi Dowell MD LAB BLOOD ORDERABLES Final Resu lt HOSPITAL LAB * Hepatitis C Virus (HCV) Antibody (04/20/2018 2:00 AM EDT) Hepatitis C Antibody 0.11 0.00 - 0.79 S/CO ratio HOSPITAL LAB Comment: Nonreactive Performed at [facility], [place], [place] License 0385 CLIA [id number] Blood specimen (specimen) Blood specimen / Unknown 04/20/2018 2:00 AM EDT 04/20/2018 2:14 AM EDT Joi Dowell MD LAB BLOOD ORDERABLES Final Resu lt HOSPITAL LAB from Last 3 Months or Most Recently Relevant to Health Maintenance Insurance MEDICAID OUT OF STATE [facility] [address] [place] [address] MEDICAID [place] OF STATE [facility] Advance Directives * Full Code (Latest Code Status on File) Date Activated Date Inactivated Comments 05/01/2018 4:35 PM Question Answer Comments Decision Thoroughly Discussed with: Patient * Full Code Date Activated Date Inactivated Comments 04/19/2018 12:18 AM 05/01/2018 2:25 PM Care Teams Plaster Die Maker Relationship Specialty Start Date End Date Unknown Unknow Provider Address PCP - General 04/19/18
--- NOTE | 2025-07-09 21:08 | PC.NURSE ---
nedra hendrix 83 pt could be seen and heard yelling in the waiting room, spitting into an emesis bag, attempting to make herself vomiting while flailing around. The pt was called into triage at which point she independently ambulated into the room, sat down, and continued to exhibit the same behaviors. RN attempted to educate the pt on abilities from triage, bedding of patients, and also reviewed results with approval from [facility]. The pt required a great deal of verbal redirection, coaching, and reassurance. RN advised the patient that she could be seen in the back when ready to assist with discomfort and provide further education. The pt was noted to stick her fingers down her throat and projectile vomited on the triage floor, security near by asking the pt to return to the waiting room. Pt refused, began to say things pertaining to substance use and how she wasn't high and was reassured by RN that her background and history were not known and/or will have any bearing on her care. Pt ultimately became calm, thanking this RN for assisting with calming her down. The was well appearing and without distress at the time she ambulated out of the triage door.
== END 2025-07-09 21:07 | disposition left against medical advice (07) ==
PROVIDERS: Emergency Provider Emergency Medicine
DX: J05.10 Acute epiglottitis without obstruction (principal); R09.89 Other specified symptoms and signs involving the circulatory and respiratory systems; Z79.899 Other long term (current) drug therapy
CPT/HCPCS: 70360; 99281; 99283

== ENCOUNTER → 2025-07-09 18:50 | Outpatient (BNV) | payer OTHER, SELFPAY | PROVIDERS: Visit Provider Radiology Diagnostic Radiology | DX: R09.A2 Foreign body sensation, throat (principal) | CPT/HCPCS: 70360 ==

== ENCOUNTER 2025-07-09 22:56 | Emergency (ER) | payer OTHER, SELFPAY ==
[2025-07-09 23:27] VITALS: BP 142/97; PULSE 89; RESP 20; TEMP 36.8; O2SAT 99; BMI 24.2
--- NOTE | 2025-07-10 01:09 | ED_ITS ---
HPI - General Adult General Chief complaint: General Medical Stated complaint: PIERCING STUCK IN THROAT Time Seen by Provider: 07/10/25 00:57 Source: patient Mode of arrival: ambulatory Limitations: no limitations History of Present Illness ED Provider: Dr. Kristi Vogt HPI narrative: Patient comes in the emergency room stating that she swallowed a lip piercing and it stuck in her upper throat. Patient states that she has been vomiting ?bubbles . Patient denies fever chills, admits to using PCP before arriving to the hospital. Patient states the ring is made out of metal. Related Data Previous Rx's ?Medication ?Instructions ?Recorded docusate sodium 100 mg capsule 100 mg PO DAILY PRN con stipation 03/10/24 #30 caps lisinopril 10 mg tablet 10 mg PO BEDTIME 90 days #90 tabs 03/10/24 albuterol sulfate 90 mcg/actuation 2 puff inhalation Q 6H PRN for 01/07/25 aerosol inhaler wheezing 30 days #8.5 ea amlodipine 10 mg tablet 10 mg PO BEDTIME 90 days #90 tabs 02/08/25 cholecalciferol (vitamin D3) 50 50 mcg PO DAILY #90 ta bs 02/21/25 mcg (2,000 unit) tablet cetirizine 10 mg tablet (All Day 10 mg PO DAILY PRN al lergy 06/01/25 Allergy (cetirizine)) symptoms 90 days #90 tabs bupropion HCl 300 mg 24 hr tablet, 300 mg PO DAILY 30 days #30 tabs 06/21/25 extended release guanfacine 1 mg tablet,extended 1 mg PO DAILY 30 days #30 tabs 06/21/25 release 24 hr lithium carbonate 300 mg tablet 300 mg PO BID 30 days #60 tabs 06/21/25 melatonin 10 mg capsule 10 mg PO BEDTIME 30 days #30 caps 06/21/25 quetiapine 300 mg tablet 300 mg PO BEDTIME 30 days #3 0 tabs 06/21/25 trazodone 50 mg tablet 50 mg PO BEDTIME 30 days #30 tabs 06/21/25 gabapentin 400 mg capsule 400 mg PO TID 30 days #90 ca ps 07/06/25 Allergies Allergy/AdvReac Type Severity Reaction Status Date / Time No Known Allergies Allergy Unknown Verified 07/09/25 23:28 Review of Systems Review of Systems: Constitutional : No Weight loss, No Fever, No Chills, No Night Sweats, No Fatigue, No Malaise ENT/Mouth : No Hearing loss, No Ear Pain, No Nasal Congestion, No Sinus Pain, No Hoarseness, complaining of foreign body sensation stuck in throat, a lip ring, No Swallowing Difficulty Eyes: No Eye Pain, No Swelling, No Redness, No Foreign Body, No Discharge, No Vision Changes Cardiovascular : No Chest Pain, No SOB, No Dyspnea on Exertion, No Orthopnea, No Edema, No Palpitations Respiratory : No Cough, No Sputum, No Wheezing, No Smoke Exposure, No Dyspnea Gastrointestinal : No Nausea, No Vomiting, No Diarrhea, No Constipation, No abdominal Pain, No Hematochezia, No Melena Genitourinary : no irregular bleeding, No Dysuria, No Urinary Frequency, No Hematuria, No Urinary Incontinence, No Urgency, No Flank Pain, No Urinary Flow Changes, No Hesitancy Musculoskeletal : No joint pain, No Myalgias, No Joint Swelling Skin : No Skin Lesions, No rash Neuro : No Weakness, No Numbness, No Paresthesias, No Loss of Consciousness, No Dizziness, No Headache Psych : No Anxiety/Panic, No Depression, No SI/HI/AH/VH, admits to using PCP tonight Heme/Lymph: No Bruising, No Bleeding,No Lymphadenopathy Endocrine : No Polyuria, No Polydipsia, No Temperature Intolerance PMFSH Past Medical History Medical History HTN (hypertension) Overdose Anemia Family history of anesthesia complication Anemia Heartburn Bipolar disorder RLS (restless legs syndrome) ADHD (attention deficit hyperactivity disorder) Anxiety Depression Opioid dependence, uncomplicated Cocaine dependence, uncomplicated Exercise-induced asthma Surgical History (Updated 06/30/25 @ 00:02 by Nora Hollingsworth) History of surgery (06/18/24) History of History of root canal procedure History of wisdom tooth extraction Hx of cholecystectomy Family History Family History Family/Other Mental health disorder Mother Hypertension Father Hypertension Social History Social History Household Members: None Housing: Apartment Are you a primary college and career counselor to a significant other at home: No Do you presently have visiting nurse or other home services: No Alcohol intake: current Alcohol intake frequency: a few times a week Alcohol type: hard liquor Patient Tobacco Use Status: Never used Tobacco e-Cigarette/Vaping Use: Never Used Second Hand Smoke Exposure: No Substance Use Type: Heroin Advance Directives: No service: No Current occupational status: unemployed Sexual orientation: Straight/Heterosexual Cognitive needs: No Hearing needs: No Vision needs: No Physical Exam ED Exam Exam: Appearance: Alert. Oriented X3. No acute distress. Patient putting her fingers in her mouth to make herself vomit Eyes: Pupils equal, round and reactive to light. ENT: Pharynx normal. No erythema, no foreign body Neck: Normal inspection. Neck supple. No lymph nodes noted. No crepitus CVS: Normal heart rate and rhythm. Pulses normal. Normal S1 and S2 Respiratory: No respiratory distress. Breath sounds normal. No Wheezing. No rales Abdomen: Soft and nontender. No rigidity. No distention. Skin: Skin warm and dry. Normal skin color. Normal skin turgor. Extremities: No lower extremity edema. No Lacerations. No Rash Neuro: Oriented X 3. No motor deficit. No sensory deficit. Moving all extremities. No slurred speech. CN 2 through 12 grossly intact Psych: calm, cooperative, normal affect Vital Signs: Vital Signs - 24 hr 07/09/25 23:27 Temperature 98.2 F Pulse Rate 89 Respiratory Rate 20 Blood Pressure 142/97 H Pulse Oximetry 99 Oxygen Delivery Method Room Air BMI result Body Mass Index 24.2 Medical Decision Making Medical Decision Making MDM Narrative: No foreign body visualized in the throat, there is no foreign body seen on x-ray Patient is adamant that she swallowed a ring and it stuck in her throat. Patient very anxious, continuously making herself vomit by putting her fingers in her throat Radiology report for soft tissues of the neck: Negative for foreign body Independent Interpretation I performed an independent interpretation of an: Plain X-Ray Radiology Impression Discussion of test interpretation with radiology: I have reviewed the radiologist's reading. Radiologist Impression: No acute fractures or dislocation. Epiglottis unremarkable. No prevertebral soft tissue swelling. No radiopaque foreign body. IMPRESSION: No acute findings. No foreign body. Discharge Plan Discharge Clinical Impression: Anxiety, Sensation of foreign body in throat Patient Disposition: Home, Self-Care Instructions: Anxiety (ED) Additional Instructions: Please follow-up with your primary care physician tomorrow. If you have any worsening or new symptoms, please return to the emergency room or call 911 Prescriptions: No Action amlodipine 10 mg tablet 10 mg PO BEDTIME 90 Days Qty: 90 0RF cholecalciferol (vitamin D3) 50 mcg (2,000 unit) tablet 50 mcg PO DAILY Qty: 90 0RF cetirizine [All Day Allergy (cetirizine)] 10 mg tablet 10 mg PO DAILY PRN (Reason: allergy symptoms) 90 Days Qty: 90 0RF bupropion HCl 300 mg tablet extended release 24 hr 300 mg PO DAILY 30 Days Qty: 30 0RF gabapentin 400 mg capsule 400 mg PO TID 30 Days Qty: 90 2RF guanfacine 1 mg Tablet Extended Release 24 Hr 1 mg PO DAILY 30 Days Qty: 30 0RF quetiapine 300 mg Tablet 300 mg PO BEDTIME 30 Days Qty: 30 0RF lithium carbonate 300 mg Tablet 300 mg PO BID 30 Days Qty: 60 0RF trazodone 50 mg Tablet 50 mg PO BEDTIME 30 Days Qty: 30 0RF melatonin 10 mg capsule 10 mg PO BEDTIME 30 Days Qty: 30 0RF docusate sodium 100 mg capsule 100 mg PO DAILY PRN (Reason: constipation) Qty: 30 0RF lisinopril 10 mg tablet 10 mg PO BEDTIME 90 Days Qty: 90 1RF albuterol sulfate 90 mcg/actuation HFA aerosol inhaler 2 puff inhalation Q6H PRN (Reason: for wheezing) 30 Days Qty: 8.5 3RF Print Language: Angolan
[2025-07-10 01:47] VITALS: BP 142/97; PULSE 89; RESP 20; TEMP 36.8; O2SAT 99
== END 2025-07-10 02:04 | disposition home or self-care (01) ==
PROVIDERS: Emergency Provider Emergency Medicine
DX: R09.A2 Foreign body sensation, throat (principal); F41.9 Anxiety disorder, unspecified; I10 Essential (primary) hypertension; Z79.899 Other long term (current) drug therapy
CPT/HCPCS: 99282; 99283

== ENCOUNTER 2025-07-10 08:34 | Emergency (ER) | payer OTHER, SELFPAY ==
--- NOTE | ~2025-07-10 | XR_ITS ---
CLINICAL HISTORY: Foreign body sensation 2 view chest x-ray Comparison: CR - XR CHEST 2V - 06/09/25 19:48 EDT Findings: No consolidation or effusion. Normal size heart. No acute fracture. 1.1 cm linear metallic density is seen anterior to the right L3 inferior endplate. IMPRESSION: 1.1 cm linear metallic density is seen anterior to the right L3 inferior endplate. Recommend correlation with ingested material or for prior history of cholecystectomy. This document has been electronically signed by: Jose Gross on 07/10/2025 09:36:21
[2025-07-10 08:38] VITALS: BP 177/86; PULSE 99; RESP 16; TEMP 36.4; O2SAT 99; BMI 27.4
--- OUTSIDE RECORDS SUMMARY | 2025-07-10 08:50 | XMS_ITS | Clinical Summary ---
Author Organization [facility] Address [address] [place] [id number] Care Team Providers Care Senior Electrical Estimator Name Role Phone Unknown Primary Care Provider [phone] Allergies No known active allergies Medications * [...] test by nucleic acid amplification. Performed at [facility], [place], [place] License [id number] CLIA [id number] Blood specimen (specimen) Blood specimen / Unknown 04/20/2018 2:00 AM EDT 04/20/2018 2:14 AM EDT us Joi Dowell MD LAB BLOOD ORDERABLES Final Resu lt HOSPITAL LAB * Hepatitis C Virus (HCV) Antibody (04/20/2018 2:00 AM EDT) Hepatitis C Antibody 0.11 0.00 - 0.79 S/CO ratio HOSPITAL LAB Comment: Nonreactive Performed at [facility], [place], [place] License 0385 CLIA [id number] Blood specimen (specimen) Blood specimen / Unknown 04/20/2018 2:00 AM EDT 04/20/2018 2:14 AM EDT Joi Dowell MD LAB BLOOD ORDERABLES Final Resu lt HOSPITAL LAB from Last 3 Months or Most Recently Relevant to Health Maintenance Insurance MEDICAID OUT OF STATE [facility] [address] [place] [address] MEDICAID OUT OF STATE [facility] Advance Directives * Full Code (Latest Code Status on File) Date Activated Date Inactivated Comments 05/01/2018 4:35 PM Question Answer Comments Decision Thoroughly Discussed with: Patient * Full Code Date Activated Date Inactivated Comments 04/19/2018 12:18 AM 05/01/2018 2:25 PM Care Teams Senior Electrical Estimator Relationship Specialty Start Date End Date Unknown Unknow Provider Address PCP - General 04/19/18
--- OUTSIDE RECORDS SUMMARY | 2025-07-10 08:50 | XMS_ITS | Encounter Summary ---
Author Organization [employer] Address [address] [place] [address] Care Team Providers Care Occupational Health Physician Name Role Phone Unavailable Primary Care Provider Unavailabl e Encounter Details Date Type Department Care Team (Late st Contact Info) Description 03/29/2023 Abstract [facility] [address] [facility] [place] [address] Byron Rodrigues DMD [address] [place] [address] Social History Tobacco Use Types Packs/Day Years [...]
--- NOTE | 2025-07-10 08:55 | ED_ITS ---
HPI - General Adult General Chief complaint: Skin/Abscess/Foreign Body Stated complaint: fb in throat Time Seen by Provider: 07/10/25 08:45 Source: patient Mode of arrival: ambulatory Limitations: no limitations History of Present Illness ED Provider: HPI narrative: Patient was seen overnight for foreign body sensation, she presented severely anxious stating that she feels something in her midsternum she was eating chicken reportedly and then could not find her upper lip ring, she denied drug use to me but is I noted she has a history of overdose and PCP use yesterday she states that she had mentioned that because gato dust would wear out by now , she was noted to be comfortable prior to my entering the room then became severely anxious on was noted to be placing fingers in her mouth to induce vomiting stating that it feels she needs to do that, speaking full sentences. Related Data Previous Rx's ?Medication ?Instructions ?Recorded docusate sodium 100 mg capsule 100 mg PO DAILY PRN con stipation 03/10/24 #30 caps lisinopril 10 mg tablet 10 mg PO BEDTIME 90 days #90 tabs 03/10/24 albuterol sulfate 90 mcg/actuation 2 puff inhalation Q 6H PRN for 01/07/25 aerosol inhaler wheezing 30 days #8.5 ea amlodipine 10 mg tablet 10 mg PO BEDTIME 90 days #90 tabs 02/08/25 cholecalciferol (vitamin D3) 50 50 mcg PO DAILY #90 ta bs 02/21/25 mcg (2,000 unit) tablet cetirizine 10 mg tablet (All Day 10 mg PO DAILY PRN al lergy 06/01/25 Allergy (cetirizine)) symptoms 90 days #90 tabs bupropion HCl 300 mg 24 hr tablet, 300 mg PO DAILY 30 days #30 tabs 06/21/25 extended release guanfacine 1 mg tablet,extended 1 mg PO DAILY 30 days #30 tabs 06/21/25 release 24 hr lithium carbonate 300 mg tablet 300 mg PO BID 30 days #60 tabs 06/21/25 melatonin 10 mg capsule 10 mg PO BEDTIME 30 days #30 caps 06/21/25 quetiapine 300 mg tablet 300 mg PO BEDTIME 30 days #3 0 tabs 06/21/25 trazodone 50 mg tablet 50 mg PO BEDTIME 30 days #30 tabs 06/21/25 gabapentin 400 mg capsule 400 mg PO TID 30 days #90 ca ps 07/06/25 Allergies Allergy/AdvReac Type Severity Reaction Status Date / Time No Known Allergies Allergy Unknown Verified 07/10/25 08:40 Review of Systems Constitutional: Constitutional: Reports as per [facility] Past Medical History Medical History HTN (hypertension) Overdose Anemia Family history of anesthesia complication Anemia Heartburn Bipolar disorder RLS (restless legs syndrome) ADHD (attention deficit hyperactivity disorder) Anxiety Depression Opioid dependence, uncomplicated Cocaine dependence, uncomplicated Exercise-induced asthma Surgical History (Updated 06/30/25 @ 00:02 by Nora Hollingsworth) History of surgery (06/18/24) History of History of root canal procedure History of wisdom tooth extraction Hx of cholecystectomy Family History Family History Family/Other Mental health disorder Mother Hypertension Father Hypertension Social History Social History Household Members: None Housing: Apartment Are you a primary home care administrator to a significant other at home: No Do you presently have visiting nurse or other home services: No Alcohol intake: current Alcohol intake frequency: a few times a week Alcohol type: hard liquor Patient Tobacco Use Status: Never used Tobacco e-Cigarette/Vaping Use: Never Used Second Hand Smoke Exposure: No Substance Use Type: Inhalants service: No Current occupational status: unemployed Sexual orientation: Straight/Heterosexual Cognitive needs: No Hearing needs: No Vision needs: No Physical Exam ED Vital Signs: Vital Signs - 24 hr 07/10/25 08:38 Temperature 97.6 F Pulse Rate 99 Respiratory Rate 16 Blood Pressure 177/86 H Pulse Oximetry 99 Oxygen Delivery Method Room Air BMI result Body Mass Index 27.4 Const Other: * Gen: ?Anxious affect, speaking full sentences * HEENT: Uvula midline, no tonsillar exudates, * Neck: Supple, no LAD * CV: RRR, no obvious murmurs appreciated * Resp: ?No wheezing rales rhonchi no stridor moving air well * Skin: Warm, dry, intact, * Neuro: ?Alert and oriented x3, moving upper and lower extremities symmetrically, Medications Administered Discontinued Medications Generic Name Dose Route Start Last Admin Trade Name Freq PRN Reason Stop Dose Admin Lidocaine HCl 15 ml 07/10/25 08:57 07/10/25 09:14 Lidocaine Hcl Viscous 2 % 15 Ml Solution PO 07/10/25 08:58 15 ml ONCE ONE Administration Ondansetron HCl 4 mg 07/10/25 08:57 07/10/25 09:14 Ondansetron Odt 4 Mg Tab.Go VARGASU 07/10/25 08:58 4 mg ONCE ONE Administration Medical Decision Making Medical Decision Making MDM Narrative: Extremely anxious, we will repeat x-ray as it was done of the neck soft tissue if she has a foreign body that is radiopaque would be in the esophagus, potentially this is affect from using drugs or smoking anginal dust or if she swallowed something possibly scratch to esophagus, no SI or HI Differential Diagnosis Differential Diagnoses: The differential diagnosis associated with the presentat ion includes (Boerhaave syndrome, foreign body, pneumothorax, pneumonia, with drug-induced psychosis) Admission/Observation 2022 Emergency Medicine Coding Guide from [employer] on 07/10/2025 All calculations should be rechecked by clinician prior to use RESULT SUMMARY: 4 Estimated Level of Service Problems: Moderate (4) Risk: Moderate (4) Data: Moderate (4) NARRATIVE MDM: This patient's problem complexity is Moderate as patient: has a new undiagnosed problem with uncertain prognosis but that could be serious. This patient's risk is Moderate due to: overall presentation requiring evaluation for a potentially Moderate-risk process. This patient's data complexity is Moderate due to: -independent interpretation of imaging or EKG INPUTS: Number and Complexity ?> 5 = 4: undiagnosed new problem, uncertain outcome (e) Risk level ?> 3 = Moderate Tests ordered ?> 1 = 1 Tests results reviewed (excluding labs) ?> 1 = 1 Prior external notes reviewed ?> 0 = 0 Assessment requiring and independent historian ?> 0 = No Independent interpretation of tests ?> 1 = Yes Discussed management/test interpretation w/external professional ?> 0 = No Discharge Plan Discharge Clinical Impression: Foreign body sensation in throat Patient Disposition: Home, Self-Care Additional Instructions: There is absolutely no evidence from the 2 x-rays that you have had that you swallowed the body piercing and that it is stuck in your throat or esophagus Your sensation is maybe due to a scratch from food particle, vomiting, smoking PCP I have very much recommend against using PCP or any other substances as you have had a recent overdose and now experiencing body discomfort after drug use Prescriptions: No Action amlodipine 10 mg tablet 10 mg PO BEDTIME 90 Days Qty: 90 0RF cholecalciferol (vitamin D3) 50 mcg (2,000 unit) tablet 50 mcg PO DAILY Qty: 90 0RF cetirizine [All Day Allergy (cetirizine)] 10 mg tablet 10 mg PO DAILY PRN (Reason: allergy symptoms) 90 Days Qty: 90 0RF bupropion HCl 300 mg tablet extended release 24 hr 300 mg PO DAILY 30 Days Qty: 30 0RF gabapentin 400 mg capsule 400 mg PO TID 30 Days Qty: 90 2RF guanfacine 1 mg Tablet Extended Release 24 Hr 1 mg PO DAILY 30 Days Qty: 30 0RF quetiapine 300 mg Tablet 300 mg PO BEDTIME 30 Days Qty: 30 0RF lithium carbonate 300 mg Tablet 300 mg PO BID 30 Days Qty: 60 0RF trazodone 50 mg Tablet 50 mg PO BEDTIME 30 Days Qty: 30 0RF melatonin 10 mg capsule 10 mg PO BEDTIME 30 Days Qty: 30 0RF docusate sodium 100 mg capsule 100 mg PO DAILY PRN (Reason: constipation) Qty: 30 0RF lisinopril 10 mg tablet 10 mg PO BEDTIME 90 Days Qty: 90 1RF albuterol sulfate 90 mcg/actuation HFA aerosol inhaler 2 puff inhalation Q6H PRN (Reason: for wheezing) 30 Days Qty: 8.5 3RF Print Language: Icelandic
[2025-07-10] MEDS: Lidocaine HCl Viscous 2 % 15 ML SOLUTION PO (09:14)
--- NOTE | 2025-07-10 09:20 | PC.NURSE ---
a&ox4. vss and up to date aside from being hypertensive. pt presents to the ED extremely anxious c/o subjective foreign object in the middle of her throat. pt states she was eating chicken yesterday when she noticed that her lip ring had gone missing. pt states she believes she swallowed it as she can feel something stuck in her throat. pt noted to stick her fingers inside of her throat multiple times in attempts to self induce vomiting. pt was noted to be successful/continuously vomiting into emesis bag. pt educated to not do that but continued to do so anyway. pt medicated per provider order w/ slight effectiveness. pt noted to vomit small amount of bile s/p medication administration. pt currently pending xrays to be completed. on RA w/o difficulty. no sob/wob noted. respirations even/unlabored. plan of are ongoing. call fung placed within reach.
[2025-07-10 09:35] VITALS: BP 177/86; PULSE 99; RESP 16; TEMP 36.4; O2SAT 99
== END 2025-07-10 09:39 | disposition home or self-care (01) ==
PROVIDERS: Emergency Provider Emergency Medicine
DX: R09.A2 Foreign body sensation, throat (principal); F14.20 Cocaine dependence, uncomplicated; F11.20 Opioid dependence, uncomplicated; F41.9 Anxiety disorder, unspecified; I10 Essential (primary) hypertension; D64.9 Anemia, unspecified; F31.9 Bipolar disorder, unspecified; G25.81 Restless legs syndrome; F90.9 Attention-deficit hyperactivity disorder, unspecified type; J45.909 Unspecified asthma, uncomplicated
CPT/HCPCS: 71046; 99283; 99284

== ENCOUNTER → 2025-07-10 08:57 | Outpatient (BNV) | payer OTHER, SELFPAY | PROVIDERS: Emergency Provider Emergency Medicine; Visit Provider Radiology Vascular & Interventional Radiology | DX: Z18.10 Retained metal fragments, unspecified (principal) | CPT/HCPCS: 71046 ==

== ENCOUNTER → 2025-07-19 11:00 | Outpatient (BNV) | payer OTHER, SELFPAY | PROVIDERS: Visit Provider Psychiatry & Neurology Psychiatry | DX: F31.32 Bipolar disorder, current episode depressed, moderate (principal); F60.3 Borderline personality disorder; F41.1 Generalized anxiety disorder; F90.9 Attention-deficit hyperactivity disorder, unspecified type | CPT/HCPCS: 99215 ==

== ENCOUNTER 2025-07-30 09:30 | Outpatient (RCR) | payer OTHER, SELFPAY ==
[2025-06-29 10:53] VITALS: BMI 23.6
[2025-06-29 10:54] VITALS: BP 158/94; PULSE 80; TEMP 37.4
--- NOTE | 2025-06-29 12:02 | PC.ADMIT ---
Patient is a 39 year old single female who was referred to [facility] by [facility] where she was admitted from 06/14/25-06/22/25 s/p overdose on heroin. Patient reports to this bond underwriter this was an accidental overdose. Patient reports she was narcaned by the police who found her. Prior to inpatient LOC patient was medically hospitalized from 06/09-06/13/25 as she was dx with aspiration pneumonia and treated on medical floor. According to records patient has a history of several unintentional overdoses on heroin. Patient reports she has a history of being narcaned x2 with most recent episode a few weeks ago. Patient reports her drug of choice is cocaine. [facility] on 06/09/25 positive for opiates, fentanyl, and cocaine. Patient reports last use of these substances was 3 weeks ago. Patient stated she randomly uses PCP and last used this on 06/25/25. Patient denied having any cravings and feels she is in a good place regarding substance use. Patient reports she is interested in a recovery engineer. I notified Ирина Lee RN at [facility] who will consult with patient regarding this. Patient also stated she has many prescriptions for narcan at home if needed. Patient identified her father as a support. Prior to hospitalization patient stated, I used a 1/2 ball and bundle of heroin. Normally one bag lasts a day but I did 5 bags in 2 days. The following day at 5:00 someone called a 911 to my house and rammed the door open and I was there and I was o'ding. Coke Worker narcaned me. They said I was breathing and unconscious. I woke up in the ambulance . Patient stated she was treated on the medical floor for Aspiration pneumonia through Saturday and then on . Patient is alert and oriented x4. She is calm and cooperative. Speech was somewhat pressured. Patient presented with anxious mood and affect. She denied SI, no HI. She was given a copy of her safety plan if needed. Medications updated with patient and patient's discharge medical record from inpatient LOC. Patient BP 158/94. Has a history of HTN. Stated she has not taken Lisinopril 10 mg and Amlodipine 10 mg since discharge from the hospital 3 weeks ago and she thought she didn't need to take. Patient is taking Guanfacine as prescribed. Dr. Wheeler notified. Medication education provided regarding the importance of taking medications as prescribed.
--- NOTE | 2025-06-29 15:13 | PC.NURSE ---
BP 158/94. Has a history of HTN. Stated she has not taken Lisinopril 10 mg and Amlodipine 10 mg since discharge from the hospital 3 weeks ago and she thought she didn't need to take. She also prescribed Quanfacine 1 mg daily which she took this morning with her other prescriptions. Reviewed with Dr. Wheeler. Patient is to start taking Lisinopril at HS and will review starting Amlodipine if needed per Dr. Wheeler instructions. Reviewed instructions with patient. Patient appeared to understand instructions.
--- NOTE | 2025-06-29 17:26 | PC.NURSE ---
Eloy requested a referral to the [facility] Peer Carpenter'S Assistant Program on 06/29/25. An application was filled out with her and emailed to the instructor programmable controllers at [facility] on 06/29/25.
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
[2025-06-30 06:40] LABS: Cannabinoid Screen Urine Not Detected (Not Detect)
[2025-06-30 09:04] VITALS: BP 134/80
--- NOTE | 2025-07-05 09:38 | HO.PHP ---
Eloy called out today on her third day stating she has a lot going on and needs to get a new bank card today. This verse writer explored if she was able to come Saturday-Saturday in which she said she could. Staff told her she could not miss anymore days in the program. This appeared receptive.
--- NOTE | 2025-07-13 14:58 | HO.PHP ---
PHP staff member reached out to Eloy due to her not showing to group 4. PHP staff member explored if she was still on campus. Eloy reported that she had gone home because she was falling asleep in groups. [facility] staff member informed Eloy if she is leaving before groups are over, she needs to inform a staff member. Eloy was receptive. Eloy reported no safety concerns and will be in attendance to program tomorrow.
[2025-07-15 09:28] VITALS: BP 150/92; PULSE 84
--- NOTE | 2025-07-15 09:29 | PC.NURSE ---
BP 150/[address] Wheeler is aware.
[2025-07-19 13:58] VITALS: TEMP 37
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
[2025-07-27 09:22] VITALS: BP 90/58
[2025-07-30 10:49] VITALS: BP 94/64; PULSE 80
--- NOTE | 2025-07-30 19:39 | P.PNPSP_ITS ---
Subjective Subjective Date of Service: 07/30/25 Reason For Visit: bipolar Interim History: Patient seen for follow-up, anticipating discharge at the end of program today.? Expresses interest in ADHD treatment. She has a long history of ADHD struggles and presents as hyperthymic, impulsive, hyperactive and scattered. She reports last use of illicit substances was 2 weeks ago (PCP). Need Li level checked. Lab slip given. Also agreed to trial of amantadine and increase in guanfacine to a ddress ADHD symptoms. Patient considering returning to program for IOP. Reports no acute issues or concerns. Medication compliant, medications well- tolerated. Denies any adverse effects.? Mood is stable.? Denies any hopelessness or SI. Denies thoughts of harming self or others at this time. Denies any aggressive ideation or HI. Denies any paranoia or AH or VH. Sleep, appetite, energy stable. Medication Compliance: Yes Side effects from medications: No Attending Groups: Yes Review of Systems Acute medical concerns: No Mental Status Exam Mental Status Exam Narrative: A/O x 3 Cooperative Speech is loud/pressured at times but easily interruptible Hyperactive. Steady gait. No tics, tremors or dyskinesias Mood is stable Affect is full range reactive Thought process is generally goal directed. Denies SI/violent ideation Does not appear to respond to internal stimuli Insight-fair but adequate Judgment-fair but adequate Diagnostics Vital Signs (24Hr): BMI result Body Mass Index 23.6 Assessment & Plan Assessment & Plan (1) Bipolar disorder, current episode depressed, moderate: Status: Acute Code(s): F31.32 - Bipolar disorder, current episode depressed, moderate (2) Generalized anxiety disorder: Status: Acute Code(s): F41.1 - Generalized anxiety disorder (3) ADHD: Status: Acute Code(s): F90.9 - Attention-deficit hyperactivity disorder, unspecified type Plan Discharge from IOP Continue regular medications? start amantadine 50-100 mg qhs continue guanfacine ER at 1-2 mg qam and 1 mg qd in afternoon prn continue other regular medications Refills sent to pharmacy Will defer further medication management to outpatient provider *Safety plan reviewed *Discharge diagnoses, treatment course, discharge plan have been reviewed with patient (including medication regime, medication management, potential side effects) as well as treatment rationale were also revisited *Discharge paperwork signed and given to patient, copy sent for scanning to chart Patient educated on: diagnosis, medication risk/benefits, substance abuse and therapeutic strategies Informed Consent: understands Certification I certify that the patient needs IOP Services for a minimum of 9 hours per week of therapeutic services. I certify the patient is experiencing symptoms of such intensity that they are unable to be safely treated in a less intensive setting and would otherwise require admission to a more intensive level of care. Total time managing care of this patient today __30__ minutes. Discharge Plan Discharge Attending provider: Tamera Wheeler Additional Instructions: Aftercare Appts 08/06/2025 9:30 PM - 10:00 AM Substance Use Case Management - Non MA Prog: [facility] Site: [address] [place] [address] Staff: ARTEM BOB 08/06/2025 10:00 AM - 11:00 AM CHD Adult Comprehensive Assessment Prog: [facility] Site: [address] [place] [address] 08/23/2025 9:00 AM- 10:00 AM Psychiatric E/M New - Face to Face v2 Prog: [facility] Site: [address] [place] [address] Staff: Stuart Garay This is an update, pt's last appts were rescheduled due to extension. Medications: New guanfacine 2 mg tablet extended release 24 hr 2 mg PO QAM Qty: 30 0RF guanfacine 1 mg tablet extended release 24 hr 1 mg PO DAILY Qty: 30 0RF amantadine HCl 100 mg tablet 100 mg PO BEDTIME Qty: 20 0RF Continued melatonin 10 mg capsule 10 mg PO BEDTIME 14 Days Qty: 14 0RF quetiapine 300 mg Tablet 300 mg PO BEDTIME 14 Days Qty: 14 0RF Changed lithium carbonate 300 mg Tablet See Rx Instructions .ROUTE .COMPLEX 14 Days Qty: 42 0RF Rx Instructions: Take 1 tab po qam and 2 tabs po qhs. please d/c any other lithium rx on file guanfacine 1 mg Tablet Extended Release 24 Hr 2 mg PO DAILY 14 Days Qty: 28 0RF trazodone 50 mg Tablet 50 mg PO BEDTIME PRN (Reason: insomnia) 14 Days Qty: 14 0RF No Action cholecalciferol (vitamin D3) 50 mcg (2,000 unit) tablet 50 mcg PO DAILY Qty: 90 0RF cetirizine [All Day Allergy (cetirizine)] 10 mg tablet 10 mg PO DAILY PRN (Reason: allergy symptoms) 90 Days Qty: 90 0RF bupropion HCl 300 mg tablet extended release 24 hr 300 mg PO DAILY 30 Days Qty: 30 0RF gabapentin 400 mg capsule 400 mg PO TID 30 Days Qty: 90 2RF amlodipine 10 mg tablet 10 mg PO BEDTIME 90 Days Qty: 90 0RF docusate sodium 100 mg capsule 100 mg PO DAILY PRN (Reason: constipation) Qty: 30 0RF lisinopril 10 mg tablet 10 mg PO BEDTIME 90 Days Qty: 90 1RF albuterol sulfate 90 mcg/actuation HFA aerosol inhaler 2 puff inhalation Q6H PRN (Reason: for wheezing) 30 Days Qty: 8.5 3RF Stand Alone Forms: Patient Portal Discharge page Patient Education: Cocaine Use Disorder (ED), Cocaine Use Disorder (DC), ADHD in Adults (ED), ADHD in Adults (GEN), Bipolar Disorder (ED), Bipolar Disorder (DC) Print Language: Chinese
== END 2025-07-30 23:59 | disposition home or self-care (01) ==
LOC: HO.PHPA 09:30
PROVIDERS: Visit Provider Psychiatry & Neurology Psychiatry
DX: F31.32 Bipolar disorder, current episode depressed, moderate (principal); F41.1 Generalized anxiety disorder; F90.9 Attention-deficit hyperactivity disorder, unspecified type; F60.3 Borderline personality disorder; F14.20 Cocaine dependence, uncomplicated; F16.10 Hallucinogen abuse, uncomplicated; Z79.899 Other long term (current) drug therapy
CPT/HCPCS: 80307; 90791; 90853

== ENCOUNTER 2025-08-02 08:41 | Outpatient (REF) | payer OTHER, SELFPAY ==
[2025-08-02 08:55] LABS: MANUAL DIFF FLAG NO
[2025-08-02 08:59] LABS: Hematocrit 32.6 % (37.0-47.0); Hemoglobin 10.7 g/dl (12.0-16.0); Imm Gran Abs Auto 0.10 X10*3/uL (0.00-0.03); Imm Gran Pct Auto 0.7 % (0.0-0.4); Lymphocytes Absolute Auto 2.8 X10*3/uL (1.2-4.9); Mean Corpuscular HGB Conc 32.8 g/dl (31.0-35.0); Mean Corpuscular Hemoglobin 27.4 pg (27.0-33.0); Mean Corpuscular Volume 83.4 fL (80.0-98.0); NRBC Abs Auto 0.000 X10*3/uL (0.0-0.012); NRBC Pct Auto 0.0 /100WBC (0.0-0.2); Platelet Count 437 X10*3/uL (160-400); Red Blood Count 3.91 X10*6/uL (4.20-5.50); White Blood Count 14.3 X10*3/uL (4.8-10.8)
--- OUTSIDE RECORDS SUMMARY | 2025-08-02 09:41 | XMS_ITS | Clinical Summary ---
Author Organization [facility] Address [address] [place] [id number] Care Team Providers Care Pavilion Cutter Name Role Phone Unknown Primary Care Provider [phone] Allergies No known active allergies Medications * [...] Vaccines (1 - 3-dose SCDM series) 2011 Mammogram 2024 Influenza Vaccine 06/25/2025 COVID-19 Vaccine (2023- season) 2025 HIV Screening Completed 04/20/2018 Hepatitis C Virus [...] test by nucleic acid amplification. Performed at [facility], [place], [place] License [id number] CLIA [id number] Blood specimen (specimen) Blood specimen / Unknown 04/20/2018 2:00 AM EDT 04/20/2018 2:14 AM EDT Joi Dowell MD LAB BLOOD ORDERABLES Final Resu lt HOSPITAL LAB * Hepatitis C Virus (HCV) Antibody (04/20/2018 2:00 AM EDT) Hepatitis C Antibody 0.11 0.00 - 0.79 S/CO ratio HOSPITAL LAB Comment: Nonreactive Performed at [facility], [place], [place] [id number] CLIA [id number] Blood specimen (specimen) Blood specimen / Unknown 04/20/2018 2:00 AM EDT 04/20/2018 2:14 AM EDT Joi Dowell MD LAB BLOOD ORDERABLES Final Resu lt HOSPITAL LAB from Last 3 Months or Most Recently Relevant to Health Maintenance Insurance MEDICAID OUT OF [place] [facility] [place] [address] [place] [address] MEDICAID OUT OF STATE [facility] Advance Directives * Full Code (Latest Code Status on File) Date Activated Date Inactivated Comments 05/01/2018 4:35 PM Question Answer Comments Decision Thoroughly Discussed with: Patient * Full Code Date Activated Date Inactivated Comments 04/19/2018 12:18 AM 05/01/2018 2:25 PM Care Teams Pavilion Cutter Relationship Specialty Start Date End Date Unknown Unknow Provider Address PCP - General 04/19/18
--- OUTSIDE RECORDS SUMMARY | 2025-08-02 09:41 | XMS_ITS | Clinical Summary ---
Author Organization [facility] Address [address] [place] [id number] Phone Care Team Providers Care Action Finisher Name Role Phone Unavailable Primary Care Provider Unavailabl e Immunizations Immunization Administration Dates Next Due DTP 05/06/1990,,05/12/1985,1984,1984 Hep B, ped/adol 08/04/1997,04/30/1997,03/30/1997 Hib (HbOC) 04/02/1988 MMR 03/30/1997,01/05/1986 OPV 05/06/1990, 6,03/02/1985,1984 [facility] 5 Lf t etanus toxoid, PF, [...] Vaccines (1 - 3-dose SCDM series) 2011 Influenza Vaccines (#1) 2025 COVID-19 Vaccine ( season) 2025 HIB Vaccines Completed 04/02/1988 IPV Vaccines [...]
[2025-08-02 09:46] LABS: Lithium 0.62 mmol/L (0.60-1.20)
[2025-08-02 09:56] LABS: Alanine Aminotransferase 20 U/L (0-31); Albumin Level 3.9 g/dL (3.5-5.0); Alkaline Phosphatase 62 U/L (39-117); Anion Gap 11 (12-20); Aspartate Amino Transferase 20 U/L (5-31); Blood Urea Nitrogen 13 mg/dL (9-16); Calcium 8.7 mg/dL (8.4-10.2); Carbon Dioxide 22 mmol/L (22-29); Chloride 109 mmol/L (96-108); Estimated Glomerular Filt Rate > 60; Magnesium 1.7 mg/dL (1.6-2.6); Potassium 3.9 mmol/L (3.3-5.1); Sodium 138 mmol/L (135-145); Total Protein 6.8 g/dL (6.5-8.0)
[2025-08-02 10:15] LABS: Free T4 (Free Thyroxine) 0.82 ng/dL (0.71-1.85); Thyroid Stimulating Hormone 2.07 uIU/mL (0.32-4.0)
[2025-08-02 10:22] LABS: Folate 8.2 ng/mL (> or = 4.0); Vitamin B12 442 pg/mL (200-900)
== END 2025-08-02 08:42 | disposition home or self-care (01) ==
LOC: HO.LAB 08:41
PROVIDERS: PCP Internal Medicine; Visit Provider Psychiatry & Neurology Psychiatry
DX: F31.32 Bipolar disorder, current episode depressed, moderate (principal)
CPT/HCPCS: 36415; 80053; 80178; 82306; 82607; 82746; 83090; 83735; 84425; 84439; 84443; 85025

== ENCOUNTER 2025-08-09 22:43 | Emergency (ER) | payer OTHER, SELFPAY ==
--- NOTE | 2025-08-09 22:52 | ED.GENADULT ---
HPI - General Adult General Chief complaint: Overdose Stated complaint: Smoked nawaf dust 2 hours ago, r side pain Time Seen by Provider: 08/09/25 22:51 Source: patient and EMS Mode of arrival: EMS Limitations: altered mental status History of Present Illness ED Provider: Dr. Carrie Perez HPI narrative: 39-year-old female with polysubstance use disorder presenting with PCP intoxication by EMS. Patient reports she ?smoked Nawaf dust around 5:00 p.m. last night? and started to feel all over numbness. States ?I was running around the street in my neighborhood feeling out of control?. States that she has no desire to use PCP again after tonight. Has used it in the past and has never had this reaction. Also admits to occasional alcohol use, last drink around 6:00 p.m.. Denies other illicit substance use tonight. Had been feeling well previously. Denies visual or auditory hallucinations. Denies suicidal or homicidal ideations. Related Data Previous Rx's ?Medication ?Instructions ?Recorded docusate sodium 100 mg capsule 100 mg PO DAILY PRN constipation 03/10/24 #30 caps lisinopril 10 mg tablet 10 mg PO BEDTIME 90 days #90 tabs 03/10/24 albuterol sulfate 90 mcg/actuation 2 puff inhalation Q6H PRN for 01/07/25 aerosol inhaler wheezing 30 days #8.5 ea cholecalciferol (vitamin D3) 50 50 mcg PO DAILY #90 tabs 02/21/25 mcg (2,000 unit) tablet cetirizine 10 mg tablet (All Day 10 mg PO DAILY PRN allergy 06/01/25 Allergy (cetirizine)) symptoms 90 days #90 tabs bupropion HCl 300 mg 24 hr tablet, 300 mg PO DAILY 30 days #30 tabs 06/21/25 extended release gabapentin 400 mg capsule 400 mg PO TID 30 days #90 caps 07/06/25 amlodipine 10 mg tablet 10 mg PO BEDTIME 90 days #90 tabs 07/17/25 guanfacine 1 mg tablet,extended 2 mg (2 x 1 mg) PO DAILY 14 days 07/20/25 release 24 hr #28 tabs quetiapine 300 mg tablet 300 mg PO BEDTIME 14 days #14 tabs 07/28/25 trazodone 50 mg tablet 50 mg PO BEDTIME PRN insomnia 14 07/28/25 days #14 tabs amantadine HCl 100 mg tablet 100 mg PO BEDTIME #20 tabs 07/30/25 guanfacine 1 mg tablet,extended 1 mg PO DAILY #30 tabs 07/30/25 release 24 hr guanfacine 2 mg tablet,extended 2 mg PO QAM #30 tabs 07/30/25 release 24 hr lithium carbonate 300 mg tablet See Rx Instructions .Route 08/13/25 .COMPLEX 14 days #42 tabs melatonin 10 mg capsule 10 mg PO BEDTIME 30 days #30 caps 08/13/25 Allergies Allergy/AdvReac Type Severity Reaction Status Date / Time No Known Allergies Allergy Unknown Verified 08/13/25 17:49 Review of Systems Review of Systems: As per HPI, full review of systems performed and negative but for the above mentioned pertinent positives and negatives. [facility] Past Medical History Medical History HTN (hypertension) Overdose Anemia Family history of anesthesia complication Anemia Heartburn Bipolar disorder RLS (restless legs syndrome) ADHD (attention deficit hyperactivity disorder) Anxiety Depression Opioid dependence, uncomplicated Cocaine dependence, uncomplicated Exercise-induced asthma Surgical History History of surgery (06/18/24) History of History of root canal procedure History of wisdom tooth extraction Hx of cholecystectomy Family History Family History Family/Other Mental health disorder Mother Hypertension Father Hypertension Social History Social History Household Members: None Housing: Apartment Are you a primary administrator health care facility to a significant other at home: No Do you presently have visiting nurse or other home services: No Alcohol intake: current Alcohol intake frequency: a few times a week Alcohol type: hard liquor Comment: QUINTON 07/30/25 Patient Tobacco Use Status: Never used Tobacco e-Cigarette/Vaping Use: Never Used Second Hand Smoke Exposure: No Substance Use Type: Amphetamines and Heroin Advance Directives: No Advance Directives Information Provided: No service: No Current occupational status: unemployed Sexual orientation: Straight/Heterosexual Cognitive needs: No Hearing needs: No Vision needs: No Physical Exam ED Exam Exam: GENERAL: Anxious, agitated, uncontrolled movements. SKIN: Normal skin color for ethnicity, warm, dry, multiple skin excoriations of various degrees of healing, no crepitus, no petechiae, no blistering. HEENT: Normocephalic, atraumatic, no stridor, posterior oropharynx nonerythematous, poor [place] dentition, dry mucous membranes, EOMI. NECK: Soft, supple, full ROM, midline structures nontender, no step-offs, no deformities, no lymphadenopathy. CHEST: Heart regular tachycardia, no murmurs, symmetric chest rise and fall, no crepitus. PULMONARY: Clear to auscultation bilaterally, no labored breathing, no wheezes/rhales/rhonchi. ABDOMINAL: Soft, nondistended, nontender, positive bowel sounds in all quadrants. : Deferred. MUSCULOSKELETAL: Normal tone, full range of motion, no deformities, no peripheral edema. NEURO: Alert and oriented to person, CN II through XII intact, equal strength and sensation bilateral upper and lower extremities, no focal neurologic deficits. PSYCHIATRIC: Anxious affect, agitated, tangential speech, poor eye contact and psychomotor agitation. Vital Signs: Vital Signs - 24 hr 08/09/25 22:53 08/09/25 23:00 Temperature 98.6 F 98.6 F Pulse Rate 106 H 106 H Respiratory Rate 16 16 Blood Pressure 135/92 H 135/92 H Pulse Oximetry 99 99 Oxygen Delivery Method Room Air Room Air BMI result Body Mass Index 25.7 Medications Administered Discontinued Medications Generic Name Dose Route Start Last Admin Trade Name Freq PRN Reason Stop Dose Admin Naloxone HCl 8 mg 08/10/25 05:41 08/10/25 06:07 Naloxone Hcl Nasal Take Home 4 Mg [place] NOSTRILALT 08/10/25 05:42 8 mg ONCE ONE Administration Medical Decision Making Medical Decision Making MDM Narrative: 39-year-old female presenting with PCP intoxication after ingesting at around 5:00 p.m. tonight. Differential diagnosis includes substance use disorder, intoxication, decompensated mental illness including psychosis, among others. Patient is hemodynamically stable upon arrival to the ER, resting comfortably. Plan for a period of observation until she is more sober, we will re-evaluate when she wakes up. Differential Diagnosis Differential Diagnoses: The differential diagnosis associated with the presentation includes (As above) Admission/Observation Consideration of admission/observation: Escalation of care including admission/observation considered Lab Data MDM Lab Attestation statement: I reviewed the patient's lab results. Labs: Lab Results 08/10/25 Range/Units 05:35 Urine Color Yellow Urine Appearance Clear Urine pH >= 9.0 (5.0-9.0) Ur Specific [place] 1.015 (1.005-1.025) Urine Protein Negative (Neg-Trace) mg/dL Urine Glucose (UA) Negative (Negative) mg/dL Urine Ketones Negative (Negative) mg/dL Urine Blood Negative (Negative) Urine Nitrite Positive H (Negative) Ur Leukocyte Esterase Small (1+) H (Negative) Urine RBC 0-2 (0-2) /HPF Urine WBC 11-20 H (0-5) /HPF Ur Squamous Epith Cells 0-2 (0-2) /HPF Urine Bacteria 4+ (None Seen) Hyaline Casts 0-2 (0-2) /LPF Urine Opiates Screen Not Detected (Not Detect) Ur Buprenorphine Scrn Not Detected (Not Detect) ng/mL Ur Oxycodone Screen Not Detected (Not Detect) ng/mL Urine Methadone Screen Not Detected (Not Detect) ng/mL Urine Fentanyl Screen Not Detected (Not Detect) Ur Barbiturates Screen Not Detected (Not Detect) Ur Phencyclidine Scrn POSITIVE H (Not Detect) Ur Amphetamines Screen Not Detected (Not Detect) U Benzodiazepines Scrn Not Detected (Not Detect) Urine Cocaine Screen Not Detected (Not Detect) U Marijuana (THC) Screen Not Detected (Not Detect) Independent Historian Clinical information obtained from an independent historian. History obtained from or confirmed by: EMS External Record Review External record reviewed: Inpatient record Social Determinants Patient?s care significantly limited by Social Determinants of Health including: Inadequate housing, Alcoholism and drug addiction in family and Other Social Determinant of Health Discharge Plan Discharge Clinical Impression: PCP abuse, episodic, Paresthesia of right arm Patient Disposition: Home, Self-Care Instructions: Paresthesia (ED), Polysubstance Use Disorder (ED) Additional Instructions: Please do not feel discouraged, recovery is a process. The nurse has reviewed with you where to follow up and what information to bring with you, to continue treatment. You also may have been given naloxone (narcan) to take home with you. This medication is used to potentially treat opiate overdose. If you decide you want to stop or cut down on how much you?re using, you can call or walk into our outpatient Addiction Treatment office: [facility] (M-F 9am-5p) [address], [address] [phone] You may have been provided with safer injection?items, please take time to take care of YOU and your health. Use new supplies whenever possible to lessen the chances of infections and other illnesses.? If you need more supplies, please go [facility],? [address], [place] you can call or text to coordinate delivery of safer supplies. You were also provided a list of several treatment providers in the area.? If you experience any worsening symptoms you cannot control please return to the ED or call 911. Please follow up at your next appointment. Things to look out for are fevers, chest pain, shortness of breath, severe pain, dizziness, fainting or any other concerns. You can return to the emergency department at any time and for any reason. We offer recovery coaching and substance use disorder resources and we never close. Prescriptions: No Action cholecalciferol (vitamin D3) 50 mcg (2,000 unit) tablet 50 mcg PO DAILY Qty: 90 0RF cetirizine [All Day Allergy (cetirizine)] 10 mg tablet 10 mg PO DAILY PRN (Reason: allergy symptoms) 90 Days Qty: 90 0RF bupropion HCl 300 mg tablet extended release 24 hr 300 mg PO DAILY 30 Days Qty: 30 0RF gabapentin 400 mg capsule 400 mg PO TID 30 Days Qty: 90 2RF amlodipine 10 mg tablet 10 mg PO BEDTIME 90 Days Qty: 90 0RF guanfacine 1 mg Tablet Extended Release 24 Hr 2 mg PO DAILY 14 Days Qty: 28 0RF quetiapine 300 mg Tablet 300 mg PO BEDTIME 14 Days Qty: 14 0RF trazodone 50 mg Tablet 50 mg PO BEDTIME PRN (Reason: insomnia) 14 Days Qty: 14 0RF guanfacine 2 mg tablet extended release 24 hr 2 mg PO QAM Qty: 30 0RF guanfacine 1 mg tablet extended release 24 hr 1 mg PO DAILY Qty: 30 0RF amantadine HCl 100 mg tablet 100 mg PO BEDTIME Qty: 20 0RF lithium carbonate 300 mg Tablet See Rx Instructions .ROUTE .COMPLEX 14 Days Qty: 42 0RF Rx Instructions: Take 1 tab po qam and 2 tabs po qhs. please d/c any other lithium rx on file melatonin 10 mg capsule 10 mg PO BEDTIME 30 Days Qty: 30 0RF docusate sodium 100 mg capsule 100 mg PO DAILY PRN (Reason: constipation) Qty: 30 0RF lisinopril 10 mg tablet 10 mg PO BEDTIME 90 Days Qty: 90 1RF albuterol sulfate 90 mcg/actuation HFA aerosol inhaler 2 puff inhalation Q6H PRN (Reason: for wheezing) 30 Days Qty: 8.5 3RF Interventions: ED Discharge Assessment Last Done: 08/10/25 06:10 Discharge Date/Time: 08/10/25 06:15 Print Language: Maltese
[2025-08-09 22:53] VITALS: BP 135/92; BP 142/92; PULSE 106; PULSE 117; RESP 16; TEMP 37; O2SAT 99; BMI 25.7
--- NOTE | 2025-08-09 22:57 | PC.NURSE ---
pt confirms using gato dust, no right sided deficit noted, able to raise all four limbs and hold, B/L squeeze on upper extremities equal. Pt denies pain, just wants to make sure everything is okay.
--- NOTE | 2025-08-09 22:59 | PC.NURSE ---
safety check performed by security, nothing to report.
[2025-08-09 23:00] VITALS: BP 135/92; PULSE 106; RESP 16; TEMP 37; O2SAT 99
--- OUTSIDE RECORDS SUMMARY | 2025-08-10 00:26 | XMS_ITS | Encounter Summary ---
Author Organization [employer] Address [address] [place] [address] Care Team Providers Care Contractor General Engineering Name Role Phone Unavailable Primary Care Provider Unavailabl e Reason for Visit * Reason Onset Date Comments Dental Pain 04/17/2023 Encounter Details Date Type Department Care Team (Late st Contact Info) Description 04/17/2023 Telephone [facility] ADULT D[facility] [address] [place] [address] Byron Rodrigues DMD [address] [place], [place] [id number] Dental Pain Social History Tobacco Use Types [...] - 04/23/2023 8:45 AM EDT Spoke with [facility] because patient called in again stating [...]
--- OUTSIDE RECORDS SUMMARY | 2025-08-10 00:26 | XMS_ITS | Clinical Summary ---
Author Organization [facility] Address [address] [place] [id number] Phone Care Team Providers Care Tensioning Machine Operator Name Role Phone Unavailable Primary Care Provider Unavailabl e Immunizations Immunization Administration Dates Next Due DTP 05/06/1990,,05/12/1985,1984,1984 Hep B, ped/adol 08/04/1997,04/30/1997,03/30/1997 Hib (HbOC) 04/02/1988 MMR 03/30/1997,01/05/1986 OPV 05/06/1990, 6,03/02/1985,1984 [facility] 5 Lf t etanus toxoid, PF, [...]
--- OUTSIDE RECORDS SUMMARY | 2025-08-10 00:26 | XMS_ITS | Encounter Summary ---
Author Organization [employer] Address [address] 7[address] [place] [address] Care Team Providers Care Cosmetic Account Coordinator Name Role Phone Unavailable Primary Care Provider Unavailabl e Encounter Details Date Type Department Care Team (Late st Contact Info) Description 03/29/2023 Abstract [facility] ADULT DENTAL [address] [place] [address] Byron Rodrigues DMD [address] [place] [address] Social History Tobacco Use Types Packs/Day Years [...]
--- OUTSIDE RECORDS SUMMARY | 2025-08-10 00:27 | XMS_ITS | Clinical Summary ---
Author Organization [employer] Address [address] [place] [address] Care Team Providers Care Technical Buyer Name Role Phone Unavailable Primary Care Provider Unavailabl e Allergies No known active allergies Medications Sod Fluoride-Potass ium Nitrate 1.1-5 % pasteIndication s:Dental caries [place] teeth morning and night for 2 minutes. Spit, do not rinse. Do not eat or drink anything for 30 minutes following brushing. 112 g 3 3 Active Additional Information Patient not taking.Reported on 10/23/2023 Sodium Fluoride (Sodium Fluoride 5000 Plus) 1.1 % creamIndication s:Dental caries [place] teeth for 2 minutes, morning and night. [...] Date Last Done Comments Depression Screening 1984 SDOH Screening 1984 Disability Screening 1984 Alcohol/Substance Use Screening 1996 Family Planning (PISQ) 1999 HPV Vaccines (1 - 3-dose series) 1999 Hepatitis C Screening 2002 Pap Smear 2005 Cervical Cancer Screening 2014 HPV/Cotest 2014 DTaP/Tdap/Td Vaccines (7 - Td or Tdap) 07/14/2023 07/14/2013, 06/29/1999, 05/06/1990, Additional history exists Dental Oral Exam 08/19/2023 02/15/2023 Dental Prophylaxis 08/19/2023 02/15/2023 Dental X-Ray: Bitewings 02/17/2024 02/15/2023 Tobacco Screening 10/02/2024 10/02/2023 Mammogram 2024 COVID-19 Vaccine ( season) 2025 08/09/2021, 06/11/2021 Influenza Vaccine (#1) 2025 Dental X-Ray: Full Mouth 02/16/2026 02/15/2023 Zoster Vaccines (1 of 2) 2034 RSV Patients and Patients Aged 60 years or older (1 - 1-dose 75+ series) 2059 HIB Vaccines Completed 04/02/1988 IPV Vaccines Completed 05/06/1990, 05/0 11/1985, 03/02/1985, Additional history exists Hepatitis B Vaccines Completed 08/04/1997, 04/30/1997, 03/30/1997, Additional history exists HIV Screening Completed 04/20/2018 Hepatitis A Vaccines Aged Out No long er eligible based on patient's age to complete this topic Meningococcal B Vaccine Aged Out No l onger eligible based on patient's age to complete this topic Meningococcal Vaccine Aged Out No steffi venita eligible based on patient's age to complete this topic Pneumococcal Vaccine: Pediatrics (0 to 5 Years) and At-Risk Patients (6 to 49) Years Aged Out No longer eligible based on [...] Most Recently Relevant to Health Maintenance Insurance [facility] MEDICAID STAND ADULT
--- OUTSIDE RECORDS SUMMARY | 2025-08-10 00:27 | XMS_ITS | Encounter Summary ---
Author Organization [employer] Address [address] [facility] [address] [place] [address] Care Team Providers Care Corrective Therapy Aide Name Role Phone Unavailable Primary Care Provider Unavailabl e Reason for Visit * Reason Comments Med Refill Encounter Details Date Type Department Care Team (Late st Contact Info) Description 05/20/[address] [facility] ADULT DENTAL [address] [place] [address] Eloy Milan DMD [address] [place] [address] Dental abscess Social History Tobacco Use Types [...]
--- OUTSIDE RECORDS SUMMARY | 2025-08-10 00:27 | XMS_ITS | Encounter Summary ---
Author Organization [employer] Address [address] [facility] 7[address] [place] [address] Care Team Providers Care Portable Sawmill Operator Name Role Phone Unavailable Primary Care Provider Unavailabl e Reason for Visit * Reason Comments Med Refill Encounter Details Date Type Department Care Team (Late st Contact Info) Description 02/12/2023 Refill [facility] ADULT DENTAL [address] [place] [address] Eloy Milan DMD [address] [place] [address] Dental abscess Social History Tobacco Use Types [...]
--- OUTSIDE RECORDS SUMMARY | 2025-08-10 00:27 | XMS_ITS | Encounter Summary ---
Author Organization [employer] Address [address] [facility] [address] [place] [address] Care Team Providers Care Service Worker Name Role Phone Unavailable Primary Care Provider Unavailabl e Reason for Visit * Reason Comments Med Refill Encounter Details Date Type Department Care Team (Late st Contact Info) Description 04/24/2023 Refill [facility] ADULT DENTAL [address] [facility] [place] [address] Eloy Milan, DEEP [address] [place] [address] Dental abscess Social History Tobacco Use Types [...]
--- OUTSIDE RECORDS SUMMARY | 2025-08-10 00:27 | XMS_ITS | Clinical Summary ---
Author Organization [facility] Address [address] [place] [address] Care Team Providers Care Blunger Machine Operator Name Role Phone Unknown Primary Care Provider [phone] Allergies No known active allergies Medications * [...] test by nucleic acid amplification. Performed at [facility], [place] License 0385 CLIA [id number] Blood specimen (specimen) Blood specimen / Unknown 04/20/2018 2:00 AM EDT 04/20/2018 2:14 AM EDT Joi Dowell MD LAB BLOOD ORDERABLES Final Resu lt HOSPITAL LAB * Hepatitis C Virus (HCV) Antibody (04/20/2018 2:00 AM EDT) Hepatitis C Antibody 0.11 0.00 - 0.79 S/CO ratio HOSPITAL LAB Comment: Nonreactive Performed at [facility], [place] License 0385 CLIA [id number] Blood specimen (specimen) Blood specimen / Unknown 04/20/2018 2:00 AM EDT 04/20/2018 2:14 AM EDT Joi Dowell MD LAB BLOOD ORDERABLES Final Resu lt HOSPITAL LAB from Last 3 Months or Most Recently Relevant to Health Maintenance Insurance MEDICAID OUT OF STATE [facility] [address] [place] [address] MEDICAID OUT OF STATE [facility] Advance Directives * Full Code (Latest Code Status on File) Date Activated Date Inactivated Comments 05/01/2018 4:35 PM Question Answer Comments Decision Thoroughly Discussed with: Patient * Full Code Date Activated Date Inactivated Comments 04/19/2018 12:18 AM 05/01/2018 2:25 PM Care Teams Blunger Machine Operator Relationship Specialty Start Date End Date Unknown Unknow Provider Address PCP - General 04/19/18
--- OUTSIDE RECORDS SUMMARY | 2025-08-10 00:27 | XMS_ITS | Encounter Summary ---
Author Organization [employer] Address [address] [facility] 7t [place] [address] Care Team Providers Care Ferryboat Pilot Name Role Phone Unavailable Primary Care Provider Unavailabl e Reason for Visit * Reason Comments Med Refill Encounter Details Date Type Department Care Team (Late st Contact Info) Description 02/26/2023 Refill [facility] ADULT DENTAL [address] [place] [address] Eloy Milan DMD [address] [place] [address] Dental abscess Social History Tobacco Use Types [...]
[2025-08-10 05:42] LABS: Appearance Urine Clear; Glucose Urine UA Negative (Negative); PH >= 9.0 (5.0-9.0); Specific Gravity - Urine 1.015 (1.005-1.025); UMIC TRIGGER UACC YES
[2025-08-10 05:47] LABS: UACC Culture Trigger YES
[2025-08-10 05:53] LABS: Cannabinoid Screen Urine Not Detected (Not Detect)
[2025-08-10] MEDS: Naloxone HCl Nasal TAKE HOME 4 MG SPRAY 8 MG NOSTRILALT (06:07)
[2025-08-10 06:10] VITALS: BP 115/89; PULSE 85; RESP 16; TEMP 37; O2SAT 99
== END 2025-08-10 06:15 | disposition home or self-care (01) ==
PROVIDERS: Emergency Provider Emergency Medicine; PCP Internal Medicine
DX: F16.10 Hallucinogen abuse, uncomplicated (principal); R20.0 Anesthesia of skin
CPT/HCPCS: 80307; 81001; 87086; 87088; 87186; 99284

== ENCOUNTER 2025-08-10 10:39 | Emergency (ER) | payer OTHER, SELFPAY ==
[2025-08-10 10:43] VITALS: BP 172/91; PULSE 122; O2SAT 99
[2025-08-10 10:52] VITALS: BP 163/77; PULSE 99; RESP 16; TEMP 36.9; O2SAT 99; BMI 26.0
--- NOTE | 2025-08-10 10:52 | ED.ANXIETY ---
HPI - Anxiety General Chief Complaint: ETOH/Substance Use Stated Complaint: anxiety Time Seen by Provider: 08/10/25 14:11 Related Data Previous Rx's ?Medication ?Instructions ?Recorded docusate sodium 100 mg capsule 100 mg PO DAILY PRN constipation 03/10/24 #30 caps lisinopril 10 mg tablet 10 mg PO BEDTIME 90 days #90 tabs 03/10/24 albuterol sulfate 90 mcg/actuation 2 puff inhalation Q6H PRN for 01/07/25 aerosol inhaler wheezing 30 days #8.5 ea cholecalciferol (vitamin D3) 50 50 mcg PO DAILY #90 tabs 02/21/25 mcg (2,000 unit) tablet cetirizine 10 mg tablet (All Day 10 mg PO DAILY PRN allergy 06/01/25 Allergy (cetirizine)) symptoms 90 days #90 tabs bupropion HCl 300 mg 24 hr tablet, 300 mg PO DAILY 30 days #30 tabs 06/21/25 extended release gabapentin 400 mg capsule 400 mg PO TID 30 days #90 caps 07/06/25 amlodipine 10 mg tablet 10 mg PO BEDTIME 90 days #90 tabs 07/17/25 lithium carbonate 300 mg tablet See Rx Instructions .Route 07/19/25 .COMPLEX 14 days #42 tabs melatonin 10 mg capsule 10 mg PO BEDTIME 14 days #14 caps 07/19/25 guanfacine 1 mg tablet,extended 2 mg (2 x 1 mg) PO DAILY 14 days 07/20/25 release 24 hr #28 tabs quetiapine 300 mg tablet 300 mg PO BEDTIME 14 days #14 tabs 07/28/25 trazodone 50 mg tablet 50 mg PO BEDTIME PRN insomnia 14 07/28/25 days #14 tabs amantadine HCl 100 mg tablet 100 mg PO BEDTIME #20 tabs 07/30/25 guanfacine 1 mg tablet,extended 1 mg PO DAILY #30 tabs 07/30/25 release 24 hr guanfacine 2 mg tablet,extended 2 mg PO QAM #30 tabs 07/30/25 release 24 hr Allergies Allergy/AdvReac Type Severity Reaction Status Date / Time No Known Allergies Allergy Unknown Verified 08/10/25 10:53 [facility] Past Medical History Medical History HTN (hypertension) Overdose Anemia Family history of anesthesia complication Anemia Heartburn Bipolar disorder RLS (restless legs syndrome) ADHD (attention deficit hyperactivity disorder) Anxiety Depression Opioid dependence, uncomplicated Cocaine dependence, uncomplicated Exercise-induced asthma Surgical History (Updated 06/30/25 @ 00:02 by Nora Hollingsworth) History of surgery (06/18/24) History of History of root canal procedure History of wisdom tooth extraction Hx of cholecystectomy Family History Family History Family/Other Mental health disorder Mother Hypertension Father Hypertension Social History Social History Household Members: None Housing: Apartment Are you a primary skin care specialist to a significant other at home: No Do you presently have visiting nurse or other home services: No Alcohol intake: current Alcohol intake frequency: a few times a week Alcohol type: hard liquor Comment: DC 07/30/25 Patient Tobacco Use Status: Never used Tobacco e-Cigarette/Vaping Use: Never Used Second Hand Smoke Exposure: No Substance Use Type: Amphetamines and Heroin Advance Directives: No Advance Directives Information Provided: No service: No Current occupational status: unemployed Sexual orientation: Straight/Heterosexual Cognitive needs: No Hearing needs: No Vision needs: No Physical Exam Vital Signs: Vital Signs: Last Vital Signs Temp 98.4 F 08/10/25 10:52 Pulse 99 08/10/25 10:52 Resp 16 08/10/25 10:52 BP 163/77 H 08/10/25 10:52 Pulse Ox 99 08/10/25 10:52 O2 Del Method Room Air 08/10/25 10:52 BMI result Body Mass Index 26.0 Course Course Course Narrative: This is an RME: Additional HPI, ROS, PE not included below will be deferred to primary provider. RME assessment and note performed by: Tasia Reed PA-C 39-year-old female with a past medical history significant for HTN, mild intermittent asthma, anxiety and substance use disorder, who presents to the ER with a complaint of increased anxiety after using PCP. Reporting numbness to arms and legs. Alert and oriented. Plan: Labs, EKG, further ER eval needed Reevaluation(s) Reevaluation #1: Patient left without completing treatment. Medical Decision Making Lab Data 08/10/25 11:10 08/10/25 11:10 Labs: Lab Results 08/10/25 Range/Units 11:10 WBC 13.8 H (4.8-10.8) X10*3/uL RBC 4.06 L (4.20-5.50) X10*6/uL Hgb 10.9 L (12.0-16.0) g/dl Hct 34.4 L (37.0-47.0) % MCV 84.7 (80.0-98.0) fL MCH 26.8 L (27.0-33.0) pg MCHC 31.7 (31.0-35.0) g/dl RDW 16.0 (11.0-16.0) % Plt Count 412 H (160-400) X10*3/uL MPV 9.4 (9.4-12.3) fL Immature Gran % (Auto) 0.7 H (0.0-0.4) % Neut % (Auto) 61.8 (45-73) % Lymph % (Auto) 24.0 (20-40) % [place] % (Auto) 8.8 (2-11) % Eos % (Auto) 4.0 (0-4) % Baso % (Auto) 0.7 (0-2) % Lymph # (Auto) 3.3 (1.2-4.9) X10*3/uL [place] # (Auto) 1.2 (0.1-1.2) X10*3/uL Eos # (Auto) 0.6 H (0.0-0.4) X10*3/uL Baso # (Auto) 0.1 (0.0-0.2) X10*3/uL Abs Immat Gran (auto) 0.09 H (0.00-0.03) X10*3/uL Absolute Neuts (auto) 8.6 H (2.0-8.3) x10*3/uL Absolute Nucleated RBC 0.000 (0.0-0.012) X10*3/uL Nucleated RBC % (auto) 0.0 (0.0-0.2) /100WBC Sodium 140 (135-145) mmol/L Potassium 4.1 (3.3-5.1) mmol/L Chloride 111 H (96-108) mmol/L Carbon Dioxide 25 (22-29) mmol/L Anion Gap 8 L (12-20) BUN 8 L (9-16) mg/dL Creatinine 0.70 (0.5-1.4) mg/dL Estim Creat Clear Calc 90.4 Estimated GFR > 60 Random Glucose 104 (60-115) mg/dL Calcium 9.2 (8.4-10.2) mg/dL Magnesium 2.0 (1.6-2.6) mg/dL Total Bilirubin 0.2 (0.0-1.0) mg/dL Direct Bilirubin < 0.2 (0.0-0.5) mg/dL AST 20 (5-31) U/L ALT 19 (0-31) U/L Alkaline Phosphatase 67 (39-117) U/L Total Creatine Kinase 101 (26-140) U/L Troponin I High Sens < 2.7 (<3.5-17.0) ng/L Total Protein 7.0 (6.5-8.0) g/dL Albumin 4.1 (3.5-5.0) g/dL Discharge Plan Discharge Clinical Impression: Phencyclidine (PCP) use disorder Patient Disposition: Left W/O Completing Treatment Prescriptions: No Action cholecalciferol (vitamin D3) 50 mcg (2,000 unit) tablet 50 mcg PO DAILY Qty: 90 0RF cetirizine [All Day Allergy (cetirizine)] 10 mg tablet 10 mg PO DAILY PRN (Reason: allergy symptoms) 90 Days Qty: 90 0RF bupropion HCl 300 mg tablet extended release 24 hr 300 mg PO DAILY 30 Days Qty: 30 0RF gabapentin 400 mg capsule 400 mg PO TID 30 Days Qty: 90 2RF amlodipine 10 mg tablet 10 mg PO BEDTIME 90 Days Qty: 90 0RF lithium carbonate 300 mg Tablet See Rx Instructions .ROUTE .COMPLEX 14 Days Qty: 42 0RF Rx Instructions: Take 1 tab po qam and 2 tabs po qhs. please d/c any other lithium rx on file melatonin 10 mg capsule 10 mg PO BEDTIME 14 Days Qty: 14 0RF guanfacine 1 mg Tablet Extended Release 24 Hr 2 mg PO DAILY 14 Days Qty: 28 0RF quetiapine 300 mg Tablet 300 mg PO BEDTIME 14 Days Qty: 14 0RF trazodone 50 mg Tablet 50 mg PO BEDTIME PRN (Reason: insomnia) 14 Days Qty: 14 0RF guanfacine 2 mg tablet extended release 24 hr 2 mg PO QAM Qty: 30 0RF guanfacine 1 mg tablet extended release 24 hr 1 mg PO DAILY Qty: 30 0RF amantadine HCl 100 mg tablet 100 mg PO BEDTIME Qty: 20 0RF docusate sodium 100 mg capsule 100 mg PO DAILY PRN (Reason: constipation) Qty: 30 0RF lisinopril 10 mg tablet 10 mg PO BEDTIME 90 Days Qty: 90 1RF albuterol sulfate 90 mcg/actuation HFA aerosol inhaler 2 puff inhalation Q6H PRN (Reason: for wheezing) 30 Days Qty: 8.5 3RF Discharge Date/Time: 08/10/25 14:37
--- NOTE | 2025-08-10 10:54 | ECG_ITS ---
Test Reason : tingling Blood Pressure : */* mmHG Vent. Rate : 93 BPM Atrial Rate : 93 BPM P-R Int : 140 ms QRS Dur : 70 ms QT Int : 348 ms P-R-T Axes : 42 14 34 degrees QTcB Int : 432 ms Normal sinus rhythm Normal ECG When compared with ECG of 09-Jun-2025 19:18, Nonspecific ST and T wave abnormality improved Referred By: Tasia Reed Electronically Signed By: ALEX PINEDA
[2025-08-10 11:21] LABS: MANUAL DIFF FLAG NO
[2025-08-10 11:27] LABS: Hematocrit 34.4 % (37.0-47.0); Hemoglobin 10.9 g/dl (12.0-16.0); Imm Gran Abs Auto 0.09 X10*3/uL (0.00-0.03); Imm Gran Pct Auto 0.7 % (0.0-0.4); Lymphocytes Absolute Auto 3.3 X10*3/uL (1.2-4.9); Mean Corpuscular HGB Conc 31.7 g/dl (31.0-35.0); Mean Corpuscular Hemoglobin 26.8 pg (27.0-33.0); Mean Corpuscular Volume 84.7 fL (80.0-98.0); NRBC Abs Auto 0.000 X10*3/uL (0.0-0.012); NRBC Pct Auto 0.0 /100WBC (0.0-0.2); Platelet Count 412 X10*3/uL (160-400); Red Blood Count 4.06 X10*6/uL (4.20-5.50); White Blood Count 13.8 X10*3/uL (4.8-10.8)
[2025-08-10 11:40] LABS: Alanine Aminotransferase 19 U/L (0-31); Albumin Level 4.1 g/dL (3.5-5.0); Alkaline Phosphatase 67 U/L (39-117); Anion Gap 8 (12-20); Aspartate Amino Transferase 20 U/L (5-31); Blood Urea Nitrogen 8 mg/dL (9-16); Calcium 9.2 mg/dL (8.4-10.2); Carbon Dioxide 25 mmol/L (22-29); Chloride 111 mmol/L (96-108); Creatinine Clr Calc Pharmacy 90.4; Estimated Glomerular Filt Rate > 60; Magnesium 2.0 mg/dL (1.6-2.6); Potassium 4.1 mmol/L (3.3-5.1); Sodium 140 mmol/L (135-145); Total Protein 7.0 g/dL (6.5-8.0)
[2025-08-10 11:56] LABS: Troponin-I High Sensitivity < 2.7 ng/L (<3.5-17.0)
--- OUTSIDE RECORDS SUMMARY | 2025-08-10 18:02 | XMS_ITS | Clinical Summary ---
Author Organization [facility] Address [address] [place] [address] Phone Care Team Providers Care Consultants Intern Name Role Phone Unavailable Primary Care Provider Unavailabl e Immunizations Immunization Administration Dates Next Due DTP 05/06/1990,,05/12/1985,1984,1984 Hep B, ped/adol 08/04/1997,04/30/1997,03/30/1997 Hib (HbOC) 04/02/1988 MMR 03/30/1997,01/05/1986 OPV 05/06/1990, 6,03/02/1985,1984 Td [facility] 5 Lf t etanus toxoid, PF, adsorbed [...]
--- OUTSIDE RECORDS SUMMARY | 2025-08-10 18:02 | XMS_ITS | Encounter Summary ---
Author Organization [employer] Address [address] [facility] 7t [place] [address] Care Team Providers Care Sewing Line Baler Name Role Phone Unavailable Primary Care Provider Unavailabl e Reason for Visit * Reason Comments Med Refill Encounter Details Date Type Department Care Team (Late st Contact Info) Description 02/12/2023 Refill [facility] ADULT DENTAL [address] [place] [address] Eloy Milan DMD [address] [place] [address] Dental abscess Social History Tobacco Use Types [...]
--- OUTSIDE RECORDS SUMMARY | 2025-08-10 18:02 | XMS_ITS | Clinical Summary ---
Author Organization [employer] Address [address] [facility] 7t [place] [address] Care Team Providers Care Sales Agent Pest Control Service Name Role Phone Unavailable Primary Care Provider Unavailabl e Allergies No known active allergies Medications Sod Fluoride-Potass ium Nitrate 1.1-5 % pasteIndication s:Dental caries [place] teeth morning and night for 2 minutes. Spit, do not rinse. Do not eat or drink anything for 30 minutes following brushing. 112 g 3 3 Active Additional Information Patient not taking.Reported on 10/23/2023 Sodium Fluoride (Sodium Fluoride 5000 Plus) 1.1 % creamIndication s:Dental caries [place] teeth for 2 minutes, morning and night. [...] Most Recently Relevant to Health Maintenance Insurance [facility] MEDICAID STAND ADULT
--- OUTSIDE RECORDS SUMMARY | 2025-08-10 18:02 | XMS_ITS | Encounter Summary ---
Author Organization [employer] Address [address] [facility] 7t [place] [address] Care Team Providers Care Wind Turbine Engineer Name Role Phone Unavailable Primary Care Provider Unavailabl e Reason for Visit * Reason Comments Med Refill Encounter Details Date Type Department Care Team (Late st Contact Info) Description 05/20/2023 Refill [facility] ADULT DENTAL [address] [place] [address] Eloy Milan DMD [address] [place] [address] Dental abscess Social History Tobacco Use Types [...]
--- OUTSIDE RECORDS SUMMARY | 2025-08-10 18:02 | XMS_ITS | Encounter Summary ---
Author Organization [employer] Address [address] [facility] 7t [place] [address] Care Team Providers Care Disability Counselor Name Role Phone Unavailable Primary Care Provider Unavailabl e Reason for Visit * Reason Comments Med Refill Encounter Details Date Type Department Care Team (Late st Contact Info) Description 02/26/2023 Refill [facility] ADULT DENTAL [address] [place] [address] Eloy Milan DMD [address] [place] [address] Dental abscess Social History Tobacco Use Types [...]
--- OUTSIDE RECORDS SUMMARY | 2025-08-10 18:02 | XMS_ITS | Clinical Summary ---
Author Organization [facility] Address [address] [place] [address] Care Team Providers Care Fire And Explosion Investigator Name Role Phone Unknown Primary Care Provider [phone] Allergies No known active allergies Medications * [...] Performed at [facility], [place], [place] License [address]385 CLIA [id number] Blood specimen (specimen) Blood specimen / Unknown 04/20/2018 2:00 AM EDT 04/20/2018 2:14 AM EDT Joi Dowell MD LAB BLOOD ORDERABLES Final Resu lt HOSPITAL LAB * Hepatitis C Virus (HCV) Antibody (04/20/2018 2:00 AM EDT) Hepatitis C Antibody 0.11 0.00 - 0.79 S/CO ratio HOSPITAL LAB Comment: Nonreactive Performed at [facility], [place], [place] [address] CLIA [id number] Blood specimen (specimen) Blood specimen / Unknown 04/20/2018 2:00 AM EDT 04/20/2018 2:14 AM EDT Joi Dowell MD LAB BLOOD ORDERABLES Final Resu lt HOSPITAL LAB from Last 3 Months or Most Recently Relevant to Health Maintenance Insurance MEDICAID OUT OF STATE [facility] [address] [place] [address] MEDICAID OUT OF STATE [facility] Advance Directives * Full Code (Latest Code Status on File) Date Activated Date Inactivated Comments 05/01/2018 4:35 PM Question Answer Comments Decision Thoroughly Discussed with: Patient * Full Code Date Activated Date Inactivated Comments 04/19/2018 12:18 AM 05/01/2018 2:25 PM Care Teams Fire And Explosion Investigator Relationship Specialty Start Date End Date Unknown Unknow Provider Address PCP - General 04/19/18
--- OUTSIDE RECORDS SUMMARY | 2025-08-10 18:02 | XMS_ITS | Encounter Summary ---
Author Organization [employer] Address [address] [facility] [address] [place] [address] Care Team Providers Care Zoo Caretaker Name Role Phone Unavailable Primary Care Provider Unavailabl e Encounter Details Date Type Department Care Team (Late st Contact Info) Description 03/29/2023 Abstract [facility] ADULT DENTAL [address] [facility] [address] Byron Rodrigues DMD [address] [place] [address] Social History Tobacco Use Types Packs/Day Years [...]
--- OUTSIDE RECORDS SUMMARY | 2025-08-10 18:02 | XMS_ITS | Encounter Summary ---
Author Organization [employer] Address [address] [facility] 7t [place] [address] Care Team Providers Care Cruller Maker Name Role Phone Unavailable Primary Care Provider Unavailabl e Reason for Visit * Reason Comments Med Refill Encounter Details Date Type Department Care Team (Late st Contact Info) Description 04/24/2023 Refill [facility] ADULT DENTAL [address] [facility] [place] [address] Eloy Milan, DEEP [address] [place] [address] Dental abscess Social History Tobacco Use Types [...]
--- OUTSIDE RECORDS SUMMARY | 2025-08-10 18:02 | XMS_ITS | Encounter Summary ---
Author Organization [employer] Address [address] [facility] 7t [place] [address] Care Team Providers Care Machine Burrer Name Role Phone Unavailable Primary Care Provider Unavailabl e Reason for Visit * Reason Onset Date Comments Dental Pain 04/17/2023 Encounter Details Date Type Department Care Team (Late st Contact Info) Description 04/17/2023 Telephone [facility]ULT [facility] 230 [place] [address] Byron Rodrigues DMD [address] [place], [place] [phone] Dental Pain Social History Tobacco Use Types [...] - 04/23/2023 8:45 AM EDT Spoke with [facility] because patient called in again stating that [...]
== END 2025-08-10 14:37 | disposition left against medical advice (07) ==
LOC: HO.ED 14:14
PROVIDERS: Physician Assistant Medical; Emergency Provider Emergency Medicine
DX: F15.90 Other stimulant use, unspecified, uncomplicated (principal); F19.980 Other psychoactive substance use, unspecified with psychoactive substance-induced anxiety disorder; R20.2 Paresthesia of skin
CPT/HCPCS: 36415; 80048; 80076; 82550; 83735; 84484; 85025; 93005; 99283

== ENCOUNTER → 2025-08-10 10:54 | Outpatient (BNV) | payer OTHER, SELFPAY | PROVIDERS: Emergency Provider Emergency Medicine; Visit Provider Internal Medicine | DX: R20.2 Paresthesia of skin (principal) | CPT/HCPCS: 93010 ==

== ENCOUNTER 2025-08-13 17:41 | Emergency (ER) | payer OTHER, SELFPAY ==
--- NOTE | 2025-08-13 | ECG_ITS ---
Test Reason : STROKE Blood Pressure : */* mmHG Vent. Rate : 108 BPM Atrial Rate : 108 BPM P-R Int : 146 ms QRS Dur : 70 ms QT Int : 338 ms P-R-T Axes : 34 19 43 degrees QTcB Int : 452 ms Sinus tachycardia Possible Left atrial enlargement Septal infarct , age undetermined Abnormal ECG When compared with ECG of 10-Aug-2025 11:04, Septal infarct is now Present Referred By: Generic ED Physician Electronically Signed By: ALEX PINEDA
[2025-08-13 17:47] VITALS: BP 159/103; PULSE 128; RESP 20; TEMP 37.2; O2SAT 100; BMI 22.7
--- OUTSIDE RECORDS SUMMARY | 2025-08-13 18:03 | XMS_ITS | Encounter Summary ---
Author Organization [employer] Address [address] [facility] 7t [place] [address] Care Team Providers Care Solar Site Assessment Specialist Name Role Phone Unavailable Primary Care Provider Unavailabl e Reason for Visit * Reason Comments Med Refill Encounter Details Date Type Department Care Team (Late st Contact Info) Description 04/24/2023 Refill [facility] ADULT DENTAL [address] [facility] [place] [address] Eloy Milan, DEEP [address] [place] [address] Dental abscess Social History Tobacco Use Types [...]
--- OUTSIDE RECORDS SUMMARY | 2025-08-13 18:03 | XMS_ITS | Encounter Summary ---
Author Organization [employer] Address [address] [facility] [address] [place] [address] Care Team Providers Care Finisher Machine Name Role Phone Unavailable Primary Care Provider Unavailabl e Encounter Details Date Type Department Care Team (Late st Contact Info) Description 03/29/2023 Abstract [facility] ADULT DENTAL [address] [facility] [place] [address] Byron Rodrigues DMD [address] [place] [address] Social History Tobacco Use Types Packs/Day Years [...]
--- OUTSIDE RECORDS SUMMARY | 2025-08-13 18:03 | XMS_ITS | Clinical Summary ---
Author Organization [facility] Address [address] [place] [phone] Phone Care Team Providers Care Analysis Intern Name Role Phone Unavailable Primary Care Provider Unavailabl e Immunizations Immunization Administration Dates Next Due DTP 05/06/1990,,05/12/1985,1984,1984 Hep B, ped/adol 08/04/1997,04/30/1997,03/30/1997 Hib (HbOC) 04/02/1988 MMR 03/30/1997,01/05/1986 OPV 05/06/1990, 6,03/02/1985,1984 [facility] 5 Lf t etanus toxoid, [...]
--- OUTSIDE RECORDS SUMMARY | 2025-08-13 18:03 | XMS_ITS | Encounter Summary ---
Author Organization [employer] Address [address] [facility] 7t [place] [address] Care Team Providers Care Web Ui Software Engineer Name Role Phone Unavailable Primary Care Provider Unavailabl e Reason for Visit * Reason Onset Date Comments Dental Pain 04/17/2023 Encounter Details Date Type Department Care Team (Late st Contact Info) Description 04/17/2023 Telephone [facility] 230 [place] [address] Byron Rodrigues DMD [address] [place], [place] [phone] Dental Pain Social History Tobacco Use Types [...] - 04/23/2023 8:45 AM EDT Spoke with [facility] because patient called in again stating that [...]
--- OUTSIDE RECORDS SUMMARY | 2025-08-13 18:03 | XMS_ITS | Encounter Summary ---
Author Organization [employer] Address [address] [facility] 7t [place] [address] Care Team Providers Care Bow Machine Operator Name Role Phone Unavailable Primary Care Provider Unavailabl e Reason for Visit * Reason Comments Med Refill Encounter Details Date Type Department Care Team (Late st Contact Info) Description 02/12/2023 Refill [facility] ADULT DENTAL [address] [place] [address] Eloy Milan DMD [address] [place] [address] Dental abscess Social History Tobacco Use Types [...]
--- OUTSIDE RECORDS SUMMARY | 2025-08-13 18:03 | XMS_ITS | Clinical Summary ---
Author Organization [employer] Address [address] [facility] 7t [place] [address] Care Team Providers Care Manager Money Name Role Phone Unavailable Primary Care Provider Unavailabl e Allergies No known active allergies Medications Sod Fluoride-Potass ium Nitrate 1.1-5 % pasteIndication s:Dental caries [place] teeth morning and night for 2 minutes. Spit, do not rinse. Do not eat or drink anything for 30 minutes following brushing. 112 g 3 3 Active Additional Information Patient not taking.Reported on 10/23/2023 Sodium Fluoride (Sodium Fluoride 5000 Plus) 1.1 % creamIndication s:Dental caries [place] teeth for 2 minutes, morning and night. [...] Most Recently Relevant to Health Maintenance Insurance [facility] MEDICAID STAND ADULT
--- OUTSIDE RECORDS SUMMARY | 2025-08-13 18:03 | XMS_ITS | Clinical Summary ---
Author Organization [facility] Address [address] [place] [address] Care Team Providers Care Bowling Ball Marker Name Role Phone Unknown Primary Care Provider [phone] Allergies No known active allergies Medications * [...] acid amplification. Performed at [facility], [place], [place] License [address] CLIA [id number] Blood specimen (specimen) Blood specimen / Unknown 04/20/2018 2:00 AM EDT 04/20/2018 2:14 AM EDT Joi Dowell MD LAB BLOOD ORDERABLES Final Resu lt HOSPITAL LAB * Hepatitis C Virus (HCV) Antibody (04/20/2018 2:00 AM EDT) Hepatitis C Antibody 0.11 0.00 - 0.79 S/CO ratio HOSPITAL LAB Comment: Nonreactive Performed at [facility], [place], [place] License [address] CLIA [id number] Blood specimen (specimen) Blood specimen / Unknown 04/20/2018 2:00 AM EDT 04/20/2018 2:14 AM EDT Joi Dowell MD LAB BLOOD ORDERABLES Final Resu lt HOSPITAL LAB from Last 3 Months or Most Recently Relevant to Health Maintenance Insurance MEDICAID OUT OF STATE [facility] [address] [place] [address] MEDICAID OUT OF STATE [facility] Advance Directives * Full Code (Latest Code Status on File) Date Activated Date Inactivated Comments 05/01/2018 4:35 PM Question Answer Comments Decision Thoroughly Discussed with: Patient * Full Code Date Activated Date Inactivated Comments 04/19/2018 12:18 AM 05/01/2018 2:25 PM Care Teams Bowling Ball Marker Relationship Specialty Start Date End Date Unknown Unknow Provider Address PCP - General 04/19/18
--- OUTSIDE RECORDS SUMMARY | 2025-08-13 18:03 | XMS_ITS | Encounter Summary ---
Author Organization [employer] Address [address] [facility] 7t [place] [address] Care Team Providers Care Franchise Specialist Name Role Phone Unavailable Primary Care Provider Unavailabl e Reason for Visit * Reason Comments Med Refill Encounter Details Date Type Department Care Team (Late st Contact Info) Description 05/20/2023 Refill [facility] ADULT DENTAL [address] [place] [address] Eloy Milan DMD [address] [place] [address] Dental abscess Social History Tobacco Use Types [...]
--- OUTSIDE RECORDS SUMMARY | 2025-08-13 18:03 | XMS_ITS | Encounter Summary ---
Author Organization [employer] Address [address] [facility] 7t [place] [address] Care Team Providers Care Switchboard Manager Name Role Phone Unavailable Primary Care Provider Unavailabl e Reason for Visit * Reason Comments Med Refill Encounter Details Date Type Department Care Team (Late st Contact Info) Description 02/26/2023 Refill [facility] ADULT DENTAL [address] [place] [address] Eloy Milan DMD [address] [place] [address] Dental abscess Social History Tobacco Use Types [...]
[2025-08-13 18:12] LABS: MANUAL DIFF FLAG NO
[2025-08-13 18:19] LABS: INTERNATIONAL NORM RATIO 0.9 (0.9-1.1); Prothrombin Time 10.4 SEC (10.9-12.4)
[2025-08-13 18:27] LABS: Alanine Aminotransferase 19 U/L (0-31); Albumin Level 4.2 g/dL (3.5-5.0); Alkaline Phosphatase 71 U/L (39-117); Anion Gap 12 (12-20); Aspartate Amino Transferase 23 U/L (5-31); Blood Urea Nitrogen 9 mg/dL (9-16); Calcium 9.1 mg/dL (8.4-10.2); Carbon Dioxide 25 mmol/L (22-29); Chloride 106 mmol/L (96-108); Creatinine Clr Calc Pharmacy 69.6; Estimated Glomerular Filt Rate > 60; Potassium 4.6 mmol/L (3.3-5.1); Sodium 138 mmol/L (135-145); Total Protein 7.3 g/dL (6.5-8.0)
[2025-08-13 18:31] LABS: Hematocrit 32.4 % (37.0-47.0); Hemoglobin 10.6 g/dl (12.0-16.0); Imm Gran Abs Auto 0.15 X10*3/uL (0.00-0.03); Imm Gran Pct Auto 0.8 % (0.0-0.4); Lymphocytes Absolute Auto 2.5 X10*3/uL (1.2-4.9); Mean Corpuscular HGB Conc 32.7 g/dl (31.0-35.0); Mean Corpuscular Hemoglobin 26.8 pg (27.0-33.0); Mean Corpuscular Volume 82.0 fL (80.0-98.0); NRBC Abs Auto 0.000 X10*3/uL (0.0-0.012); NRBC Pct Auto 0.0 /100WBC (0.0-0.2); Platelet Count 433 X10*3/uL (160-400); Red Blood Count 3.95 X10*6/uL (4.20-5.50); White Blood Count 17.9 X10*3/uL (4.8-10.8)
[2025-08-13 18:33] LABS: Troponin-I High Sensitivity < 2.7 ng/L (<3.5-17.0)
--- NOTE | 2025-08-13 22:39 | ED_ITS ---
HPI - General Adult General Chief complaint: General Medical Stated complaint: feels right side numb started 45 mins ago Time Seen by Provider: 08/13/25 22:39 Source: patient Mode of arrival: ambulatory Limitations: no limitations History of Present Illness ED Provider: Abby Falcon PA-C HPI narrative: 39-year-old female with history of cocaine use disorder and PCP presenting to the emergency department today for evaluation of paresthesias in right cheek puff illness. She states that she does admit to doing drugs but did not today. For about 20 minutes she felt paresthesias with her face being swollen but it is fully gone away. She reports not having a headache dizziness or any weakness during it no visual changes nausea or vomiting or diarrhea she denies any chest pain shortness of breath or body aches joint pain or rashes. She is able tolerate p.o. fluids and void regularly. She is not sure if it is or heightened anxiety or not. She does plan to follow up with her PCP for this. She just wanted to get checked out make sure she was okay Related Data Previous Rx's ?Medication ?Instructions ?Recorded docusate sodium 100 mg capsule 100 mg PO DAILY PRN con stipation 03/10/24 #30 caps lisinopril 10 mg tablet 10 mg PO BEDTIME 90 days #90 tabs 03/10/24 albuterol sulfate 90 mcg/actuation 2 puff inhalation Q 6H PRN for 01/07/25 aerosol inhaler wheezing 30 days #8.5 ea cholecalciferol (vitamin D3) 50 50 mcg PO DAILY #90 ta bs 02/21/25 mcg (2,000 unit) tablet cetirizine 10 mg tablet (All Day 10 mg PO DAILY PRN al lergy 06/01/25 Allergy (cetirizine)) symptoms 90 days #90 tabs bupropion HCl 300 mg 24 hr tablet, 300 mg PO DAILY 30 days #30 tabs 06/21/25 extended release gabapentin 400 mg capsule 400 mg PO TID 30 days #90 ca ps 07/06/25 amlodipine 10 mg tablet 10 mg PO BEDTIME 90 days #90 tabs 07/17/25 quetiapine 300 mg tablet 300 mg PO BEDTIME 14 days #1 4 tabs 07/28/25 trazodone 50 mg tablet 50 mg PO BEDTIME PRN insomni a 14 07/28/25 days #14 tabs amantadine HCl 100 mg tablet 100 mg PO BEDTIME #20 tab s 07/30/25 guanfacine 1 mg tablet,extended 1 mg PO DAILY #30 tabs 07/30/25 release 24 hr guanfacine 2 mg tablet,extended 2 mg PO QAM #30 tabs 0 07/30/25 release 24 hr lithium carbonate 300 mg tablet See Rx Instructions .R oute 08/13/25 .COMPLEX 14 days #42 tabs melatonin 10 mg capsule 10 mg PO BEDTIME 30 days #30 caps 08/13/25 atomoxetine 25 mg capsule 50 mg (2 x 25 mg) PO QAM #28 caps 08/27/25 Allergies Allergy/AdvReac Type Severity Reaction Status Date / Time No Known Allergies Allergy Unknown Verified 08/13/25 17:49 Review of Systems 2 Review of Systems: Yes all other systems are reviewed and are negative [facility] Past Medical History Attestation statement: The following information was validated with the patient. Source: old records reviewed and nursing notes reviewed Medical History HTN (hypertension) Overdose Anemia Family history of anesthesia complication Anemia Heartburn Bipolar disorder RLS (restless legs syndrome) ADHD (attention deficit hyperactivity disorder) Anxiety Depression Opioid dependence, uncomplicated Cocaine dependence, uncomplicated Exercise-induced asthma Surgical History History of surgery (06/18/24) History of History of root canal procedure History of wisdom tooth extraction Hx of cholecystectomy Family History Family History Family/Other Mental health disorder Mother Hypertension Father Hypertension Social History Social History Household Members: None Household Members Other:: One dog Housing: Apartment Are you a primary healthcare representative to a significant other at home: No Do you presently have visiting nurse or other home services: No Alcohol intake: current Alcohol intake frequency: a few times a week Alcohol type: hard liquor Comment: QUINTON 07/30/25 Patient Tobacco Use Status: Never used Tobacco e-Cigarette/Vaping Use: Never Used Second Hand Smoke Exposure: No Substance Use Type: Amphetamines and Heroin service: No Current occupational status: unemployed Sexual orientation: Straight/Heterosexual Cognitive needs: No Hearing needs: No Vision needs: No Physical Exam ED Exam Exam: General: Appears in no acute distress, appears well-nourished body habitus is obese, appears stated age. No septic or ill-appearing. Vitals were reviewed as normal, and PMH/Social and Surgical hx was reviewed, including allergies and current medications. - reviewed for prior visits here and read as it pertains to similar CC. Head: Normocephalic, no obvious trauma or skin lesions noted. Eyes: EOMI, dialated pupils, but reactive, aprpox 6mm each ENMT: moist oral mucosa, no facial swelling erythema, trismus or lesions, uvula is midline, no lymphadenopathy Neck: trachea midline Cardiovascular: peripheral perfusion normal, Regular heart rate, regular rhythm Respiratory: no respiratory distress, lungs CTAB Abdomen: non-distended Extremities: warm and moving without difficulty unless otherwise detailed in the physical exam if applicable. Psych: Cooperative Neuro: Alert and oriented. Vital Signs: Vital Signs - 24 hr 08/13/25 17:47 Temperature 99.0 F Pulse Rate 128 H Respiratory Rate 20 Blood Pressure 159/103 H Pulse Oximetry 100 Oxygen Delivery Method Room Air BMI result Body Mass Index 22.7 Medical Decision Making Medical Decision Making MDM Narrative: Well appearing but anxious 39 y/o F here with paresthesias and feeling of swelling of her right cheek. Her physical exam is benign. She is asx at the time of my evaluation. H and P as above. Basic labs were ordered. On exam, there is no evidence of AOm/AOE, mohan crain syndrome, nena syndrome, shingles, impetigo, DOCUMENTATION SUPERVISOR, RPA, strep, tonsilltiis, periapical abscess, sinusitis, TMJ syndrome or facial tenderness. Presentation not suggestive of TIA/CVA. CN II-XII intact with nonfocal neuro exam. She is AOx4 but notably tangential talking. Denies current drug use but is a regular user of various narcotics. Pupils dilated today but reactive. Lungs are clear, she is well hydrated, soft nontender abdomen. No infectious or inflammatory conditions noted. No facial palsy. Likely somatic but advised returning for concerns/ changes. I did not feel further work up was indicated at this time. Patient feels well and requests to go home. Differential Diagnosis Differential Diagnoses: The differential diagnosis associated with the presentation includes Admission/Observation Consideration of admission/observation: Escalation of care including admission/observation considered Lab Data MDM Lab Attestation statement: I reviewed the patient's lab results. 08/13/25 18:08 08/13/25 18:08 Labs: Lab Results 08/13/25 Range/Units 18:08 WBC 17.9 H (4.8-10.8) X10*3/uL RBC 3.95 L (4.20-5.50) X10*6/uL Hgb 10.6 L (12.0-16.0) g/dl Hct 32.4 L (37.0-47.0) % MCV 82.0 (80.0-98.0) fL MCH 26.8 L (27.0-33.0) pg MCHC 32.7 (31.0-35.0) g/dl RDW 15.6 (11.0-16.0) % Plt Count 433 H (160-400) X10*3/uL MPV 9.5 (9.4-12.3) fL Immature Gran % (Auto) 0.8 H (0.0-0.4) % Neut % (Auto) 74.5 H (45-73) % Lymph % (Auto) 13.9 L (20-40) % Vance % (Auto) 8.4 (2-11) % Eos % (Auto) 2.0 (0-4) % Baso % (Auto) 0.4 (0-2) % Lymph # (Auto) 2.5 (1.2-4.9) X10*3/uL Vance # (Auto) 1.5 H (0.1-1.2) X10*3/uL Eos # (Auto) 0.4 (0.0-0.4) X10*3/uL Baso # (Auto) 0.1 (0.0-0.2) X10*3/uL Abs Immat Gran (auto) 0.15 H (0.00-0.03) X10*3/uL Absolute Neuts (auto) 13.3 H (2.0-8.3) x10*3/uL Absolute Nucleated RBC 0.000 (0.0-0.012) X10*3/uL Nucleated RBC % (auto) 0.0 (0.0-0.2) /100WBC PT 10.4 L (10.9-12.4) SEC INR 0.9 (0.9-1.1) Sodium 138 (135-145) mmol/L Potassium 4.6 (3.3-5.1) mmol/L Chloride 106 (96-108) mmol/L Carbon Dioxide 25 (22-29) mmol/L Anion Gap 12 (12-20) BUN 9 (9-16) mg/dL Creatinine 0.81 (0.5-1.4) mg/dL Estim Creat Clear Calc 69.6 Estimated GFR > 60 Random Glucose 108 (60-115) mg/dL Calcium 9.1 (8.4-10.2) mg/dL Total Bilirubin 0.2 (0.0-1.0) mg/dL AST 23 (5-31) U/L ALT 19 (0-31) U/L Alkaline Phosphatase 71 (39-117) U/L Troponin I High Sens < 2.7 (<3.5-17.0) ng/L Total Protein 7.3 (6.5-8.0) g/dL Albumin 4.2 (3.5-5.0) g/dL Independent Interpretation I performed an independent interpretation of an: EKG Interpretation: No malignant arrhythmia or ischemia noted. External Record Review External record reviewed: Inpatient record and Outpatient record Tests considered The following testing was considered but not selected: WOuld have considered stroke woke up and imaging/ facial CT had there been abnormal exam findings or history suggestive of this Chronic Conditions Patient?s care impacted by: Other Social Determinants Patient?s care significantly limited by Social Determinants of Health including: Alcoholism and drug addiction in family, Problems related to primary support group and Other Social Determinant of Health Discharge Plan Discharge Clinical Impression: Arm paresthesia, right, Anxiety, Phencyclidine (PCP) use disorder Patient Disposition: Home, Self-Care Instructions: Paresthesia (ED), Anxiety (ED) Additional Instructions: You have no electrolyte imbalance or soft tissue skin infection. I am glad your symptoms are no longer present. Please follow up with your primary care to discuss anxiety management DO not hesitate to reach out to our crisis services. REturn for concerns. Your neuro exam was normal today. Prescriptions: No Action cholecalciferol (vitamin D3) 50 mcg (2,000 unit) tablet 50 mcg PO DAILY Qty: 90 0RF cetirizine [All Day Allergy (cetirizine)] 10 mg tablet 10 mg PO DAILY PRN (Reason: allergy symptoms) 90 Days Qty: 90 0RF bupropion HCl 300 mg tablet extended release 24 hr 300 mg PO DAILY 30 Days Qty: 30 0RF gabapentin 400 mg capsule 400 mg PO TID 30 Days Qty: 90 2RF Patient Comments: Patient stated she is taking 400 mg at night only as it makes her feel too drowsy during the day. amlodipine 10 mg tablet 10 mg PO BEDTIME 90 Days Qty: 90 0RF quetiapine 300 mg Tablet 300 mg PO BEDTIME 14 Days Qty: 14 0RF trazodone 50 mg Tablet 50 mg PO BEDTIME PRN (Reason: insomnia) 14 Days Qty: 14 0RF guanfacine 2 mg tablet extended release 24 hr 2 mg PO QAM Qty: 30 0RF guanfacine 1 mg tablet extended release 24 hr 1 mg PO DAILY Qty: 30 0RF Rx Instructions: Patient stated she takes in the afternoon. amantadine HCl 100 mg tablet 100 mg PO BEDTIME Qty: 20 0RF Patient Comments: Patient stated she was told to take 1/2 a tab at HS. Rx Instructions: Patient stated she is taking 1/2 a tab daily. lithium carbonate 300 mg Tablet See Rx Instructions .ROUTE .COMPLEX 14 Days Qty: 42 0RF Rx Instructions: Take 1 tab po qam and 2 tabs po qhs. please d/c any other lithium rx on file melatonin 10 mg capsule 10 mg PO BEDTIME 30 Days Qty: 30 0RF atomoxetine 25 mg capsule 50 mg PO QAM Qty: 28 0RF docusate sodium 100 mg capsule 100 mg PO DAILY PRN (Reason: constipation) Qty: 30 0RF lisinopril 10 mg tablet 10 mg PO BEDTIME 90 Days Qty: 90 1RF Rx Instructions: Patient stated she no longer takes this medicaton. albuterol sulfate 90 mcg/actuation HFA aerosol inhaler 2 puff inhalation Q6H PRN (Reason: for wheezing) 30 Days Qty: 8.5 3RF Referrals: [facility] [Provider Group] Interventions: ED Discharge Assessment Last Done: 08/13/25 23:49 Discharge Date/Time: 08/13/25 23:49 Print Language: Senegalese
[2025-08-13 23:41] VITALS: BP 116/69; PULSE 78; RESP 18; TEMP 36.8; O2SAT 100
[2025-08-13 23:49] VITALS: BP 116/69; PULSE 78; RESP 18; TEMP 36.8; O2SAT 100
== END 2025-08-13 23:49 | disposition home or self-care (01) ==
PROVIDERS: Emergency Provider Emergency Medicine Emergency Medical Services; PCP Physician Assistant Surgical
DX: R20.0 Anesthesia of skin (principal); F16.10 Hallucinogen abuse, uncomplicated; R00.0 Tachycardia, unspecified; F41.9 Anxiety disorder, unspecified; Z79.899 Other long term (current) drug therapy
CPT/HCPCS: 36415; 80053; 84484; 85025; 85610; 93005; 99283; 99284

== ENCOUNTER → 2025-08-13 18:03 | Outpatient (BNV) | payer OTHER, SELFPAY | PROVIDERS: Emergency Provider Emergency Medicine Emergency Medical Services; PCP Physician Assistant Surgical; Visit Provider Internal Medicine | DX: R00.0 Tachycardia, unspecified (principal) | CPT/HCPCS: 93010 ==

== ENCOUNTER 2025-08-27 14:23 | Outpatient (REF) | payer OTHER, SELFPAY ==
--- OUTSIDE RECORDS SUMMARY | 2025-08-27 14:26 | XMS_ITS | Encounter Summary ---
Author Organization [employer] Address [address] [place] [address] Care Team Providers Care [employer] Home Economics Teacher Name Role Phone Unavailable Primary Care Provider Unavailabl e Reason for Visit * Reason Comments Med Refill Encounter Details Date Type Department Care Team (Late st Contact Info) Description 02/26/2023 Refill [facility] ADULT DENTAL [address] [place] [address] Eloy Milan DMD [address] [place] [address] Dental abscess Social History Tobacco Use Types [...]
--- OUTSIDE RECORDS SUMMARY | 2025-08-27 14:26 | XMS_ITS | Encounter Summary ---
Author Organization [employer] Address [address] [place] [address] Care Team Providers Care Blending Supervisor Name Role Phone Unavailable Primary Care Provider Unavailabl e Reason for Visit * Reason Onset Date Comments Dental Pain 04/17/2023 Encounter Details Date Type Department Care Team (Late st Contact Info) Description 04/17/2023 Telephone [facility]ULT [facility] [address] [place] [address] Byron Rodrigues DMD [address] [place], [place] [id number] Dental Pain Social History Tobacco Use Types [...] - 04/23/2023 8:45 AM EDT Spoke with [facility] because patient called in again stating [...]
--- OUTSIDE RECORDS SUMMARY | 2025-08-27 14:26 | XMS_ITS | Clinical Summary ---
Author Organization [facility] Address [address] [place] [address] Care Team Providers Care Ornamental Metal Erector Apprentice Name Role Phone Unknown Primary Care Provider [phone] Allergies No known active allergies Medications * [...] PCV) 2003 Pap Smear (Ages 21-65) 2005 Mammogram 2024 Influenza Vaccine 06/25/2025 COVID-19 Vaccine (2023- season) 2025 HIV Screening Completed 04/20/2018 Hepatitis C Virus Screening Completed 04/20/2018 HPV Vaccines (No Doses Required) Completed Procedures Procedure Name Priority Date/Time Associated Diagnosis [...] test by nucleic acid amplification. Performed at [facility], [place], [place] License 0385 CLIA [id number] Blood specimen (specimen) Blood specimen / Unknown 04/20/2018 2:00 AM EDT 04/20/2018 2:14 AM EDT us Joi Dowell MD LAB BLOOD ORDERABLES Final Resu lt HOSPITAL LAB * Hepatitis C Virus (HCV) Antibody (04/20/2018 2:00 AM EDT) Hepatitis C Antibody 0.11 0.00 - 0.79 S/CO ratio HOSPITAL LAB Comment: Nonreactive Performed at [facility], [place], [place] License 0385 CLIA [id number] Blood specimen (specimen) Blood specimen / Unknown 04/20/2018 2:00 AM EDT 04/20/2018 2:14 AM EDT Joi Dowell MD LAB BLOOD ORDERABLES Final Resu lt HOSPITAL LAB from Last 3 Months or Most Recently Relevant to Health Maintenance Insurance MEDICAID OUT OF STATE [facility] MEDICAID OUT OF STATE [facility] Advance Directives * Full Code (Latest Code Status on File) Date Activated Date Inactivated Comments 05/01/2018 4:35 PM Question Answer Comments Decision Thoroughly Discussed with: Patient * Full Code Date Activated Date Inactivated Comments 04/19/2018 12:18 AM 05/01/2018 2:25 PM Care Teams Ornamental Metal Erector Apprentice Relationship Specialty Start Date End Date Unknown Unknow Provider Address PCP - General 04/19/18
--- OUTSIDE RECORDS SUMMARY | 2025-08-27 14:26 | XMS_ITS | Encounter Summary ---
Author Organization [employer] Address [address] [place] [address] Care Team Providers Care Cafeteria Counter Attendant Name Role Phone Unavailable Primary Care Provider Unavailabl e Reason for Visit * Reason Comments Med Refill Encounter Details Date Type Department Care Team (Late st Contact Info) Description 05/20/2023 Refill [facility] ADULT DENTAL [address] [place] [address] Eloy Milan DMD [address] [place] [address] Dental abscess Social History Tobacco Use Types [...]
--- OUTSIDE RECORDS SUMMARY | 2025-08-27 14:26 | XMS_ITS | Encounter Summary ---
Author Organization [employer] Address [address] [place] [address] Care Team Providers Care Hospice Spiritual Care Coordinator Name Role Phone Unavailable Primary Care Provider Unavailabl e Reason for Visit * Reason Comments Med Refill Encounter Details Date Type Department Care Team (Late st Contact Info) Description 02/12/2023 Refill [facility] ADULT D[facility] [address] [place] [address] Eloy Milan DMD [address] [place] [address] Dental abscess Social History Tobacco Use Types [...]
--- OUTSIDE RECORDS SUMMARY | 2025-08-27 14:26 | XMS_ITS | Encounter Summary ---
Author Organization [employer] Address [address] [place] [address] Care Team Providers Care Edge Beader Name Role Phone Unavailable Primary Care Provider Unavailabl e Encounter Details Date Type Department Care Team (Late st Contact Info) Description 03/29/[address] [facility] ADULT DENTAL [address] [facility] [place] [address] Byron Rodrigues DMD [address] [place] [address] Social History Tobacco Use Types Packs/Day Years [...]
--- OUTSIDE RECORDS SUMMARY | 2025-08-27 14:26 | XMS_ITS | Encounter Summary ---
Author Organization [employer] Address [address] [facility] [address] [place] [address] Care Team Providers Care Head Teacher Name Role Phone Unavailable Primary Care Provider Unavailabl e Reason for Visit * Reason Comments Med Refill Encounter Details Date Type Department Care Team (Late st Contact Info) Description 04/24/2023 Refill [facility] ADULT DENT[facility] [address] [place] [address] Eloy Milan, DEEP [address] [place] [address] Dental abscess Social History Tobacco Use Types [...]
--- OUTSIDE RECORDS SUMMARY | 2025-08-27 14:26 | XMS_ITS | Clinical Summary ---
Author Organization [employer] Address [address] [address] [place] [address] Care Team Providers Care Money Manager Name Role Phone Unavailable Primary Care Provider Unavailabl e Allergies No known active allergies Medications Sod Fluoride-Potass ium Nitrate 1.1-5 % pasteIndication s:Dental caries [place] teeth morning and night for 2 minutes. Spit, do not rinse. Do not eat or drink anything for 30 minutes following brushing. 112 g 3 3 Active Additional Information Patient not taking.Reported on 10/23/2023 Sodium Fluoride (Sodium Fluoride 5000 Plus) 1.1 % creamIndication s:Dental caries [place] teeth for 2 minutes, morning and night. [...] this topic Meningococcal Vaccine Aged Out No setffi venita eligible based on patient's age to [...] Most Recently Relevant to Health Maintenance Insurance [facility] MEDICAID STAND ADULT
--- OUTSIDE RECORDS SUMMARY | 2025-08-27 14:26 | XMS_ITS | Clinical Summary ---
Author Organization [facility] Address [address] [place] [phone] Phone Care Team Providers Care Die Engraver Name Role Phone Unavailable Primary Care Provider Unavailabl e Immunizations Immunization Administration Dates Next Due DTP 05/06/1990,,05/12/1985,1984,1984 Hep B, ped/adol 08/04/1997,04/30/1997,03/30/1997 Hib (HbOC) 04/02/1988 MMR 03/30/1997,01/05/1986 OPV 05/06/1990, 6,03/02/1985,1984 [facility]adult[facility] 5 Lf t etanus toxoid, PF, [...] 2011 Influenza Vaccines (#1) 2025 COVID-19 Vaccine (2024- season) 2025 HIB Vaccines Completed 04/02/1988 IPV [...]
[2025-08-27 15:16] LABS: Cannabinoid Screen Urine Not Detected (Not Detect)
== END 2025-08-27 14:24 | disposition home or self-care (01) ==
LOC: HO.LNP 14:23
PROVIDERS: Visit Provider Psychiatry & Neurology Psychiatry
DX: F16.10 Hallucinogen abuse, uncomplicated (principal); F33.1 Major depressive disorder, recurrent, moderate; Z86.59 Personal history of other mental and behavioral disorders
CPT/HCPCS: 80307

== ENCOUNTER 2025-08-30 12:32 | Outpatient (AMB) | payer OTHER, SELFPAY ==
--- NOTE | 2025-08-30 12:43 | MHC.PC.OV ---
Vital Signs 08/30/25 12:44 Height 5 ft 1 in Weight 138 lb 6 oz BMI 26.1 BP 112/76 Blood Pressure Location Lt brachial Position Sitting Pulse 80 Pulse Source Pulse Oximeter Temp 97.5 F Temp Source Temporal Artery Scan Pulse Oximetry (%) 98 Oxygen Delivery Method Room Air Intake Visit Reasons: (L) armpit cyst Intake Note: Patient is here to follow up on Left armpit cyst. Director Of Rotc Required: No Last Putter Away: Not Required per policy Accompanied by: Self / Same As Patient Allergies No Known Allergies Allergy (Unknown, Verified 08/30/25 12:44) Tobacco use date assessed: 08/30/25 Dental Screening Dental Screen Date: 01/07/25 HPI HPI Comments History of Present Illness Details 39-year-old female patient with past medical history of constipation anxiety restless legs syndrome who is presenting with left armpit abscess. Patient reports she has been having this abscess for the past couple weeks and then got better but then got worse. She reports similar abscesses in the past under her right armpit the groin area and in her back. She denies any fever or chills. [facility] Medical History HTN (hypertension) Overdose Anemia Family history of anesthesia complication Anemia Heartburn Bipolar disorder RLS (restless legs syndrome) ADHD (attention deficit hyperactivity disorder) Anxiety Depression Opioid dependence, uncomplicated Cocaine dependence, uncomplicated Exercise-induced asthma Surgical History History of surgery (06/18/24) History of History of root canal procedure History of wisdom tooth extraction Hx of cholecystectomy Family History Family/Other Mental health disorder Mother Hypertension Father Hypertension Social History Household Members: None Household Members Other:: One dog Housing: Apartment Are you a primary child care lead teacher to a significant other at home: No Do you presently have visiting nurse or other home services: No Alcohol intake: current Alcohol intake frequency: a few times a week Alcohol type: hard liquor Comment: QUINTON 07/30/25 Patient Tobacco Use Status: Never used Tobacco e-Cigarette/Vaping Use: Never Used Second Hand Smoke Exposure: No Substance Use Type: Amphetamines and Heroin service: No Current occupational status: unemployed Sexual orientation: Straight/Heterosexual Cognitive needs: No Hearing needs: No Vision needs: No Questionnaire PHQ-9 Over the last 2 weeks, how often have you been bothered by any of the following problems? 1. Little interest or pleasure in doing things: not at all 2. Feeling down, depressed, or hopeless: not at all 3. Trouble falling or staying asleep, or sleeping too much: several days 4. Feeling tired or having little energy: several days 5. Poor appetite or overeating: nearly every day 6. Feeling bad about yourself - or that you are a failure or have let yourself or your family down: not at all 7. Trouble concentrating on things, such as reading the newspaper or watching television: nearly every day 8. Moving or speaking so slowly that other people could have noticed. Or the opposite - being so fidgety or restless that you have been moving around a lot more than usual: nearly every day 9. Thoughts that you would be better off or of hurting yourself in some way: not at all Total score: 11 Depression Screening Interpretation: Positive Depression Screening Done: Yes Source: Developed by Drs. Bryan Chisholm, Mary Ascencio, Jose Hogan and colleagues, with an educational jose from [employer]. Thrive Questionnaire Date Thrive assessed: 06/15/25 I am a: Patient What is your living situation today?: I have a steady place to live Within the past 12 months, did the food you bought not last and you didn't have the money to get more?: Sometimes True Within the past 12 months, did you worry whether your food would run out before you got money to buy more?: Sometimes True Do you have trouble paying for medicines?: No Do you have trouble getting transportation to medical appointments?: No Do you have trouble paying your heating and electricity bill?: I choose not to answer this question Do you have trouble taking care of your child, family member or friend?: I choose not to answer this question Do you have trouble with day-to-day activities such as bathing, preparing meals, shopping, managing finances, etc.?: I choose not to answer this question Are you currently unemployed and looking for a job?: I choose not to answer this question Are you interested in more education?: No Please select the resources that you would like help with: None Currently or been in a relationship where the following occur: I choose not to answer THRIVE Score: 2 AUDIT C Alcohol Use Questionnaire (AUDIT-C) 1. How often do you have a drink containing alcohol?: Never Total Score: 0 LULU-7 AMB Questionnaire LULU-7 Date LULU - 7 assessed: 01/07/25 Feeling nervous, anxious, or on edge: 1 = Several days Not being able to stop or control worryin = Several days Worrying too much about different things: 1 = Several days Trouble relaxin = Several days Being so restless that it is hard to sit still: 1 = Several days Becoming easily annoyed or irritable: 1 = Several days Feeling afraid as if something awful might happen: 0 = Not at all Total LULU-7 score (0-4 normal; 5-9 mild; 10-14 moderate; 15-21 severe): 6 Source: Developed by Drs. Bryan Chsiholm, Mary Ascencio, Jose Hogan and colleagues, with an educational jose from [employer]. Review of Systems Const Details: Positives besides what was mentioned in HPI are in BOLD Constitutional: No Weight Change, No Fever, No Chills, No Night Sweats, No Fatigue, No Malaise ENT/Mouth: No Hearing Changes, No Ear Pain, No Nasal Congestion, No Sinus Pain, No Hoarseness, No sore throat, No Rhinorrhea, No Swallowing Difficulty Eyes: No Eye Pain, No Swelling, No Redness, No Foreign Body, No Discharge, No Vision Changes Cardiovascular: No Chest Pain, No SOB, No PND, No Dyspnea on Exertion, No Orthopnea, No Claudication, No Edema, No Palpitations Respiratory: No Cough, No Sputum, No Wheezing, No Smoke Exposure, No Dyspnea Gastrointestinal: No Nausea, No Vomiting, No Diarrhea, No Constipation, No Pain, No Heartburn, No Anorexia, No Dysphagia, No Hematochezia, No Melena, No Flatulence, No Jaundice Genitourinary: No Dysmenorrhea, No DUB, No Dyspareunia, No Dysuria, No Urinary Frequency, No Hematuria, No Urinary Incontinence, No Urgency, No Flank Pain, No Urinary Flow Changes, No Hesitancy Musculoskeletal: No Arthralgias, No Myalgias, No Joint Swelling, No Joint Stiffness, No Back Pain, No Neck Pain, No Injury History Skin: No Skin Lesions, No Pruritis, No Hair Changes, No Breast/Skin Changes, No Nipple Discharge Neuro: No Weakness, No Numbness, No Paresthesias, No Loss of Consciousness, No Syncope, No Dizziness, No Headache, No Coordination Changes, No Recent Falls Psych: No Anxiety/Panic, No Depression, No Insomnia, No Personality Changes, No Delusions, No Rumination, No SI/HI/AH/VH, No Social Issues, No Memory Changes, No Violence/Abuse Hx., No Eating Concerns Heme/Lymph: No Bruising, No Bleeding, No Transfusions History, No Lymphadenopathy Endocrine: No Polyuria, No Polydipsia, No Temperature Intolerance Physical exam (Primary Care) Vital Signs: Last Vital Signs Temp 97.5 F 08/30/25 12:44 Pulse 80 08/30/25 12:44 BP 112/76 08/30/25 12:44 Pulse Ox 98 08/30/25 12:44 Oxygen Delivery Method Room Air 08/30/25 12:44 BMI result Body Mass Index 26.1 Tobacco/Smoking Status: Tobacco use Status Tobacco use date assessed 08/30/25 08/30/25 12:50 Patient Tobacco Use Status Never used Tobacco 08/30/25 12:50 e-Cigarette/Vaping Use Never Used 08/30/25 12:50 PHQ-9: PHQ-9 Score PHQ-9: Total score 11 08/30/25 12:50 Depression Screening Interpretation: Positive Thrive Assessment: Date of Thrive Assessment Date Thrive assessed 06/15/25 08/30/25 12:50 Currently or been in a relationship where the following occur: I choose not to answer Const Other: Pertinent findings are in BOLD GENERAL APPEARANCE NAD, activity normal for age, well developed/ well nourished, no cyanosis, pallor, or diaphoresis. EYES lids/conjunctiva normal. EARS/NOSE/THROAT Mucous membranes moist, nares normal, lips/teeth normal uvula midline without oral pharyngeal erythema, exudate or swelling TMs normal bilaterally. No lymphangitis/lymphedema. HEAD/NECK normocephalic atraumatic, no facial trauma, neck is supple. RESPIRATORY respiratory effort normal, speaks in full sentences, no tripod position, no accessory muscle use. Lungs clear to auscultation without rhonchi, wheezes, rales CARDIAC Regular rate and rhythm, no edema. ABDOMINAL Soft, ND/NT. No evidence of fluid wave. No pulsatile masses on exam, rebound tenderness, Delaney sign or pain over Mcburney's point. MUSCLES/EXTREMITIES No abnormal range of motion, no swelling. SKIN Warm, pink and dry. No rashes, dermatoses, petechiae or lesions. Left armpit 3 cm abcess. NEUROLOGICAL Speech is clear and appropriate. Normal level of consciousness. Gait and coordination are normal. 5/5 strength in all extremities. PSYCH Normal mood and affect. Judgement/competence is appropriate Coding Level of Care Code Est Pt Level 4 (67090) Diagnoses Armpit abscess L02.419 Restless leg syndrome G25.81 Constipation K59.00 Time Spent (min) 30 Assessment & Plan Assessment & Plan (1) Armpit abscess: Code(s): L02.419 - Cutaneous abscess of limb, unspecified Category: Medical Plan: Doxycycline 100 mg twice daily for 2 weeks triple antibiotic cream. General surgery referral for potential drainage. Advised on lifestyle modification including reducing dairy. (2) Restless leg syndrome: Code(s): G25.81 - Restless legs syndrome Category: Medical Plan: Advised on lifestyle modificaiton including reducing dairy products. (3) Constipation: Code(s): K59.00 - Constipation, unspecified Category: Medical Plan: Advise on lifestyle modifications including increasing fibers and reducing dairy products. Plan Doxycycline, Triple antibiotics cream and Surgery referral. Orders: Referrals General Surgery Referral L02.419 - Cutaneous abscess of limb, unspecified Medications: New doxycycline hyclate 100 mg PO BID 28 tabs 0RF bfqanwqh-hzdjxeozgIr-dzizzvecA 3.5mg-400 unit- 5,000 unit/gram (Triple Antibiotic) 1 appl topical BID 14 grams 1RF Refilled albuterol sulfate 90 mcg/actuation 2 puffs inhalation Q6H PRN 8.5 ea 3RF for wheezing 30 days lisinopril Patient stated she no longer takes this medicaton. 10 mg PO BEDTIME 90 tabs 1RF 90 days I10 - Essential (primary) hypertension
[2025-08-30 12:44] VITALS: BP 112/76; PULSE 80; TEMP 36.4; O2SAT 98; BMI 26.1
--- OUTSIDE RECORDS SUMMARY | 2025-08-30 14:59 | XMS_ITS | Encounter Summary ---
Author Organization [employer] Address [address] [place] [address] Care Team Providers Care Telecommunications Administrator Name Role Phone Unavailable Primary Care Provider Unavailabl e Encounter Details Date Type Department Care Team (Late st Contact Info) Description 03/29/2023 Abstract [facility] [address] [place] [address] Byron Rodrigues DMD [address] [place] [address] Social History Tobacco Use Types Packs/Day Years [...]
--- OUTSIDE RECORDS SUMMARY | 2025-08-30 14:59 | XMS_ITS | Encounter Summary ---
Author Organization [employer] Address [address] [facility] [place] [address] Care Team Providers Care Drywall Stripper Name Role Phone Unavailable Primary Care Provider Unavailabl e Reason for Visit * Reason Comments Med Refill Encounter Details Date Type Department Care Team (Late st Contact Info) Description 02/12/[address] [facility] [address] [place] [address] Eloy Milan DMD [address] [place] [address] Dental abscess Social History Tobacco Use Types [...]
--- OUTSIDE RECORDS SUMMARY | 2025-08-30 14:59 | XMS_ITS | Encounter Summary ---
Author Organization [email or web address] Address [address] [facility] [address] [place] [address] Care Team Providers Care Job Tracer Name Role Phone Unavailable Primary Care Provider Unavailabl e Reason for Visit * Reason Comments Med Refill Encounter Details Date Type Department Care Team (Late st Contact Info) Description 02/26/2023 Refill [facility] [address] [place] [address] Eloy Milan DMD [address] [place] [address] Dental abscess Social History Tobacco Use Types [...]
--- OUTSIDE RECORDS SUMMARY | 2025-08-30 14:59 | XMS_ITS | Clinical Summary ---
Author Organization [employer] Address [address] [place] [address] Care Team Providers Care House Piping Inspector Name Role Phone Unavailable Primary Care Provider Unavailabl e Allergies No known active allergies Medications Sod Fluoride-Potass ium Nitrate 1.1-5 % pasteIndication s:Dental caries [place] teeth morning and night for 2 minutes. Spit, do not rinse. Do not eat or drink anything for 30 minutes following brushing. 112 g 3 3 Active Additional Information Patient not taking.Reported on 10/23/2023 Sodium Fluoride (Sodium Fluoride 5000 Plus) 1.1 % creamIndication s:Dental caries [place] teeth for 2 minutes, morning and night. [...] Most Recently Relevant to Health Maintenance Insurance [facility] MEDICAID STAND ADULT
--- OUTSIDE RECORDS SUMMARY | 2025-08-30 14:59 | XMS_ITS | Encounter Summary ---
Author Organization [employer] Address [address] [facility] [address] [place] [address] Care Team Providers Care Supervisor Fish Hatchery Name Role Phone Unavailable Primary Care Provider Unavailabl e Reason for Visit * Reason Comments Med Refill Encounter Details Date Type Department Care Team (Late st Contact Info) Description 04/24/2023 Refill [facility]ULT [facility] [address] [facility] [place] [address] Eloy Milan, DEEP [address] [place] [address] Dental abscess Social History Tobacco Use Types [...]
--- OUTSIDE RECORDS SUMMARY | 2025-08-30 14:59 | XMS_ITS | Clinical Summary ---
Author Organization [facility] Address [address] [place] [address] Phone Care Team Providers Care Oracle Pl Sql Developer Name Role Phone Unavailable Primary Care Provider Unavailabl e Immunizations Immunization Administration Dates Next Due DTP 05/06/1990,,05/12/1985,1984,1984 Hep B, ped/adol 08/04/1997,04/30/1997,03/30/1997 Hib (HbOC) 04/02/1988 MMR 03/30/1997,01/05/1986 OPV 05/06/1990, 6,03/02/1985,1984 [facility]adult[facility] 5 Lf t etanus toxoid, PF, adsorbed [...]
--- OUTSIDE RECORDS SUMMARY | 2025-08-30 14:59 | XMS_ITS | Clinical Summary ---
Author Organization [facility] Address [address] [place] [id number] Care Team Providers Care Store Promoter Name Role Phone Unknown Primary Care Provider [phone] Allergies No known active allergies Medications * [...] acid amplification. Performed at [facility], [place], [place] License 0385 CLIA [id number] Blood specimen (specimen) Blood specimen / Unknown 04/20/2018 2:00 AM EDT 04/20/2018 2:14 AM EDT us Joi Dowell MD LAB BLOOD ORDERABLES Final Resu lt HOSPITAL LAB * Hepatitis C Virus (HCV) Antibody (04/20/2018 2:00 AM EDT) Hepatitis C Antibody 0.11 0.00 - 0.79 S/CO ratio HOSPITAL LAB Comment: Nonreactive Performed at [facility], [place], [place] License 0385 CLIA [id number] Blood specimen (specimen) Blood specimen / Unknown 04/20/2018 2:00 AM EDT 04/20/2018 2:14 AM EDT Joi Dowell MD LAB BLOOD ORDERABLES Final Resu lt HOSPITAL LAB from Last 3 Months or Most Recently Relevant to Health Maintenance Insurance MEDICAID OUT OF STATE [facility] MEDICAID OUT OF STATE [facility] Advance Directives * Full Code (Latest Code Status on File) Date Activated Date Inactivated Comments 05/01/2018 4:35 PM Question Answer Comments Decision Thoroughly Discussed with: Patient * Full Code Date Activated Date Inactivated Comments 04/19/2018 12:18 AM 05/01/2018 2:25 PM Care Teams Store Promoter Relationship Specialty Start Date End Date Unknown Unknow Provider Address PCP - General 04/19/18
--- OUTSIDE RECORDS SUMMARY | 2025-08-30 14:59 | XMS_ITS | Encounter Summary ---
Author Organization [employer] Address [address] [facility] [address] [place] [address] Care Team Providers Care Cafe Manager Name Role Phone Unavailable Primary Care Provider Unavailabl e Reason for Visit * Reason Comments Med Refill Encounter Details Date Type Department Care Team (Late st Contact Info) Description 05/20/2023 Refill [facility] [address] [place] [address] Eloy Milan DMD [address] [place] [address] Dental abscess Social History Tobacco Use Types [...]
--- OUTSIDE RECORDS SUMMARY | 2025-08-30 14:59 | XMS_ITS | Encounter Summary ---
Author Organization [employer] Address [address] [facility] [address] [place] [address] Care Team Providers Care Clinical Investigator Name Role Phone Unavailable Primary Care Provider Unavailabl e Reason for Visit * Reason Onset Date Comments Dental Pain 04/17/2023 Encounter Details Date Type Department Care Team (Late st Contact Info) Description 04/17/2023 Telephone [facility] [address] [place] [address] Byron Rodrigues DMD [address] [place], [place] [phone] Dental Pain Social History Tobacco Use Types [...] - 04/23/2023 8:45 AM EDT Spoke with [facility] because patient called in again stating that [...]
== END 2025-08-30 13:03 | disposition home or self-care (01) ==
LOC: HO.HMCH 12:34
PROVIDERS: PCP Internal Medicine; Visit Provider Internal Medicine
DX: L02.419 Cutaneous abscess of limb, unspecified (principal); G25.81 Restless legs syndrome; K59.00 Constipation, unspecified

== ENCOUNTER → 2025-08-30 12:32 | Outpatient (BNVA) | payer OTHER, SELFPAY | PROVIDERS: Visit Provider Internal Medicine | DX: L02.412 Cutaneous abscess of left axilla (principal); I10 Essential (primary) hypertension; G25.81 Restless legs syndrome | CPT/HCPCS: 99212 ==

== ENCOUNTER 2025-09-01 09:46 | Outpatient (AMB) | payer OTHER, SELFPAY ==
--- NOTE | 2025-09-01 09:47 | A.OFFVIS_ITS ---
Vital Signs 09/01/25 09:55 Height 5 ft 1 in Weight 137 lb 4 oz BMI 25.9 BP 101/66 Blood Pressure Location Rt brachial Position Sitting Pulse 98 Intake Visit Reasons: Cutaneous abscess of limb, unspecified Intake Note: This patient presents for an assessment for cutaneous abscess of the left axilla. Pt c/o; reports took x3 days of Doxycycline, no draining, denies fever or chills. Inventory Control Planner Required: No Accompanied by: Self / Same As Patient Allergies No Known Allergies Allergy (Unknown, Verified 08/30/25 12:44) Medication List - Last Reconciled 09/01/25 by Willi Crews MD albuterol sulfate 90 mcg/actuation 2 puffs inhalation Q6H PRN 30 days amantadine HCl 100 mg PO BEDTIME amlodipine 10 mg PO BEDTIME 90 days atomoxetine 50 mg (2 x 25 mg) PO QAM bupropion HCl XL 300 mg PO DAILY 30 days cetirizine (All Day Allergy (cetirizine)) 10 mg PO DAILY PRN 90 days cholecalciferol (vitamin D3) 50 mcg PO DAILY docusate sodium 100 mg PO DAILY PRN doxycycline hyclate 100 mg PO BID gabapentin 400 mg PO TID 30 days guanfacine ER 2 mg PO QAM guanfacine ER 1 mg PO DAILY lisinopril 10 mg PO BEDTIME 90 days lithium carbonate Take 1 tab po qam and 2 tabs po qhs. please d/c any other lithium rx on file 14 days melatonin 10 mg PO BEDTIME 30 days [id number] 3.5mg-400 unit- 5,000 unit/gram (Triple Antibiotic) 1 appl topical BID quetiapine 300 mg PO BEDTIME 14 days trazodone 50 mg PO BEDTIME PRN 14 days HPI HPI Cutaneous abscess of limb, unspecified: Details: [age] year old female referred for a skin abscess. She has noticed this area of swelling, redness and tenderness on the left axilla for about 3 weeks now. She says that she was started on antibiotics by her primary care physician 2 days ago. She says that this had improved to some extent. She denies any drainage She is not a diabetic. She denies any fever or chills. She denies any trauma to the area. [facility] Medical History HTN (hypertension) Overdose Anemia Family history of anesthesia complication Anemia Heartburn Bipolar disorder RLS (restless legs syndrome) ADHD (attention deficit hyperactivity disorder) Anxiety Depression Opioid dependence, uncomplicated Cocaine dependence, uncomplicated Exercise-induced asthma Surgical History History of surgery (06/18/24) History of History of root canal procedure History of wisdom tooth extraction Hx of cholecystectomy Family History Family/Other Mental health disorder Mother Hypertension Father Hypertension Social History Household Members: None Household Members Other:: One dog Housing: Apartment Are you a primary direct care provider to a significant other at home: No Do you presently have visiting nurse or other home services: No Alcohol intake: current Alcohol intake frequency: a few times a week Alcohol type: hard liquor Comment: QUINTON 07/30/25 Patient Tobacco Use Status: Never used Tobacco e-Cigarette/Vaping Use: Never Used Second Hand Smoke Exposure: No Substance Use Type: Amphetamines and Heroin service: No Current occupational status: unemployed Sexual orientation: Straight/Heterosexual Cognitive needs: No Hearing needs: No Vision needs: No Review of Systems Const Denies chills and Denies fever(s) Card Denies chest pain, Denies dyspnea and Denies dyspnea on exertion Resp Denies cough, Denies dyspnea and Denies dyspnea on exertion GI Denies hematochezia and Denies change in bowel habits Denies hematuria Musc Denies back pain and Denies limited range of motion Neuro Denies focal weakness and Denies convulsions Psych Reports anxiety, Reports depression and Denies mood swings Physical Exam Const General: comfortable and no acute distress Orientation/consciousness: patient oriented x3 Neck Neck: Yes no lymphadenopathy Chest Other: Left axilla with note of fluctuant mass about 3 cm, skin redness, no drainage Resp Auscultation: clear to auscultation bilaterally Cardio Rhythm: regular rhythm GI Palpation (GI): Soft to palpation, nontender and no guarding Neuro General: patient oriented x3 Office Procedures I&D Drain Details: She was in reclining position with the left arm abducted to expose the axilla. The area of the abscess was prepped and draped. Lidocaine 1% was used for local anesthesia. I made a generous cruciate incision in the skin overlying this fluctuant mass with a blade 11. This was carried down through the full-thickness of the skin to enter an cavity. There was note of some small amounts of pus as well as hypergranulation tissue. I probed the entire area with a Q-tip to make sure that this has adequately drained. Dressings were applied. She tolerated procedure well. There were no immediate complications [id number] of Skin Abscess, complex All charges added?: Procedure code (CPT) selection complete Assessment & Plan Assessment & Plan (1) Armpit abscess: Code(s): L02.419 - Cutaneous abscess of limb, unspecified Category: Medical Plan: She has this fluctuant mass in the left axilla as described above consistent with an abscess. I I told her that I would recommend doing an I&D under local anesthesia. I explained the technique of this procedure I reviewed the risks, benefits, and alternatives. She had given consent I&D was done in the office. Small amounts of pus was drained. There was note by hypergranulation tissue within the cavity. Dressings were applied. She was instructed on wound care. She is to finish her course of antibiotics. I told her that she can come back to the office if she does not notice any improvement. She can take Tylenol or ibuprofen p.r.n. for pain. Coding Level of Care Code New Pt Level 3 (47398) Diagnoses Armpit abscess L02.419 CPT Codes I&D Drain - Drain 2: [id number] of Skin Abscess, complex ([id number])
[2025-09-01 09:55] VITALS: BP 101/66; PULSE 98; BMI 25.9
== END 2025-09-01 10:06 | disposition home or self-care (01) ==
LOC: HO.HGS 09:47
PROVIDERS: PCP Internal Medicine; Visit Provider Surgery
DX: L02.419 Cutaneous abscess of limb, unspecified (principal)
CPT/HCPCS: 10061; 99203

== ENCOUNTER → 2025-09-01 09:46 | Outpatient (BNVA) | payer OTHER, SELFPAY | PROVIDERS: PCP Internal Medicine; Visit Provider Surgery | DX: L02.412 Cutaneous abscess of left axilla (principal) | CPT/HCPCS: 10061; 99202 ==

== ENCOUNTER 2025-09-17 09:15 | Outpatient (RCR) | payer OTHER, SELFPAY ==
[2025-08-27 09:26] VITALS: BMI 25.9
[2025-08-27 09:27] VITALS: BP 102/68; PULSE 80; TEMP 37.3
--- NOTE | 2025-08-27 10:18 | PC.ADMIT ---
Patient is a 39 year old single female who is a step down from [facility] to [facility]. Patient has a history of struggling with poly-substance use and most recently has been struggling with PCP use. Patient self presented to [facility] on 2 occasions in July 2025 secondary to c/o overdose/PCP intoxication. On one occasion patient stated she felt like she was having a stroke with c/o facial numbness at the time. She stated she realizes now that it could have been d/t her use of PCP. Toxicology screen positive for PCP only at that time. Patient reports last use of PCP was around 08/09/25. Patient stated she has not used PCP since this time. Stated she has not used PCP because, My daughter kicked the felecia out patient referring to the felecia she was living with. Patient educated about MAT and the [facility] [place] for more ongoing support however patient reports she is not interested in going on MAT at this time. Patient is not interested in other support groups at this time as well including NA. Patient reports she has plenty of Narcan at her home if needed. Patient reports she has some feelings of depression and c/o inability to focus as she has many uncompleted projects in her home. Patient did state that she did take one Percocet however unable to remember when, to help her clean the house which she believes helped her to complete this task. Patient is alert and oriented x4. She is calm and cooperative. She presented with anxious mood and affect. She denied SI, no HI. She was given a copy of her safety plan if needed. Medications updated with patient and patient's [facility] paperwork. Patient stated there have been no medication changes since discharge from [facility]. Patient reports she has been taking her medications daily.
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
[2025-09-03 13:01] LABS: Cannabinoid Screen Urine Not Detected (Not Detect)
--- NOTE | 2025-09-04 00:08 | P.PNPSP_ITS ---
Subjective Subjective Date of Service: 09/03/25 Reason For Visit: anxiety Interim History: Patient seen for follow-up Mood is alright , bright and active, fidgety, talks fast and animated but is easily to interrupt and is well-related and reciprocates in conversation. Denies any adverse effects in lithium and feels increase dose would be helpful. Haivng some issues with falling asleep and will refill trazodone and may take 50-10 mg if needed. She contiues not to use and to comply with random urine drug screens, all thus far have been negative for substance. We discuss consideration of treatment of ADHD with psychostimulant medication, I believe she would benefit greatly from h jnng her ADHD better managed/controlled. WIll continue to opitimize treatment of her mood with lithium and optimize sleep regime. Medication Compliance: Yes Side effects from medications: No Attending Groups: Yes Review of Systems Acute medical concerns: No Mental Status Exam Mental Status Exam Narrative: Alert, oriented, in no acute distress. Calm, cooperative. Mood euthymic, affect bright, appropriate. Speech normal. Thought process linear, coherent, more goal- directed. Thought content related to stressors, future-oriented, denies any helplessness, hopelessness or SI.? No aggressive ideation or HI. No paranoia or delusional content elicited. No evidence of psychosis. Insight and judgment fair-good. Diagnostics Vital Signs (24Hr): BMI result Body Mass Index 25.9 Labs Labs: Laboratory Results - last 48 hr 09/03/25 12:10 Urine Opiates Screen Not Detected Ur Buprenorphine Scrn Not Detected Ur Oxycodone Screen Not Detected Urine Methadone Screen Not Detected Urine Fentanyl Screen Not Detected Ur Barbiturates Screen Not Detected Ur Phencyclidine Scrn Not Detected Ur Amphetamines Screen Not Detected U Benzodiazepines Scrn Not Detected Urine Cocaine Screen Not Detected U Marijuana (THC) Screen Not Detected Assessment & Plan Assessment & Plan (1) Bipolar disorder, current episode depressed, moderate: Status: Acute Code(s): F31.32 - Bipolar disorder, current episode depressed, moderate (2) ADHD: Status: Acute Code(s): F90.9 - Attention-deficit hyperactivity disorder, unspecified type (3) Cocaine use disorder: Status: Acute Code(s): F14.10 - Cocaine abuse, uncomplicated Assessment and Plan: in early remission (4) PCP (phencyclidine) abuse: Status: Acute Code(s): F16.10 - Hallucinogen abuse, uncomplicated Assessment and Plan: early remission Plan continue IOP increase lithium to 600 mg BID, will check lithium level next week before discharge cont guanfacine ER 2 mg in QAM cont guanfacine ER 1 mg QD cont Wellbutrin XL 300 mg qam cont Seroquel 300 mg qhs cont gabapentin 400 mg TID cont amantadine 100 mg qhs cont trazodone 50 mg qhs cont amlodipine 10 mg qhs hold lisinopril - patient has been running normotensive without lisinopril since addition of guanfacine - will follow-up with PCP to see if lisinopril needed cont vitamin D3 qd cont albuterol inhaler prn Routine lab work as indicated EKG, routine for baseline QTc for medication considerations as indicated UDS as indicated MassPat reviewed Continue to monitor I certify that the patient needs IOP Services for a minimum of 9 hours per week of therapeutic services. I certify the patient is experiencing symptoms of such intensity that they are unable to be safely treated in a less intensive setting and would otherwise require admission to a more intensive level of care. Patient educated on: diagnosis, medication risk/benefits and substance abuse Informed Consent: understands Reason for contiued partial hosp. stay Substantial Risk for: med/psych decompensation Certification I certify that the patient needs IOP Services for a minimum of 9 hours per week of therapeutic services. I certify the patient is experiencing symptoms of such intensity that they are unable to be safely treated in a less intensive setting and would otherwise require admission to a more intensive level of care. Total time managing care of this patient today __30__ minutes. Discharge Plan Discharge Attending provider: Tamera Wheeler Medications: New melatonin 10 mg tablet 10 mg PO BEDTIME PRN (Reason: sleep) Qty: 30 0RF dextroamphetamine-amphetamine [Adderall XR] 15 mg capsule,extended release 24hr 15 mg PO QAM Qty: 14 0RF Rx Instructions: Partial Fill upon patient request. For ADHD lithium carbonate 600 mg capsule 600 mg PO BID Qty: 60 0RF quetiapine 100 mg tablet 100 mg PO BID PRN (Reason: agitation, sleep) Qty: 30 0RF dextroamphetamine-amphetamine 10 mg tablet 5 - 10 mg PO DAILY Qty: 14 0RF Rx Instructions: Partial Fill upon patient request. For ADHD naloxone [Narcan] 4 mg/actuation spray,non-aerosol 1 spray intranasal Q2M Qty: 2 0RF Rx Instructions: spray 1 dose into ONE nostril; alternate nostrils w each dose until help arrives Continued cholecalciferol (vitamin D3) 50 mcg (2,000 unit) tablet 50 mcg PO DAILY Qty: 90 0RF bupropion HCl 300 mg tablet extended release 24 hr 300 mg PO DAILY 30 Days Qty: 30 0RF gabapentin 400 mg capsule 400 mg PO TID 30 Days Qty: 90 2RF Patient Comments: Patient stated she is taking 400 mg at night only as it makes her feel too drowsy during the day. amlodipine 10 mg tablet 10 mg PO BEDTIME 90 Days Qty: 90 0RF cetirizine [All Day Allergy (cetirizine)] 10 mg tablet 10 mg PO DAILY PRN (Reason: allergy symptoms) 90 Days Qty: 90 0RF melatonin 10 mg capsule 10 mg PO BEDTIME 30 Days Qty: 30 0RF amantadine HCl 100 mg tablet 100 mg PO BEDTIME Qty: 30 0RF Rx Instructions: Patient stated she is taking 1/2 a tab daily. trazodone 50 mg Tablet 50 mg PO BEDTIME PRN (Reason: insomnia) 14 Days Qty: 14 0RF quetiapine 300 mg Tablet 300 mg PO BEDTIME 30 Days Qty: 30 0RF albuterol sulfate 90 mcg/actuation HFA aerosol inhaler 2 puff inhalation Q6H PRN (Reason: for wheezing) 30 Days Qty: 8.5 3RF guanfacine 2 mg tablet extended release 24 hr 2 mg PO QAM Qty: 30 0RF guanfacine 1 mg tablet extended release 24 hr 1 mg PO DAILY Qty: 30 0RF Rx Instructions: Patient stated she takes in the afternoon. docusate sodium 100 mg capsule 100 mg PO DAILY PRN (Reason: constipation) Qty: 30 0RF Changed lithium carbonate 300 mg Tablet See Rx Instructions .ROUTE .COMPLEX 30 Days Qty: 90 0RF Rx Instructions: Take 1 tab po qam and 2 tabs po qhs Held lisinopril 10 mg tablet 10 mg PO BEDTIME 90 Days Qty: 90 1RF Hold Instructions: Resume on 10/06/25. f/u with PCP Rx Instructions: Patient stated she no longer takes this medicaton. Discontinued doxycycline hyclate 100 mg tablet 100 mg PO BID Qty: 28 0RF No Action Triple Antibiotic 3.5mg-400 unit- 5,000 unit/gram ointment 1 appl topical BID Qty: 14 1RF Stand Alone Forms: Patient Portal Discharge page Patient Education: ADHD in Adults (ED), ADHD in Adults (DC), Bipolar Disorder (ED), Bipolar Disorder (DC) Print Language: Persian
[2025-09-08 15:40] LABS: Cannabinoid Screen Urine Not Detected (Not Detect)
--- NOTE | 2025-09-10 22:35 | HO.PHPPROGNO ---
Subjective Subjective Date of Service: 09/09/25 Reason For Visit: anxiety Interim History: Doing really good Patient doing well with increase in lithium, mood has been stable. Still hyper, impulsive, but no tearfulness or irritability. One night she missed a lithium dose and totally felt it, so I know I need it . She has been working on trying to instill routine and structure in her day. Organization, and attending to and finishing tasks is very difficult for her, very easily distracted. Her daughter helps her but says she also doesnt want her daughter to feel like she needs to lean on her daughter all the time. SHe denies any cravings to use and feels ready to start on a stimulant. Denies any alcohol or substance use. She relays being proud of her daughter, she's smart and has a good head on her shoulders . Will try filling Vyvanse, if it will not be approved then will try ADderall XR and start at 5 mg and will titrate by 5 mg q 2 days until therapeutic or experiencing adverse effects. We reviewed r/b/se. Monitoring anxious thoughts, body anxiety, mood, attention, impulse control both when on the stimulant an dlater when wears off. She is aware to hold off further increases if insomnia, irritability/anger, agitation, cravings to use, or incr HR or other physical symptoms occur. Reviewed stimulant hygiene. Will offer additional Seroquel 100 mg to take prn agitation/insomnia. For now patient will not exceed 15 mg/d Medication Compliance: Yes Side effects from medications: No Attending Groups: Yes Review of Systems Acute medical concerns: No Mental Status Exam Mental Status Exam Narrative: Alert, oriented, in no acute distress. Calm, cooperative. Hyperactive, fidgety. Mood euthymic, affect bright, appropriate. Speech normal. Thought process linear, coherent, more goal-directed. Thought content related to stressors, future-oriented, denies any helplessness, hopelessness or SI.? No aggressive ideation or HI. No paranoia or delusional content elicited. No evidence of psychosis. Insight and judgment fair-good. Diagnostics Vital Signs (24Hr): BMI result Body Mass Index 25.9 Labs Labs: Laboratory Results - last 48 hr 09/03/25 12:10 Urine Opiates Screen Not Detected Ur Buprenorphine Scrn Not Detected Ur Oxycodone Screen Not Detected Urine Methadone Screen Not Detected Urine Fentanyl Screen Not Detected Ur Barbiturates Screen Not Detected Ur Phencyclidine Scrn Not Detected Ur Amphetamines Screen Not Detected U Benzodiazepines Scrn Not Detected Urine Cocaine Screen Not Detected U Marijuana (THC) Screen Not Detected Assessment & Plan Assessment & Plan (1) Bipolar disorder, current episode depressed, moderate: Status: Acute Code(s): F31.32 - Bipolar disorder, current episode depressed, moderate (2) ADHD: Status: Acute Code(s): F90.9 - Attention-deficit hyperactivity disorder, unspecified type (3) Polysubstance dependence including opioid type drug with complication, episodic abuse: Status: Acute Code(s): F19.20 - Other psychoactive substance dependence, uncomplicated (4) Cocaine use disorder: Status: Acute Code(s): F14.10 - Cocaine abuse, uncomplicated Assessment and Plan: in early remission (5) PCP (phencyclidine) abuse: Status: Acute Code(s): F16.10 - Hallucinogen abuse, uncomplicated Assessment and Plan: early remission Plan continue IOP start Adderall XR 5-15 mg qam, (pt is on Wellbutrin so this should be supprting her cognition and helping with ADHD) continue lithium 600 mg BID cont guanfacine ER 2 mg in QAM cont guanfacine ER 1 mg QD cont Wellbutrin XL 300 mg qam cont Seroquel 300 mg qhs add Seroquel 100 mg bid prn agitation, insomnia cont gabapentin 400 mg TID cont amantadine 100 mg qhs cont trazodone 50 mg qhs cont amlodipine 10 mg qhs hold lisinopril - patient has been running normotensive without lisinopril since addition of guanfacine - will follow-up with PCP to see if lisinopril needed cont vitamin D3 qd cont albuterol inhaler prn Routine lab work as indicated EKG, routine for baseline QTc for medication considerations as indicated UDS as indicated MassPat reviewed Continue to monitor I certify that the patient needs IOP Services for a minimum of 9 hours per week of therapeutic services. I certify the patient is experiencing symptoms of such intensity that they are unable to be safely treated in a less intensive setting and would otherwise require admission to a more intensive level of care. Patient educated on: diagnosis, medication risk/benefits, substance abuse and medical condition Informed Consent: understands Reason for contiued partial hosp. stay Substantial Risk for: med/psych decompensation Certification I certify that the patient needs IOP Services for a minimum of 9 hours per week of therapeutic services. I certify the patient is experiencing symptoms of such intensity that they are unable to be safely treated in a less intensive setting and would otherwise require admission to a more intensive level of care. Total time managing care of this patient today __30__ minutes. Discharge Plan Discharge Attending provider: Tamera Wheeler Medications: New melatonin 10 mg tablet 10 mg PO BEDTIME PRN (Reason: sleep) Qty: 30 0RF dextroamphetamine-amphetamine [Adderall XR] 15 mg capsule,extended release 24hr 15 mg PO QAM Qty: 14 0RF Rx Instructions: Partial Fill upon patient request. For ADHD lithium carbonate 600 mg capsule 600 mg PO BID Qty: 60 0RF quetiapine 100 mg tablet 100 mg PO BID PRN (Reason: agitation, sleep) Qty: 30 0RF dextroamphetamine-amphetamine 10 mg tablet 5 - 10 mg PO DAILY Qty: 14 0RF Rx Instructions: Partial Fill upon patient request. For ADHD naloxone [Narcan] 4 mg/actuation spray,non-aerosol 1 spray intranasal Q2M Qty: 2 0RF Rx Instructions: spray 1 dose into ONE nostril; alternate nostrils w each dose until help arrives Continued cholecalciferol (vitamin D3) 50 mcg (2,000 unit) tablet 50 mcg PO DAILY Qty: 90 0RF bupropion HCl 300 mg tablet extended release 24 hr 300 mg PO DAILY 30 Days Qty: 30 0RF gabapentin 400 mg capsule 400 mg PO TID 30 Days Qty: 90 2RF Patient Comments: Patient stated she is taking 400 mg at night only as it makes her feel too drowsy during the day. amlodipine 10 mg tablet 10 mg PO BEDTIME 90 Days Qty: 90 0RF cetirizine [All Day Allergy (cetirizine)] 10 mg tablet 10 mg PO DAILY PRN (Reason: allergy symptoms) 90 Days Qty: 90 0RF melatonin 10 mg capsule 10 mg PO BEDTIME 30 Days Qty: 30 0RF amantadine HCl 100 mg tablet 100 mg PO BEDTIME Qty: 30 0RF Rx Instructions: Patient stated she is taking 1/2 a tab daily. trazodone 50 mg Tablet 50 mg PO BEDTIME PRN (Reason: insomnia) 14 Days Qty: 14 0RF quetiapine 300 mg Tablet 300 mg PO BEDTIME 30 Days Qty: 30 0RF albuterol sulfate 90 mcg/actuation HFA aerosol inhaler 2 puff inhalation Q6H PRN (Reason: for wheezing) 30 Days Qty: 8.5 3RF guanfacine 2 mg tablet extended release 24 hr 2 mg PO QAM Qty: 30 0RF guanfacine 1 mg tablet extended release 24 hr 1 mg PO DAILY Qty: 30 0RF Rx Instructions: Patient stated she takes in the afternoon. docusate sodium 100 mg capsule 100 mg PO DAILY PRN (Reason: constipation) Qty: 30 0RF Changed lithium carbonate 300 mg Tablet See Rx Instructions .ROUTE .COMPLEX 30 Days Qty: 90 0RF Rx Instructions: Take 1 tab po qam and 2 tabs po qhs Held lisinopril 10 mg tablet 10 mg PO BEDTIME 90 Days Qty: 90 1RF Hold Instructions: Resume on 10/06/25. f/u with PCP Rx Instructions: Patient stated she no longer takes this medicaton. Discontinued doxycycline hyclate 100 mg tablet 100 mg PO BID Qty: 28 0RF No Action Triple Antibiotic 3.5mg-400 unit- 5,000 unit/gram ointment 1 appl topical BID Qty: 14 1RF Stand Alone Forms: Patient Portal Discharge page Patient Education: ADHD in Adults (ED), ADHD in Adults (DC), Bipolar Disorder (ED), Bipolar Disorder (DC) Print Language: Ukrainian
[2025-09-16 08:10] LABS: Cannabinoid Screen Urine Not Detected (Not Detect)
--- NOTE | 2025-09-17 12:02 | HO.PHPPROGNO ---
Subjective Subjective Date of Service: 09/17/25 Reason For Visit: anxiety Interim History: Patient seen for follow-up, anticipating discharge at the end of program today.? Doing really good Patient reports feeling good on [place], I feel like this is the first time in a long time I am stable. She presents as remarkably more calm and grounded on ADHD medication. Improved organization of thoughts, less loud, animated, better reciprocity. Improved insight, recognizes she is less impulsive and better able to clarify and articulate her thoughts. Has been having really good conversations with her daughter and has been very moved by the positive feedback she has been getting from her daughter, her family and from staff and other patients in groups. She denies any urges or cravings to use and relays being committed to her recovery, stating I'm realizing I almost . I got very very aguilar. If I use again, I will . Reports no other acute issues or concerns. Medication compliant, medications well-tolerated. Denies any adverse effects.? Mood is stable.? Denies any hopelessness or SI. Denies thoughts of harming self or others at this time. Denies any aggressive ideation or HI. Denies any paranoia or AH or VH. Sleep, appetite, energy stable. Mental Status Exam Mental Status Exam Narrative: Alert, oriented, in no acute distress. Calm, cooperative. Mood euthymic, affect bright, appropriate. Speech normal. Thought process linear, coherent, more goal-directed. Thought content related to stressors, future-oriented, denies any helplessness, hopelessness or SI.? No aggressive ideation or HI. No paranoia or delusional content elicited. No evidence of psychosis. Insight and judgment fair-good. Diagnostics Vital Signs (24Hr): BMI result Body Mass Index 25.9 Labs Labs: Laboratory Results - last 48 hr 09/15/25 12:25 Urine Opiates Screen Not Detected Ur Buprenorphine Scrn Not Detected Ur Oxycodone Screen Not Detected Urine Methadone Screen Not Detected Urine Fentanyl Screen Not Detected Ur Barbiturates Screen Not Detected Ur Phencyclidine Scrn Not Detected Ur Amphetamines Screen Not Detected U Benzodiazepines Scrn Not Detected Urine Cocaine Screen Not Detected U Marijuana (THC) Screen Not Detected Assessment & Plan Assessment & Plan (1) Bipolar disorder, current episode depressed, moderate: Status: Acute Code(s): F31.32 - Bipolar disorder, current episode depressed, moderate (2) ADHD: Status: Acute Code(s): F90.9 - Attention-deficit hyperactivity disorder, unspecified type (3) Cocaine use disorder: Status: Acute Code(s): F14.10 - Cocaine abuse, uncomplicated Assessment and Plan: in early remission (4) PCP (phencyclidine) abuse: Status: Acute Code(s): F16.10 - Hallucinogen abuse, uncomplicated Assessment and Plan: early remission Plan Discharge from [facility] Continue regular medications? Adderall XR 15 mg qam (limit to <5-6 days/week) Adderall IR 5 qd-bid in afternoon <5 days/week) guanfacine ER 2 mg in QAM and 1 mg QD Wellbutrin XL 300 mg qam lithium 600 mg BID Seroquel 300 mg qhs add Seroquel 100 mg bid prn agitation, insomnia gabapentin 400 mg TID amantadine 100 mg qhs amlodipine 10 mg qhs hold lisinopril - patient has been running normotensive without lisinopril since addition of guanfacine - will follow-up with PCP to see if lisinopril needed Refills sent to pharmacy Will defer further medication management to outpatient provider *Safety plan reviewed *Discharge diagnoses, treatment course, discharge plan have been reviewed with patient (including medication regime, medication management, potential side effects) as well as treatment rationale were also revisited *Discharge paperwork signed and given to patient, copy sent for scanning to chart Patient educated on: diagnosis, medication risk/benefits and substance abuse Informed Consent: understands Reason for contiued partial hosp. stay Substantial Risk for: stable for discharge Certification I certify that partial hospital treatment is medically necessary due to the symptoms and problems resulting from the patient's mental illness and the failure to treat the patient at the partial hospital level of care would likely result in the patient requiring inpatient psychiatric care which could not be prevented at a less intensive level of care. Total time managing care of this patient today _40___ minutes. Discharge Plan Discharge Attending provider: Tamera Wheeler Medications: New melatonin 10 mg tablet 10 mg PO BEDTIME PRN (Reason: sleep) Qty: 30 0RF dextroamphetamine-amphetamine [Adderall XR] 15 mg capsule,extended release 24hr 15 mg PO QAM Qty: 14 0RF Rx Instructions: Partial Fill upon patient request. For ADHD lithium carbonate 600 mg capsule 600 mg PO BID Qty: 60 0RF quetiapine 100 mg tablet 100 mg PO BID PRN (Reason: agitation, sleep) Qty: 30 0RF dextroamphetamine-amphetamine 10 mg tablet 5 - 10 mg PO DAILY Qty: 14 0RF Rx Instructions: Partial Fill upon patient request. For ADHD naloxone [Narcan] 4 mg/actuation spray,non-aerosol 1 spray intranasal Q2M Qty: 2 0RF Rx Instructions: spray 1 dose into ONE nostril; alternate nostrils w each dose until help arrives Continued cholecalciferol (vitamin D3) 50 mcg (2,000 unit) tablet 50 mcg PO DAILY Qty: 90 0RF bupropion HCl 300 mg tablet extended release 24 hr 300 mg PO DAILY 30 Days Qty: 30 0RF gabapentin 400 mg capsule 400 mg PO TID 30 Days Qty: 90 2RF Patient Comments: Patient stated she is taking 400 mg at night only as it makes her feel too drowsy during the day. amlodipine 10 mg tablet 10 mg PO BEDTIME 90 Days Qty: 90 0RF cetirizine [All Day Allergy (cetirizine)] 10 mg tablet 10 mg PO DAILY PRN (Reason: allergy symptoms) 90 Days Qty: 90 0RF melatonin 10 mg capsule 10 mg PO BEDTIME 30 Days Qty: 30 0RF amantadine HCl 100 mg tablet 100 mg PO BEDTIME Qty: 30 0RF Rx Instructions: Patient stated she is taking 1/2 a tab daily. trazodone 50 mg Tablet 50 mg PO BEDTIME PRN (Reason: insomnia) 14 Days Qty: 14 0RF quetiapine 300 mg Tablet 300 mg PO BEDTIME 30 Days Qty: 30 0RF albuterol sulfate 90 mcg/actuation HFA aerosol inhaler 2 puff inhalation Q6H PRN (Reason: for wheezing) 30 Days Qty: 8.5 3RF guanfacine 2 mg tablet extended release 24 hr 2 mg PO QAM Qty: 30 0RF guanfacine 1 mg tablet extended release 24 hr 1 mg PO DAILY Qty: 30 0RF Rx Instructions: Patient stated she takes in the afternoon. docusate sodium 100 mg capsule 100 mg PO DAILY PRN (Reason: constipation) Qty: 30 0RF Changed lithium carbonate 300 mg Tablet See Rx Instructions .ROUTE .COMPLEX 30 Days Qty: 90 0RF Rx Instructions: Take 1 tab po qam and 2 tabs po qhs Held lisinopril 10 mg tablet 10 mg PO BEDTIME 90 Days Qty: 90 1RF Hold Instructions: Resume on 10/06/25. f/u with PCP Rx Instructions: Patient stated she no longer takes this medicaton. Discontinued doxycycline hyclate 100 mg tablet 100 mg PO BID Qty: 28 0RF No Action Triple Antibiotic 3.5mg-400 unit- 5,000 unit/gram ointment 1 appl topical BID Qty: 14 1RF Stand Alone Forms: Patient Portal Discharge page Patient Education: ADHD in Adults (ED), ADHD in Adults (DC), Bipolar Disorder (ED), Bipolar Disorder (DC) Print Language: French
== END 2025-09-17 23:59 | disposition home or self-care (01) ==
LOC: HO.IOP 09:15
PROVIDERS: Visit Provider Psychiatry & Neurology Psychiatry
DX: F31.32 Bipolar disorder, current episode depressed, moderate (principal); F41.1 Generalized anxiety disorder; F90.9 Attention-deficit hyperactivity disorder, unspecified type; F14.20 Cocaine dependence, uncomplicated; F16.10 Hallucinogen abuse, uncomplicated; Z79.899 Other long term (current) drug therapy
CPT/HCPCS: 80307; 90791; S9480

== ENCOUNTER → 2025-09-17 09:15 | Outpatient (BNV) | payer OTHER, SELFPAY | PROVIDERS: Visit Provider Psychiatry & Neurology Psychiatry | DX: F31.32 Bipolar disorder, current episode depressed, moderate (principal); F90.9 Attention-deficit hyperactivity disorder, unspecified type; F14.10 Cocaine abuse, uncomplicated; F16.10 Hallucinogen abuse, uncomplicated | CPT/HCPCS: 99214 ==

== ENCOUNTER 2025-11-22 17:01 | Outpatient (AMB) | payer OTHER, SELFPAY ==
[2025-11-22 17:03] VITALS: BP 132/70; PULSE 81; O2SAT 98; BMI 28.3
--- NOTE | 2025-11-22 17:03 | MHC.PC.OV ---
Vital Signs 11/22/25 17:03 Height 5 ft 1 in Weight 150 lb BMI 28.3 BP 132/70 Blood Pressure Location Lt brachial Position Sitting Pulse 81 Pulse Source Pulse Oximeter Pulse Oximetry (%) 98 Oxygen Delivery Method Room Air Intake Visit Reasons: Mucus & coughing Allergies No Known Allergies Allergy (Unknown, Verified 11/22/25 17:18) Medication List - Last Reconciled 11/22/25 by Yusef Paul MD albuterol sulfate 90 mcg/actuation 2 puffs inhalation Q6H PRN 30 days amantadine HCl 100 mg PO BEDTIME amlodipine 10 mg PO BEDTIME 90 days bupropion HCl XL 300 mg PO DAILY 30 days cetirizine (All Day Allergy (cetirizine)) 10 mg PO DAILY PRN 90 days cholecalciferol (vitamin D3) 50 mcg PO DAILY dextroamphetamine-amphetamine 10 mg 5 - 10 mg (0.5 - 1 x 10 mg) PO DAILY dextroamphetamine-amphetamine 15 mg ER (Adderall XR) 15 mg PO QAM docusate sodium 100 mg PO DAILY PRN gabapentin 400 mg PO TID 30 days guanfacine ER 2 mg PO QAM guanfacine ER 1 mg PO DAILY lisinopril 10 mg PO BEDTIME 90 days Held on 09/17/25. Instructions: Resume on 10/06/25. f/u with PCP lithium carbonate Take 1 tab po qam and 2 tabs po qhs 30 days lithium carbonate 600 mg PO BID melatonin 10 mg PO BEDTIME 30 days melatonin 10 mg PO BEDTIME PRN naloxone 4 mg/actuation (Narcan) 1 spray intranasal Q2M [id number] 3.5mg-400 unit- 5,000 unit/gram (Triple Antibiotic) 1 appl topical BID quetiapine 300 mg PO BEDTIME 30 days quetiapine 100 mg PO BID PRN trazodone 50 mg PO BEDTIME PRN 14 days Tobacco use date assessed: 08/30/25 Dental Screening Dental Screen Date: 01/07/25 HPI Mucus & coughing HPI Details Patient is a 40-year-old female presenting for evaluation of cough, mucus sensation, lethargy, and headache. Her symptoms began on , approximately five days ago. She reports a non-productive cough with a sensation of phlegm in her lungs, a slight headache that worsens with coughing, and lethargy. The patient denies fever, sore throat, pain with swallowing, and muscle aches. She reports that her voice became hoarse on the day of the visit. She has tried iedw-gpe-eoksdab Tylenol Cold and Flu and Theraflu, tea without relief. The patient has not received an influenza vaccine this season. She reports no allergies to medications and has tolerated penicillin in the past. [facility] Medical History HTN (hypertension) Overdose Anemia Family history of anesthesia complication Anemia Heartburn Bipolar disorder RLS (restless legs syndrome) ADHD (attention deficit hyperactivity disorder) Anxiety Depression Opioid dependence, uncomplicated Cocaine dependence, uncomplicated Exercise-induced asthma Surgical History History of surgery (06/18/24) History of History of root canal procedure History of wisdom tooth extraction Hx of cholecystectomy Family History Family/Other Mental health disorder Mother Hypertension Father Hypertension Social History Household Members: None Household Members Other:: One dog Housing: Apartment Are you a primary animal caretaker to a significant other at home: No Do you presently have visiting nurse or other home services: No Alcohol intake: current Alcohol intake frequency: a few times a week Alcohol type: hard liquor Comment: QUINTON 07/30/25 Patient Tobacco Use Status: Never used Tobacco Tobacco use type: Cigarette e-Cigarette/Vaping Use: Never Used Second Hand Smoke Exposure: No Substance Use Type: Amphetamines and Heroin service: No Current occupational status: unemployed Sexual orientation: Straight/Heterosexual Cognitive needs: No Hearing needs: No Vision needs: No Questionnaire Thrive Questionnaire Date Thrive assessed: 08/30/25 I am a: Patient What is your living situation today?: I have a steady place to live Within the past 12 months, did the food you bought not last and you didn't have the money to get more?: Sometimes True Within the past 12 months, did you worry whether your food would run out before you got money to buy more?: Sometimes True Do you have trouble paying for medicines?: No Do you have trouble getting transportation to medical appointments?: No Do you have trouble paying your heating and electricity bill?: I choose not to answer this question Do you have trouble taking care of your child, family member or friend?: I choose not to answer this question Do you have trouble with day-to-day activities such as bathing, preparing meals, shopping, managing finances, etc.?: I choose not to answer this question Are you currently unemployed and looking for a job?: I choose not to answer this question Are you interested in more education?: No Currently or been in a relationship where the following occur: I choose not to answer THRIVE Score: 2 LULU-7 AMB Questionnaire LULU-7 Date LULU - 7 assessed: 01/07/25 Source: Developed by Drs. Bryan Chisholm, Mary Ascencio, Jose Hogan and colleagues, with an educational jose from [employer]. Review of Systems Const Denies chills, Reports fatigue, Denies fever(s), Reports headache(s) (on and off - worse when coughing) and Reports malaise ENT Denies dysphagia, Denies dizziness, Denies otalgia, Reports headache(s) (on and off - worse when coughing), Reports nasal congestion, Denies odynophagia and Denies sore throat Card Denies chest pain, Denies palpitations and Denies dyspnea Resp Denies chest congestion (but c/o recurrent sensation of 'mucus in her chest'), Reports cough (recurrent, worse in the morning), Denies dyspnea and Denies wheezing GI Denies abdominal pain, Denies constipation, Denies dysphagia, Denies heartburn, Denies diarrhea and Denies odynophagia Denies difficulty voiding, Denies nocturia and Denies dysuria Musc Denies back pain Skin/Breast Denies rash Neuro Denies dizziness and Reports headache(s) (on and off - worse when coughing) Endo Reports fatigue and Denies palpitations Aller/Immun Denies wheezing Physical exam (Primary Care) Vital Signs: Last Vital Signs Pulse 81 11/22/25 17:03 BP 132/70 11/22/25 17:03 Pulse Ox 98 11/22/25 17:03 Oxygen Delivery Method Room Air 11/22/25 17:03 BMI result Body Mass Index 28.3 Tobacco/Smoking Status: Tobacco use Status Tobacco use date assessed 08/30/25 11/22/25 17:07 Patient Tobacco Use Status Never used Tobacco 11/22/25 17:07 Tobacco use type Cigarette 11/22/25 17:07 e-Cigarette/Vaping Use Never Used 11/22/25 17:07 Thrive Assessment: Date of Thrive Assessment Date Thrive assessed 08/30/25 11/22/25 17:07 Currently or been in a relationship where the following occur: I choose not to answer Const General: no acute distress and alert HENMT Ears: TM's normal bilaterally and EAC's normal Throat: Yes posterior oropharynx normal and Yes tonsils normal (no TP congestion noted) Neck Neck: Yes supple and No lymphadenopathy Thyroid: Thyroid normal Resp Auscultation: no crackles, no rales, rhonchi (slightly diminished breath sounds with occasional rhonchi bilaterally) and no wheezes Cardio Rate: regular rate Rhythm: regular rhythm Heart sounds: no murmurs GI Palpation (GI): Soft to palpation and nontender Auscultation: normal bowel sounds General: Yes no CVA tenderness Back/Spine/Pelvis Back: no CVA tenderness Thoracic/Lumbar Spine: No lumbar spinal tenderness Skin Rashes: no rashes Extrem General: Yes no clubbing, cyanosis or edema Coding Level of Care Code Est Pt Level 3 (39591) Diagnoses Respiratory tract infection J98.8 Assessment & Plan Assessment & Plan (1) Respiratory tract infection: Code(s): J98.8 - Other specified respiratory disorders Category: Medical Plan: Will start patient on Amoxicillin 500 mg Q 8 hours x 7 days Have advised patient that she can continue with OTC cough/cold meds PRN for symptomatic relief Plan To return as scheduled in December 2025 for her annual physical examination with her PCP (Dr. Diaz) Medications: New amoxicillin 500 mg PO Q8H 21 caps 0RF 7 days
--- OUTSIDE RECORDS SUMMARY | 2025-11-22 18:06 | XMS_ITS | Encounter Summary ---
Author Organization [employer] Address [address] [place] [address] Care Team Providers Care Manager Program Management Name Role Phone Unavailable Primary Care Provider Unavailabl e Reason for Visit * Reason Onset Date Comments Dental Pain 04/17/2023 Encounter Details Date Type Department Care Team (Late st Contact Info) Description 04/17/2023 Telephone [facility] ADULT [facility] [address] [place] [address] Byron Rodrigues DMD [address] [place], [place] [id number] Dental Pain Social History Tobacco Use Types [...] - 04/23/2023 8:45 AM EDT Spoke with [facility] because patient called in again stating [...]
--- OUTSIDE RECORDS SUMMARY | 2025-11-22 18:06 | XMS_ITS | Clinical Summary ---
Author Organization [facility] Address [address] [place] [id number] Phone Care Team Providers Care Conference Coordinator Name Role Phone Unavailable Primary Care Provider Unavailabl e Immunizations Immunization Administration Dates Next Due DTP 05/06/1990,,05/12/1985,1984,1984 Hep B, ped/adol 08/04/1997,04/30/1997,03/30/1997 Hib (HbOC) 04/02/1988 MMR 03/30/1997,01/05/1986 OPV 05/06/1990, 6,03/02/1985,1984 [facility] 5 Lf t etanus toxoid, PF, [...]
--- OUTSIDE RECORDS SUMMARY | 2025-11-22 18:06 | XMS_ITS | Encounter Summary ---
Author Organization [employer] Address [address] [facility] [address] [place] [address] Care Team Providers Care Etl Programmer Name Role Phone Unavailable Primary Care Provider Unavailabl e Reason for Visit * Reason Comments Med Refill Encounter Details Date Type Department Care Team (Late st Contact Info) Description 02/12/2023 Refill [facility] ADULT DENTAL [address] [place] [address] Eloy Milan DMD [address] [place] [address] Dental abscess Social History Tobacco Use Types [...]
--- OUTSIDE RECORDS SUMMARY | 2025-11-22 18:06 | XMS_ITS | Encounter Summary ---
Author Organization [employer] Address [address] [place] [address] Care Team Providers Care Fire Support Specialist Name Role Phone Unavailable Primary Care Provider Unavailabl e Encounter Details Date Type Department Care Team (Late st Contact Info) Description 03/29/2023 Abstract [facility] ADULT D[facility]AL [address] [facility] [place] [address] Byron Rodrigues DMD [address] [place] [address] Social History Tobacco Use Types Packs/Day Years [...]
--- OUTSIDE RECORDS SUMMARY | 2025-11-22 18:06 | XMS_ITS | Encounter Summary ---
Author Organization [employer] Address [address] [facility] [address] [place] [address] Care Team Providers Care Faucet Polisher Name Role Phone Unavailable Primary Care Provider Unavailabl e Reason for Visit * Reason Comments Med Refill Encounter Details Date Type Department Care Team (Late st Contact Info) Description 04/24/2023 Refill [facility] ADULT DENTAL [address] [facility] [place] [address] Eloy Milan, DEEP [address] [place] [address] Dental abscess Social History Tobacco Use Types [...]
--- OUTSIDE RECORDS SUMMARY | 2025-11-22 18:06 | XMS_ITS | Clinical Summary ---
Author Organization [employer] Address [address] [facility] [address] [place] [address] Care Team Providers Care Inspector Welded Parts Name Role Phone Unavailable Primary Care Provider Unavailabl e Allergies No known active allergies Medications Sod Fluoride-Potass ium Nitrate 1.1-5 % pasteIndication s:Dental caries [place] teeth morning and night for 2 minutes. Spit, do not rinse. Do not eat or drink anything for 30 minutes following brushing. 112 g 3 3 Active Additional Information Patient not taking.Reported on 10/23/2023 Sodium Fluoride (Sodium Fluoride 5000 Plus) 1.1 % creamIndication s:Dental caries [place] teeth for 2 minutes, morning and night. [...] 1984 HIV Screening 1984 SDOH Screening 1984 Disability Screening [...] Completed 08/04/1997, 04/30/1997, 03/30/1997, Additional history exists Hepatitis A Vaccines Aged Out No long [...] Most Recently Relevant to Health Maintenance Insurance [facility] MEDICAID STAND ADULT
--- OUTSIDE RECORDS SUMMARY | 2025-11-22 18:06 | XMS_ITS | Encounter Summary ---
Author Organization [employer] Address [address] [facility] [address] [place] [address] Care Team Providers Care Replenishment Merchandising Associate Name Role Phone Unavailable Primary Care Provider Unavailabl e Reason for Visit * Reason Comments Med Refill Encounter Details Date Type Department Care Team (Late st Contact Info) Description 05/20/2023 Refill [facility] ADULT DENTAL [address] [place] [address] Eloy Milan DMD [address] [place] [address] Dental abscess Social History Tobacco Use Types [...]
--- OUTSIDE RECORDS SUMMARY | 2025-11-22 18:06 | XMS_ITS | Clinical Summary ---
Author Organization [facility] Address [address] [place] [address] Care Team Providers Care Senior [employer] Net Developer Name Role Phone Unknown Primary Care Provider [phone] Allergies No known active allergies Medications * [...] of 3 - 19+ 3-dose series) 2003 Pap Smear (Ages 21-65) 2005 Mammogram 2024 Influenza Vaccine 06/25/2025 COVID-19 Vaccine (1 - 2024-2 6 season) 2025 HIV Screening Completed 04/20/2018 Hepatitis C Virus Screening Completed 04/20/2018 HPV Vaccines (No Doses Required) Completed Pneumococcal Vaccine: Pediat rob (0-5 Years) and At-Risk Patients (6 to 49 Years) Aged Out No longer eligible b ased on patient's age to complete this topic [...] test by nucleic acid amplification. Performed at [facility], [place], [place] License 0385 CLIA [id number] Blood specimen (specimen) Blood specimen / Unknown 04/20/2018 2:00 AM EDT 04/20/2018 2:14 AM EDT us Joi Dowell MD LAB BLOOD ORDERABLES Final Resu lt HOSPITAL LAB * Hepatitis C Virus (HCV) Antibody (04/20/2018 2:00 AM EDT) Hepatitis C Antibody 0.11 0.00 - 0.79 S/CO ratio HOSPITAL LAB Comment: Nonreactive Performed at [facility], [place], [place] License 0385 CLIA [id number] Blood specimen (specimen) Blood specimen / Unknown 04/20/2018 2:00 AM EDT 04/20/2018 2:14 AM EDT Joi Dowell MD LAB BLOOD ORDERABLES Final Resu lt HOSPITAL LAB from Last 3 Months or Most Recently Relevant to Health Maintenance Insurance MEDICAID OUT OF STATE [facility] [address] [place] [address] MEDICAID OUT OF STATE [facility] Advance Directives * Full Code (Latest Code Status on File) Date Activated Date Inactivated Comments 05/01/2018 4:35 PM Question Answer Comments Decision Thoroughly Discussed with: Patient * Full Code Date Activated Date Inactivated Comments 04/19/2018 12:18 AM 05/01/2018 2:25 PM Care Teams Senior [employer] Net Developer Relationship Specialty Start Date End Date Unknown Unknow Provider Address PCP - General 04/19/18
--- OUTSIDE RECORDS SUMMARY | 2025-11-22 18:06 | XMS_ITS | Encounter Summary ---
Author Organization [employer] Address [address] [facility] [address] [place] [address] Care Team Providers Care Call Center Team Leader Name Role Phone Unavailable Primary Care Provider Unavailabl e Reason for Visit * Reason Comments Med Refill Encounter Details Date Type Department Care Team (Late st Contact Info) Description 02/26/2023 Refill [facility] ADULT DENTAL [address] [place] [address] Eloy Milan DMD [address] [place] [address] Dental abscess Social History Tobacco Use Types [...]
== END 2025-11-22 17:24 | disposition home or self-care (01) ==
LOC: HO.HMCH 17:02
PROVIDERS: PCP Internal Medicine; Visit Provider Internal Medicine
DX: J98.8 Other specified respiratory disorders (principal)

== ENCOUNTER → 2025-11-22 17:01 | Outpatient (BNVA) | payer OTHER, SELFPAY | PROVIDERS: PCP Internal Medicine; Visit Provider Internal Medicine | DX: J98.8 Other specified respiratory disorders (principal) | CPT/HCPCS: 99212 ==